=== PATIENT | male | born 1955 | race Caucasian/White ===

== ENCOUNTER → 2019-07-04 | Outpatient (CLI) | payer BC, SELFPAY ==
[2018-06-23 15:13] VITALS: BMI 28.5
[2019-07-04 14:57] LABS: AST(SGOT) 18 U/L (15-37); Alanine Aminotransfer ALT/SGPT 32 U/L (16-61); Albumin, Serum 3.8 g/dL (3.2-5.0); Alkaline Phosphatase 80 U/L (45-117); Bilirubin, Direct 0.16 mg/dL (0.00-0.30); Cholesterol 236 mg/dL (200); Globulin 3.4 g/dL (2.2-4.2); High Density Lipoprotein 38 mg/dL; Protein, Total 7.2 g/dL (6.4-8.2); Triglycerides 211 mg/dL; Very Low Density Lipoprotein 42 mg/dL (5-40)
== END | disposition home or self-care (01) ==
LOC: LAB 13:02
PROVIDERS: Referring Provider Nurse Practitioner Family; Visit Provider Nurse Practitioner Family
DX: E78.5 Hyperlipidemia, unspecified (principal)
CPT/HCPCS: 36415; 80061; 80076

== ENCOUNTER → 2019-08-26 12:06 | Outpatient (CLI) | payer BC, SELFPAY ==
[2019-07-06 15:16] VITALS: BMI 28.5
[2019-08-26 13:14] LABS: AST(SGOT) 36 U/L (15-37); Alanine Aminotransfer ALT/SGPT 79 U/L (16-61); Albumin, Serum 3.7 g/dL (3.2-5.0); Alkaline Phosphatase 91 U/L (45-117); Bilirubin, Direct 0.15 mg/dL (0.00-0.30); Cholesterol 149 mg/dL (200); Globulin 3.1 g/dL (2.2-4.2); High Density Lipoprotein 34 mg/dL; Protein, Total 6.8 g/dL (6.4-8.2); Triglycerides 115 mg/dL; Very Low Density Lipoprotein 23 mg/dL (5-40)
== END ==
PROVIDERS: Referring Provider Internal Medicine Cardiovascular Disease; Visit Provider Internal Medicine Cardiovascular Disease
DX: E78.00 Pure hypercholesterolemia, unspecified (principal); I25.10 Atherosclerotic heart disease of native coronary artery without angina pectoris; E78.5 Hyperlipidemia, unspecified; Z95.5 Presence of coronary angioplasty implant and graft
CPT/HCPCS: 36415; 80061; 80076

== ENCOUNTER 2021-10-15 13:44 | Outpatient (CLI) | payer BC, SELFPAY | END 2021-10-15 23:59 | disposition short-term general hospital (02) | LOC: PAVLAB 13:46 | PROVIDERS: Referring Provider Physician Assistant Medical; Visit Provider Physician Assistant Medical | DX: R07.9 Chest pain, unspecified (principal); Z98.61 Coronary angioplasty status; E78.5 Hyperlipidemia, unspecified ==

== ENCOUNTER 2021-10-22 13:34 | Observation (INO) | payer BC, SELFPAY ==
[2021-10-15 14:00] LABS: Absolute Lymphocyte Count 2.32 X10^3/uL (0.83-4.51); Basophil# 0.04 X10^3/uL; Basophil% 0.5 % (0-1); Eosinophil# 0.28 X10^3/uL; Eosinophils% 3.3 % (0-5); Hematocrit 40.8 % (40-54); Lymphocyte # 2.32 X10^3/ul (0.83-4.51); Lymphocyte % 27.3 % (19-41); Mean Corp Hgb Conc 34.3 g/dL (32-36); Mean Corpuscular Hgb 29.9 pg (27.0-32.0); Mean Platelet Vol. 9.6 fl (6.2-12.0); Monocyte# 0.81 X10^3/uL; Monocyte% 9.5 % (0-10); NRBC Flagged by Analyzer 0 % (0-5); Neutrophil # 5.04 X10^3/uL (2.7-7.7); Neutrophil % 59.2 % (47-70); Platelet Count 203 K/mm3 (150-450); RBC Distribution Width CV 12.8 % (11.6-14.6); RBC Distribution Width SD 40.1 fl (35.1-43.9); Red Blood Count 4.69 M/mm3 (4.6-6.2); White Blood Count 8.5 K/mm3 (4.4-11.0)
[2021-10-15 14:08] LABS: Partial Thromboplast Time 30.1 Seconds (24.1-36.2); Prothrombin Time (Protime)PT. 12.6 SECONDS (11.7-14.9)
--- NOTE | 2021-10-15 14:14 | RAD_ITS ---
STUDY: X-RAY CHEST REASON FOR EXAM: Male, 65 years old. CP TECHNIQUE: PA and lateral views of the chest. COMPARISON: Comparison is made with prior study dated 07/05/2013. FINDINGS: The lungs are clear and expanded. There is no demonstrated pleural abnormality. Normal size heart. Normal mediastinum and alex. Normal visualized pulmonary arteries. Normal visualized aortic arch and descending thoracic aorta. There are diffuse degenerative changes of the visualized thoracic spine. Normal visualized ribs, clavicles, and shoulders. There is no demonstrated abnormality of the visualized soft tissue structures of the upper abdomen. RAD/Chest PA and Lateral IMPRESSION: No acute abnormality is seen. Electronically Signed: Josh Santos MD at 15:30 EST , Service support ,
[2021-10-15 14:22] LABS: Anion Gap 5 (5-15); BUN 16 mg/dL (7-18); BUN/Creat Ratio 22.8 RATIO (10-20); Calcium,Total 8.3 mg/dL (8.5-10.1); Chloride 103 mmol/L (98-107); EST Glomerular Filtration Rate 120 mL/min (>60); Est Glom Filt Rate - Afr Amer 145 mL/min (>60); Glucose 127 mg/dL (74-106); Potassium 3.8 mmol/L (3.5-5.1); Sodium Level 137 mmol/L (136-145)
[2021-10-21 08:10] VITALS: BMI 28.0
--- NOTE | 2021-10-21 18:10 | PCM.HP.BLA ---
History and Physical Date of Admission: 10/22/21 [facility] [address] [place], [place] [id number] OFFICE VISITDate of Service: 09/25/21 MR#:[id number]:[id number]: STONEY PEACOCK [facility] #:[id number]:[id number] Provider: SHANNAN Orona/Sex: 65/M [place] [place]:Signed HPI HPI History of Present Illness Surgical H&P: Yes Details: STONEY PEACOCK, is a 65 year old white male who presents to the office today for for outpatient cardiovascular follow-up of his history of underlying CAD status post LAD PCI/KRYSTAL (2012) and hyperlipidemia. Pt is able to do 10 miles on the [employer] 3-4 days a week. He typically does 7-8 METS, When he works he walks 4 miles a week. Over the summer he took a few weeks off, He did have bronchitis. He notes that when he went back to doing his routine he feels that this took him longer to recover. He feels that his exercise tolerance has worsened. He notes when he gets usp into his routine he has chest pain, it does go away a closer to the end of his routine. His breathing is okay. He does not have any palpitations. Intake Vital Signs 09/25/21 09:10 Height 6 ft 2 in Weight: 218 lb BP 146/76 H Blood Pressure Location Lt brachial Position Sitting Respiration 18 Pulse 64 Pulse Source Monitor Pulse Oximetry (%) 98 Intake Visit Reasons: 1 Y FU Services Manager Required: No Accompanied by: None Is patient in pain?: No Allergies No Known Allergies Allergy (Verified 09/25/21 11:40) Medications aspirin 81 mg tablet,delayed release 81 mg PO QDAY 09/11/17 [History Confirmed 09/25/21] atorvastatin 40 mg tablet 40 mg PO DAILY #90 tab 05/14/21 [Rx Confirmed 09/25/21] clopidogrel 75 mg tablet 75 mg PO DAILY #30 tab 09/25/21 [Rx Confirmed 09/25/21] isosorbide mononitrate 30 mg tablet,extended release 24 hr 30 mg PO DAILY #30 tab 09/25/21 [Rx Confirmed 09/25/21] nitroglycerin 0.4 mg sublingual tablet 0.4 mg SUBLINGUAL Q5-15M PRN #25 tab 09/25/21 [Rx Confirmed 09/25/21] PFSH Medical History (Updated 09/25/21 @ 11:59 by Alyssa CAMPBELL, PA) Atherosclerotic heart disease of [place] coronary artery without angina pectoris Hyperlipidemia Surgical History (Updated 09/25/21 @ 11:59 by Alyssa CAMPBELL, PA) Presence of stent in coronary artery (~06/2013) S/P PTCA (percutaneous transluminal coronary angioplasty) (~07/2013) Family History Mother CAD (coronary artery disease) CHF (congestive heart failure) Father CAD (coronary artery disease) Cancer Brother Diabetes Social History (Updated 07/12/20 @ 15:[address] Michel Ybarra MD) Smoking Status: Unknown if ever smoked how long ago did patient quit smokin alcohol intake: current alcohol intake frequency: a few times a month Alcohol type: beer substance use type: does not use caffeine: Yes Type: tea what type of physical activity do you participate in: running frequency: 3-4 times per week duration: 30-45 minutes/day seatbelt use: always do you feel safe at home: Yes ROS Const Const: Positive for fatigue; Negative for weakness, headache(s), frequent falls, excessive sweating, weight gain or weight loss Eyes Eyes: Negative for blind spots, loss of peripheral vision, transient loss of vision, blurry vision, change in vision or double vision ENT ENT: Negative for headache(s), dizziness, tinnitus, Nosebleed/epistaxis or balance problems Cardio Chest Pain: Yes (see HPI) Palpitations: No Edema: None Muscle aches with walking: None Resp Respiratory: Negative for SOB with activity, SOB at rest, SOB orthopnea\SOB lying down or Cough GI GI: Negative nausea, vomiting, heartburn, bloating, vomiting blood/hematemesis, bright, red blood in stools or black,tarry stools : Negative for hematuria Musc Musc: Negative for muscle aches/ myalgia, muscle weakness, joint pain or balance problems Skin Skin: Negative rash or wounds Neuro Neuro: Negative for dizziness, lightheadedness, near syncope, syncope, orthostatic symptoms, frequent falls, headache(s), weakness, confusion, memory loss, restless legs, blurry vision or double vision Joe Hematologic/Lymphatic: Negative for easy bleeding or easy bruising Endo Endo: Positive for fatigue; Negative for cold intolerance, heat intolerance or excessive sweating Psych Psych: Negative for anxiety or depression Allergy Allergy/Immunology: Negative for rash Cardiology Exam Const Appearance: cooperative, healthy appearing, comfortable, no acute distress and well developed Orientation: alert, awake and oriented x3 Head Head: normal to inspection Ears: hearing grossly normal bilaterally Nose: external nose normal Face and Sinus: face symmetric Mouth: oral mucosae normal, lip normal and moist mucous membranes Eyes General: appearance normal, both eyes and all related structures Eyelids: eyelids normal Conjunctivae: conjunctivae normal Pupils: PERRL EOM: EOM intact bilaterally Neck Neck: normal visual inspection and trachea midline; Negative no JVD Carotids: Negative bruit Chest Chest inspection: normal inspection of the chest Auscultation: Bilateral: Clear to Auscultation Cardio Palpation: normal PMI Rate: regular rate Rhythm: regular rhythm Heart sounds: S1 normal and S2 normal; Negative rub, gallop or murmur GI GI: soft, no hepatosplenomegaly and bowel sounds present Neuro General: patient alert, patient awake, patient oriented x3 and CN's II-XI intact bilaterally Extremities Pulses: Normal: Right Posterior Tibial Pulse, Left Posterior Tibial Pulse, Right Radial Pulse and Left Radial Pulse Lower Extremity Edema: None: Bilateral Psych Psychological: normal affect Supplemental Info Supplemental Information EXERCISE TOLERANCE TEST: 07-06-2014 The patient exercised on a Salvador protocol for 7 minutes 45 seconds completing stage 2 and 1 minute 45 seconds of stage 3 achieving a peak heart rate of 173 beats per minute (106% predicted maximum heart rate) and a peak blood pressure of 176/70 mmHg and a peak MET capacity of approximately 9 METS. The baseline ECG demonstrated sinus bradycardia. The peak exercise ECG demonstrated somatic/motion artifact with [id number] ST segment variability with approximately 1 mm of horizontal/upsloping ST-segment depression in leads II, III, aVF, and V4 through V6 with resolution towards baseline beginning less than 1 minute into recovery. There were no cardiac dysrhythmias pretest, during exercise, or recovery. The functional capacity was considered average. The patient had no complaint of chest discomfort during exercise or recovery. The examination was discontinued secondary to dyspnea. IMPRESSION: 1. Technically adequate (percent predicted maximum heart rate greater than 85%) exercise tolerance test. 2. Peak exercise ECG with somatic/motion artifact with [id number] ST-segment variability with approximately 1 mm of horizontal/upsloping ST-segment depression in leads II, III, aVF and V4 through V6 with resolution towards baseline beginning less than 1 minute into recovery. 3. Nuclear images pending. MYOCARDIAL PERFUSION IMAGING STUDY: TECHNIQUE: The patient was injected with 14.4 mCi of Tc99m Cardiolite and subsequently rest SPECT Cardiolite nuclear imaging was obtained in the horizontal long, vertical long, and short axes views. The patient exercised on a [place] protocol for 7 minutes 45 seconds achieving a peak heart rate of 173 beats per minute (106% predicted maximum heart rate) with a peak blood pressure of 176/70 mmHg and a peak MET capacity of 9 METS. The patient was injected with 44.5 mCi of Tc99m Cardiolite and subsequently stress SPECT Cardiolite nuclear imaging was obtained in the horizontal long, vertical long, and short axes views. A gated Cardiolite study at peak stress was obtained. INTERPRETATION: Rest and stress SPECT Cardiolite nuclear imaging demonstrate an area, at rest, of extracardiac/hepatic and gastrointestinal tracer uptake near the inferior segments. This is less prominent following stress. Rest and stress SPECT Cardiolite nuclear imaging both demonstrate areas of diminished tracer uptake in the basal inferoseptal and basal inferior segments without significant change. Otherwise, there appears to be relative uniform tracer uptake. There was end systolic thickening and brightening. The gated Cardiolite study demonstrates myocardial thickening and inward wall motion. The reported LVEF was 58%. The aforementioned changes appear compatible with the effects of soft tissue attenuation/artifact and gastrointestinal tracer uptake/detraction with no myocardial perfusion changes considered diagnostic for stress induced myocardial ischemia or previous myocardial injury/infarction. IMPRESSION: 1. Rest and stress SPECT Cardiolite nuclear imaging demonstrate myocardial perfusion changes appearing compatible with the effects of soft tissue attenuation/artifact and gastrointestinal tracer uptake/detraction with no myocardial perfusion changes considered diagnostic for stress induced myocardial ischemia or previous myocardial injury/infarction. 2. The gated Cardiolite study reports an LVEF of 58%. Labs: LDL Cholesterol 92 mg/dL (0-130) HDL Cholesterol 34 mg/dL (40-) L Triglycerides 115 mg/dL (-199) VLDL Cholesterol 23 mg/dL (5-40) Diagnostics: Electrocardiogram Pulmonary: No Data to Display Assessment and Plan Assessment and Plan (1) Chest pain: Status: Acute (2) S/P PTCA (percutaneous transluminal coronary angioplasty): Status: Chronic Comment: PTCA with KRYSTAL to proximal LAD (3) Hyperlipidemia: Status: Chronic Qualifiers: Hyperlipidemia type: unspecified Qualified Code(s): E78.5 - Hyperlipidemia, unspecified Orders: Orders: 12 Lead EKG performed by BMS 09/25/21 R07.9, Z98.61, E78.5 12 Lead EKG performed by BMS 09/25/21 R07.9, Z98.61, E78.5 Left Heart Cath/COR/LV Percut 09/25/21 R07.9, Z98.61, E78.5 Basic Metabolic Profile (BMP) 09/25/21 R07.9, Z98.61, E78.5 Partial Thromboplast Time 09/25/21 R07.9, Z98.61, E78.5 Prothrombin Time w/INR 09/25/21 R07.9, Z98.61, E78.5 CBC W/Diff, Automated 09/25/21 R07.9, Z98.61, E78.5 Chest PA and Lateral 09/25/21 R07.9, Z98.61, E78.5 Plan - Alyssa CAMPBELL, PA: Patient does have symptoms that are concerning for angina. Do not feel that a stress test would be beneficial at this time to pursue as he is active and does try to achieve 7-8 METS daily however he is having symptoms when he is doing this. This is newer for patient since the last time that he was in the office. Would like to pursue a diagnostic heart catheterization. Patient is agreeable with this. So Plan Details Other Medications: New: isosorbide mononitrate ER 30 mg PO DAILY 30 tabs 6RF nitroglycerin (Nitrostat) do not exceed 3 doses per episode 0.4 mg sublingual Q5-15M PRN 25 tabs 3RF chest pain clopidogrel (Plavix) 75 mg PO DAILY 30 tabs 3RF Follow Up: 2 Months (MMM) COVID (Procedure Consent) Procedure Criteria Procedure Criteria: Yes Elective The surgeon/proceduralist and patient have discussed in detail the risk of exposure to and/or potential harm posed by the COVID-19 virus with having a surgery/procedure at this time versus the risk of delaying the surgery/procedure. It is not possible to know either the risk of delaying the surgery or procedure or chance of getting an infection with perfect accuracy, but a joint decision was made between the patient and the surgeon/proceduralist to proceed at this time with the scheduled surgery/procedure as indicated on the consent form. Coding Level of Care Code Off vis,est,level 4 Diagnoses Chest pain R07.9 S/P PTCA (percutaneous transluminal coronary angioplasty) Z98.61 Hyperlipidemia E78.5 Hyperlipidemia type: unspecified Coding Level of Care Code Off vis,est,level 4 Diagnoses Chest pain R07.9 S/P PTCA (percutaneous transluminal coronary angioplasty) Z98.61 Hyperlipidemia E78.5 Hyperlipidemia type: unspecified 10/02/21 1047<Electronically signed by Alyssa CAMPBELL>Date Alyssa CAMPBELL Cosigner Signature:Date (if applicable) CC: ~ Assessment & Plan Addt'l Comments Cardiac cath: 07/05/2013 Operative Report (Blank) Date of Procedure: 07/05/13 Procedure: Left heart catheterization, left ventriculogram, coronary arteriography Indications: Chest pain/angina pectoris, abnormal transthoracic echocardiogram, abnormal stress nuclear imaging study Consent: Per patient Premedications: Versed 2 mg IV push x1 Procedure: The patient was brought to the cardiac catheterization laboratory and laid supine on the cardiac catheterization table. The right inguinal area was prepped and draped in standard sterile fashion. 2% Xylocaine was used for local anesthesia. Using the modified Seldinger technique the right femoral artery was cannulated and a #5 [place] arterial sheath was placed. A #5 [place] JL4 Liset left coronary artery catheter was advanced under fluoroscopic guidance to the level of the central aorta were central aortic pressure was noted. This catheter was then used to engage the left coronary artery were subsequent left coronary arteriography was performed in multiple views. This catheter was then exchanged over a J-tipped guidewire for a #5 [place] JR 4 Liset left coronary artery catheter. This catheter was then danced to the level of the central aorta were central aortic pressure was noted. It was then used to engage the right coronary ostium where selective right coronary arteriography was performed in multiple views. This catheter was then exchanged over a J-tipped guidewire for a #5 [place] pigtail catheter. This catheter was advanced to the level of the central aorta and with the assistance of the J-tipped guidewire prolapsed across the aortic valve into the left ventricle. Left ventricular pressures were measured and recorded. A single plane STEPHEN left ventriculogram was performed using 36 mL of Isovue at 12 mL per second. Left ventricular pressures were recorded. The left heart pullback procedure was performed. All catheters were subsequently removed. The cardiac catheterization sheath was secured in place with 3-0 silk and sterile OpSite dressing. An arterial line set up as put in place. There was no apparent bleeding, hematoma, or complication otherwise prior to leaving the cardiac catheterization laboratory. Findings: Hemodynamics: Pre-angiographic dye load: Central aortic pressure: 124/70 mmHg Mean central pressure: 92 mmHg Left ventricular pressure: 137/12 mmHg Post-angiographic dye load: Central pressure: 142/71 mmHg Mean central pressure: 104 mmHg Left ventricular pressure: 142/13 mmHg Left ventricle: Normal left ventricular size with the appearance of mild hypokinesis of the distal anterior segment with an estimated post procedure LVEF of 60%. Left Main coronary artery: This is a large vessel giving rise to the left anterior descending, left circumflex, and intermediate ramus coronary vessels. It appears to be angiographically normal. Left anterior descending coronary artery: This is a large vessel which gives rise to a small septal adult basic education teacher system and a small to moderate size diagonal branching system. The LAD demonstrates a proximal discrete 90% appearing stenosis. The LAD is also noted to receive right to left collateral flow from the RCA system. Left circumflex coronary artery: This is a large system which continues on as a small vessel in the AV groove and gives rise to a large bifurcating obtuse marginal branch. The LCx system demonstrates proximal 10-25% eccentric appearing stenosis. Intermediate ramus coronary artery: This is a large vessel coursing toward the lateral apical area. It demonstrates proximal 10-25% diffuse appearing stenosis. Right coronary: This is a large dominant vessel giving rise to a large right PDA, right AV segment, and a small right posterior lateral system. The RCA system appears to be angiographically normal. It gives rise from right to left collateral flow to the LAD system. Aortic valve anus: Normal Aortic valve: Normal Aortic root: Normal Mitral valve annulus: Normal Mitral valve: Normal Discussion: The cardiac catheterization reveals relatively normal resting left ventricular end-diastolic pressure, mild hypokinesis of the distal anterior segment, and overall preserved LVEF of 60%, and angiographically significant appearing CAD involving the proximal LAD system. The patient will need to initiate risk factor evaluation and medical therapy as deemed appropriate. He should be considered for further catheter-based revascularization of the LAD system. The patient's case was discussed and reviewed with Rudi Knight M.D. of the interventional section of the [facility]. He agreed to accept the patient in transfer at [facility] for further cardiovascular evaluation and care. Final impression: 1. Relatively normal resting left ventricular end-diastolic pressure 2. Left ventricle: A. Mild hypokinesis of the distal anterior segment B. Estimated LVEF is 60% 3. Left main coronary: A. Angiographically normal 4. Left anterior descending coronary: A. Proximal discrete 90% appearing stenosis B. LAD receiving [id number] collateral flow from the RCA system 5. Left circumflex coronary artery: A. Proximal 10-25% eccentric appearing stenosis 6. Intermediate ramus coronary artery: A. Proximal 10-25% diffuse stenosis 7. Right coronary artery: A. Large dominant vessel B. Angiographically normal C. Right to left collateral flow to the LAD system PCI: 07/06/2013: [facility] Promus Element Plus: 4.0 x 8.0 Comment: Based upon the patient reporting an altered sense of taste he underwent a COVID19 Rapid Antigen test. It was reported as negative. Thus, the patient will proceed with evaluation with cardiac catheterization. This note was generated using a voice recognition system and there may be incorrect words, spelling or punctuation that were not noted when reviewing the office note prior to saving.
--- NOTE | 2021-10-22 11:55 | CL.D_ITS ---
Patient Name: STONEY PEACOCK Study Date: 10/22/2021 Performing: Michel Ybarra MD Ht: 74.01 inches 188 cm : 1955 Wt: 218.26 lbs 99 kg Age: 65 Gender: male BSA: 2.26 PROCEDURE(S) PERFORMED DC01-([id number])LHC/COR/LV CLINICAL PROFILE AND INDICATIONS Indications: Worsening Angina, Suspected CAD Heart Failure: None Stress/Imaging Stress/Image Study Performed: No Angina Classification Anginal Classification w/in 2 Weeks: CCS II CAD Presentations: Other: worsening angina CONCLUSIONS Elevated Left Ventricular End Diastolic Pressure Normal LV size, wall motion,and systolic function LVEF: by LV gram 55 % [place] Multivessel CAD LAD: stent: patent RECOMMENDATIONS Risk factor modification Medical therapy Referred for immediate PCI DESCRIPTION OF PROCEDURE The patient arrived to the procedure lab. The risks and benefits of the procedure as well as a full d escription of our services here and current unavailability of surgical backup were fully explained to the patient and/or their significant other prior to the catheterization. The Timeout was completed, verifying the correct patient and procedure. The patient's procedural site was prepped and draped in the usual fashion. Local anesthetic was given subcutaneously to right radial region with Lidocaine 2% . Using a modified Seldinger technique, arterial access was obtained via the right radial artery, a 6 Fr sheath was inserted. Right Coronary Artery selective angiography was then performed in multiple v iews using a 5 Fr. 4.0 [place] catheter. Left Coronary Artery selective angiography was performed in mu ltiple views using a 5 Fr. JL3.5 catheter. Left Ventriculography was performed in STEPHEN projection usin g a 5 Fr. Pigtail catheter. LV to AO pullback pressures were then recorded. CORONARY ANGIOGRAPHY DOMINANCE: Right Dominant LEFT HEART ASSESSMENT Left Ventricular Ejection Fraction: by LV Gram 55 % Normal LV wall motion Elevated Left Ventricular End Diastolic Pressure LVEDP: 19 mmHg LEFT MAIN: Angiographically normal LEFT ANTERIOR DESCENDING ARTERY: PROX LAD: Previously placed stent is patent CIRCUMFLEX ARTERY: PROX CIRC: eccentric: 25 % Stenosis RAMUS: lon % Stenosis RIGHT CORONARY ARTERY: Mild luminal irregularities less than 30% MID RCA: diffuse: eccentric: 25 % Stenosis DISTAL RCA: diffuse: eccentric: 25 % Stenosis AORTIC ROOT: Angiographically normal COMPLICATIONS PROCEDURE MEDICATIONS Fentanyl 50 mcg IV Versed 1 mg IV Fentanyl 50 mcg IV Versed 1 mg IV Oxygen: 2 L/min via nasal cannula Heparin given IA 10/22/2021 11:06:33 Plavix 300 mg PO 10/22/2021 11:42:04 Verapamil 2.5mg, Ntg 100mcgs, 3000 units of Heparin given IA 10/22/2021 11:06:33 SUMMARY OF HEMODYNAMIC DATA Time AIR REST ECG 09:54:54 ECG 10:45:28 Art 188/75 (102) 10:57:37 AO 116/79 (96) SA 11:08:45 LV 139/-8, 17 11:30:16 LV 142/-9, 19 11:30:23 LV 135/-6, 19 11:31:19 LV 140/-3, 18 11:31:25 LVp 135/-5, 19 11:31:30 AOp 122/63 (87) 11:31:35 AO 125/72 (94) 11:51:44 Signed By Michel Ybarra MD On 10/22/2021 11:54:09 Michel Ybarra MD
--- NOTE | 2021-10-22 13:03 | PCI.CARDCATH ---
PCI Cardiac Cath Report PCI Report: PCI cardiac cath report; 1. Successful PCI of subtotal high OM1 with predilatation followed by placement of drug-eluting stent 2.5 x 30 mm DSE/Orsiro Postdilated with 3 x 20 mm NC balloon. With reduction of stenosis from 99% to 0% And achievement of LANDY-3 flow from prior LANDY I flow. 2. Access from the right common femoral artery under fluoroscopic guidance With right common femoral artery angiography and placement of Perclose to close the right common femoral artery arteriotomy site. Preprocedure diagnosis; 65-year-old patient with history of CAD Has a prior PCI and stent of the LAD in 2016. Followed regularly by his primary power transformer assembler Dr. Ybarra Evidently he has worsened exercise tolerance he was very active and he used to exercise regularly walking for 4 miles per week. Cardiac catheterization performed today by his primary power transformer assembler which showed patency of the LAD stent with subtotal high OM1 branch, 99%, nonobstructive atherosclerosis of the RCA, LV function preserved with nuclear study recently showing ejection fraction of 58%. Consent; Risk and benefit of the procedure explained in detail to the patient, elected to proceed and informed consent obtained. Medication in the Diesel Dinkey Engineer; 1. Patient was already on clopidogrel and he was given additional 300 mg of clopidogrel in addition to the aspirin in the Diesel Dinkey Engineer 2. 8000 units of heparin Patient has severe spasm at the right radial artery approach requiring multiple medication with nitro glycerin and we elected to proceed from the right common femoral artery Interventional equipment; 1. 6 [place] JL 4 guide 2. 2 x 15 mm balloon 3. 0.014 run-through extra floppy 180 cm straight wire 4. 2.5 x 30 mm drug-eluting stent/KRYSTAL-Orsiro patient 5. 3 x 20 mm NC Emerge balloon 6. Selective right common femoral artery angiography and placement of Perclose to close the right common femoral artery arteriotomy site. Procedure in detail; Under fluoroscopic guidance was received with 6 [place] JL 4 guide, cannulate the left main without difficulty, then we will proceed with 0.014 run-through extra floppy guidewire across the lesion in the high OM1 Noted some difficulty passing the balloon as it is a subtotal lesion, proceed with the predilatation using 2 x 15 mm balloon up to 12 MARTITA Followed by placement of a drug-eluting stent 2.5 x 30 mm drug-eluting stent followed by postdilatation using 3 x 20 mm NC balloon and achievement of excellent result with reduction of stenosis from 99% to 0% and achievement of a LANDY-3 flow with no complication in the Diesel Dinkey Engineer Following this all catheters removed hemostasis maintained with Perclose and manual pressure. Conclusion and recommendations; Successful PCI of subtotal high OM1 as described 1. Patient to continue on DAPT clopidogrel 75 mg in addition to aspirin 81 mg for 1 year 2. Patient to continue follow-up with her primary power transformer assembler Dr. Ybarra for continuation of cardiac care/medical treatment 3. Patient is scheduled for cardiac rehab program. Randi Wolff MD,FACC,[facility]
--- NOTE | 2021-10-22 15:31 | CRPHASE1_ITS ---
Patient Communication Former Patient:: Phase I PHII Cardiac Rehab Discussed with Patient:: Yes Guide to Cardiac Rehab Given to Patient:: Yes Cardiac Rehab Facility Choice List Given to Patient:: Yes Choice Program [facility] PHII:: Communication Given to CR Ndt Inspector:: Michel Ybarra Refer Phase II Cardiac Rehab:: Yes Cardiac Rehabilitation Info Cardiac Rehabilitation Program Information: Cardiac Rehabilitation is important for patients like you who are recovering from a heart problem. Cardiac rehabilitation programs are recognized as integral to the continued care of the patient with coronary heart disease. The cardiac rehabilitation program is designed to optimize a patient's physical, psychological, and social functioning. Health wound care physician work in cardiac rehabilitation programs and assist you with getting the treatments you need to get stronger and healthier - like exercise, healthy eating habits, and medications. Cardiac rehabilitation has been show to help people with heart problems live longer and have better life enjoyment than people who do not go to cardiac rehabilitation. Please contact the Cardiac Rehabilitation Program at [facility] at in two weeks if you have not heard from them.
--- NOTE | 2021-10-22 15:32 | CRPH1.INST_ITS ---
General Education CAD and cardiac anatomy and function:: Patient communicates acknowledgment, Family communicates acknowledgment Explanation of diagnoses and procedures:: Patient communicates acknowledgment, Family communicates acknowledgment Sign/Symptoms of GA:: Patient communicates acknowledgment, Family communicates acknowledgment Antiplatelet therapy: Patient communicates acknowledgment, Family communicates acknowledgment Proper use of NTG-SL: Patient communicates acknowledgment, Family communicates acknowledgment Emergency procedures and activation of EMS: Patient communicates acknowledgment, Family communicates acknowledgment Compliance of all prescribed medications: Patient communicates acknowledgment, Family communicates acknowledgment Smoking Patient Nicotine/Smoking Risk Factors Are:: Cigarettes Recommendations Include:: Previous smoker; encourage continued cessation Nicotine/Smoking Response Code:: Patient communicates acknowledgment, Family communicates acknowledgment Dyslipidemia Patient Dyslipidemia Risk Factors Are:: Total Cholesterol, Triglycerides, HDL, LDL Recommendations Include:: Lipid profile not available, Reviewed NCEP/ATP guidelines, Therapeutic Lifestyle Change dietary guidelines Dyslipidemia Response Code:: Patient communicates acknowledgment, Family communicates acknowledgment Overweight/Obesity Patient Overweight/Obesity Risk Factors Are:: Overweight = 26-29 Recommendations Include:: Weight loss of 5-10%, Reduced calorie diet, Exercise 5-7 times/week Overweight/Obesity:: Patient communicates acknowledgment, Family communicates acknowledgment Hypertension Recommendations Include:: Maintain BP <130/85, DASH dietary guidelines, Decre ase/maintain normal body weight, Moderation of ETOH Hypertension:: Patient communicates acknowledgment, Family communicates acknowledgment Heart Disease Patient Heart Disease Risk Factors Are:: Previous cardiac event Recommendations Include:: Educated family members of their risk Heart Disease Response Code:: Patient communicates acknowledgment, Family communicates acknowledgment Stress Patient Stress Risk Factors Are:: Patient denies stress as a risk factor
[2021-10-22 15:47] VITALS: PULSE 74
--- NOTE | 2021-10-22 15:52 | PCS.PANDOC ---
PANDEMIC DOCUMENTATION INITIATED: Date: 05/20/2021 Time: 190
[2021-10-22 16:15] VITALS: PULSE 55
[2021-10-22 16:29] VITALS: PULSE 64
[2021-10-22] MEDS: 0.9% Normal Saline 1,000 ML 75 ML IV (17:06)
[2021-10-22 18:34] VITALS: BP 138/78; PULSE 53; RESP 16; TEMP 36.3; O2SAT 98
[2021-10-22 19:02] VITALS: PULSE 59
[2021-10-22 20:38] VITALS: BP 134/82; PULSE 57; RESP 18; TEMP 37.2; O2SAT 98
[2021-10-22] MEDS: Atorvastatin Calcium 40 MG Tablet PO (20:38)
[2021-10-23] MEDS: Acetaminophen 325 MG Tablet 650 MG PO (02:29)
[2021-10-23 02:57] VITALS: BP 129/75; PULSE 55; PULSE 56; RESP 16; TEMP 36.5; O2SAT 96
[2021-10-23 06:29] LABS: Absolute Lymphocyte Count 1.98 X10^3/uL (0.83-4.51); Absolute Neutrophil Count 6.2 X10^3/uL (2.0-7.7); Basophil# 0.03 X10^3/uL; Basophil% 0.3 % (0-1); Eosinophil# 0.27 X10^3/uL; Eosinophils% 2.9 % (0-5); Hematocrit 37.6 % (40-54); Hemoglobin 13.2 g/dL (13.0-16.5); Lymphocyte # 1.98 X10^3/ul (0.83-4.51); Lymphocyte % 21.3 % (19-41); Mean Corp Hgb Conc 35.1 g/dL (32-36); Mean Corpuscular Hgb 30.3 pg (27.0-32.0); Mean Corpuscular Volume 86.4 fL (80-94); Mean Platelet Vol. 10.2 fl (6.2-12.0); Monocyte% 8.6 % (0-10); NRBC Flagged by Analyzer 0 % (0-5); Neutrophil % 66.6 % (47-70); Platelet Count 166 K/mm3 (150-450); RBC Distribution Width CV 12.9 % (11.6-14.6); RBC Distribution Width SD 40.7 fl (35.1-43.9); Red Blood Count 4.35 M/mm3 (4.6-6.2); White Blood Count 9.3 K/mm3 (4.4-11.0)
[2021-10-23 06:53] LABS: ALB/GLOB Ratio 1.2 RATIO (0.9-2.4); AST(SGOT) 22 U/L (15-37); Alanine Aminotransfer ALT/SGPT 43 U/L (16-61); Albumin, Serum 3.3 g/dL (3.2-5.0); Alkaline Phosphatase 80 U/L (45-117); Anion Gap 6 (5-15); BUN 9 mg/dL (7-18); BUN/Creat Ratio 14.5 RATIO (10-20); Calcium,Total 8.3 mg/dL (8.5-10.1); Chloride 107 mmol/L (98-107); Creatinine, Serum 0.62 mg/dL (0.70-1.30); EST Glomerular Filtration Rate 138 mL/min (>60); Est Glom Filt Rate - Afr Amer 167 mL/min (>60); Estimated Creatinine Clearance 139.95 ml/min; Globulin 2.8 g/dL (2.2-4.2); Glucose 142 mg/dL (74-106); Protein, Total 6.1 g/dL (6.4-8.2); Sodium Level 138 mmol/L (136-145)
[2021-10-23 07:45] VITALS: O2SAT 95
[2021-10-23 08:04] VITALS: PULSE 68
[2021-10-23 08:23] VITALS: BP 129/74; PULSE 56; RESP 18; TEMP 36.6; O2SAT 95
[2021-10-23 08:28] VITALS: PULSE 56; RESP 18; O2SAT 95
[2021-10-23] MEDS: Clopidogrel Bisulfate 75 MG Tablet PO (09:12)
[2021-10-23] MEDS: Isosorbide Mononitrate 30 MG Tablet PO (09:12)
[2021-10-23] MEDS: Aspirin E.C. 81 MG Tablet PO (09:13)
--- NOTE | 2021-10-23 10:00 | EKG12_ITS ---
Test Reason : Blood Pressure : / mmHG Vent. Rate : 054 BPM Atrial Rate : 054 BPM P-R Int : 158 ms QRS Dur : 074 ms QT Int : 432 ms P-R-T Axes : 056 040 025 degrees QTc Int : 409 ms Sinus bradycardia Nonspecific T wave abnormality Abnormal ECG Confirmed by OTIS HEAD, ANDREW ([id number]), proposal editor NED ESCALONA ([id number]) on 10/24/2021 9:35:59 AM Referred By: Jcarlos Main Confirmed By:ANDREW BERG MD
--- NOTE | 2021-10-23 10:02 | DCINST_ITS ---
Discharge Instructions Diet Discharge Diet: Low fat / Low cholesterol Activity Discharge Activity: May Not Drive (x 48 hours ), May Shower (Today) and May Take a Tub Bath (in 7 days) Return to work on:: 10/28/21 May resume sexual activity in: 1-2 weeks Weight Bearing Status: - (avoid heavy exertional activity until 10/28/2021 then resume activity as tolerated) Dressing / Incision Call your doctor if your incision/area has: Continuous Slow Oozing, Sudden Increased Bleeding, Increased Pain/ Swelling, Increased Redness, Foul Smelling Discharge and Swelling at the incision site Call your doctor if you observe: Fever of 101 or Higher, Shortness of breath, Fainting spells, Swelling in the ankles, Chest pain, Increased palpitations (irregular heartbeat), Calf discomfort and Uncontrolled pain Remove Dressing in: 1 day Cleanse incision/area with: Soap & Water Follow Up Care Please Follow Up With: Michel Ybarra MD When: [facility] office to arrange post hospital follow up appointment Test Results: Test results from this visit will be discussed in further detail at your follow-up appointment, if applicable. Discharge Plan Admission Admit Date/Time: 10/22/21 13:34 Attending Provider: Michel Ybarra Primary Care Provider: Care PhysicianRita Primary Discharge Orders/Prescriptions Prescriptions: Continued isosorbide mononitrate 30 mg tablet extended release 24 hr 30 mg PO DAILY Qty: 30 RF: 6 nitroglycerin [Nitrostat] 0.4 mg tablet, sublingual 0.4 mg sublingual Q5-15M PRN (Reason: chest pain) Qty: 25 RF: 3 aspirin [Adult Low Dose Aspirin] 81 mg tablet,delayed release (DR/EC) 81 mg PO QDAY RF: 0 atorvastatin 40 mg tablet 40 mg PO DAILY Qty: 90 RF: 3 clopidogrel [Plavix] 75 mg tablet 75 mg PO DAILY Qty: 30 RF: 3 Referrals / Follow Up: Care Physician,Rita Primary [Primary Care Provider] - Michel Ybarra MD [STAFF PHYSICIAN] -
--- NOTE | 2021-10-23 10:05 | DS.PCM_ITS ---
Providers Date of Admission: 10/22/21 Date of Discharge: 10/23/21 Primary Care Physician: Rita Primary Care Phys Reason For Visit: CHEST PAIN, CORONARY ARTERY DIESEASE Diagnosis Discharge Diagnosis (1) Atherosclerotic heart disease of [place] coronary artery without angina pectoris: Status: Chronic Code(s): I25.10 - Atherosclerotic heart disease of [place] coronary artery without angina pectoris Qualifiers: [place] vs. transplanted heart: [place] heart Qualified Code(s): I25.10 - Atherosclerotic heart disease of [place] coronary artery without angina pectoris (2) Presence of stent in coronary artery: Status: Chronic Code(s): Z95.5 - Presence of coronary angioplasty implant and graft Medications at Discharge Home Medications aspirin 81 mg tablet,delayed release 81 mg PO QDAY 09/11/17 isosorbide mononitrate 30 mg tablet,extended release 24 hr 30 mg PO DAILY #30 tab 09/25/21 nitroglycerin 0.4 mg sublingual tablet 0.4 mg SUBLINGUAL Q5-15M PRN #25 tab 09/25/21 atorvastatin 40 mg tablet 40 mg PO DAILY #90 tab 10/09/21 clopidogrel 75 mg tablet 75 mg PO DAILY #30 tab 10/21/21 Hospital Course Procedures Cardiac catheterization and - (Cardiac Intervention: PCI/KRYSTAL) Summary of Care Provided Minutes Spent on Discharge: 45 Hospital Course: The patient is at [facility] for evaluation with diagnostic cardiac catheterization. The cardiac catheterization procedure revealed angiographically significant appearing disease in the LCx/OM1 distribution. The patient underwent subsequent LCx/OM1 PTCA/KRYSTAL. The patient was monitored overnight. He appeared to be symptomatically and hemodynamically stable. He was felt stable for release home today for continued outpatient cardiovascular follow-up and outpatient cardiac rehabilitation therapy. Physical Exam Const alert, oriented x3 and no apparent distress General Appearance: cooperative, comfortable, well kempt and well developed HEENT normocephalic, head/scalp atraumatic and hearing grossly normal bilaterally Eyes PERRL, EOMs intact bilaterally and conjunctivae normal Neck full ROM and no JVD Chest Chest: symmetrical chest wall rise Resp normal air movement Cardio regular rate, regular rhythm, S1 normal heart sound and S2 normal heart sound GI normal to inspection, nondistended, normoactive bowel sounds Extremity no pedal edema Peripheral Pulses: Yes radial pulses present right (No bruits: No hematoma) 2+ and femoral pulses present right (No bruits: No hematoma) 2+ Neuro oriented x3, moves all extremities, no focal motor deficits and no sensory deficits noted Psych mental status grossly normal Weight / BMI Weight Weight: 218 lb Body Mass Index (BMI) 28.0 ABG / Lab / Microbiology Data Result Diagrams: 10/23/21 05:37 10/23/21 05:37 Laboratory: Laboratory Results - last 24 hr 10/23/21 05:37: WBC 9.3, RBC 4.35 L, Hgb 13.2, Hct 37.6 L, MCV 86.4, MCH 30.3, MCHC 35.1, RDW Std Deviation 40.7, RDW Coeff of Riana 12.9, Plt Count 166, MPV 10.2, Immature Gran % (Auto) 0.300, Neut % (Auto) 66.6, Lymph % (Auto) 21.3, [place] % (Auto) 8.6, Eos % (Auto) 2.9, Baso % (Auto) 0.3, Absolute Neuts (auto) 6.2, Absolute Lymphs (auto) 1.98, Nucleated RBC % 0 10/23/21 05:37: Sodium 138, Potassium 4.0, Chloride 107, Carbon Dioxide 25.0, Anion Gap 6, BUN 9, Creatinine 0.62 L, Estim Creat Clear Calc 139.95, Est GFR (MDRD) Af Amer 167, Est GFR (MDRD) Non-Af 138, BUN/Creatinine Ratio 14.5, Glucose 142 H, Calcium 8.3 L, Total Bilirubin 0.80, AST 22, ALT 43, Alkaline Phosphatase 80, Total Protein 6.1 L, Albumin 3.3, Globulin 2.8, Albumin/Globulin Ratio 1.2 Rhythm: Sinus rhythm ECG: Sinus rhythm Microbiology: Microbiology 10/22/21 10:00 Nasal Secretion SARS-CoV-2 Antigen (Rapid) - Final D/C Instructions Discharge Diet: Low fat / Low cholesterol Return to work on: 10/28/21 May resume sexual activity in: 1-2 weeks Weight Bearing Status: - (avoid heavy exertional activity until 10/28/2021 then resume activity as tolerated) Call your doctor if your incision/area has: Continuous Slow Oozing, Sudden Increased Bleeding, Increased Pain/ Swelling, Increased Redness, Foul Smelling Discharge and Swelling at the incision site Call your doctor if you observe: Fever of 101 or Higher, Shortness of breath, Fainting spells, Swelling in the ankles, Chest pain, Increased palpitations (irregular heartbeat), Calf discomfort and Uncontrolled pain Cleanse incision/area with: Soap & Water Please Follow Up With: Michel Ybarra MD When: [facility] office to arrange post hospital follow up appointment Meaningful Use Info Meaningful Use Diagnoses (Choose all that apply): None applicable Discharge Plan Admission Admit Date/Time: 10/22/21 13:34 Attending Provider: Michel Ybarra Primary Care Provider: Care Physician,No Primary Discharge Orders/Prescriptions Prescriptions: Continued isosorbide mononitrate 30 mg tablet extended release 24 hr 30 mg PO DAILY Qty: 30 RF: 6 nitroglycerin [Nitrostat] 0.4 mg tablet, sublingual 0.4 mg sublingual Q5-15M PRN (Reason: chest pain) Qty: 25 RF: 3 aspirin [Adult Low Dose Aspirin] 81 mg tablet,delayed release (DR/EC) 81 mg PO QDAY RF: 0 atorvastatin 40 mg tablet 40 mg PO DAILY Qty: 90 RF: 3 clopidogrel [Plavix] 75 mg tablet 75 mg PO DAILY Qty: 30 RF: 3 Referrals / Follow Up: Micehl Ybarra MD [STAFF PHYSICIAN] - Care Physician,No Primary [Primary Care Provider] -
== END 2021-10-23 10:10 | disposition home or self-care (01) ==
LOC: CLSP 14:50 → PCU 14:51
PROVIDERS: Internal Medicine Interventional Cardiology; Physician Assistant Medical; Admitting Provider Internal Medicine Cardiovascular Disease; Referring Provider Internal Medicine Cardiovascular Disease; Visit Provider Internal Medicine Cardiovascular Disease
DX: I25.119 Atherosclerotic heart disease of native coronary artery with unspecified angina pectoris (principal); E78.5 Hyperlipidemia, unspecified; Z87.891 Personal history of nicotine dependence; Z79.82 Long term (current) use of aspirin; Z79.02 Long term (current) use of antithrombotics/antiplatelets; Z79.899 Other long term (current) drug therapy; Z95.5 Presence of coronary angioplasty implant and graft
CPT/HCPCS: 36415; 71046; 80048; 80053; 85025; 85610; 85730; 87426; 92928; 93005; 93458; 96360; 96361; 99152; 99153; 99218; C1874; J7030; J7040; Q9967; C1725; C1760; C1769; C1887; C1894; C9600; G0378

== ENCOUNTER 2021-11-20 12:22 | Outpatient (CLI) | payer BC, SELFPAY ==
[2021-11-20 14:43] LABS: AST(SGOT) 20 U/L (15-37); Alanine Aminotransfer ALT/SGPT 36 U/L (16-61); Albumin, Serum 3.6 g/dL (3.2-5.0); Alkaline Phosphatase 88 U/L (45-117); Bilirubin, Direct 0.14 mg/dL (0.00-0.30); Cholesterol 147 mg/dL (200); Globulin 3.1 g/dL (2.2-4.2); High Density Lipoprotein 36 mg/dL; Protein, Total 6.7 g/dL (6.4-8.2); Triglycerides 177 mg/dL; Very Low Density Lipoprotein 35 mg/dL (5-40)
== END 2021-11-20 23:59 | disposition home or self-care (01) ==
LOC: LAB 12:24
PROVIDERS: Visit Provider Physician Assistant Medical
DX: I25.10 Atherosclerotic heart disease of native coronary artery without angina pectoris (principal); E78.5 Hyperlipidemia, unspecified
CPT/HCPCS: 36415; 80061; 80076

== ENCOUNTER → 2023-06-29 | Outpatient (CLI) | payer BC, SELFPAY ==
[2023-06-29 17:03] LABS: AST(SGOT) 18 U/L (15-37); Alanine Aminotransfer ALT/SGPT 45 U/L (16-61); Albumin, Serum 3.6 g/dL (3.2-5.0); Alkaline Phosphatase 100 U/L (45-117); Bilirubin, Direct 0.13 mg/dL (0.00-0.30); Cholesterol 159 mg/dL (200); High Density Lipoprotein 38 mg/dL; Protein, Total 6.6 g/dL (6.4-8.2); Triglycerides 279 mg/dL; Very Low Density Lipoprotein 56 mg/dL (5-40)
== END | disposition home or self-care (01) ==
LOC: LAB 16:30
PROVIDERS: Referring Provider Physician Assistant Medical; Visit Provider Physician Assistant Medical
DX: E78.5 Hyperlipidemia, unspecified (principal); Z95.5 Presence of coronary angioplasty implant and graft
CPT/HCPCS: 36415; 80061; 80076

== ENCOUNTER → 2023-08-12 | Outpatient (CLI) | payer BC, SELFPAY ==
[2023-08-12 14:13] LABS: AST(SGOT) 18 U/L (15-37); Alanine Aminotransfer ALT/SGPT 31 U/L (16-61); Albumin, Serum 3.6 g/dL (3.2-5.0); Alkaline Phosphatase 85 U/L (45-117); Cholesterol 256 mg/dL (200); Globulin 3.2 g/dL (2.2-4.2); High Density Lipoprotein 40 mg/dL; Protein, Total 6.8 g/dL (6.4-8.2); Triglycerides 177 mg/dL; Very Low Density Lipoprotein 35 mg/dL (5-40)
== END | disposition home or self-care (01) ==
LOC: LAB 13:11
PROVIDERS: Referring Provider Physician Assistant Medical; Visit Provider Physician Assistant Medical
DX: E78.5 Hyperlipidemia, unspecified (principal)
CPT/HCPCS: 36415; 80061; 80076

== ENCOUNTER 2023-10-16 19:58 | Emergency (ER) | payer BC, SELFPAY ==
[2023-10-16 20:00] VITALS: BP 172/102; PULSE 110; RESP 18; TEMP 35.7; O2SAT 94
--- OUTSIDE RECORDS SUMMARY | 2023-10-16 20:22 | XMS RPT_ITS | CCD ---
Author Name Unknown Address [address] [place] [address] Organization [facility] Care Team Providers Care Home Energy Auditor Name Role Phone Amada HEAD, Michel Cooper Unavailable [phone] Beena BOYCE, Alyssa Torres Unavailable [phone] Laura Vaca Unavailable Unavailable Allergies Allergy Classification Reported Allergen(s) Allergy Type Date of Onset Reaction(s) Facility (9 sources) NKA drug allergy 07-05-2013 [facility] Work Phone: Medications Completed/Discontinued Medications Medication Drug Class(es) Dates Sig (Normalized) Sig (Original) ascorbic acid 500 mg oral tablet (4 sources) Start: 07-05-2013 take 1 tablet by mouth once daily VITAMIN C 500 MG TABS One tablet by mouth daily ASCORBIC ACID [id number] Michel Ybarra MD aspirin 81 mg oral tablet (8 sources) Nonsteroidal Anti-inflammatory Drug Start: 07-11-2013 take 1 tablet by mouth once daily ASPIRIN 81 MG TABS One tablet by mouth daily ASPIRIN [id number] Luz Gray RN Problems Active Problems Problem Classification Problem Date Documented Da te Episodic/Chronic Coronary atherosclerosis and other heart disease (4 sources) Coronary arteriosclerosis; Translations: [Atherosclerotic heart disease of [place] coronary artery without angina pectoris] Onset: 08-26-2016 08-26-2016 Chronic Disorders of lipid metabolism (4 sources) Hyperlipidemia; Translations: [Hyperlipidemia, unspecified] Onset: 07-05-2013 07-05-2013 Chronic Other nutritional; endocrine; and metabolic disorders (4 sources) High density lipoprotein deficiency ; Translations: [Lipoprotein deficiency] Onset: 07-20-2013 07-20-2013 Chronic Unclassified (3 sources) Percutaneous transluminal coronary angioplasty ; Translations: [Coronary angioplasty status] Onset: 07-20-2013 07-20-2013 Unclassified (1 source) Long-term drug therapy; Translations: [Long-term (current) use of other medications] Onset: 07-13-2014 07-13-2014 Past or Other Problems Problem Classification Problem Date Documented Date Episodic/Chronic Malaise and fatigue (4 sources) Fatigue; Translations: [Other fatigue] Onset: 07-05-2013 07-05-2013 Episodic Nonspecific chest pain (4 sources) Chest pain, unspecified; Translations: [Chest pain, unspecified] Onset: 07-05-2013 07-05-2013 Episodic Other aftercare (7 sources) 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; Translations: [Long-term (current) use of other medications] Onset: 07-13-2014 08-26-2016 Episodic Other circulatory disease (4 sources) Cardiovascular stress test abnormal; Translations: [Abnormal result of other cardiovascular function study] Onset: 07-05-2013 07-05-2013 Episodic Other nutritional; endocrine; and metabolic disorders (12 sources) Body mass index (BMI) 28.0-28.9, adult; Translations: [Body mass index (BMI) 27.0-27.9, adult] Onset: 07-05-2013 08-21-2015 Episodic Results Test Name Value Interpretation Reference Range Facil ity Vital Signs Date Time Vital Sign Value Performing Clinician Barron valles 03-09-2017 10:21-0400 BMI (Body Mass Index) 28.37 kg/m2 [facility] Work Phone: 03-09-2017 10:21-0400 BP Diastolic 76 mm[Hg] [facility] Work Phone: 03-09-2017 10:21-0400 BP Systolic 130 mm[Hg] [facility] Work Phone: 03-09-2017 10:21-0400 Pulse (Heart Rate) 60 /min [facility] Work Phone: 03-09-2017 10:21-0400 Respiratory Rate 16 /min [facility] Work Phone: 03-09-2017 10:21-0400 Weight 100.25 kg Michel Ybarra MD [facility] Work Phone: 08-26-2016 10:48-0500 BMI (Body Mass Index) 28.76 kg/m2 Alyssa Hargrove RN [facility] Work Phone: 08-26-2016 10:48-0500 BP Diastolic 62 mm[Hg] Alyssa Hargrove RN [facility] Work Phone: 08-26-2016 10:48-0500 BP Systolic 118 mm[Hg] Alyssa Hargrove RN [facility] Work Phone: 08-26-2016 10:48-0500 BSA (Body Surface Area) 2.28 m2 Alyssa Hargrove RN [facility] Work Phone: 08-26-2016 10:48-0500 Pulse (Heart Rate) 72 /min [facility] Work Phone: 08-26-2016 10:48-0500 Respiratory Rate 16 /min [facility] Work Phone: 08-26-2016 10:48-0500 Weight 101.61 kg Alyssa Hargrove RN [facility] Work Phone: 07-03-2014 09:13-0400 Heart rate 58 /min Laura Vaca [facility] Work Phone: 07-05-2013 11:47-0400 Height 187.96 cm [facility] Work Phone: Encounters Encounter Date Encounter Type Care Provider Facility Start: 07-01-2023 End: 07-01-2023 ambulatory Facility:[facility] Procedures Date Procedure Procedure Detail Performing Clinician Start: 03-09-2017 End: 03-09-2017 Dietary management education, guidance, and counseling Laura Vaca Start: 03-09-2017 End: 03-09-2017 Follow Up Appt 6 months Michel Ybarra MD Start: 03-09-2017 End: 03-09-2017 MMM Michel Ybarra MD Start: 08-26-2016 End: 03-09-2017 *Hepatic Function Panel Alyssa galindo PA-C Work Phone: Start: 08-26-2016 End: 08-26-2016 Follow Up Appt 6 months Alyssa galindo PA-C Work Phone: Start: 08-26-2016 End: 03-09-2017 Lipid panel [AGGREGATE] Alyssa galindo PA-C Work Phone: Start: 08-26-2016 End: 08-26-2016 PFM Alyssa Ybarra PA-C Work Phone: Start: 02-25-2016 End: 08-26-2016 *Hepatic Function Panel Michel Ybarra MD Start: 02-25-2016 End: 02-25-2016 Follow Up Appt 6 months Michel Ybarra MD Start: 02-25-2016 End: 08-26-2016 Lipid panel [AGGREGATE] Michel Ybarra MD Start: 02-25-2016 End: 02-25-2016 MMM Michel Ybarra MD Start: 08-21-2015 End: 08-21-2015 Follow Up Appt 6 months Alyssa galindo PA-C Work Phone: Start: 08-21-2015 End: 08-21-2015 Follow Up Appt Other Alyssa torres PA-C Work Phone: Start: 08-21-2015 End: 08-21-2015 PFM Alyssa Ybarra PA-C Work Phone: Start: 02-19-2015 End: 02-19-2015 Follow Up Appt 6 months Michel Ybarra MD Start: 02-19-2015 End: 02-19-2015 MMM Michel Ybarra MD Start: 10-16-2014 End: 08-20-2016 *Hepatic Function Panel Alyssa galindo PA-C Work Phone: Start: 10-16-2014 End: 08-20-2016 Lipid panel [AGGREGATE] Alyssa galindo PA-C Work Phone: Start: 07-03-2014 End: 07-03-2014 Electrocardiogram, complete Alyssa Ybarra PA-C Work Phone: Start: 07-03-2014 End: 07-03-2014 Follow Up Appt 6 months Alyssa galindo PA-C Work Phone: Start: 07-03-2014 End: 08-16-2015 Nuclear stress test -exercise Alyssa Ybarra PA-C Work Phone: Start: 07-03-2014 End: 07-03-2014 PFM Alyssa Ybarra PA-C Work Phone: Start: 12-09-2013 End: 12-09-2013 Follow Up Appt 6 months Michel Ybarra MD Start: 12-09-2013 End: 12-09-2013 MMM Michel Ybarra MD Start: 09-12-2013 End: 07-13-2014 *Hepatic Function Panel Michel Ybarra MD Start: 09-12-2013 End: 09-12-2013 Follow Up Appt 3 months Michel Ybarra MD Start: 09-12-2013 End: 07-13-2014 Lipid panel [AGGREGATE] Michel Ybarra MD Start: 09-12-2013 End: 09-12-2013 PFM Michel Ybarra MD Start: 07-20-2013 Percutaneous translu jessie coronary angioplasty CORONARY ARTERY DISEASE, S/P PTCA Harumi DeFinis Plan of Treatment Date Care Activity Detail Author Start: 09-16-2017 End: 09-16-2017 Appointment Appointment [facility] Work Phone: Start: 06-09-2017 End: 03-17-2017 *Hepatic Function Panel *Hepatic Function Panel [facility] Work Phone: Start: 06-09-2017 End: 03-17-2017 Lipid 1996 panel *Lipid Profile CC PCP [facility] Work Phone: Start: 03-09-2017 End: 03-09-2017 Appointment Appointment [facility] Work Phone: Start: 03-09-2017 End: 03-09-2017 Follow Up Appt 6 months Follow Up Appt 6 months [facility] Work Phone: Start: 03-09-2017 End: 03-09-2017 MMM MMM [facility] Work Phone: Start: 08-26-2016 End: 03-09-2017 *Hepatic Function Panel *Hepatic Function Panel [facility] Work Phone: Start: 08-26-2016 End: 08-26-2016 Follow Up Appt 6 months Follow Up Appt 6 months [facility] Work Phone: Start: 08-26-2016 End: 03-09-2017 Lipid panel [AGGREGATE] *Lipid Profile CC PCP [facility] Work Phone: Start: 08-26-2016 End: 08-26-2016 PFM PFM [facility] Work Phone: Start: 02-25-2016 End: 08-26-2016 *Hepatic Function Panel *Hepatic Function Panel [facility] Work Phone: Start: 02-25-2016 End: 02-25-2016 Follow Up Appt 6 months Follow Up Appt 6 months [facility] Work Phone: Start: 02-25-2016 End: 08-26-2016 Lipid panel [AGGREGATE] *Lipid Profile CC PCP [facility] Work Phone: Start: 02-25-2016 End: 02-25-2016 MM MM [facility] Work Phone: Start: 08-21-2015 End: 08-21-2015 Follow Up Appt 6 months Follow Up Appt 6 months [facility] Work Phone: Start: 08-21-2015 End: 08-21-2015 Follow Up Appt Other Follow Up Appt Other [facility] Work Phone: Start: 08-21-2015 End: 08-21-2015 PFM PFM [facility] Work Phone: Start: 02-19-2015 End: 02-19-2015 Follow Up Appt 6 months Follow Up Appt 6 months [facility] Work Phone: Start: 02-19-2015 End: 02-19-2015 MM MM [facility] Work Phone: Start: 10-16-2014 End: 08-20-2016 *Hepatic Function Panel *Hepatic Function Panel [facility] Work Phone: Start: 10-16-2014 End: 08-20-2016 Lipid panel [AGGREGATE] *Lipid Profile CC PCP [facility] Work Phone: Start: 07-03-2014 End: 07-03-2014 Electrocardiogram, complete EKG (In office) [facility] Work Phone: Start: 07-03-2014 End: 07-03-2014 Follow Up Appt 6 months Follow Up Appt 6 months [facility] Work Phone: Start: 07-03-2014 End: 07-03-2014 Nuclear stress test -exercise Nuclear stress test -exercise [facility] Work Phone: Start: 07-03-2014 End: 07-03-2014 PF PF [facility] Work Phone: Start: 12-09-2013 End: 12-09-2013 Follow Up Appt 6 months Follow Up Appt 6 months [facility] Work Phone: Start: 12-09-2013 End: 12-09-2013 MMM MMM [facility] Work Phone: Start: 09-12-2013 End: 07-13-2014 *Hepatic Function Panel *Hepatic Function Panel [facility] Work Phone: Start: 09-12-2013 End: 09-12-2013 Follow Up Appt 3 months Follow Up Appt 3 months [facility] Work Phone: Start: 09-12-2013 End: 07-13-2014 Lipid panel [AGGREGATE] *Lipid Profile CC PCP [facility] Work Phone: Start: 09-12-2013 End: 09-12-2013 PFM PFM [facility] Work Phone: Patient Education HE[facility]%20[facility]ALTH[facility]%20[facility] Work Phone: Payers Date Payer Category Payer Unknown [id number] Progress note 07-01-2023 Note Date & Type Note Facility 07-01-2023 Note HNO ID: [id number] Author: Ursula Pacheco PA-C Service: ? Author Type: Physician Emergency Vehicle Operator Type: Progress Notes Filed: 07/01/2023 3:57 PM Note Text: This note was created using [employer]. Subjective Demar Peacock is a 67 year old male. HPI Patient presents with a right hand lesion over the past year. Denies any itch or pain. States sometimes it falls off and then grows back. He was not sure of a residential appliance repair technician in the area that he could see so came in here for referral. Review of Systems Constitutional: Negative. HENT: Negative. Skin: Lesion on right hand All other systems reviewed and are negative. PAST MEDICAL HISTORY Diagnosis Date negative medical history Current Outpatient Medications Medication Sig Dispense Refill ADULT LOW DOSE ASPIRIN ORAL Adult Low Dose Aspirin Oral atorvastatin calcium (LIPITOR ORAL) Lipitor Oral POTASSIUM ORAL potassium,chelated POTASSIUM 99 MG TABS One tablet by mouth daily as needed POTASSIUM [id number] Alyssa Ybarra PA-C 07-03-2014 [facility] ([id number]) metoprolol succinate ER (TOPROL XL) 25 mg 24 hr tablet TAKE 1/2 TABLET BY MOUTH EVERY DAY (Patient not taking: Reported on 07/01/2023) 11 triamcinolone (KENALOG) 0.025 % cream Apply 1 application to affected area twice daily. (Patient not taking: Reported on 10/19/2019 ) 30 g 0 No current facility-administered medications for this visit. PAST SURGICAL HISTORY Procedure Laterality Date PAST SURGICAL HISTORY OF 1999 umbilical hernia repair-[facility]. TONSILLECTOMY PRIMARY/SECONDARY Tonsillectomy No family history on file. Social History Tobacco Use Smoking status: Former Years: 7 Types: Cigarettes Quit date: 10/05/1981 Years since quittin.7 Smokeless tobacco: Never Substance Use Topics Alcohol use: Yes Comment: occasional Drug use: No Objective BP 106/68 Pulse 66 Temp 36.1 ?C (96.9 ?F) Resp 16 Wt 97.1 kg (214 lb) SpO2 97% Physical Exam Vitals reviewed. Constitutional: Appearance: Normal appearance. HENT: Head: Normocephalic and atraumatic. Skin: General: Skin is warm and dry. Comments: Patient has a brown lesion with some dry skin surrounding on the dorsal aspect of the right hand. About 1 cm. No erythema. No bleeding. No sign of infection. Neurological: Mental Status: He is alert. Assessment and Plan ASSESSMENT/PLAN: 1. Skin lesion - ICD9: 709.9, ICD10: L98.9 Recommended he see dermatology. Given referral to [facility] as well as [facility]. Discussed that [facility] does not have dermatology in [place], patient will decide who to schedule with. - CONSULT TO DERMATOLOGY Ursula Pacheco PA-C [facility] Summary Purpose Family History No Family History Records Found Advance Directives No Advanced Directives Records Found Additional Source Comments (unrecognized sect ion and content) No Status Records Found INFORMATION SOURCE (unrecogn ized section and content) FOR RECORDS PERTAINING TO PATIENTS WHO ARE OR HAVE BEEN ENROLLED IN A CHEMICAL DEPENDENCY/SUBSTANCEABUSE PROGRAM, SOME INFORMATION MAY BE OMITTED. This clinical summary was aggregated from multiple sources. Caution should be exercised in using it in the provision of clinical care. This summary normalizes information from multiple sources, and as a consequence, information in this document may materially change the coding, format and clinical context of patient data. In addition, data may be omitted in some cases. CLINICAL DECISIONS SHOULD BE BASED ON THE PRIMARY CLINICAL RECORDS. [facility]. provides no warranty or guarantee of the accuracy or completeness of information in this document.
--- NOTE | 2023-10-16 20:27 | EX.ED.UPPERE ---
HPI History of Present Illness HPI Narrative: Patient presents with laceration to his right middle finger that occurred today while he was at work. Patient states that his finger got caught in a machine and it cut the palmar aspect of the distal and middle phalanges of his right middle finger. Patient describes the pain as aching. Patient states it is worse with palpation and movement. Patient denies any paresthesias or weakness. Patient denies any other injuries. Patient is unsure of his last tetanus. Chief Complaint: Laceration Informant: patient Occured/Mechanism Comment: Caught on a machine at work Onset/Context/Timing Onset: Today Context: Sudden Onset Timing: Continuous Quality of Pain: Aching Location: Right middle finger Worsened by: Palpation, movement Relieved by: Nothing Associated Symptoms Associated Symptoms: Negative for Parasthesia, Weakness or Loss of Funtion Narrative Tetanus Immunization: Unknown [facility] Medical History Atherosclerotic heart disease of [place] coronary artery without angina pectoris Hyperlipidemia Home Medications aspirin 81 mg tablet,delayed release (Adult Low Dose Aspirin) 81 mg PO QDAY 09/11/17 [History Last Taken 10/22/21] nitroglycerin 0.4 mg sublingual tablet (Nitrostat) 0.4 mg sublingual Q5-15M PRN chest pain #25 tabs 09/25/21 [Rx Last Taken Unknown] atorvastatin 40 mg tablet 40 mg PO DAILY #90 tabs 12/22/22 [Rx Last Taken Unknown] rosuvastatin 10 mg tablet (Crestor) 10 mg PO .every other day #15 tabs 08/12/23 [Rx Last Taken Unknown] cephalexin 500 mg capsule 500 mg PO Q6 #40 CAPSULES 10/16/23 [Rx Last Taken Unknown] Allergy/AdvReac Type Severity Reaction Status Date / Time No Known Allergies Allergy Verified 06/29/23 15:42 Family History Mother CAD (coronary artery disease) CHF (congestive heart failure) Father CAD (coronary artery disease) Cancer Brother Diabetes Surgical History Presence of stent in coronary artery (~10/22/21) Social History Smoking Status: Former smoker how long ago did patient quit smokin alcohol intake: current alcohol intake frequency: a few times a month Alcohol type: beer substance use type: does not use caffeine: Yes Type: tea what type of physical activity do you participate in: running frequency: 3-4 times per week duration: 30-45 minutes/day seatbelt use: always do you feel safe at home: Yes ROS ROS ED Constitutional Constitutional ED: Denies chills or fever(s) Eyes Eyes: Denies blurry vision or change in vision ENT ENT ED: Reports sore throat; Denies rhinorrhea Cardiovascular Cardiovascular: Denies chest pain or palpitations Respiratory/Chest Respiratory/Chest: Denies cough or dyspnea Gastrointestinal Gastrointestinal: Denies nausea or vomiting Genitourinary Genitourinary ED: Denies dysuria or hematuria Musculoskeletal Musculoskeletal: Denies back pain or neck pain Integumentary Denies abscess or rash Neurologic Neurologic: Denies headache(s) or weakness Allergic/Immunologic Allergic/Immunologic ED: Denies mouth swelling or urticaria EXAM Physical Exam Const Vital Signs: 10/16/23 20:00 Temperature 96.3 F L Temperature Source Temporal Pulse Rate 110 H Respiratory Rate 18 Blood Pressure 172/102 H Blood Pressure Mean 125 Pulse Ox 94 Oxygen Delivery Method Room Air Positive well nourished and well developed General Appearance ED: well developed and NAD HEENT Reports moist mucous membranes Neck full ROM and supple Extremity Extremity Narrative: There is a 4 cm full-thickness linear laceration on the palmar aspect of the middle and distal phalanges of the right middle finger. There is minimal gapping of the wound margins. There is no active bleeding noted. Sensation was intact to light touch in all digits. Strength is 5/5 in flexion and extension of the MP, PIP, and DIP joints. Radial pulses are equal bilaterally. Neuro oriented x3, CN's II-XII intact bilaterally, moves all extremities, no focal motor deficits and no sensory deficits noted Sensorium / Orientation: alert Motor Exam: strength 5/5 throughout Psych mental status grossly normal MDM MDM MDM Narrative Medical decision making narrative: Differential diagnosis includes open fracture and laceration. X-rays of the right middle finger will be obtained to assess for fracture. Radiography Diagnostic Testing: X-rays of the right middle finger were obtained. There are 3 views. On my independent interpretation, there is no acute fracture. There is no foreign body noted. Radiologist also interpreted the x-rays. Radiologist noted a 3 mm rounded disklike foreign body in the volar aspect of the base of the ring finger. Patient had no tenderness over this area and no laceration over this area. Treatment and Re-Evaluation Narrative: Patient was given a tetanus booster. The wound was cleaned and irrigated with copious amounts of normal saline. The wound was anesthetized with 1% plain lidocaine via digital block. The wound was closed with 8 simple interrupted # 4-0 nylon sutures under sterile technique. Patient tolerated the procedure well. Bacitracin dressing was applied. Patient was instructed to keep the wound clean and dry. Patient was given a dose of Keflex here. Patient was given a prescription for Keflex. Patient was given a note for work. Patient was instructed to follow-up with his primary care physician, or the [facility] in 7 days for wound recheck and suture removal. Patient understood and was agreeable with the plan. All questions were answered. Procedures Lacerations Right middle finger: Length: 4 cm Depth: Sub Q Shape: Linear Prep: Sterile Conditions and Chlorhexadine Laceration repair: Digital block, Irrigated, Lidocaine and Skin sutures Irrigated (ml): 100 Number of Sutures/Soila: 8 Suture Information: Ethilon, Simple and 4-0 Discharge Plan Triage Chief Complaint: Laceration ED Provider: Amol Jones Dx/Rx/DC Orders Clinical Impression: Laceration of right middle finger Instructions: ED Laceration, Hand: All Closures Prescriptions: New cephalexin [cephalexin] 500 mg capsule 500 mg PO Q6 Qty: 40 0RF No Action nitroglycerin [Nitrostat] 0.4 mg tablet, sublingual 0.4 mg sublingual Q5-15M PRN (Reason: chest pain) Qty: 25 3RF Rx Instructions: do not exceed 3 doses per episode aspirin [Adult Low Dose Aspirin] 81 mg tablet,delayed release (DR/EC) 81 mg PO QDAY atorvastatin 40 mg tablet 40 mg PO DAILY Qty: 90 3RF rosuvastatin [Crestor] 10 mg tablet 10 mg PO .every other day Qty: 15 6RF Primary Care Provider: Care Physician,No Primary Referrals: Care Physician,No Primary [Primary Care Provider] - [facility] [Non-Staff] - 7 Days for suture removal Disposition Disposition: Home, Self Care
--- NOTE | 2023-10-16 20:50 | RAD_ITS ---
INDICATION: Injury/Pain EXAMINATION/TECHNIQUE: X-RAY - RIGHT HAND XR Fingers Min 2 Views COMPARISON: None. FINDINGS: 3 views of the right middle finger. BONES: Normal anatomic alignment without evidence of fracture or subluxation. No concerning bony lesion or abnormal sclerosis to suggest lesion. JOINTS: No significant degenerative change. SOFT TISSUES: Multiple punctate opacities overlying volar aspect of the distal middle finger. Additional 3 mm rounded disc-like foreign body of the volar aspect of the base of the ring finger. RAD/Finger(s) Min 2 Views IMPRESSION: No acute osseous abnormality of the right middle finger. Multiple punctate opacities overlying volar aspect of the distal middle finger, which may represent artifacts on the skin versus foreign bodies within laceration. Additional 3 mm rounded disc-like foreign body of the volar aspect of the base of the ring finger. Electronically Signed: Garth Weinstein MD at 21:38 EST ,
[2023-10-16 22:23] VITALS: BMI 27.8
[2023-10-16] MEDS: Lidocaine 1% (20 ml mdv) 20 ML Vial INFILT (22:23)
[2023-10-16] MEDS: Cephalexin 500 MG Capsule PO (22:24)
[2023-10-16] MEDS: Diphth,Pertuss(Acell),Tet Vac 0.5 ML Vial IM (22:24)
== END 2023-10-16 22:39 | disposition home or self-care (01) ==
PROVIDERS: Emergency Provider Emergency Medicine; Visit Provider Emergency Medicine
DX: S61.212A Laceration without foreign body of right middle finger without damage to nail, initial encounter (principal); Z87.891 Personal history of nicotine dependence; I25.10 Atherosclerotic heart disease of native coronary artery without angina pectoris; E78.5 Hyperlipidemia, unspecified; W31.89XA Contact with other specified machinery, initial encounter; Z23 Encounter for immunization
CPT/HCPCS: 12002; 73140; 90471; 90715; 99283

== ENCOUNTER → 2024-06-28 | Outpatient (CLI) | payer BC, SELFPAY ==
[2024-06-28 16:13] LABS: AST(SGOT) 19 U/L (15-37); Alanine Aminotransfer ALT/SGPT 29 U/L (16-61); Albumin, Serum 3.7 g/dL (3.2-5.0); Alkaline Phosphatase 91 U/L (45-117); Bilirubin, Direct 0.12 mg/dL (0.00-0.30); Cholesterol 199 mg/dL (200); Globulin 3.1 g/dL (2.2-4.2); High Density Lipoprotein 36 mg/dL; Protein, Total 6.8 g/dL (6.4-8.2); Triglycerides 253 mg/dL; Very Low Density Lipoprotein 51 mg/dL (5-40)
== END | disposition home or self-care (01) ==
LOC: LAB 14:45
PROVIDERS: Referring Provider Physician Assistant Medical; Visit Provider Physician Assistant Medical
DX: E78.5 Hyperlipidemia, unspecified (principal); Z95.5 Presence of coronary angioplasty implant and graft
CPT/HCPCS: 36415; 80061; 80076

== ENCOUNTER → 2025-03-14 | Outpatient (CLI) | payer BC, SELFPAY | END | disposition home or self-care (01) | PROVIDERS: PCP Family Medicine; Referring Provider Physician Assistant Medical; Visit Provider Physician Assistant Medical | DX: I49.1 Atrial premature depolarization (principal); Z95.5 Presence of coronary angioplasty implant and graft | CPT/HCPCS: 93225; 93226 ==

== ENCOUNTER 2025-05-01 06:52 | Outpatient (CLI) | payer BC, SELFPAY ==
--- OUTSIDE RECORDS SUMMARY | 2025-05-01 06:56 | XMS RPT_ITS | CCD ---
Author Organization [facility] Care Team Providers Care Head Of Conservation Name Role Phone Amada HEAD, Michel Cooper Unavailable Beena BOYCE, Alyssa Torres Unavailable Laura Vaca Unavailable Unavailable Care Physician, No Primary Primary Care Provider Unavailable Care Physician, No Primary Referring Provider Un available SHANNAN Diaz Attending Provider Care Physician, No Primary Primary Care Provider Unavailable Care Physician, No Primary Referring Provider Un available SHANNAN Diaz Attending Provider Unavailable Primary Care Provider UnavailIrma Burris MD Primary Care Provider Pane[place] formerly [facility], Nava Unavailable Care Physician, No Primary Primary Care Provider Unavailable Care Physician, No Primary Referring Provider Un available Alyssa Diaz Attending Provider Salma GLOVER.Emigdio ELDER Unavailable Dr. Brown Dawn MD Primary Care Provider Alyssa Diaz Referring Provider [phone] TERE RODRIGUEZ Referring Unavailable BROWN BOLTON Attending Unavailable BROWN BOLTON Referring Unavailable IRMA DAWN Attending Unavailable IRMA DAWN Primary Care Unavailable EMIGDIO MARSH Attending Unavailable IRMA DAWN Primary Care Unavailable EMIGDIO MARSH Referring Unavailable IRMA DAWN Primary Care Unavailable IRMA DAWN Referring Unavailable IRMA DAWN Primary Care Unavailable IRMA DAWN Primary Care Unavailable IRMA DAWN Referring Unavailable IRMA DAWN Primary Care Unavailable IRMA DAWN Primary Care Unavailable RUDI BARBOSA Attending Unavailable BROWN BOLTON Referring Unavailable Irma Dawn Primary Care Provider Alyssa Ybarra Referring Brown Cardoso Primary Care Unavailable Jcarlos Main Attending Unavailable Alyssa Ybarra Referring UnavailAlyssa Chavez Attending Unavailabl e Brown Dawn Primary Care Unavailable Alyssa Ybarra Attending Unavailabl e Care Physician, No Primary Primary Care Unava ilable Care Physician, No Primary Referring Unava ilable Care Physician, No Primary Primary Care Unava ilable Care Physician, No Primary Referring Unava ilable Alyssa Ybarra Attending UnavailAlyssa Chavez Attending UnavailAlyssa Chavez Referring Unavailabl e Care Physician, No Primary Primary Care Unava ilable Alyssa Ybarra Referring UnavailAlyssa Chavez Attending Unavailabl e Filipe Brown Primary Care Unavailable Allergies Allergy Classification Reported Allergen(s) Allergy Type Date of Onset Reaction(s) Facility (9 sources) NKA drug allergy 07-05-2013 [employer] Work Phone: Medications Current Medications Medication Drug Class(es) Dates Sig (Normalized) Sig (Original) aspirin 81 mg delayed release oral tablet (20 sources) Nonsteroidal Anti-inflammatory Drug Start: 09-11-2017 Aspirin (Adult Low Dose Aspirin) 81 mg tablet,delayed release (DR/EC) Active 81 mg PO daily September 11, 2017 1:00am Start: 07-11-2013 take 1 tablet by dawson th once daily ASPIRIN 81 MG TABS One tablet by mouth daily ASPIRIN [id number] Luz Gray RN Start: 07-11-2013 take 1 tablet by dawson th once daily ASPIRIN 81 MG TABS One tablet by mouth daily ASPIRIN [id number] Luz Gray RN Start: 07-11-2013 take 1 tablet by dawson th once daily ASPIRIN EC 81 MG TBEC One tablet by mouth daily ASPIRIN [id number] Harumi Y DeFinis ADULT LOW DOSE A SPIRIN ORAL Adult Low Dose Aspirin Oral Active Blood Glucose Control, Normal soln (1 source) Start: 12-22-2024 End: 12-23-2024 Blood Glucose Control, Normal soln Use to calibrate glucometer. 1 Each 12/22/2024 12/23/2024 Active Blood-Glucose Meter (1 source) Start: 12-22-2024 End: 12-23-2024 Blood-Glucose Meter Test Two times a day. Insulin Dep? No E11.9 DM 2 1 Each 12/22/2024 12/23/2024 Active doxycycline hyclate 100 mg oral tablet (4 sources) Tetracycline-cla ss Drug Start: 12-21-2024 End: 12-28-2024 take 1 tablet by mouth twice daily doxycycline (VIBRA-TABS) 100 mg tablet Take 1 tablet by mouth two times a day for 7 days. 14 tablet 12/21/2024 12/28/2024 Active isopropyl alcohol 0.7 ml/ml medicated pad (18 sources) Start: 12-22-2024 alcohol swabs Use with blood glucose test once daily 100 Each 5 12/22/2024 Active 24 hr metFORMIN hydrochloride 500 mg extended release oral tablet (20 sources) Biguanide Start: 04-06-2025 take 1 tablet by mouth once daily at breakfast metFORMIN ER (GLUCOPHAGE XR) 500 mg 24 hr tablet Take 1 tablet by mouth daily with breakfast. 04/06/2025 Active Start: 02-14-2025 End: 03-02-2025 metFORMIN ER (GLUCOPHAGE XR) 500 mg 24 hr tablet 1000 mg with breakfast, 500 mg with dinner (unable to tolerate 1000 mg BID) 02/14/2025 03/02/2025 Discontinued Start: 02-09-2025 End: 05-10-2025 take 2 tablets by mouth twice daily metFORMIN ER (GLUCOPHAGE XR) 500 mg 24 hr tablet Take 2 tablets by mouth two times a day. 360 tablet 2 03/02/2025 04/06/2025 Discontinued (Adjust Sig - Block E-Cancel) Start: 12-22-2024 End: 02-09-2025 take 2 tablets by mouth once daily metFORMIN ER (GLUCOPHAGE XR) 500 mg 24 hr tablet Take 2 tablets by mouth once daily. 60 tablet 2 01/06/2025 02/09/2025 Discontinued (Changing Therapy/Dosage Form) nitroglycerin 0.4 mg sublingual tablet (5 sources) Nitrate Vasodilator Start: 09-25-2021 Nitroglyce rin (Nitrostat) 0.4 mg tablet, sublingual Active 0.4 mg SL every 5 to 15 minutes as needed for chest pain September 25, 2021 1:00am do not exceed 3 doses per episode Start: 09-25-2021 Nitroglycerin (Nitrostat) 0.4 mg tablet, sublingual Active 0.4 MG SL every 5 to 15 minutes September 25, 2021 12:00am do not exceed 3 doses per episode potassium 99 mg extended rel ease oral tablet (20 sources) Start: 06-28-2024 Potassium 99 m g tablet Active 99 mg PO as needed June 28, 2024 12:00am Start: 07-03-2014 POTASSIUM ORAL potassium,chelated POTASSIUM 99 MG TABS One tablet by mouth daily as needed POTASSIUM [id number] Alyssa Ybarra PA-C 07-03-2014 [facility] ([id number]) 07/03/2014 Active rosuvastatin calcium 20 mg oral tablet (20 sources) HMG-CoA Reductase Inhibitor Start: 01-09-2025 End: 01-09-2026 take 1 tablet by mouth once daily at bedtime rosuvastatin (CRESTOR) 20 mg tablet Take 1 tablet by mouth daily at bedtime. 90 tablet 3 01/09/2025 01/09/2026 Active Start: 08-12-2023 End: 01-19-2025 take 1 tablet by mouth every other day Rosuvastatin 10 mg tablet Discontinued 10 mg PO every other day March 21, 2024 8:09am January 19, 2025 8:01am Completed/Discontinued Medications Medication Drug Class(es) Dates Sig (Normalized) Sig (Original) acetaminophen 325 mg / oxyCODONE hydrochloride 5 mg oral tablet (5 sources) Opioid Agonist Start: 02-25-2015 End: 06-23-2018 Oxycodone-Acetamino phen 1 TABLET tablet Discontinued 1 - 2 {tbl} PO EVERY 4 HOURS NEEDED as needed for Pain February 25, 2015 12:00am June 23, 2018 3:14pm Start: 02-25-2015 End: 06-23-2018 take 1 tablet by mouth every four hours as needed Oxycodone-Acetaminophen Discontinued 1 - 2 TABLET PO EVERY 4 HOURS NEEDED February 24, 2015 11:00pm June 23, 2018 2:14pm ascorbic acid 500 mg oral tablet (4 sources) Start: 07-05-2013 take 1 tablet by mouth once daily VITAMIN C 500 MG TABS One tablet by mouth daily ASCORBIC ACID [id number] Michel Ybarra MD atorvastatin 40 mg oral tablet (20 sources) HMG-CoA Reductase Inhibitor Start: 09-11-2017 End: 06-28-2024 take 1 tablet by mouth once daily Atorvastatin 40 mg tablet Discontinued 40 mg PO DAILY December 22, 2022 10:51am June 28, 2024 2:08pm Start: 12-09-2013 take 1 tablet by dawson th once daily ATORVASTATIN CALCIUM 80 MG TABS One tablet by mouth daily ATORVASTATIN CALCIUM [id number] Michel Ybarra MD Start: 07-11-2013 take 1 tablet by dawson th once daily ATORVASTATIN CALCIUM 40 MG TABS One tablet by mouth daily ATORVASTATIN CALCIUM [id number] Michel Ybarra MD End: 11-23-2024 atorvastatin calcium (LIPITO R ORAL) Lipitor Oral 11/23/2024 Discontinued [id number] TABS (4 sources) Start: 07-05-2013 take 1 tablet by mouth once daily [id number] TABS One tablet by mouth daily [id number] TABS Michel Ybarra MD cephalexin 500 mg oral capsule (8 sources) Cephalosporin Antibacterial Start: 10-16-2023 End: 06-28-2024 take 1 capsule by mouth every six hours Cephalexin 500 mg capsule Discontinued 500 mg PO EVERY 6 HOURS October 16, 2023 1:00am June 28, 2024 2:08pm Start: 02-25-2015 End: 06-23-2018 take 1 capsule by mouth every six hours Cephalexin 500 MG capsule Discontinued 500 mg PO EVERY 6 HOURS February 25, 2015 12:00am June 23, 2018 3:14pm clopidogrel 75 mg oral tablet (20 sources) [id number] Platelet Inhibitor Start: 06-29-2023 End: 06-29-2023 take 1 tablet by mouth once daily Clopidogrel (Plavix) 75 mg tablet Discontinued 75 mg PO DAILY June 29, 2023 12:00am June 29, 2023 4:05pm Start: 09-25-2021 End: 02-17-2022 take 1 tablet by mouth once daily Clopidogrel (Plavix) 75 mg tablet Discontinued 75 mg PO DAILY October 21, 2021 11:34am November 20, 2021 1:00pm Start: 07-11-2013 End: 08-21-2015 take 1 tablet by mouth once daily PLAVIX 75 MG TABS One tablet by mouth daily (STOP) CLOPIDOGREL BISULFATE [id number] Alyssa Ybarra PA-C 24 hr isosorbide mononitrate 30 mg extended release oral tablet (5 sources) Nitrate Vasodilator Start: 09-25-2021 End: 11-20-2021 take 1 tablet by mouth once daily, then take 1 tablet by mouth every twenty-four hours Isosorbide Mononitrate 30 mg tablet extended release 24 hr Discontinued 30 mg PO DAILY September 25, 2021 1:00am November 20, 2021 12:58pm lisinopril 5 mg oral tablet (16 sources) Angiotensin Converting Enzyme Inhibitor Start: 09-16-2017 End: 09-16-2017 Lisinopril 5 mg tablet Discontinued PO 30 September 16, 2017 1:00am September 16, 2017 3:41pm Start: 09-16-2017 End: 09-16-2017 Lisinopril Discontinued PO 3 0 September 16, 2017 12:00am September 16, 2017 2:41pm Start: 07-11-2013 End: 03-09-2017 take 1 tablet by mouth once daily LISINOPRIL 5 MG TABS One tablet by mouth daily ( STOP) LISINOPRIL [id number] Alyssa Ybarra PA-C 24 hr metoprolol succinate 25 mg extended release oral tablet (20 sources) beta-Adrenergic Shakira Start: 11-20-2021 End: 11-20-2021 take 2 tablets by mouth once daily Metoprolol Succinate 25 mg tablet extended release 24 hr Discontinued 12.5 mg PO DAILY November 20, 2021 1:00am November 20, 2021 12:59pm Start: 09-16-2017 End: 09-25-2021 take 2 tablets by mouth once daily Metoprolol Succinate 25 mg tablet extended release 24 hr Discontinued 12.5 mg PO daily April 19, 2020 11:23am September 25, 2021 12:42pm Start: 09-16-2017 End: 11-23-2024 take 12.5 mg by mouth once daily Metoprolol Succinate Discontinued 12.5 MG PO DAILY November 20, 2021 12:00am November 20, 2021 11:59am Start: 09-11-2017 End: 09-16-2017 take 1 tablet by mouth once daily Metoprolol Succinate 25 mg tablet extended release 24 hr Discontinued 25 mg PO daily September 11, 2017 1:00am September 16, 2017 3:43pm Start: 07-11-2013 take 1 tablet by dawson th once daily METOPROLOL SUCCINATE ER 25 MG [id number] One tablet by mouth daily METOPROLOL SUCCINATE [id number] Michel Ybarra MD MULTIPLE VITAMIN (8 sources) Start: 07-05-2013 take 1 tablet by mouth once daily MULTIVITAMINS TABS One tablet by mouth daily MULTIPLE VITAMIN Michel Ybarra MD Start: 07-05-2013 End: 02-19-2015 take 1 tablet by mouth once daily MULTIVITAMINS TABS One tablet by mouth daily MULTIPLE VITAMIN Michel Ybarra MD niacin 500 mg oral tablet (8 sources) Nicotinic Acid Start: 09-12-2013 NIACIN TABS 4- 5 times weekly 100mg NIACIN TABS [id number] Michel Ybarra MD Start: 09-12-2013 NIACIN TABS 4- 5 times weekly 100mg NIACIN TABS [id number] Michel Ybarra MD Start: 07-05-2013 NIACIN 500 MG TABS One tablet by mouth 4-5 times a week NIACIN [id number] Michel Ybarra MD potassium,chelated 99 mg oral tablet (4 sources) Start: 07-03-2014 take 1 tablet by mouth once daily as needed POTASSIUM 99 MG TABS One tablet by mouth daily as needed POTASSIUM [id number] Alyssa Ybarra PA-C Start: 07-03-2014 take 1 tablet by dawson th once daily as needed POTASSIUM 99 MG TABS One tablet by mouth daily as needed POTASSIUM [id number] Alyssa Ybarra PA-C ticagrelor 90 mg oral tablet (10 sources) Start: 02-17-2022 End: 06-29-2023 take 1 tablet by mouth twice daily Ticagrelor (Brilinta) 90 mg tablet Discontinued 90 mg PO TWICE A DAY 60 February 24, 2023 2:32pm June 29, 2023 3:44pm triamcinolone acetonide 0.25 mg/ml topical cream (1 source) Corticosteroid Start: 08-31-2019 End: 11-23-2024 triamcinolone (KENALOG) 0.025 % cream Indications: Herpes zoster without complication Apply 1 application to affected area twice daily. 30 g 08/31/2019 11/23/2024 Discontinued B COMPLEX VITAMINS (8 sources) Start: 07-05-2013 End: 08-26-2016 take 1 tablet by mouth once daily VITAMIN B COMPLEX TABS One tablet by mouth daily B COMPLEX VITAMINS [id number] Alyssa Ybarra PA-C Start: 07-05-2013 take 1 tablet by dawson once daily VITAMIN B COMPLEX TABS One tablet by mouth daily B COMPLEX VITAMINS [id number] Michel Ybarra MD Problems Active Problems Problem Classification Problem Date Documented Da te Episodic/Chronic Abdominal hernia (3 sources) Bilateral inguinal hernia; Translations: [Bilateral inguinal hernia, without obstruction or gangrene, not specified as recurrent] Onset: 01-26-2025 12-13-2024 Episodic Cardiac dysrhythmias (6 sources) Premature atrial contraction; Translations: [Atrial premature depolarization] Onset: 03-29-2025 03-01-2025 Chronic Chronic obstructive pulmonary disease and bronchiectasis (1 source) Bronchitis; Translations: [Bronchitis, not specified as acute or chronic] 11-23-2024 Episodic Coronary atherosclerosis and other heart disease (20 sources) Coronary arteriosclerosis; Translations: [Coronary atherosclerosis] Onset: 08-26-2016 08-26-2016 Chronic Coronary atherosclerosis and other heart disease (11 sources) Stented coronary artery; Translations: [Presence of coronary angioplasty implant and graft] Onset: 10-05-2021 10-23-2021 Episodic Comment on above: Successful PCI of mooney btotal high OM1 with predilatation followed by placement of drug-eluting stent 2.5 x 30 mm DSE/OrsiroPostdilated with 3 x 20 mm NC balloon.With reduction of stenosis from 99% to 0% per cardiac cath 10/22/21; PTCA/KRYSTAL to the prox LAD 06/17 Diabetes mellitus with complications (20 sources) Hyperglycemia due to type 2 diabetes mellitus; Translations: [Type 2 diabetes mellitus with hyperglycemia] Onset: 12-19-2024 12-19-2024 Chronic Diabetes mellitus without complication (1 source) Type 2 diabetes mellitus; Translations: [Type 2 diabetes mellitus without complications] 12-22-2024 Chronic Disorders of lipid metabolism (15 sources) Hyperlipidemia; Translations: [Hyperlipidemia, unspecified] Onset: 07-05-2013 07-05-2013 Chronic Influenza (1 source) Influenza-like illness; Translations: [Influenza due to unidentified influenza virus with other respiratory manifestations] 11-23-2024 Episodic Nonspecific chest pain (9 sources) Chest pain, unspecified; Translations: [Chest pain] Onset: 07-05-2013 07-05-2013 Episodic Open wounds of extremities (3 sources) Laceration of right middle finger; Translations: [Laceration without foreign body of right middle finger without damage to nail, initial encounter] 10-16-2023 Episodic Other acquired deformities (1 source) Scoliosis, unspecified; Translations: [Scoliosis of thoracolumbar spine, unspecified scoliosis type] Onset: 01-26-2025 Chronic Other circulatory disease (5 sources) Elevated blood-pressure reading without diagnosis of hypertension; Translations: [Elevated blood-pressure reading, without diagnosis of hypertension] 07-31-2022 Episodic Other lower respiratory disease (2 sources) Cough; Translations: [Subacute cough] 12-21-2024 Episodic Other nutritional; endocrine; and metabolic disorders (4 sources) High density lipoprotein deficiency ; Translations: [Lipoprotein deficiency] Onset: 07-20-2013 07-20-2013 Chronic Unclassified (3 sources) Percutaneous transluminal coronary angioplasty ; Translations: [Coronary angioplasty status] Onset: 07-20-2013 07-20-2013 Unclassified (1 source) Long-term drug therapy; Translations: [Long-term (current) use of other medications] Onset: 07-13-2014 07-13-2014 Unclassified (1 source) Subacute cough; Translations: [Subacute cough] Onset: 12-21-2024 Past or Other Problems Problem Classification Problem Date Documented Date Episodic/Chronic Abdominal pain (3 sources) Right inguinal pain; Translations: [Right lower quadrant pain] Onset: 12-13-2024 12-12-2024 Episodic Malaise and fatigue (4 sources) Fatigue; Translations: [Other fatigue] Onset: 07-05-2013 07-05-2013 Episodic Other aftercare (7 sources) Other snf (current) drug therapy; Translations: [Long-term (current) use of other medications] Onset: 07-13-2014 08-26-2016 Episodic Other circulatory disease (4 sources) Cardiovascular stress test abnormal; Translations: [Abnormal result of other cardiovascular function study] Onset: 07-05-2013 07-05-2013 Episodic Other nutritional; endocrine; and metabolic disorders (12 sources) Body mass index (BMI) 28.0-28.9, adult; Translations: [Body mass index (BMI) 27.0-27.9, adult] Onset: 07-05-2013 08-21-2015 Episodic Other upper respiratory infections (20 sources) H/O: infectious disease; Translations: [Acute upper respiratory infection, unspecified] Onset: 12-15-2024 12-15-2024 Episodic Results Test Name Value Interpretation Reference Range Facility 36on 04-27-2025 36 Called daughter back / Updated patients chart as much as possible with daughter/ Insurance was E verified/ still needs medications and allergies updated daughter said she can call back with those. Scheduled first available with Dr Benavidez in [place]. 06/02 @ 10:15. Patients daughter chose the [place] location. I also sent a fax request to Dr Rudi Barbosa for any images or test ./ in Media Advised she can call Rahel back next week with the rest of the information and any scheduling questions. She voiced understanding and verified ok to send a link to [facility] phone to sign up for [employer] as well [facility] 36 Daughter called back with Insurance information. Our clinic receptionist Audra verified the insurance. I told patients Daughter we would call her back and complete chart and schedule office visit with Dr Benavidez for Hernia eval. Phone number [phone]/ Jessica [facility] 36on 04-25-2025 36 Pt's daughter called in and wanted a 2nd opinion for her father. She was unhappy when the patient's doctor would not do surgery because of his A1c. I explained Dr Benavidez does have restrictions on A1C. I was unsure of exact #'s. She said she seen Dr Benavidez's photo and really liked him and she wanted his opinion. I started to look for her father on here. He was not a patient already in the [facility] system. She was unable to give me her father's SS# or his insurance #. She did not know his med list, surgery list, surgeon, etc. I explained that this stuff would be needed to get him in the system and added appropriately. Pt expressed understanding and would call back with the information Normal [facility] DEMAR KEARNS ([id number]) 1955 M Date Time Provider Department 04/21/25 IRMA DAWN During your visit today, we recorded the following information about you: Brooklynn Caicedo LPN 04/21/2025 10:38 AM Signed Received 04/21/2025 from Lavell Lopez . Placed in provider's inbox for review. Route to ANGIE tanner Records faxed to Lavell Lopez Allergies As of Date: 04/21/2025 (No Known Allergies) Date Reviewed: 04/06/2025 Reviewed by: Nava Ram RP - Fully Assessed Reason for Visit: Received Outside Medical Records [[id number]] Cmt: Lavell Lopez Request for office notes, treatment plans from 02/16/2025 - present. 04/20/2025 Prescriptions as of 04/21/2025 - metFORMIN ER (GLUCOPHAGE XR) 500 mg 24 hr tablet Take 1 tablet by mouth daily with breakfast. - rosuvastatin (CRESTOR) 20 mg tablet Take 1 tablet by mouth daily at bedtime. - blood sugar diagnostic (BLOOD GLUCOSE TEST) test strip Test blood sugar(s) 2 times daily. Dx: Type 2 DM - Uncontrolled E11.65 Insulin: No - alcohol swabs Use with blood glucose test once daily - ADULT LOW DOSE ASPIRIN ORAL Adult Low Dose Aspirin Oral - POTASSIUM ORAL potassium,chelated POTASSIUM 99 MG TABS One tablet by mouth daily as needed POTASSIUM [id number] Alyssa Ybarra PA-C 07-03-2014 [facility] ([id number]) Problem List As Of Date 04/21/2025 Noted Resolved CAD (coronary artery disease) [I25.10] 12/15/2024 Recent URI [J06.9] 12/15/2024 Type 2 diabetes mellitus with hyperglycemia, wi*12/19/2024 Encounter Status:Closed by BROOKLYNN CAICEDO on 04/21/25 [facility] CNOVon 04-06-2025 CNOV Office Visit (PHMEWO ) DEMAR KEARNS ([id number]) 1955 M Date Time Provider Department 04/06/25 1:00 PM NAVA RAM [facility] During your visit today, we recorded the following information about you: Nava Ram formerly [facility] 04/06/2025 2:26 PM Signed Primary Care Pharmacy Visit CC (Reason for Consult): (E11.65) Type 2 diabetes mellitus with hyperglycemia, without long-term current use of insulin (HCC) (primary encounter diagnosis) Goal(s): A1c <7% Last Collaborating Provider Visit: 01/26/[address] Filipe Lenz Som is a 69 year old male presenting for follow up visit in person. Patient consents to pharmacy collaborative practice agreement. Last Pharmacy Visit: 03/02/25 - A1c ordered Interim Events: - 03/20/25 A1c results - improvement to 6.9% HPI: Reports doing well Self-decreased metformin 1000 mg/day most recently due to tolerability concerns Experienced side effects with higher metformin, GI pain, fatigue, feels miserable, brain fog. GI side effects has improved but stomach pains and brain fog has continued but is somewhat tolerable Is potentially interested in switching to an alternative medication vs metformin; however, is hesitant until surgery is scheduled due to positive effect on blood sugar averages lately. 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 ALLERGIES No Known Allergies Current Outpatient Medications Medication Sig Dispense Refill metFORMIN ER (GLUCOPHAGE XR) 500 mg 24 hr tablet Take 2 tablets by mouth two times a day. 360 tablet 2 rosuvastatin (CRESTOR) 20 mg tablet Take 1 tablet by mouth daily at bedtime. 90 tablet 3 blood sugar diagnostic (BLOOD GLUCOSE TEST) test strip Test blood sugar(s) 2 times daily. Dx: Type 2 DM - Uncontrolled E11.65 Insulin: No 50 Strip 11 alcohol swabs Use with blood glucose test once daily 100 Each 5 ADULT LOW DOSE ASPIRIN ORAL Adult Low Dose Aspirin Oral POTASSIUM ORAL potassium,chelated POTASSIUM 99 MG TABS One tablet by mouth daily as needed POTASSIUM [id number] Alyssa Ybarra PA-C 07-03-2014 [facility] ([id number]) No current facility-administered medications for this visit. Pill bottles are not present. Adherence: denies missed doses. Rx coverage: Payor: ANTHEM / Plan: BLUE CARD PPO OOS / Product Type: PPO / Medications affordable? Yes PHARMACOTHERAPY PREVENTATIVE MEDS: On JUDY/ARB: No On Statin: Yes On ASA: No EXAM: There were no vitals taken for this visit. Last 3 Encounter BP Readings: Date: BP: 01/26/2025 126/81 12/22/2024 135/64 12/21/2024 132/84 Wt: 88 kg (194 lb 0.1 oz) BMI: 24.91 kg/(m2) LABS: Lab Results Component Value Date HBA1C 6.9 03/20/2025 HBA1C 8.0 02/02/2025 HBA1C 10.9 12/15/2024 Glucose 305 12/15/2024 BUN 11 12/15/2024 Creatinine 0.65 12/15/2024 Sodium 134 12/15/2024 Potassium 4.6 12/15/2024 Chloride 99 12/15/2024 CO2 25 12/15/2024 Calcium 9.2 12/15/2024 Lab Results Component Value Date CHOL 164 01/06/2025 LDL 94 01/06/2025 LDL 159 07/06/2013 HDL 37 01/06/2025 HDL 34 07/06/2013 TG 167 01/06/2025 TG 63 07/06/2013 Albumin/Creat Ratio (mg/g) Date Value 12/22/2024 <9 Estimated Glomerular Filtration Rate (mL/min/1.73m?) Date Value 12/15/2024 103 ASSESSMENT/PLAN: 1. Type 2 diabetes mellitus with hyperglycemia, without long-term current use of insulin ([facility]) - ICD9: 250.00, 790.29, ICD10: E11.65 - Controlled per A1c <7% (6.9% on 03/20/25). Reported SMBGs show FBG and 2hr PP averages have continued to improve (total average BG ~124 = estimated A1c ~6%). May consider switch from metformin to alternative medication in the future if lower dose of metformin is not tolerable. - Decrease metformin ER 500 mg to once daily - Statin prescribed - rosuvastatin - Blood glucose monitoring on a twice daily schedule - Counseled on healthy diet and regular exercise - Recommended continued positive lifestyle modifications including portion control, low-carb diet, and as much physical activity as able. - Discussed (more content not included)... Normal [facility] HbA1c (Bld)on 03-20-2025 Average glucose Estimated from glycated hemoglobin (Bld) [Mass/Vol] 151 mg/dL Normal [facility] Comment on above: Order Comment: Marcelino ivory Type: BLOOD SPECIMENOrdering Facility: [facility] Address: [address] [place] [address] Result Comment: eAG: (Estimated average glucose) is a calculated value from HgbA1c and is credit representative of the average blood glucose level in the last 2-3 month period. Performed By: #### 5 5454-3 ####[facility] [id number] [place] [address] [place] HbA1c (Bld) [Mass fraction] 6.9 % High 4.3-5.[address] [facility] Comment on above: Order Comment: Marcelino ivory Type: BLOOD SPECIMENOrdering Facility: [facility] Address: [address] [place] [address] Result Comment: Amer ican Diabetes Association guidelines indicate that patients with HgbA1c in the range 5.7-6.4% are at increased risk for development of diabetes, and intervention by lifestyle modification may be beneficial. HgbA1c greater or equal to 6.5% is considered diagnostic of diabetes. Performed By: #### 5 5454-3 ####[facility] [id number] [address] STATES OF [facility] CNOVon 03-02-2025 CNOV Office Visit (PHMEWO ) DEMAR KEARNS ([id number]) 1955 M Date Time Provider Department 03/02/25 2:00 PM [facility] During your visit today, we recorded the following information about you: Nava Ram RPh 03/02/2025 3:35 PM Signed Primary Care Pharmacy Visit CC (Reason for Consult): (E11.65) Type 2 diabetes mellitus with hyperglycemia, without long-term current use of insulin (HCC) (primary encounter diagnosis) Goal(s): A1c <7% Last Collaborating Provider Visit: 01/26/[address] Dawn Demar Kearns is a 69 year old male presenting for follow up visit in person. Patient consents to pharmacy collaborative practice agreement. . Last Pharmacy Visit: 01/05/25 -Increased metformin ER 500mg to 2 tablets once daily HPI: -Patient reports that things have been going good -Patient reports that he is tolerating the metformin well now -Patient states he really wants his A1c to improve because he wants hernia surgery Current DM Medications: -Metformin ER 500mg 2 tablets in the morning and 1 tablet in the evening-->Reports taking 2 tablets twice daily for about 2 weeks Previously Trialed DM Meds: -None Diet -Has been working on diet and has been consistent -Has made a lot of changes to diet for the better -States he will be following with salesperson driver soon GLYCEMIC CONTROL: Glucometer present at visit: No Hypoglycemia: No -Patient has complete BG log SMBGS (Fingersticks) Date Fasting AM 2 hr PP 03/02 128 03/01 116 136 02/28 114 157 02/27 130 147 02/26 125 105 02/25 126 158 02/24 130 156 02/23 105 192 02/22 122 113 02/21 106 155 AVG 120 146 Past medical history reviewed. ALLERGIES No Known Allergies Current Outpatient Medications Medication Sig Dispense Refill metFORMIN ER (GLUCOPHAGE XR) 500 mg 24 hr tablet 1000 mg with breakfast, 500 mg with dinner (unable to tolerate 1000 mg BID) rosuvastatin (CRESTOR) 20 mg tablet Take 1 tablet by mouth daily at bedtime. 90 tablet 3 blood sugar diagnostic (BLOOD GLUCOSE TEST) test strip Test blood sugar(s) 2 times daily. Dx: Type 2 DM - Uncontrolled E11.65 Insulin: No 50 Strip 11 alcohol swabs Use with blood glucose test once daily 100 Each 5 ADULT LOW DOSE ASPIRIN ORAL Adult Low Dose Aspirin Oral POTASSIUM ORAL potassium,chelated POTASSIUM 99 MG TABS One tablet by mouth daily as needed POTASSIUM [id number] Alyssa Ybarra PA-C 07-03-2014 [facility] ([id number]) No current facility-administered medications for this visit. Pill bottles are not present. Adherence: denies missed doses. Rx coverage: Payor: ANTHEM / Plan: BLUE CARD PPO OOS / Product Type: PPO / Medications affordable? Yes PHARMACOTHERAPY PREVENTATIVE MEDS: On JUDY/ARB: No On Statin: Yes On ASA: Yes EXAM: There were no vitals taken for this visit. Last 3 Encounter BP Readings: Date: BP: 01/26/2025 126/81 12/22/2024 135/64 12/21/2024 132/84 Wt: 88 kg (194 lb 0.1 oz) BMI: 24.91 kg/(m2) LABS: Lab Results Component Value Date HBA1C 8.0 02/02/2025 HBA1C 10.9 12/15/2024 Glucose 305 12/15/2024 BUN 11 12/15/2024 Creatinine 0.65 12/15/2024 Sodium 134 12/15/2024 Potassium 4.6 12/15/2024 Chloride 99 12/15/2024 CO2 25 12/15/2024 Calcium 9.2 12/15/2024 Lab Results Component Value Date CHOL 164 01/06/2025 LDL 94 01/06/2025 LDL 159 07/06/2013 HDL 37 01/06/2025 HDL 34 07/06/2013 TG 167 01/06/2025 TG 63 07/06/2013 Albumin/Creat Ratio (mg/g) Date Value 12/22/2024 <9 Estimated Glomerular Filtration Rate (mL/min/1.73m?) Date Value 12/15/2024 103 ASSESSMENT/PLAN: 1. Type 2 diabetes mellitus with hyperglycemia, without long-term current use of insulin (HCC) - ICD9: 250.00, 790.29, ICD10: E11.65 - Improving control - Increase metformin ER 500mg to 2 tablets twice daily as patient reported taking - Statin prescribed - rosuvastatin - Counseled on healthy diet and regular exercise - Discussed diabetic education issues of diabetes complications and monitoring required, hypoglycemic/hyperglyc emic symptoms, and medication-specific side effects and monitoring - Follow up in 1 month, sooner should any other issues arise. - A1c ordered for 3 months post initial A1c, patient requested due to potential hernia procedure Bal Doherty RPh Overdue Diabetes Health Maintenance: Health Maintenance - Diabetes Topic Date Due Dilated Retinal Exam Never done Diabetic Foot Exam Never done Pneumococcal Vaccine: 50+ (1 of 2 - PCV) Never done Follow Up: Next PCP visit: 05/02/25 Next PharmD visit: 04/06/25 @ 1:00PM Bal Doherty RPh I spent a total of 35 minutes on the date of the service which included preparing to see the patient, [id number] patient care, completing clinical documentation, counseling and educating the patient/family/caregiv er, and ordering medications, tests, or (more content not included)... [facility] C[facility]N Tele[facility] (FPWADS) DEMAR KEARNS ([id number]) 1955 M Date Time Provider Department 03/01/25 IRMA DAWN FPWADS During your visit today, we recorded the following information about you: Selwyn Fraser LPN 03/01/2025 11:30 AM Signed Received visit summary from [employer]. Placed in provider's inbox for review. Route to MA scanning Allergies As of Date: 03/01/2025 (No Known Allergies) Date Reviewed: 01/26/2025 Reviewed by: Brooklynn Caicedo LPN - Fully Assessed Reason for Visit: Received Outside Medical Records [[id number]] Cmt: [facility] Prescriptions as of 03/01/2025 - metFORMIN ER (GLUCOPHAGE XR) 500 mg 24 hr tablet 1000 mg with breakfast, 500 mg with dinner (unable to tolerate 1000 mg BID) - rosuvastatin (CRESTOR) 20 mg tablet Take 1 tablet by mouth daily at bedtime. - blood sugar diagnostic (BLOOD GLUCOSE TEST) test strip Test blood sugar(s) 2 times daily. Dx: Type 2 DM - Uncontrolled E11.65 Insulin: No - alcohol swabs Use with blood glucose test once daily - ADULT LOW DOSE ASPIRIN ORAL Adult Low Dose Aspirin Oral - POTASSIUM ORAL potassium,chelated POTASSIUM 99 MG TABS One tablet by mouth daily as needed POTASSIUM [id number] SHANNAN Berry-Sundeep 07-03-2014 [facility] ([id number]) Problem List As Of Date 03/01/2025 Noted Resolved CAD (coronary artery disease) [I25.10] 12/15/2024 Recent URI [J06.9] 12/15/2024 Type 2 diabetes mellitus with hyperglycemia, wi*12/19/2024 Encounter Status:Closed by SELWYN FRASER on 03/01/[address] [facility] Cardiology Visit Reporton Cardiology Visit Report [facility] [address] [place] [address] OFFICE VISIT Date of Service: 03/01/25 MR#: [id number] Acct: [id number] Name: DEMAR KEARNS Rep #: [id number] : 1955 Provider: SHANNAN Mota Age/Sex: 69/M Location: [facility] Status: Signed HPI HPI History of Present Illness Details: Demar Kearns, is a 69 year-old gentleman that presents here today for a cardiovascular follow-up. He has a history of coronary artery disease with stenting to his LAD in 2012 and hyperlipidemia. He presented to our office at the end of 2020 with decreased exercise tolerance and chest discomfort. He did undergo a heart catheterization and did require stenting of his high OM 1 which was subtotally occluded. Pt was recently diagnosed with Diabetes and a hernia. He can not have his surgery d/t elevated A1C. His A1c is now 8, it was 11. He is trying to stay as active as he can with his hernia. He did have a lipid panel done. Intake Vital Signs 06/28/24 14:06 03/01/25 08:05 Height 6 ft 2 in 6 ft 2 in Weight: 210 lb 193 lb BMI 26.9 24.7 BP 130/72 H 127/72 H Blood Pressure Location Lt brachial Lt brachial Position Sitting Sitting Respiration 18 16 Pulse 61 62 Pulse Source Monitor NIBP Pulse Oximetry (%) 92 Intake Visit Reasons: 6 M FU Product Management Specialist Required: No Is patient in pain?: No Allergies No Known Allergies Allergy (Verified 03/01/25 08:09) Medications ???Medication ???Instructions ???Recorded ???Confirmed ???Type aspirin 81 mg tablet,delayed 81 mg PO QDAY 09/11/17 03/01/25 Hi story release (Adult Low Dose Aspirin) nitroglycerin 0.4 mg sublingual 0.4 mg sublingual Q5-15M PRN chest 09/25/21 03/01/25 Rx tablet (Nitrostat) pain #25 tabs potassium 99 mg tablet 99 mg PO PRN 06/28/24 03/01/25 His tory rosuvastatin 10 mg tablet 10 mg PO Q OTHER DAY #45 TABLETS 0 01/19/25 03/01/25 Rx metformin 500 mg tablet,extended 1,000 mg PO BID 03/01/25 03/01/25 History release 24 hr Ejection fraction %: 55 Have you fallen in the past year?: No PFSH Medical History (Updated 03/01/25 @ 08:54 by Alyssa CAMPBELL, PA) PAC (premature atrial contraction) Atherosclerotic heart disease of [place] coronary artery without angina pectoris Hyperlipidemia Surgical History Presence of stent in coronary artery ( 10/22/21) Family History Mother CAD (coronary artery disease) CHF (congestive heart failure) Father CAD (coronary artery disease) Cancer Brother Diabetes Social History Smoking Status: Former smoker how long ago did patient quit smokin alcohol intake: current alcohol intake frequency: a few times a month Alcohol type: beer substance use type: does not use caffeine: Yes Type: tea what type of physical activity do you participate in: running frequency: 3-4 times per week duration: 30-45 minutes/day seatbelt use: always do you feel safe at home: Yes ROS Const Const: Negative for fatigue or weakness Eyes Eyes: Negative for change in vision ENT ENT: Negative for dizziness or balance problems Cardio Chest Pain: No Palpitations: No Edema: None Resp Respiratory: Negative for SOB with activity, SOB at rest or SOB orthopnea SOB lying down GI GI: Negative nausea or heartburn Musc Musc: Negative for balance problems Neuro Neuro: Negative for dizziness, lightheadedness, near syncope, syncope or weakness Endo Endo: Negative for fatigue Cardiology Exam Const Appearance: cooperative, healthy appearing, comfortable, no acute distress and well developed Orientation: alert, awake and oriented x3 Head Head: normal to inspection Ears: hearing grossly normal bilaterally Nose: external nose normal Face and Sinus: face symmetric Mouth: oral mucosae normal, lip normal and moist mucous membranes Eyes General: appearance normal, both eyes and all related structures Eyelids: eyelids normal Conjunctivae: conjunctivae normal Pupils: PERRL EOM: EOM intact bilaterally Neck Neck: normal visual inspection and trachea midline; Negative no JVD Carotids: Negative bruit Chest Chest inspection: normal inspection of the chest Auscultation: Bilateral: Clear to Auscultation Cardio Palpation: normal PMI Rate: regular rate Rhythm: regular rhythm Heart sounds: S1 normal and S2 normal; Negative rub, gallop or murmur GI GI: soft, no hepatosplenomegaly and bowel sounds present Neuro General: patient alert, patient awake, patient oriented x3 and CN's II-XI intact bilaterally Extremities Pulses: Normal: Right Posterior Tibial Pulse, Left Posterior (more content not included)... Normal [facility] DEM[facility] KEAR[facility] ([id number]) 1955 M Date Time Provider Department 02/09/25 IRMA DAWN During your visit today, we recorded the following information about you: [place] Alma Faith 02/09/2025 2:01 PM Signed Will is a patient of Irma Dawn MD today to speak with Emigdio or PCP regarding his A1C test results. Please call today. Patient has been identified by name and birthdate. Duration of symptoms: N/A Person calling: self Call patient at: at home Was an appointment scheduled: No Closing statement: Results or non-symptom based questions: Thank you for calling [facility], your call will be returned within the next business day. Claire Miller, CARLI 02/10/2025 11:38 AM Signed Spoke with patient, he appreciates everything done for him The patient states the problem is he needs to problem is he needs to work He was hoping to get the AIc down He is going to send you a message in a few weeks And see if maybe getting the A1c repeated in March. Emigdio Marsh APRN.JAEL 02/14/2025 10:42 AM Signed March will likely be too soon to repeat the A1C, typically done every 3 months but can discuss with the clinical pharmacist at the upcoming appointment later this month. Please fax newSTD disability paperwork, placed in outbox Emigdio Marsh APRN.Selwyn Zheng LPN 02/14/2025 4:02 PM Signed Fax sent. Called and notified pt. Pt indicated understanding. Allergies As of Date: 02/09/2025 (No Known Allergies) Date Reviewed: 01/26/2025 Reviewed by: Brooklynn Caicedo LPN - Fully Assessed Reason for Visit: Results [95] Cmt: A1C Prescriptions as of 02/14/2025 - metFORMIN ER (GLUCOPHAGE XR) 500 mg 24 hr tablet 1000 mg with breakfast, 500 mg with dinner (unable to tolerate 1000 mg BID) - rosuvastatin (CRESTOR) 20 mg tablet Take 1 tablet by mouth daily at bedtime. - blood sugar diagnostic (BLOOD GLUCOSE TEST) test strip Test blood sugar(s) 2 times daily. Dx: Type 2 DM - Uncontrolled E11.65 Insulin: No - alcohol swabs Use with blood glucose test once daily - ADULT LOW DOSE ASPIRIN ORAL Adult Low Dose Aspirin Oral - POTASSIUM ORAL potassium,chelated POTASSIUM 99 MG TABS One tablet by mouth daily as needed POTASSIUM [id number] Alyssa Ybarra PA-C 07-03-2014 [facility] ([id number]) Problem List As Of Date 02/09/2025 Noted Resolved CAD (coronary artery disease) [I25.10] 12/15/2024 Recent URI [J06.9] 12/15/2024 Type 2 diabetes mellitus with hyperglycemia, wi*12/19/2024 Encounter Status:Closed by SELWYN FRASER on 02/14/25 [facility] Sean 02-03-2025 DHAVAL Telephone (FPWAJOHNNY) SOMDEMAR Arroyo ([id number]) 1955 M Date Time Provider Department 02/03/25 IRMA DAWN During your visit today, we recorded the following information about you: Brooklynn Caicedo LPN 02/03/2025 3:34 PM Signed Received 02/03/2025 from Lavell Colin. Placed in provider's inbox for review. Route to ME for faxing. Allergies As of Date: 02/03/2025 (No Known Allergies) Date Reviewed: 01/26/2025 Reviewed by: Brooklynn Caicedo LPN - Fully Assessed Reason for Visit: Received Outside Medical Records [[id number]] Cmt: [employer] Short Term disability 01/31/2025 Prescriptions as of 02/03/2025 - rosuvastatin (CRESTOR) 20 mg tablet Take 1 tablet by mouth daily at bedtime. - metFORMIN ER (GLUCOPHAGE XR) 500 mg 24 hr tablet Take 2 tablets by mouth once daily. - blood sugar diagnostic (BLOOD GLUCOSE TEST) test strip Test blood sugar(s) 2 times daily. Dx: Type 2 DM - Uncontrolled E11.65 Insulin: No - alcohol swabs Use with blood glucose test once daily - ADULT LOW DOSE ASPIRIN ORAL Adult Low Dose Aspirin Oral - POTASSIUM ORAL potassium,chelated POTASSIUM 99 MG TABS One tablet by mouth daily as needed POTASSIUM [id number] Alyssa Ybarra PA-C 07-03-2014 [facility] ([id number]) Problem List As Of Date 02/03/2025 Noted Resolved CAD (coronary artery disease) [I25.10] 12/15/2024 Recent URI [J06.9] 12/15/2024 Type 2 diabetes mellitus with hyperglycemia, wi*12/19/2024 Encounter Status:Closed by BROOKLYNN CAICEDO on 02/03/[address] [facility] HbA1c (Bld)on 02-02-2025 Average glucose Estimated from glycated hemoglobin (Bld) [Mass/Vol] 183 mg/dL Normal [facility] Comment on above: Order Comment: Marcelino ivory Type: BLOOD SPECIMEN [facility] Address: [address] [place] [address] Result Comment: eAG: (Estimated average glucose) is a calculated value from HgbA1c and is credit representative of the average blood glucose level in the last 2-3 month period. Performed By: #### 5 5454-3 #### [facility] CLIA [id number] [address] [place] [address] [place] [facility] HbA1c (Bld) [Mass fraction] 8.0 % High 4.3-5.[address] [facility] Comment on above: Order Comment: Marcelino ivory Type: BLOOD SPECIMEN [facility] Address: [address] [place] [address] Result Comment: Amer ican Diabetes Association guidelines indicate that patients with HgbA1c in the range 5.7-6.4% are at increased risk for development of diabetes, and intervention by lifestyle modification may be beneficial. HgbA1c greater or equal to 6.5% is considered diagnostic of diabetes. Performed By: #### 5 5454-3 #### [facility] CLIA [id number] [address] [place] [address] OF [facility] CNOVon 01-26-2025 CNOV Office Visit (FPWADS ) DEMAR KEARNS ([id number]) 1955 M Date Time Provider Department 01/26/25 3:00 PM IRMA DWAN FPWADS During your visit today, we recorded the following information about you: Pulse Blood pressure Weight 65/minute 126/81 88 kg Irma Dawn MD 01/26/2025 5:45 PM Addendum Recording using ENEFpro software for draft documentation of the visit was discussed with the patient/authorized credit representative; all questions welcomed and answered. Patient/authorized credit representative agreed to proceed Subjective Will is a 69-year-old male with a history of CAD, presenting for diabetes management and hernia repair clearance. Diabetes Mellitus: - Diagnosed recently; A1c was 11% at diagnosis. - Currently taking two oral hypoglycemic agents. - Monitoring blood glucose levels daily; fasting levels average around 140 mg/dL, postprandial levels around 170 mg/dL. - Reports one instance of consuming three pieces of pizza and soda, resulting in elevated glucose levels. - Has not yet seen a middle school special education teacher but plans to schedule an appointment. Hernia: - Hernia has worsened since initial evaluation by Dr. Barbosa. - Currently wearing a truss daily for support. - Hernia repair surgery was postponed due to elevated A1c levels. - Engages in gardening and beekeeping, which involves lifting heavy objects; uses a truss during these activities. Coronary Artery Disease: - Diagnosed in 2012; first stent placed in July 2013. - Most recent stent placement was 3 years ago. - No recent EKGs performed. - Scheduled to see a distillery miller in March. Lifestyle: - Engages in daily cardiovascular exercise, including a 2-mile walk with a 250-foot vertical climb. - Previously participated in a structured exercise program but discontinued about 1.5-2 years ago. - Does not smoke or consume alcohol. 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 Constitutional: (+) generalized discomfort Cardiovascular: (-) chest pain PHYSICAL EXAMINATION BP 126/81 Pulse 65 Wt 88 kg (194 lb 0.1 oz) BMI 24.91 kg/m? General: Alert and oriented, no distress, pleasant and cooperative. Shoulder carriage L>R. Mild thoracolumbar scoliosis noted. (Pt ws not aware) Heart: Regular, normal S1 and S2, no murmurs, rubs, or gallops Lungs: Clear to auscultation bilaterally Abdomen: Benign Hernia exam not repeated. Extremities: Feet/ankles without edema, posterior tibial pulses full and symmetrical Labs: (December) Self-monitored blood glucose: - Fasting readings: 124-140 mg/dL - Postprandial readings: up to 180 mg/dL Hemoglobin A1c: 11 1. Type 2 diabetes mellitus with hyperglycemia, without long-term current use of insulin (HCC) (E11.65) - Blood glucose levels showing improvement with fasting levels averaging around 140 mg/dL. - Currently taking two tablets of metformin daily as per retail pharmacy manager Blanca Clayton's adjustment. - Ordered Hemoglobin A1c test to be performed on February 02 to assess long-term glycemic control. - Airfield Operations Specialist consultation scheduled to further optimize dietary management. 2. Coronary artery disease involving [place] coronary artery of [place] heart without angina pectoris (I25.10) - History of two stent placements, first in July 2013 and most recent approximately three years ago. - No current symptoms of angina; patient remains physically active with daily cardiovascular exercise. - Next cardiology appointment scheduled for March with SHANNAN Brooks. - No recent EKGs performed; functional status remains stable. 3. Non-recurrent bilateral inguinal hernia without obstruction or gangrene (K40.20) - Hernia has worsened; currently managed with a truss. - Surgery previously postponed due to uncontrolled diabetes. - Will contact Dr. Barbosa to discuss proceeding with hernia repair once A1c results are available. - Patient advised on expected recovery period of 6-8 weeks post-surgery. 4. Scoliosis of thoracolumbar spine, unspecified scoliosis type (M41.9) - Mild scoliosis observed on physical examination with slight curvature noted. - No current symptoms or functional limitations reported. Requested Prescriptions No prescriptions requested or ordered in this encounter RTO: discuss after A1c Irma Dawn MD Allergies As of Date: 01/26/2025 (No Known Allergies) Date Reviewed: 01/26/2025 Reviewed by: Brooklynn Caicedo LPN - Fully Assessed Reason for Visit: Follow Up [171] Primary Visit Diagnosis:Type 2 diabetes mellitus with hyperglycemia, without long-term current use of insulin (HCC) [E11.65] Other Visit Diagnoses:Coronary artery disease involving [place] coronary artery of [place] heart without angina pectoris [I25.10] Non-recurrent bilateral inguinal hernia without obs (more content not included)... Normal [facility] panelon 04-04-202 5 Cholesterol [Mass/Vol] 164 mg/dL Normal <[address] [facility] Comment on above: Order Comment: Kamari men Type: BLOOD SPECIMEN Ordering Facility: [facility] Address: [address] [place] [address] Result Comment: <200 mg/dL, Desirable 200-239 mg/dL, Borderline high >239 mg/dL, High Performed By: #### 2 4321-2 #### [facility] CLIA [id number] [address] [place] [address] [place] Cholesterol in HDL [Mass/Vol] 37 mg/dL Low >[address] [facility] Comment on above: Order Comment: Marcelino men Type: BLOOD SPECIMEN Ordering Facility: [facility] Address: [address] [place] [address] Result Comment: 40-5 9 mg/dL, Acceptable >59 mg/dL, High: Negative risk factor for coronary heart disease <40 mg/dL, Low: Positive risk factor for coronary heart disease Performed By: #### 2 4321-2 #### [facility] CLIA [id number] [address] [place] [address] [place] Cholesterol in LDL [Mass/Vol] 94 mg/dL Normal <[address] [facility] Comment on above: Order Comment: Marcelino men Type: BLOOD SPECIMEN Ordering Facility: [facility] Address: [address] [place] [address] Result Comment: <100 mg/dL, Optimal 100-129 mg/dL, Near optimal/above optimal 130-159 mg/dL, Borderline high 160-189 mg/dL, High >189 mg/dL, Very high Secondary prevention optimal LDL Cholesterol levels are recommended to be < 70 mg/dL Performed By: #### 2 4321-2 #### [facility] CLIA [id number] [address] [place] [address] [place] Cholesterol in LDL/Cholesterol in HDL [Mass ratio] 2.54 {ratio} High <2.[address] [facility] Comment on above: Order Comment: Speci men Type: BLOOD SPECIMEN Ordering Facility: [facility] Address: [address] [place] [address] Result Comment: [place]: 1. National Cholesterol Education Program ATP III Guideline At-A-Glance Quick Desk Reference: National Heart, Lung, and Blood [place]. National Institutes of Health. 2001: NIH Publication No. 01-3305. 2. An International Atherosclerosis Society position paper: global recommendations for the management of dyslipidemia: executive summary, Atherosclerosis. 2014: 232(2):410-413. Performed By: #### 2 4321-2 #### [facility] CLIA [id number] [address] [place] [address] [place] Cholesterol in VLDL [Mass/Vol] 33 mg/dL High <[address] [facility] Comment on above: Order Comment: Speci men Type: BLOOD SPECIMEN Ordering Facility: [facility] Address: [address] [place] [address] Performed By: #### 2 4321-2 #### [facility] CLIA [id number] [address] [place] [address] [place] Cholesterol non HDL [Mass/Vol] 127 mg/dL Normal <[address] [facility] Comment on above: Order Comment: Speci men Type: BLOOD SPECIMEN Ordering Facility: [facility] Address: [address] [place] [address] Result Comment: <130 mg/dL, Optimal 130-159 mg/dL, Near optimal/above optimal 160-189 mg/dL, Borderline high 190-219 mg/dL, High >219 mg/dL, Very high Secondary prevention optimal non HDL Cholesterol levels are recommended to be <100 mg/dL Performed By: #### 2 4321-2 #### [facility] CLIA [id number] [address] [place] [address] [place] Cholesterol.total/Cho lesterol in HDL [Mass ratio] 4.43 {ratio} Normal <5.[address] [facility] Comment on above: Order Comment: Speci men Type: BLOOD SPECIMEN Ordering Facility: [facility] Address: [address] [place] [address] Performed By: #### 2 4321-2 #### [facility] CLIA [id number] [address] [place] [address] [place] FASTING TIME 3 hrs Normal [facility] Comment on above: Order Comment: Marcelino ivory Type: BLOOD SPECIMEN Ordering Facility: [facility] Address: [address] [place] [address] Performed By: #### 2 4321-2 #### [facility] CLIA [id number] [address] [place] [address] [place] Triglyceride [Mass/Vol] 167 mg/dL High <[address] [facility] Comment on above: Order Comment: Marcelino ivory Type: BLOOD SPECIMEN Ordering Facility: [facility] Address: [address] [place] [address] Result Comment: <150 mg/dL, Normal 150-199 mg/dL, Borderline high 200-499 mg/dL, High >499 mg/dL, Very high Performed By: #### 2 4321-2 #### [facility] CLIA [id number] [address] [place] [address] [place] CNOVon 01-05-2025 CNOV Office Visit (PHMEWO ) DEMAR KEARNS ([id number]) 1955 M Date Time Provider Department 01/05/25 2:00 PM NAVA RAM JOSEFINA During your visit today, we recorded the following information about you: Nava Ram formerly [facility] 01/05/2025 4:34 PM Signed Primary Care Pharmacy Visit CC (Reason for Consult): (E11.65) Type 2 diabetes mellitus with hyperglycemia, without long-term current use of insulin (HCC) (primary encounter diagnosis) Goal(s): A1c <7% Last Collaborating Provider Visit: 12/22/24 with Emigdio Marsh CNP - metformin initiated Demar Kearns is a 69 year old male presenting for initial visit: This initial consult was conducted in person with the patient where the consult agreement was explained. The patient may decline or cancel the agreement at any time. After consideration, the patient consented to the pharmacy consult agreement and agreed to allow medications be collaboratively managed by a pharmacist. HPI: Has been tolerating metformin been taking ~2 weeks, no GI upset Main goal at this time is to get hernia surgery done ~25 lbs lost since last fall - usually sits around 225 lbs, currently 195 lbs Very active, stressful job ~ 3 weeks off work due to hernia, has been very stressed from work this past year Not interested in adding new medications at this time mainly due to plan to switch to Medicare and might have insurance gaps upcoming Was on atorvastatin 40 mg for about 8 years - changed to rosuvastatin due to myalgias with atorvastatin Hx of CAD, multiple stents Current DM Medications: Metformin ER 500 mg once daily Previously Trialed DM Meds: None Diet Meal Breakfast: cups of tea, 2 pieces of whole wheat toast, little bit of peanut butter, little bit of honey (1/2 tsp), sometimes oatmeal Lunch: 1-2 eggs, little bit of cheese, salad, oil dressing Dinner: Protein source, salad material/vegetable Snacks: handful of nuts, oranges, other fruits Water, tea, 1 coffee, goat milk Exercise: Yes - limitation due to hernia, not where he used to be in terms of exercise (used to run long distance/was very active), but still walks his dogs up and down a hill in his neighborhood. Plan to become very active again once hernia fixed. Tobacco: No - former smoker, quit ~41 years old Alcohol: Social drinker, every once in awhile drinks beers, not often Caffeine: Yes GLYCEMIC CONTROL: Glucometer present at visit: No - brought in written log Hypoglycemia: No - no values <70 or reported hypoglycemia symptoms SMBGS (Fingersticks) Date Fasting AM 2 hr PP 12/24 164 12/25 164 12/26 138 12/27 150 12/28 140 12/28 233 12/29 136 12/30 130 12/31 142 01/01 124 01/02 178 4/1 141 4/2 180 / 141 AVG 142 170 Past medical history reviewed. ALLERGIES No Known Allergies Current Outpatient Medications Medication Sig Dispense Refill metFORMIN ER (GLUCOPHAGE XR) 500 mg 24 hr tablet Take 1 tablet by mouth once daily. 30 tablet 0 blood sugar diagnostic (BLOOD GLUCOSE TEST) test strip Test blood sugar(s) 2 times daily. Dx: Type 2 DM - Uncontrolled E11.65 Insulin: No 50 Strip 11 alcohol swabs Use with blood glucose test once daily 100 Each 5 rosuvastatin (CRESTOR) 10 mg tablet Take 1 tablet by mouth every other day. ADULT LOW DOSE ASPIRIN ORAL Adult Low Dose Aspirin Oral POTASSIUM ORAL potassium,chelated POTASSIUM 99 MG TABS One tablet by mouth daily as needed POTASSIUM [id number] Alyssa Ybarra PA-C 07-03-2014 [facility] ([id number]) No current facility-administered medications for this visit. Pill bottles are present. Adherence: 1 missed dose in past week. Rx coverage: Payor: ANTHEM / Plan: BLUE CARD PPO OOS / Product Type: PPO / Medications affordable? Yes PHARMACOTHERAPY PREVENTATIVE MEDS: On JUDY/ARB: No On Statin: Yes On ASA: Yes EXAM: There were no vitals taken for this visit. Last 3 Encounter BP Readings: Date: BP: 12/22/2024 135/64 12/21/2024 132/84 12/13/2024 145/74 Wt: 92.6 kg (204 lb 2.3 oz) BMI: 26.21 kg/(m2) LABS: Lab Results Component Value Date HBA1C 10.9 12/15/2024 Glucose 305 12/15/2024 BUN 11 12/15/2024 Creatinine 0.65 12/15/2024 Sodium 134 12/15/2024 Potassium 4.6 12/15/2024 Chloride 99 12/15/2024 CO2 25 12/15/2024 Calcium 9.2 12/15/2024 Lab Results Component Value Date LDL 159 07/06/2013 HDL 34 07/06/2013 TG 63 07/06/2013 Albumin/Creat Ratio (mg/g) Date Value 12/22/2024 <9 Estimated Glomerular Filtration Rate (mL/min/1.73m?) Date Value 12/15/2024 103 ASSESSMENT/PLAN: 1. Type 2 diabetes mellitus with hyperglycemia, without long-term current use of insulin (HCC) - ICD9: 250.00, 790.29, ICD10: E11.65 - Improving control - Patient wanting to keep medications the same at this time - continue metformin ER 500 mg daily - Statin prescribed - rosuvastatin - Placed consult to (more content not included)... Normal [facility] ALBUMIN/CREATININE RATIO, UR INEon 12-22-2024 Albumin DL <= 20 mg/L (U) [Mass/Vol] mg/dL Normal [facility] Comment on above: Order Comment: Speci men Type: URINE SPECIMENOrdering Facility: [facility] Address: [address] [place] [address] Performed By: #### U ACR ####[facility] [id number] [place] [address] [place] Albumin/Creatinine (U) [Mass ratio] <9 Normal <[address] [facility] Comment on above: Order Comment: Speci men Type: URINE SPECIMENOrdering Facility: [facility] Address: [address] [place] [address] Result Comment: Adul t Male and Female Nephrotic Criteria: <30 mg/g is considered normal to mildly increased 30-300 mg/g is considered moderately increased >300 mg/g is considered severely increased KDIGO. (2013). KDIGO 2012 Clinical Practice Guideline for the Evaluation and Management of Chronic Kidney Disease. Official Journal of the International Society of Nephrology, 3(1), 1-150. Performed By: #### U ACR ####[facility] [id number] [place] [address] [place] Creatinine (U) [Mass/Vol] 139.7 mg/dL Normal 20.0-300.[address] [facility] Comment on above: Order Comment: Speci men Type: URINE SPECIMENOrdering Facility: [facility] Address: [address] [place] [address] Performed By: #### U ACR ####[facility] [id number] [address] [place] [address] [place] [facility] CNOVon 12-22-2024 CNOV Office Visit (FPWADS ) DEMAR KEARNS ([id number]) 1955 M Date Time Provider Department 12/22/24 9:40 AM EMIGDIO MARSH During your visit today, we recorded the following information about you: Pulse Blood pressure Weight 64/minute 135/64 92.6 kg Emigdio Marsh APRN.GUM DIPPER 12/22/2024 12:03 PM Signed This note was created using [employer]. Subjective Demar Kearns is a 69 year old male. ZOEY Ramirez is a 69-year-old male with a history of CAD, presenting for an initial visit to establish care and address newly diagnosed diabetes. Diabetes: - Recently diagnosed with diabetes during preoperative evaluation for hernia repair. - Denies polydipsia and polyuria. - Reports intermittent paresthesia in feet for approximately 10 years. - A1c measured at 10.9. - No previous primary care provider since 2012. - Expresses desire to manage blood glucose levels to proceed with hernia surgery. - Open to dietary consultation with a salesperson driver. CAD: - History of coronary artery blockage treated with stent placement in 2012. 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 - Last lipid panel conducted a year ago; next appointment scheduled for January. - Previously engaged in a cardiovascular exercise program, including stationary biking, but discontinued two years ago. - Reports high-stress levels at work, leading to poor dietary habits over the past six months. - Consumes large amounts of caffeine; denies alcohol, tobacco, and recreational drug use. - Desires to retire and manage health conditions effectively. Recently evaluated for bilateral inguinal surgery repair, but cannot have surgery until diabetes is controlled. The hernias are uncomfortable and affect his ability to do his job, concerned for having to be out of work even longer now to get blood sugar under control before surgery, has looked into FMLA, paperwork with surgeon. Review of Systems Constitutional: Negative for unexpected weight change. Respiratory: Negative for shortness of breath. Cardiovascular: Negative for chest pain. Gastrointestinal: Negative for constipation and diarrhea. Inguinal hernia Allergic/Immunologic: Positive for immunocompromised state. Neurological: Positive for numbness. Negative for weakness. PAST MEDICAL HISTORY Diagnosis Date CAD (coronary artery disease) 12/15/2024 Coronary artery disease Mixed hyperlipidemia Recent URI 12/15/2024 PAST SURGICAL HISTORY Procedure Laterality Date PAST SURGICAL HISTORY OF 10/05/1999 umbilical hernia repair-[facility]. PAST SURGICAL HISTORY OF umbilical hernia repair STENT - CORONARY x2 TONSILLECTOMY PRIMARY/SECONDARY Tonsillectomy ALLERGIES Patient has no known allergies. MEDICATIONS doxycycline (VIBRA-TABS) 100 mg tablet Take 1 tablet by mouth two times a day for 7 days. rosuvastatin (CRESTOR) 10 mg tablet Take 1 tablet by mouth every other day. ADULT LOW DOSE ASPIRIN ORAL Adult Low Dose Aspirin Oral POTASSIUM ORAL potassium,chelated POTASSIUM 99 MG TABS One tablet by mouth daily as needed POTASSIUM [id number] Alyssa Ybarra PA-C 07-03-2014 [facility] ([id number]) metFORMIN ER (GLUCOPHAGE XR) 500 mg 24 hr tablet Take 1 tablet by mouth once daily. Blood-Glucose Meter Test Two times a day. Insulin Dep? No E11.9 DM 2 Blood Glucose Control, Normal soln Use to calibrate glucometer. blood sugar diagnostic (BLOOD GLUCOSE TEST) test strip Test blood sugar(s) 2 times daily. Dx: Type 2 DM - Uncontrolled E11.65 Insulin: No alcohol swabs Use with blood glucose test once daily FAMILY HISTORY Problem Relation Age of Onset Anesthesia No Family History Social History Tobacco Use Smoking status: Former Current packs/day: 0.00 Types: Cigarettes Start date: 10/05/1974 Quit date: 10/05/1981 Years since quittin.2 Smokeless tobacco: Never Substance Use Topics Alcohol use: Yes Comment: occasional- 1-2 drinks per month Drug use: No Objective BP 135/64 Pulse 64 Wt 92.6 kg (204 lb 2.3 oz) BMI 26.21 kg/m? Labs: -POC glucose (fasting) - 184 - Hemoglobin A1c: 10.9 Physical Exam GENERAL: NAD, alert and oriented. SKIN: Unremarkable, no rash or skin lesions. HEAD: Normocephalic. EYES: PERRLA, EOMI, conjunctiva clear. EARS: External ears normal, canals clear, TM's normal. NOSE/SINUSES: Nares normal. Septum midline. OROPHARYNX: Lips, mucosa, and tongue normal, good dentition. No oral lesions noted. NECK: Supple, no lymphadenopathy, normal thyroid, no carotid bruits. LUNGS: Clear to auscultation bilaterally, no wheezes/rhonchi/rales. HEART: Regular rate and rhythm, no murmurs. No ectopy. EXTREMITIES: Normal, no deformities, no skin discoloration, no edema. NEURO: Awake, alert and oriented x3, cranial nerves II-XII grossly intact, normal gait, no involuntary motions. Assessment an (more content not included)... Normal [facility] GLUCOSE, BLOOD (POC)on 12-22 Glucose [Mass/Vol] 184 mg/dL Abnormal 74 - 99 mg/dL [facility] Comment on above: Location:[facility] Office, [address] [place] [address], [facility] The Accu-Chek Inform II glucose meter has not been approved for testing on patients receiving intensive medical intervention or therapy and results from this point of care glucose test should not be used for patient management decisions in these cases. Inaccurate results may also occur from other interfering factors, such as N-acetylcysteine (blood concentrations of greater than 5mg/dL), galactose, extremes of hematocrit (<10 or >65), or high doses of ascorbic acid (vitamin C) greater than 3mg/dL. Consider alternate testing mechanisms (e.g. core lab, blood gas instrument) in the above situations. Interpretation and review of laboratory results Abnormal [facility] CNOVon 12-21-2024 CNOV Office Visit (WSTR ) DEMAR KEARNS ([id number]) 1955 Date Time Provider Department 12/21/24 10:15 AM [facility] During your visit today, we recorded the following information about you: Temperature Pulse Respiration Blood pressure 96.9 degrees 66/minute 16/minute 132/84 Weight 92.5 kg Brown Bolton APRN.GUM DIPPER 12/21/2024 10:44 AM Signed Subjective HPI Nontoxic-appearing 69-year-old male presents urgent care chief complaint cough. Duration of symptoms 1 month. Associated symptoms cough. States is productive sometimes. Had influenza around a month ago. Recently diagnosed with inguinal hernia. Is on established with PCP. labs were obtained. Glucose of 305 was noted. Has not taken any OTC medications. Denies any chest pain hemoptysis or pleuritic pain. No fever. Past medical history prescription medications allergies reviewed .Patient presents with: Chest Congestion: cough x 1 month after flu dx PAST MEDICAL HISTORY Diagnosis Date CAD (coronary artery disease) 12/15/2024 Coronary artery disease Mixed hyperlipidemia Recent URI 12/15/2024 PAST SURGICAL HISTORY Procedure Laterality Date PAST SURGICAL HISTORY OF 10/05/1999 umbilical hernia repair-[facility]. PAST SURGICAL HISTORY OF umbilical hernia repair STENT - CORONARY x2 TONSILLECTOMY PRIMARY/SECONDARY Tonsillectomy ALLERGIES Patient has no known allergies. MEDICATIONS rosuvastatin (CRESTOR) 10 mg tablet Take 1 tablet by mouth every other day. ADULT LOW DOSE ASPIRIN ORAL Adult Low Dose Aspirin Oral POTASSIUM ORAL potassium,chelated POTASSIUM 99 MG TABS One tablet by mouth daily as needed POTASSIUM [id number] Alyssa Ybarra PA-C 07-03-2014 [facility] ([id number]) FAMILY HISTORY Problem Relation Age of Onset Anesthesia No Family History Social History Tobacco Use Smoking status: Former Current packs/day: 0.00 Types: Cigarettes Start date: 10/05/1974 Quit date: 10/05/1981 Years since quittin.2 Smokeless tobacco: Never Substance Use Topics Alcohol use: Yes Comment: occasional- 1-2 drinks per month Drug use: No BP 132/84 Pulse 66 Temp 36.1 ?C (96.9 ?F) Resp 16 Wt 92.5 kg (203 lb 14.8 oz) SpO2 95% BMI 26.18 kg/m? Review of Systems Constitutional: Negative for chills, fever and malaise/fatigue. HENT: Negative for congestion, ear discharge, ear pain, sinus pain and sore throat. Eyes: Negative for blurred vision, pain, discharge and redness. Respiratory: Positive for cough. Negative for hemoptysis, sputum production, shortness of breath, wheezing and stridor. Cardiovascular: Negative for chest pain. Gastrointestinal: Positive for abdominal pain. Negative for diarrhea, nausea and vomiting. Musculoskeletal: Negative for myalgias. Skin: Negative for itching and rash. Neurological: Negative for dizziness and headaches. Objective Physical Exam Constitutional: General: He is not in acute distress. Appearance: He is not diaphoretic. HENT: Head: Normocephalic. Jaw: No trismus, tenderness, swelling or pain on movement. Mouth/Throat: Mouth: Mucous membranes are moist. Pharynx: Oropharynx is clear. Uvula midline. No pharyngeal swelling, oropharyngeal exudate, posterior oropharyngeal erythema or uvula swelling. Eyes: Conjunctiva/sclera: Conjunctivae normal. Pupils: Pupils are equal, round, and reactive to light. Cardiovascular: Rate and Rhythm: Normal rate and regular rhythm. Heart sounds: Normal heart sounds. Pulmonary: Effort: Pulmonary effort is normal. No tachypnea, accessory muscle usage or respiratory distress. Breath sounds: No stridor. Wheezing present. No rhonchi or rales. Abdominal: General: There is no distension. Palpations: Abdomen is soft. Tenderness: There is no abdominal tenderness. There is no guarding or rebound. Musculoskeletal: Cervical back: Normal range of motion and neck supple. No edema, erythema, rigidity or tenderness. No pain with movement. Normal range of motion. Lymphadenopathy: Cervical: No cervical adenopathy. Skin: General: Skin is warm and dry. Neurological: Mental Status: He is alert and oriented to person, place, and time. ASSESSMENT/PLAN: 1. Subacute cough - ICD9: 786.2, ICD10: R05.2 - XR CHEST 2V FRONTAL/LAT IMPRESSION: Possible trace left pleural effusion Treat as bronchitis. Placed on doxycycline. Patient was educated on supportive therapies. Patient will follow up with primary care provider as needed. Patient was instructed to immediately proceed to emergency room for any new, worsening, or symptoms lasting longer than anticipated. The patient's clinical presentation is otherwise unremarkable at this time. Based on exam and clinical finding, the patient is stable for discharge. Plan of care was discussed with patient. Patient verbalizes understanding and (more content not included)... Normal [facility] CNPNon 12-21-2024 CNPN Telephone (GENSWS) DEMAR KEARNS ([id number]) 1955 M Date Time Provider Department 12/21/24 RUDI BARBOSA GENSWS During your visit today, we recorded the following information about you: Bria Galo, RN 12/21/2024 12:54 PM Signed Pt came into office to discuss being wrote off work until after surgery due to pain. This Nurse spoke with provider who agreed. FMLA paperwork given to me from patient. On desk to be completed. Patient is to call with updated about A1C after appointment 12/21. Allergies As of Date: 12/21/2024 (No Known Allergies) Date Reviewed: 12/21/2024 Reviewed by: Shannon Acharya MA - Fully Assessed Prescriptions as of 12/21/2024 - doxycycline (VIBRA-TABS) 100 mg tablet Take 1 tablet by mouth two times a day for 7 days. - rosuvastatin (CRESTOR) 10 mg tablet Take 1 tablet by mouth every other day. - ADULT LOW DOSE ASPIRIN ORAL Adult Low Dose Aspirin Oral - POTASSIUM ORAL potassium,chelated POTASSIUM 99 MG TABS One tablet by mouth daily as needed POTASSIUM [id number] Alyssa Ybarra PA-C 07-03-2014 [facility] ([id number]) Problem List As Of Date 12/21/2024 Noted Resolved CAD (coronary artery disease) [I25.10] 12/15/2024 Recent URI [J06.9] 12/15/2024 Type 2 diabetes mellitus with hyperglycemia, wi*12/19/2024 Encounter Status:Closed by BRIA GALO on 12/21/[address] [facility] XR CHEST 2V FRONTAL/LATon 03 -19-2025 XR CHEST 2V FRONTAL/LAT * * *Final Report* * * DATE OF EXAM: Dec 21 2024 10:37AM WOX [id number] - XR CHEST 2V FRONTAL/LAT / PROCEDURE REASON: Subacute cough * * * * Physician Interpretation * * * * EXAMINATION: CHEST RADIOGRAPH (2 VIEW FRONTAL and LATERAL) CLINICAL HISTORY: Subacute cough MQ: [id number] EXAM DATE/TIME: 12/21/2024 10:37 AM COMPARISON: No relevant prior studies available. RESULT: Lines, tubes, and devices: None. Lungs and pleura: Possible trace left pleural effusion. No consolidation, mass or pneumothorax. Cardiomediastinal silhouette: Normal cardiomediastinal silhouette. Bones and soft tissues: Unremarkable. IMPRESSION: Possible trace left pleural effusion Rewrite Editor: [facility] Transcribe Date/Time: Dec 21 2024 10:38A Dictated by : INÉS ESCOBAR MD This examination was interpreted and the report reviewed and electronically signed by: INÉS ESCOBAR MD on Dec 21 2024 10:39AM EST [id number] Normal [facility] XR Chest PA and Lateralon IMPRESSION: Possible trace left pleural effusion Rewrite Editor: [facility] Transcribe Date/Time: Dec 21 2024 10:38A Dictated by : INÉS ESCOBAR MD This examination was interpreted and the report reviewed and electronically signed by: INÉS ESCOBAR MD on Dec 21 2024 10:39AM EST DIVISION OF RADIOLOGY * * *Final Report* * * DATE OF EXAM: Dec 21 2024 10:37AM WOX 5291 - XR CHEST 2V FRONTAL/LAT / PROCEDURE REASON: Subacute cough * * * * Physician Interpretation * * * * EXAMINATION: CHEST RADIOGRAPH (2 VIEW FRONTAL & LATERAL) CLINICAL HISTORY: Subacute cough MQ: XC2_6 EXAM DATE/TIME: 12/21/2024 10:37 AM COMPARISON: No relevant prior studies available. RESULT: Lines, tubes, and devices: None. Lungs and pleura: Possible trace left pleural effusion. No consolidation, mass or pneumothorax. Cardiomediastinal silhouette: Normal cardiomediastinal silhouette. Bones and soft tissues: Unremarkable. DIVISION OF RADIOLOGY Provider, [facility] - 12/21/2024 * * *Final Report* * * DATE OF EXAM: Dec 21 2024 10:37AM WOX 5291 - XR CHEST 2V FRONTAL/LAT / PROCEDURE REASON: Subacute cough * * * * Physician Interpretation * * * * EXAMINATION: CHEST RADIOGRAPH (2 VIEW FRONTAL & LATERAL) CLINICAL HISTORY: Subacute cough MQ: XC2_6 EXAM DATE/TIME: 12/21/2024 10:37 AM COMPARISON: No relevant prior studies available. RESULT: Lines, tubes, and devices: None. Lungs and pleura: Possible trace left pleural effusion. No consolidation, mass or pneumothorax. Cardiomediastinal silhouette: Normal cardiomediastinal silhouette. Bones and soft tissues: Unremarkable. IMPRESSION IMPRESSION: Possible trace left pleural effusion Rewrite Editor: JULIANA Transcribe Date/Time: Dec 21 2024 10:38A Dictated by : INÉS ESCOBAR MD This examination was interpreted and the report reviewed and electronically signed by: INÉS ESCOBAR MD on Dec 21 2024 10:39AM EST [facility] Radiology Study observation (narrative) [facility] XR Chest PA and LateralOrder ed By: Ccf Provider on 12-21-2024 [facility] CNPNon 12-19-2024 CNPN Telephone ([facility]) DEMAR KEARNS ([id number]) 1955 M Date Time Provider Department 12/19/[address] [facility] During your visit today, we recorded the following information about you: Tere Rodriguez PA-C 12/19/2024 2:24 PM Signed Enrique Grullon, Can you schedule this patient with an internal medicine provider [facility]? Preferably in [place]. Tere Kinsey Allergies As of Date: 12/19/2024 (No Known Allergies) Date Reviewed: 12/15/2024 Reviewed by: Tere Rodriguez PA-C - Fully Assessed Reason for Visit: Pre-Op Update [997] Prescriptions as of 12/21/2024 - rosuvastatin (CRESTOR) 10 mg tablet Take 1 tablet by mouth every other day. - ADULT LOW DOSE ASPIRIN ORAL Adult Low Dose Aspirin Oral - POTASSIUM ORAL potassium,chelated POTASSIUM 99 MG TABS One tablet by mouth daily as needed POTASSIUM [phone] Alyssa Ybarra PA-C 07-03-2014 [facility] ([id number]) Problem List As Of Date 12/19/2024 Noted Resolved CAD (coronary artery disease) [I25.10] 12/15/2024 Recent URI [J06.9] 12/15/2024 Type 2 diabetes mellitus with hyperglycemia, wi*12/19/2024 Encounter Status:Closed by TERE RODRIGUEZ on 12/21/24 [facility] 12-16-2024 CNPN Telephone ([facility]) DEMAR KEARNS ([id number]) 1955 M Date Time Provider Department 12/16/24 TERE RODRIGUEZ [facility] During your visit today, we recorded the following information about you: Emigdio Holcomb RN 12/16/2024 8:23 AM Signed ----- Message from Tere Rodriguez PA-C sent at 12/16/2024 8:04 AM EDT ----- Regarding: Surgery 12/21 Good morning, Can you call lab and add on A1C for this patient? Thanks, VALENTE Burton Megan, RN 12/16/2024 8:27 AM Signed Called Lab client services, spoke with Roxy , they will add that on now Emigdio Holcomb RN December 16, 2024 8:27 AM Emigdio Holcomb RN 12/16/2024 4:06 PM Signed A1c 10.9% Please advise, surgery 12/21 Emigdio Holcomb RN December 16, 2024 4:05 PM Emigdio Holcomb RN 12/19/2024 2:[address] Barbosa- with hemoglobin A C1 that hide he is can have to have that fixed before we can even entertain the thought of doing surgery on the you can reach out to him and let him know that I will see him back once he has seen his primary care doctor and had a repeat hemoglobin A C1 that is normalized Emigdio Holcomb RN December 19, 2024 2:06 PM Emigdio Holcomb RN 12/19/2024 2:25 PM Signed Left pt detailed vm he needs to be seen by pcp and get glucose under control before he can go forward w procedure Called dr barbosa office, was on hold and no answer. So, I will frward so rivet driver's can remove case Emigdio Holcomb RN December 19, 2024 2:23 PM Emigdio Holcomb RN 12/19/2024 2:27 PM Signed Per Francisco Javier Rodriguez PA-C, she notified pt, and is helping him get set up with pcp Emigdio Holcomb RN December 19, 2024 2:27 PM Cherie Cook RN 12/19/2024 3:10 PM Signed Message routed to surgery schedulers to reschedule. Cherie Cook RN 12/19/2024 3:45 PM Signed Alyssa Vergara; [facility] Surg Schedule Pool; Emigdio Holcomb RN12 minutes ago (3:31 PM) MS I will send message to Surgical schedulers at [facility]. Alyssa Allergies As of Date: 12/16/2024 (No Known Allergies) Date Reviewed: 12/15/2024 Reviewed by: Tere Rodriguez PA-C - Fully Assessed Reason for Visit: PreOp Call [[id number]] Cmt: Add on A1C Prescriptions as of 12/19/2024 - rosuvastatin (CRESTOR) 10 mg tablet Take 1 tablet by mouth every other day. - ADULT LOW DOSE ASPIRIN ORAL Adult Low Dose Aspirin Oral - POTASSIUM ORAL potassium,chelated POTASSIUM 99 MG TABS One tablet by mouth daily as needed POTASSIUM [id number] Alyssa Ybarra PA-C 07-03-2014 [place] [facility] ([id number]) Problem List As Of Date 12/16/2024 Noted Resolved CAD (coronary artery disease) [I25.10] 12/15/2024 Recent URI [J06.9] 12/15/2024 Encounter Status:Closed by EMIGDIO HOLCOMB on 12/16/[address] [facility] Basic metabolic 2000 panelon 12-15-2024 Anion gap [Moles/Vol] 10 mmol/L Normal 8-15 [facility] Comment on above: Order Comment: Speci men Type: BLOOD SPECIMEN Ordering Facility: [facility] Address: [address] [place] [address] Performed By: #### 2 4321-2 #### [facility] CLIA [id number] [address] [place] [address] [place] Calcium [Mass/Vol] 9.2 mg/dL Normal 8.5-10.2 [facility] Comment on above: Order Comment: Speci men Type: BLOOD SPECIMEN Ordering Facility: [facility] Address: [address] [place] [address] Performed By: #### 2 4321-2 #### [facility] CLIA [id number] [address] [place] [address] [place] Chloride [Moles/Vol] 99 mmol/L Normal 98-107 [facility] Comment on above: Order Comment: Speci men Type: BLOOD SPECIMEN Ordering Facility: [facility] Address: [address] [place] [address] Performed By: #### 2 4321-2 #### [facility] CLIA [id number] [address] [place], [place] [address] [place] CO2 [Moles/Vol] 25 mmol/L Normal 22-[address] [facility] Comment on above: Order Comment: Speci men Type: BLOOD SPECIMEN Ordering Facility: [facility] Address: [address] [place], [place] [address] Performed By: #### 2 4321-2 #### [facility] CLIA [id number] [address] [place] [address] [place] Creatinine [Mass/Vol] 0.65 mg/dL Low 0.73-1.22 [facility] Comment on above: Order Comment: Marcelino ivory Type: BLOOD SPECIMEN Ordering Facility: [facility] Address: [address] [place] [address] Performed By: #### 2 4321-2 #### [facility] CLIA [id number] [address] [place] [address] [place] Creatinine and Glomerular filtration rate.predicted panel (S/P/Bld) 103 mL/min/1.73m??? Normal >=[address] [facility] Comment on above: Order Comment: Marcelino ivory Type: BLOOD SPECIMEN Ordering Facility: [facility] Address: [address] [place] [address] Result Comment: Priscila mated Glomerular Filtration Rate (eGFR) is calculated using the 2020 CKD-EPI creatinine equation. This equation utilizes serum creatinine, sex, and age as parameters. The creatinine assay has traceable calibration to isotope dilution-mass spectrometry. Refer to KDIGO guidelines for clinical interpretation. In patients with unstable renal function, e.g. those with acute kidney injury, the eGFR may not accurately reflect actual GFR. Performed By: #### 2 4321-2 #### [facility] CLIA [id number] [address] [place] [address] [place] Glucose [Mass/Vol] 305 mg/dL High 74-99 [facility] Comment on above: Order Comment: Marcelino ivory Type: BLOOD SPECIMEN Ordering Facility: [facility] Address: [address] [place] [address] Result Comment: The [place] [employer] (ADA) provides guidance for cutoff values for fasting glucose and random glucose. The ADA defines fasting as no caloric intake for at least 8 hours. Fasting plasma glucose results between 100 to 125 mg/dL indicate increased risk for diabetes (prediabetes). Fasting plasma glucose results greater than or equal to 126 mg/dL meet the criteria for diagnosis of diabetes. In the absence of unequivocal hyperglycemia, results should be confirmed by repeat testing. In a patient with classic symptoms of hyperglycemia or hyperglycemic crisis, random plasma glucose results greater than or equal to 200 mg/dL meet the criteria for diagnosis of diabetes. Reference: Standards of Medical Care in Diabetes 2016, [place] [employer]. Diabetes Care. 2016.39(Suppl 1). Performed By: #### 2 4321-2 #### [facility] CLIA [id number] [address] [place] [address] [place] Potassium [Moles/Vol] 4.6 mmol/L Normal 3.7-5.1 [facility] Comment on above: Order Comment: Speci men Type: BLOOD SPECIMEN Ordering Facility: [facility] Address: [address] [place] [address] Performed By: #### 2 4321-2 #### [facility] CLIA [id number] [address] [place] [address] [place] Sodium [Moles/Vol] 134 mmol/L Low 136-144 [facility] Comment on above: Order Comment: Speci men Type: BLOOD SPECIMEN Ordering Facility: [facility] Address: [address] [place] [address] Performed By: #### 2 4321-2 #### [facility] CLIA [id number] [address] [place] [address] [place] Urea nitrogen [Mass/Vol] 11 mg/dL Normal 9-[address] [facility] Comment on above: Order Comment: Speci men Type: BLOOD SPECIMEN Ordering Facility: [facility] Address: [address] [place] [address] Performed By: #### 2 4321-2 #### [facility] CLIA [id number] [address] [place] [address] [place] CBC W Auto Differential pane l (Bld)on 12-15-2024 Basophils (Bld) [#/Vol] 0.03 10*3/uL Normal <0.[address] [facility] Comment on above: Order Comment: Speci men Type: BLOOD SPECIMENOrdering Facility: [facility] Address: [address] [place] [address] Performed By: #### 5 5454-3, 65534-8 ####[facility] [id number] [place] [address] [place] Basophils/100 WBC (Bld) 0.4 % Normal [facility] Comment on above: Order Comment: Speci men Type: BLOOD SPECIMENOrdering Facility: [facility] Address: [address] [place] [address] Performed By: #### 5 5454-3, 54764-7 ####[facility] [id number] [place] [address] [place] Differential cell count method Nom (Bld) Auto Normal [facility] Comment on above: Order Comment: Speci men Type: BLOOD SPECIMENOrdering Facility: [facility] Address: [address] [place] [address] Performed By: #### 5 5454-3, 41038-5 ####[facility] [id number] [place] [address] [place] Eosinophils (Bld) [#/Vol] 0.22 10*3/uL Normal <0.[address] [facility] Comment on above: Order Comment: Speci men Type: BLOOD SPECIMENOrdering Facility: [facility] Address: [address] [place] [address] Performed By: #### 5 5454-3, 85183-1 ####[facility] [id number] [place] [address] [place] Eosinophils/100 WBC (Bld) 2.8 % Normal [facility] Comment on above: Order Comment: Speci men Type: BLOOD SPECIMENOrdering Facility: [facility] Address: [address] [place] [address] Performed By: #### 5 5454-3, 53377-4 ####[facility] [id number] [place] [address] [place] Erythrocyte distribution width (RBC) [Ratio] 12.2 % Normal 11.5-15.[address] [facility] Comment on above: Order Comment: Speci men Type: BLOOD SPECIMENOrdering Facility: [facility] Address: [address] [place] [address] Performed By: #### 5 5454-3, 97581-0 ####[facility] [id number] [place] [address] [place] Hematocrit (Bld) [Volume fraction] 40.8 % Normal 39.0-51.[address] [facility] Comment on above: Order Comment: Speci men Type: BLOOD SPECIMENOrdering Facility: [facility] Address: [address] [place] [address] Performed By: #### 5 5454-3, 07671-9 ####[facility] [id number] [place] [address] [place] Hemoglobin (Bld) [Mass/Vol] 14.1 g/dL Normal 13.0-17.[address] [facility] Comment on above: Order Comment: Speci men Type: BLOOD SPECIMENOrdering Facility: [facility] Address: [address] [place] [address] Performed By: #### 5 5454-3, 36984-4 ####[facility] [id number] [place] [address] [place] Immature granulocytes (Bld) [#/Vol] 10*3/uL Normal <0.[address] [facility] Comment on above: Order Comment: Speci men Type: BLOOD SPECIMENOrdering Facility: [facility] Address: [address] [place] [address] Performed By: #### 5 5454-3, 84724-5 ####[facility] [id number] [place] [address] [place] Immature granulocytes/100 WBC (Bld) 0.3 % Normal [facility] Comment on above: Order Comment: Speci men Type: BLOOD SPECIMENOrdering Facility: [facility] Address: [address] [place] [address] Performed By: #### 5 5454-3, 33535-9 ####[facility] [id number] [place] [address] [place] Lymphocytes (Bld) [#/Vol] 2.43 10*3/uL Normal 1.00-4.[address] [facility] Comment on above: Order Comment: Speci men Type: BLOOD SPECIMENOrdering Facility: [facility] Address: [address] [place] [address] Performed By: #### 5 5454-3, 98655-0 ####[facility] [id number] [place] [address] [place] Lymphocytes/100 WBC (Bld) 31.2 % Normal [facility] Comment on above: Order Comment: Speci men Type: BLOOD SPECIMENOrdering Facility: [facility] Address: [address] [place] [address] Performed By: #### 5 5454-3, 34064-4 ####[facility] [id number] [place] [address] [place] MCH (RBC) [Entitic mass] 29.3 pg Normal 26.0-34.[address] [facility] Comment on above: Order Comment: Speci men Type: BLOOD SPECIMENOrdering Facility: [facility] Address: [address] [place] [address] Performed By: #### 5 5454-3, 63490-8 ####[facility] [id number] [place] [address] [place] MCHC (RBC) [Mass/Vol] 34.6 g/dL Normal 30.5-36.0 [facility] Comment on above: Order Comment: Speci men Type: BLOOD SPECIMENOrdering Facility: [facility] Address: [address] [place] [address] Performed By: #### 5 5454-3, 71320-6 ####[facility] [id number] [place] [address] [place] MCV (RBC) [Entitic vol] 84.6 fL Normal 80.0-100.[address] [facility] Comment on above: Order Comment: Speci men Type: BLOOD SPECIMENOrdering Facility: [facility] Address: [address] [place] [address] Performed By: #### 5 5454-3, 18794-7 ####[facility] [id number] [place] [address] [place] Monocytes (Bld) [#/Vol] 0.79 10*3/uL Normal <0.[address] [facility] Comment on above: Order Comment: Speci men Type: BLOOD SPECIMENOrdering Facility: [facility] Address: [address] [place] [address] Performed By: #### 5 5454-3, 71143-6 ####[facility] [id number] [place] [address] [place] Monocytes/100 WBC (Bld) 10.1 % Normal [facility] Comment on above: Order Comment: Speci men Type: BLOOD SPECIMENOrdering Facility: [facility] Address: [address] [place] [address] Performed By: #### 5 5454-3, 96444-6 ####[facility] [id number] [place] [address] [place] Neutrophils (Bld) [#/Vol] 4.30 10*3/uL Normal 1.45-7.[address] [facility] Comment on above: Order Comment: Speci men Type: BLOOD SPECIMENOrdering Facility: [facility] Address: [address] [place] [address] Performed By: #### 5 5454-3, 65047-5 ####[facility] [id number] [place] [id number] [place] Neutrophils/100 WBC (Bld) 55.2 % Normal [facility] Comment on above: Order Comment: Speci men Type: BLOOD SPECIMENOrdering Facility: [facility] Address: [address] [place] [address] Performed By: #### 5 5454-3, 23648-0 ####[facility] [id number] [place] [address] [place] Nucleated RBC (Bld) [#/Vol] 10*3/uL Normal <0.[address] [facility] Comment on above: Order Comment: Speci men Type: BLOOD SPECIMENOrdering Facility: [facility] Address: [address] [place] [address] Performed By: #### 5 5454-3, 93699-6 ####[facility] [id number] [place] [address] [place] Nucleated RBC/100 WBC (Bld) [Ratio] 0.0 /100 WBC Normal [facility] Comment on above: Order Comment: Speci men Type: BLOOD SPECIMENOrdering Facility: [facility] Address: [address] [place] [address] Performed By: #### 5 5454-3, 56547-6 ####[facility] [id number] [address] [address] [place] Platelet mean volume (Bld) [Entitic vol] 10.9 fL Normal 9.0-12.[address] [facility] Comment on above: Order Comment: Speci men Type: BLOOD SPECIMENOrdering Facility: [facility] Address: [address] [place] [address] Performed By: #### 5 5454-3, 07218-5 ####[facility] [id number] [place] [address] [place] Platelets (Bld) [#/Vol] 238 10*3/uL Normal 150-[address] [facility] Comment on above: Order Comment: Speci men Type: BLOOD SPECIMENOrdering Facility: [facility] Address: [address] [place] [address] Performed By: #### 5 5454-3, 22420-1 ####[facility] [id number] [place] [address] [place] RBC (Bld) [#/Vol] 4.82 10*6/uL Normal 4.20-6.00 [facility] Comment on above: Order Comment: Speci men Type: BLOOD SPECIMENOrdering Facility: [facility] Address: [address] [place] [address] Performed By: #### 5 5454-3, 77811-2 ####[facility] [id number] [place] [address] [place] WBC (Bld) [#/Vol] 7.79 10*3/uL Normal 3.70-11.00 [facility] Comment on above: Order Comment: Speci men Type: BLOOD SPECIMENOrdering Facility: [facility] Address: [address] [place] [address] Performed By: #### 5 5454-3, 72477-2 ####[facility] [id number] [place] [address] [place] CNPNon 12-15-2024 CNPN Telephone (MNPACC) DEMAR KEARNS ([id number]) 1955 Date Time Provider Department 12/15/[address] [facility] During your visit today, we recorded the following information about you: Danie Mosqueda 12/15/2024 2:02 PM Signed Outside Cardiology office note, HANDP, Discharge summary, Cardiac cath, lab report, EKG, and xray report have been scanned in. Allergies As of Date: 12/15/2024 (No Known Allergies) Date Reviewed: 12/15/2024 Reviewed by: Tere Rodriguez PA-C - Fully Assessed Reason for Visit: PACC [Other] Cmt: Received outside medical records Prescriptions as of 12/15/2024 - rosuvastatin (CRESTOR) 10 mg tablet Take 1 tablet by mouth every other day. - ADULT LOW DOSE ASPIRIN ORAL Adult Low Dose Aspirin Oral - POTASSIUM ORAL potassium,chelated POTASSIUM 99 MG TABS One tablet by mouth daily as needed POTASSIUM [id number] Alyssa Ybarra PA-C 07-03-2014 [facility] ([id number]) Problem List As Of Date 12/15/2024 Noted Resolved CAD (coronary artery disease) [I25.10] 12/15/2024 Recent URI [J06.9] 12/15/2024 Encounter Status:Closed by DANIE MOSQUEDA on 12/15/[address] [facility] HISTORY PHYSICALon HISTORY PHYSICAL HNO ID: [id number] Author: TERE RODRIGUEZ PA-C Service: ? Author Type: Physician Director Of Consumer Affairs Type: H&P Filed: 12/19/2024 14:24 Note Text: [facility] HISTORY AND PHYSICAL EXAMINATION SERVICE DATE: 12/15/2024 SERVICE TIME: 4:40 PM PRIMARY CARE PHYSICIAN: No primary care provider on file. Assessment Patient has the following medical conditions which may affect debbie-operative course: CAD (coronary artery disease) History of heart stent x2- first in 2012, second was about 2 years ago. On ASA, statin. METS >5 without chest pain or SOB. Follows with cardiology at [facility]- last visit about 6 months ago. Denies new or worsening symptoms. Recent URI Had influenza-like illness, saw PCP 11/23/24. Had symptoms of fever, productive cough, nasal congestion, body aches, fatigue. Was not prescribed any antibiotics or antivirals. States symptoms have improved, has residual occasional productive cough. No acute respiratory distress noted on VV, surgeon noted lungs CTA on exam on 12/13. ANESTHESIA FINDINGS: Intubation History: No history of difficult intubation Significant Anesthesia Considerations: history of intraoperative awareness during tonsillectomy. Airway History: No history of difficult airway Hyatt Activity Status Index: METS: Walk indoors, such as around the house (1.75 METs) Do light work around the house, such as dusting or washing dishes (2.70 METs) Take care of self; that is eating, dressing, bathing, using the toilet (2.75 METs) Walk a block or two on level ground (2.75 METs) Do moderate work around the house, such as vacuuming, sweeping floors, or carrying in groceries (3.50 METs) Do yardwork, such as raking leaves, weeding, or pushing a power mower (4.50 METs) Climb a flight of stairs or walk up a hill (5.50 METs) Do heavy work around the house, such as scrubbing floors, lifting or moving heavy furniture (8.00 METs) DASI Score: 31.45 (Walks 5 miles per day. Lifting at work) Patient denies any chest pain or undue shortness of breath with the above physical activity. Clinical Frailty Scale: 2. Well STOP-Bang Score: Patient over 50 years old Male patient Denies snoring loudly Has not been observed to stop breathing or choking/gasping during sleep Denies having high blood pressure BMI less than or equal to 35 kg/m2 Does not have a large neck STOP-Bang Score: 2 I - PHYSICAL EVALUATION AIRWAY Patient intubated: No. Tracheostomy tube not present Mallampati: II. Neck ROM: full ROM without neurological symptoms. Mouth opening: adequate. Short neck: no. Thick neck: no Lip Bite Test: I DENTAL Dental findings: teeth intact. II - ANESTHESIA PLAN Anesthetic plan additional comments: *PACC/TCI - anesthesia choice. Beta Shakira Monitoring Plan Post Procedure Analgesic Plan Prepared for Surgery: optimally prepared for surgery, pending [see comment]. Labs Addendum: Labs reviewed- noted elevated glucose. HgA1C added on, elevated at 10.9. Sent FYI TE to surgical team, attempting to reach patient. Addendum: Patient states he does not have a PCP, will schedule an appointment ANSELMO. PACC RN talked to surgeon, surgery will be cancelled. Patient is aware. CONSULTS: The following consults have been initiated at this time: cardiology (Cardiac records requested.). Planned Anesthetic: anesthesia choice The Following Tests/Procedures Have Been Initiated: Orders Placed This Encounter BMP Standing Status: Future Number of Occurrences: 1 Expected Date: 12/15/2024 Expiration Date: 03/16/2025 Complete Blood Count and Differential Standing Status: Future Number of Occurrences: 1 Expected Date: 12/15/2024 Expiration Date: 03/16/2025 Hemoglobin A1C Standing Status: Future Number of Occurrences: 1 Expected Date: 12/16/2024 Expiration Date: 03/17/2025 This is a virtual visit using [employer] video visit. It required patient-provider interaction for the medical decision making as documented below. REASON FOR VISIT: Demar Kearns is a 69 year old male who is scheduled for Procedure(s): LAPAROSCOPIC HERNIORRHAPHY, INGUINAL INITIAL (Bilateral) at the request of Dr. Barbosa, Rudi Mena MD for consultation. My final recommendation will be communicated back to the requesting physician by way of shared medical record or letter. Subjective The patient has the following: COVID-19 Immunization Status Current Care Gaps Covid-19 Vaccine ( season) Due soon on 12/18/2024 06/20/2024 Imm Admin: COVID-19 vaccine, age 12+ yr ([employer] COMIRNATY) 09/09/2021 Imm Admin: COVID-19 original vaccine, age 12+ yr, monovalent ([employer] - PURPLE TOP) 12/12/2020 Imm Admin: COVID-19 vaccine (RAO) Only the first 3 history entries have been loaded, but more history exists. CHIEF COMPLAINT: Pre-op evalution HPI: Patient is a 69 year old year old male who (more content not included)... Normal [facility] HbA1c (Bld)on 12-15-2024 Average glucose Estimated from glycated hemoglobin (Bld) [Mass/Vol] 266 mg/dL Normal [facility] Comment on above: Order Comment: Speci men Type: BLOOD SPECIMENOrdering Facility: [facility] [address] [place] [id number] Result Comment: eAG: (Estimated average glucose) is a calculated value from HgbA1c and is credit representative of the average blood glucose level in the last 2-3 month period. Performed By: #### 5 5454-3, 40990-4 ####[facility] [id number] [place] [address] [place] HbA1c (Bld) [Mass fraction] 10.9 % High 4.3-5.[address] [facility] Comment on above: Order Comment: Speci men Type: BLOOD SPECIMENOrdering Facility: [facility] Address: [address] [place] [address] Result Comment: Gadiel ican Diabetes Association guidelines indicate that patients with HgbA1c in the range 5.7-6.4% are at increased risk for development of diabetes, and intervention by lifestyle modification may be beneficial. HgbA1c greater or equal to 6.5% is considered diagnostic of diabetes. Performed By: #### 5 5454-3, 02916-1 ####[facility] [id number] [place] [id number] [place] AVOVloreta 12-13-2024 CNOV Office Visit (JEFFS ) DEMAR KEARNS ([id number]) 1955 M Date Time Provider Department 12/13/24 2:30 PM RUDI BARBOSA During your visit today, we recorded the following information about you: Pulse Blood pressure Weight 78/minute 145/74 92.1 kg Saúl Mcdaniel MA 12/13/2024 2:51 PM Signed REVIEW OF SYSTEMS: General: The patient denies fatigue, denies weight loss, denies weight gain, denies feeling hot, and denies feelings of cold. Eyes: The patient denies glaucoma, denies eye injury/surgery, wears glasses or contacts. Ear/Nose/Throat: The patient denies allergies, denies hayfever, denies ear infections, and denies bloody noses. Cardiovascular: The patient denies chest pain, denies heart disease, denies high blood pressure,NOTES cardiac stent, denies prior heart attack, denies irregular heart beat, NOTES high cholesterol, denies poor circulation, denies heart failure, NOTES cardiac issues, denies claudication, denies cold feet, denies peripheral arterial stent. Respiratory: The patient denies tuberculosis, denies pneumonia, denies frequent cough, denies pulmonary embolism, denies shortness of breath, and denies coughing up blood. Gastrointestinal: The patient denies difficulty swallowing, denies acid reflux, denies ulcers, denies vomiting, denies jaundice/hepatitis, denies gallbladder problems, denies black or tarry stools, denies hemorrhoids, denies bleeding from rectum, denies diverticulitis, denies constipation, denies diarrhea, denies loss of stool control, and NOTES hernias. Kidney/Bladder: The patient denies kidney stones, denies urine infections, and denies bloody urine. Skin: The patient denies a history of skin cancer, denies bleeding/changing moles, and denies a history of skin rash. Neurologic: The patient denies a history of epilepsy/convulsions, denies headaches, denies head/spinal injuries, and denies stroke/TIA. Psychiatric: The patient denies psychiatric medications, denies depression, and denies voices, denies substance abuse. Endocrine: The patient denies thyroid disorders, denies diabetes, and denies hormonal problems. Hematologic: The patient denies a history of bruising, denies bleeding, and denies anemia, denies blood clots. Infections: The patient denies a history of measles and mumps, denies rheumatic fever, and denies sexually transmitted diseases. Musculoskeletal: The patient denies back pain/injury, denies back problems, denies sciatica, denies knee/foot trouble, denies arthritis, or denies gout. When was patient's last Mammogram screening? N/A Last Colonoscopy: none ANGIE Orellana Daniel P, MD 12/13/2024 2:51 PM Signed HISTORY AND PHYSICAL Demar Kearns 1955 REFERRING PHYSICIAN: Brown Bolton AP* CHIEF COMPLAINT: Consult and Groin Pain HPI: Demar is a 69 year old male with a complaint of a bulge and discomfort in his right inguinal region. The patient notes discomfort in this area with lifting, straining, and coughing. The symptoms have increased, over the past few weeks. The patient notes no symptoms of bowel obstruction and denies nausea or vomiting. The patient was seen by his primary care physician who felt the patient has a hernia. Demar was referred for evaluation and treatment. The patient is being seen by me today at the request of Dr. Bolton for my opinion and advice regarding Bilateral inguinal hernia without obstruction or gangrene, recurrence not specified (primary encounter diagnosis). PAST MEDICAL HISTORY Diagnosis Date Coronary artery disease Mixed hyperlipidemia PAST SURGICAL HISTORY Procedure Laterality Date PAST SURGICAL HISTORY OF 10/05/1999 umbilical hernia repair-[facility]. PAST SURGICAL HISTORY OF umbilical hernia repair STENT - CORONARY TONSILLECTOMY PRIMARY/SECONDARY Tonsillectomy Current Outpatient Medications Medication Sig rosuvastatin (CRESTOR) 10 mg tablet Take 1 tablet by mouth every other day. ADULT LOW DOSE ASPIRIN ORAL Adult Low Dose Aspirin Oral POTASSIUM ORAL potassium,chelated POTASSIUM 99 MG TABS One tablet by mouth daily as needed POTASSIUM [id number] Alyssa Ybarra PA-C 07-03-2014 [facility] ([id number]) No current facility-administered medications for this visit. ALLERGIES: Patient has no known allergies. PERSONAL HISTORY: Social History Tobacco Use Smoking status: Former Current packs/day: 0.00 Types: Cigarettes Start date: 10/05/1974 Quit date: 10/05/1981 Years since quittin.2 Smokeless tobacco: Never Substance Use Topics Alcohol use: Yes Comment: occasional Drug use: No FAMILY HISTORY: No family history on file. REVIEW OF SYMPTOMS: The review of systems data was entered by the nurse and reviewed by me There are no exam notes on file for this visit. PHYSICAL EXAMINATION: Genera (more content not included)... Normal [facility] Sean 12-13-2024 DHAVAL Telephone (GENNanomechS) DEMAR KEARNS ([id number]) 1955 M Date Time Provider Department 12/13/24 RUDI BARBOSA During your visit today, we recorded the following information about you: Allergies As of Date: 12/13/2024 (No Known Allergies) Date Reviewed: 12/12/2024 Reviewed by: Brown Bolton APRN.GUM DIPPER - Fully Assessed Prescriptions as of 12/13/2024 - rosuvastatin (CRESTOR) 10 mg tablet Take 1 tablet by mouth every other day. - ADULT LOW DOSE ASPIRIN ORAL Adult Low Dose Aspirin Oral - POTASSIUM ORAL potassium,chelated POTASSIUM 99 MG TABS One tablet by mouth daily as needed POTASSIUM [id number] Alyssa Ybarra PA-C 07-03-2014 [facility] ([id number]) Problem List As Of Date: 12/13/2024 (None) Encounter Status:Closed by BRIA GALO on 12/13/24 [facility] Akiko 12-12-2024 CNOV Office Visit (UCWSTR ) DEMAR KEARNS ([id number]) 1955 M Date Time Provider Department 12/12/24 5:30 PM BROWN BOLTON ANGIE During your visit today, we recorded the following information about you: Temperature Pulse Respiration Blood pressure 97.8 degrees 71/minute 16/minute 110/70 Weight 92.4 kg Brown Bolton APRN.CNP 12/12/2024 6:12 PM Signed Subjective HPI Nontoxic-appearing male presents urgent care chief complaint possible inguinal hernia. Duration of symptoms exacerbated over the last month. Has noticed some discomfort over the last year. He states he had a flulike illness back in November. States the coughing causes increased pain right inguinal area. OTC medications none. History of umbilical hernia repair twice. Denies any dysuria frequency testicular pain scrotal swelling. No bulges in abdominal region. States standing for an extended period of time exacerbates pain rates pain 4-5 out of 10. States sitting he can find a comfortable position. Denies any fevers nausea or vomiting. No change in bowel or bladder habits. Past medical history prescription medications allergies reviewed .Patient presents with: right groin pain: X 1 month PAST MEDICAL HISTORY Diagnosis Date Coronary artery disease PAST SURGICAL HISTORY Procedure Laterality Date PAST SURGICAL HISTORY OF 10/05/1999 umbilical hernia repair-[facility]. STENT - CORONARY TONSILLECTOMY PRIMARY/SECONDARY Tonsillectomy ALLERGIES Patient has no known allergies. MEDICATIONS rosuvastatin (CRESTOR) 10 mg tablet Take 1 tablet by mouth every other day. ADULT LOW DOSE ASPIRIN ORAL Adult Low Dose Aspirin Oral POTASSIUM ORAL potassium,chelated POTASSIUM 99 MG TABS One tablet by mouth daily as needed POTASSIUM [id number] Alyssa Ybarra PA-C 07-03-2014 [facility] ([id number]) History reviewed. No pertinent family history. Social History Tobacco Use Smoking status: Former Current packs/day: 0.00 Types: Cigarettes Start date: 10/05/1974 Quit date: 10/05/1981 Years since quittin.2 Smokeless tobacco: Never Substance Use Topics Alcohol use: Yes Comment: occasional Drug use: No BP 110/70 Pulse 71 Temp 36.6 ?C (97.8 ?F) (Tympanic) Resp 16 Wt 92.4 kg (203 lb 11.3 oz) SpO2 96% Review of Systems Constitutional: Negative for chills, fever and malaise/fatigue. HENT: Negative for congestion, ear discharge, ear pain, sinus pain and sore throat. Eyes: Negative for blurred vision, pain, discharge and redness. Respiratory: Negative for cough, hemoptysis, sputum production, shortness of breath, wheezing and stridor. Cardiovascular: Negative for chest pain. Gastrointestinal: Positive for abdominal pain. Negative for diarrhea, nausea and vomiting. Musculoskeletal: Negative for myalgias. Skin: Negative for itching and rash. Neurological: Negative for dizziness and headaches. Objective Physical Exam Constitutional: General: He is not in acute distress. Appearance: He is not toxic-appearing or diaphoretic. HENT: Head: Normocephalic. Jaw: No trismus, tenderness, swelling or pain on movement. Nose: Nose normal. Mouth/Throat: Mouth: Mucous membranes are moist. Pharynx: Oropharynx is clear. Uvula midline. No pharyngeal swelling, oropharyngeal exudate, posterior oropharyngeal erythema or uvula swelling. Eyes: Conjunctiva/sclera: Conjunctivae normal. Pupils: Pupils are equal, round, and reactive to light. Cardiovascular: Rate and Rhythm: Normal rate and regular rhythm. Heart sounds: Normal heart sounds. Pulmonary: Effort: Pulmonary effort is normal. No tachypnea, accessory muscle usage or respiratory distress. Breath sounds: Normal breath sounds. No stridor. No wheezing, rhonchi or rales. Abdominal: General: There is no distension. Palpations: Abdomen is soft. Tenderness: There is no abdominal tenderness. There is no guarding or rebound. Genitourinary: Testes: Right: Tenderness or swelling not present. Left: Tenderness or swelling not present. Epididymis: Right: Not enlarged. No tenderness. Left: Not enlarged. No tenderness. Musculoskeletal: Cervical back: Normal range of motion and neck supple. No edema, erythema, rigidity or tenderness. No pain with movement. Normal range of motion. Lymphadenopathy: Cervical: No cervical adenopathy. Skin: General: Skin is warm and dry. Neurological: General: No focal deficit present. Mental Status: He is alert and oriented to person, place, and time. ASSESSMENT/PLAN: 1. Groin pain, right - ICD9: 789.03, ICD10: R10.31 - CONSULT TO GENERAL SURGERY Diagnosed with right groin pain. Testicular exam unremarkable. No significant hernia noted on exam. Will refer to general surgery. Red flag ER evaluation discussed. Patient was educated on supportive therapies. Patient will follow up (more content not included)... Normal [facility] CNOVon 11-23-2024 CNOV Office Visit (UCWSTR ) DEMAR KEARNS ([id number]) 1955 M Date Time Provider Department 11/23/24 6:15 PM ABHISHEK FLORES [facility] [place] During your visit today, we recorded the following information about you: Temperature Pulse Respiration Blood pressure 99.4 degrees 84/minute 16/minute 110/72 Weight 97.1 kg Abhishek Flores MD 11/23/2024 6:37 PM Signed Patient presents with: Cough: Cough and chest congestion x 2 days HPI: Feeling sick since yesterday. His has been sick with an influenza-like illness and is improving. He is concerned he has bronchitis. Positive symptoms: cough (productive of green phlegm), Nasal Congestion, Rhinorrhea, Fever, Chills, Body Aches, Malaise, Fatigue, Negative symptoms: Shortness of breath, Wheezing, Chest pain, Headache, Nausea, Vomiting, Diarrhea, OTC: aspirin, benadryl Smoked for 7 years; quit 30 years ago. Denies history of COPD or asthma. He has had pneumonia in the past. PAST MEDICAL HISTORY Diagnosis Date Coronary artery disease PAST SURGICAL HISTORY Procedure Laterality Date PAST SURGICAL HISTORY OF 1999 umbilical hernia repair-[facility]. TONSILLECTOMY PRIMARY/SECONDARY Tonsillectomy MEDICATIONS: Current Outpatient Medications Medication Sig rosuvastatin (CRESTOR) 10 mg tablet Take 1 tablet by mouth every other day. ADULT LOW DOSE ASPIRIN ORAL Adult Low Dose Aspirin Oral POTASSIUM ORAL potassium,chelated POTASSIUM 99 MG TABS One tablet by mouth daily as needed POTASSIUM [id number] Alyssa Ybarra PA-C 07-03-2014 [facility] ([id number]) No current facility-administered medications for this visit. ALLERGIES: ALLERGIES No Known Allergies VITALS: BP 110/72 Pulse 84 Temp 37.4 ?C (99.4 ?F) (Tympanic) Resp 16 Wt 97.1 kg (214 lb 1.1 oz) SpO2 95% PHYSICAL EXAM: GEN: mildly ill appearing. Accompanied by his HEENT: PERRL, EOMI, conjunctiva clear Ears: canals clear. TMs without erythema, bulge, or effusion Sinuses: non-tender frontal sinus, non-tender maxillary sinuses Throat: moist mucous membranes, mild erythema, no exudate Neck: supple, no thyromegaly, no lymphadenopathy HEART: regular rate, regular rhythm, no murmurs LUNGS: clear to auscultation, no wheezes or crackles, no increased WOB ASSESSMENT/PLAN: 1. Influenza-like illness - ICD9: 487.1, ICD10: J11.1 (primary diagnosis) 2. Bronchitis - ICD9: 490, ICD10: J40 - suspect viral URI, influenza at is prevalent in the community. He is not interested in antiviral treatment and defers viral testing. - Discussed supportive care treatment which is reasonable: rest, mucinex DM, cold medicine, and analgesia. - Red flags to seek further treatment include chest pain, shortness of breath, and lethargy; in the ER if severe. Abhishek Flores MD Allergies As of Date: 11/23/2024 (No Known Allergies) Date Reviewed: 11/23/2024 Reviewed by: Vianey Watt LPN - Fully Assessed Reason for Visit: Cough [28] Cmt: Cough and chest congestion x 2 days Primary Visit Diagnosis:Influenza-li ke illness [J11.1] Other Visit Diagnosis:Bronchitis [J40] Prescriptions as of 11/23/2024 - rosuvastatin (CRESTOR) 10 mg tablet Take 1 tablet by mouth every other day. - ADULT LOW DOSE ASPIRIN ORAL Adult Low Dose Aspirin Oral - POTASSIUM ORAL potassium,chelated POTASSIUM 99 MG TABS One tablet by mouth daily as needed POTASSIUM [id number] Alyssa Ybarra PA-C 07-03-2014 [facility] ([id number]) Problem List As Of Date: 11/23/2024 (None) Medications Discontinued During This Encounter Prescriptions - atorvastatin calcium (LIPITOR ORAL) (Discontinued) Reported on 11/23/2024 - metoprolol succinate ER (TOPROL XL) 25 mg 24 hr tablet (Discontinued) Reported on 07/01/2023 - triamcinolone (KENALOG) 0.025 % cream (Discontinued) Reported on 10/19/2019 Level of Service: OFFICE/OUTPATIENT ESTABLISHED LOW MDM 20 MIN [[id number]] Encounter Status:Closed by ABHISHEK FLORES on 11/23/[address] [facility] Cardiology Visit Reporton Cardiology Visit Report [facility] [address] [place], [place] [id number] OFFICE VISIT Date of Service: 06/28/24 MR#: [id number] Acct: [id number] Name: DEMAR KEARNS Rep #: [id number] : 1955 Provider: SHANNAN Mota Age/Sex: 68/M Location: [facility] Status: Signed HPI [facility] History of Present Illness Details: Demar Kearns, is a 68 year-old gentleman that presents here today for a cardiovascular follow-up. He has a history of coronary artery disease with stenting to his LAD in 2012 and hyperlipidemia. He presented to our office at the end of 2020 with decreased exercise tolerance and chest discomfort. He did undergo a heart catheterization and did require stenting of his high OM 1 which was subtotally occluded. Pt has not been exercising as he would like to be. This is more so d/t time. He is very active at home and at work. He does not have any chest pain/heaviness/tightne ss. He is not any more SOB with activities. He does not have any palpitations. He does not have any lightheadedness/dizzin ess. He does not have any edema. He is tolerating crestor at every other day but still does have some muscle aches. Intake Vital Signs 06/29/23 15:42 10/16/23 20:00 06/28/24 14:06 Height 6 ft 2 in 6 ft 2 in 6 ft 2 in Weight: 210 lb BMI 26.9 BP 130/72 H Blood Pressure Location Lt brachial Position Sitting Respiration 18 Pulse 61 Pulse Source Monitor Pulse Oximetry (%) 92 Intake Visit Reasons: 1 Y FU Product Management Specialist Required: No Is patient in pain?: No Allergies No Known Allergies Allergy (Verified 06/28/24 14:07) Medications ???Medication ???Instructions ???Recorded ???Confirmed ???Type aspirin 81 mg tablet,delayed 81 mg PO QDAY 09/11/17 06/28/24 History release (Adult Low Dose Aspirin) nitroglycerin 0.4 mg sublingual 0.4 mg sublingual Q5-15M PRN chest 09/25/21 06/28/24 Rx tablet (Nitrostat) pain #25 tabs rosuvastatin 10 mg tablet 10 mg PO Q OTHER DAY #45 TABLETS 03/21/24 06/28/24 Rx potassium 99 mg tablet 99 mg PO PRN 06/28/24 06/28/24 History Have you fallen in the past year?: No PFSH Medical History Atherosclerotic heart disease of [place] coronary artery without angina pectoris Hyperlipidemia Surgical History Presence of stent in coronary artery ( 10/22/21) Family History Mother CAD (coronary artery disease) CHF (congestive heart failure) Father CAD (coronary artery disease) Cancer Brother Diabetes Social History Smoking Status: Former smoker how long ago did patient quit smokin alcohol intake: current alcohol intake frequency: a few times a month Alcohol type: beer substance use type: does not use caffeine: Yes Type: tea what type of physical activity do you participate in: running frequency: 3-4 times per week duration: 30-45 minutes/day seatbelt use: always do you feel safe at home: Yes ROS Const Const: Negative for fatigue, weakness, headache(s), frequent falls, difficulty sleeping or excessive sweating Eyes Eyes: Negative for loss of peripheral vision, transient loss of vision, blurry vision, double vision or tunnel vision ENT ENT: Negative for headache(s), dizziness, Nosebleed/epistaxis or balance problems Cardio Chest Pain: No Palpitations: No Edema: None Muscle aches with walking: None Resp Respiratory: Negative for SOB with activity, SOB at rest, SOB orthopnea SOB lying down, Cough or paroxysmal nocturnal dyspnea GI GI: Negative nausea, vomiting, heartburn or black,tarry stools : Negative for hematuria Musc Musc: Negative for muscle aches/ myalgia, muscle weakness, joint pain or balance problems Skin Skin: Negative non-healing lesions, rash or unusual bruising Neuro Neuro: Negative for dizziness, lightheadedness, near syncope, syncope, frequent falls, headache(s), weakness, blurry vision, double vision or lack of coordination Joe Hematologic/Lymphatic: Negative for easy bleeding or easy bruising Endo Endo: Negative for fatigue, excessive sweating or increased thirst/drinking Psych Psych: Negative for anxiety or depression Allergy Allergy/Immunology: Negative for hives and Negative for rash Cardiology Exam Const Appearance: cooperative, healthy appearing, comfortable, no acute distress and well developed Orientation: alert, awake and oriented x3 Head Head: normal to inspection Ears: hearing grossly normal bilaterally Nose: external nose normal Face and Sinus: face symmetric Mouth: oral mucosae normal, lip normal and moist mucous membranes Eyes General: appea (more content not included)... Normal [facility] Lipid Profileon 06-28-2024 Cholesterol [Mass/Vol] 199 mg/dL Normal 200 [facility] Comment on above: Order Comment: Comme nts: okay to do non fasting okay to do non fasting Result Comment: <200 mg/dL Desirable 200-240 mg/dL Borderline >240 mg/dL High Risk Performed By: #### L 500.4100, L500.3400 #### [facility] [address] [place], [address] Cholesterol in HDL [Mass/Vol] 36 mg/dL Low [facility] Comment on above: Order Comment: Comme nts: okay to do non fasting okay to do non fasting Result Comment: The drugs N-Acetylcysteine and Metamizole may falsely depress this assay. Reference Range HDL <40 mg/dL Low HDL Cholesterol HDL >or= 60 mg/dL High HDL Cholesterol Performed By: #### L 500.4100, L500.3400 #### [facility] [address] [place], [address] Cholesterol in LDL [Mass/Vol] 112 mg/dL Normal 0-130 [facility] Comment on above: Order Comment: Comme nts: okay to do non fasting okay to do non fasting Performed By: #### L 500.4100, L500.3400 #### [facility] [address] [place], [address] Cholesterol in VLDL [Mass/Vol] 51 mg/dL High 5-40 [facility] Comment on above: Order Comment: Comme nts: okay to do non fasting okay to do non fasting Performed By: #### L 500.4100, L500.3400 #### [facility] [address] [place], [address] Triglyceride [Mass/Vol] 253 mg/dL High [facility] Comment on above: Order Comment: Comme nts: okay to do non fasting okay to do non fasting Result Comment: The drugs N-Acetylcysteine and Metamizole may falsely depress this assay. Serum Triglycerides Reference Interval Normal <150 mg/dL Borderline high 150 - 199 mg/dL High 200 - 499 mg/dL Very High > or = 500 mg/dL Performed By: #### L 500.4100, L500.3400 #### [facility] [address] [place], [address] Liver Profileon 06-28-2024 Albumin [Mass/Vol] 3.7 g/dL Normal 3.2-5.0 [facility] Comment on above: Order Comment: Comme nts: okay to do non fasting okay to do non fasting Performed By: #### L 500.4100, L500.3400 #### [facility] [address] [place], [address] ALK P 91 U/L Normal 45-117 [facility] Comment on above: Order Comment: Comme nts: okay to do non fasting okay to do non fasting Performed By: #### L 500.4100, L500.3400 #### [facility] [address] [place], [address] ALT [Catalytic activity/Vol] 29 U/L Normal 16-61 [facility] Comment on above: Order Comment: Comme nts: okay to do non fasting okay to do non fasting Performed By: #### L 500.4100, [id number] #### [facility] [address] [place], [address] AST [Catalytic activity/Vol] 19 U/L Normal 15-37 [facility] Comment on above: Order Comment: Comme nts: okay to do non fasting okay to do non fasting Performed By: #### L 500.4100, [id number] #### [facility] [address] [place], [address] Bilirubin [Mass/Vol] 0.40 mg/dL Normal 0.20-1.00 [facility] Comment on above: Order Comment: Comme nts: okay to do non fasting okay to do non fasting Result Comment: For patients on eltrombopag therapy, use of Dimension [place] TBIL is not recommended. Performed By: #### L 500.4100, L500.3400 #### [facility] [address] [place], [address] Bilirubin.direct [Mass/Vol] 0.12 mg/dL Normal 0.00-0.30 [facility] Comment on above: Order Comment: Comme nts: okay to do non fasting okay to do non fasting Performed By: #### L 500.4100, [id number] #### [facility] [address] [place], [address] Globulin (S) [Mass/Vol] 3.1 g/dL Normal 2.2-4.2 [facility] Comment on above: Order Comment: Comme nts: okay to do non fasting okay to do non fasting Performed By: #### L 500.4100, [id number] #### [facility] [address] [place], [address] T PROT 6.8 g/dL Normal 6.4-8.2 [facility] Comment on above: Order Comment: Comme nts: okay to do non fasting okay to do non fasting Performed By: #### L 500.4100, [id number] #### [facility] [address] [place], [address] Basophil percentageOrdered B y: Alyssa Ybarra on 08-12-2023 Bilirubin [Mass/Vol] 0.80 mg/dL 0.20-1.00 [facility] Comment on above: For patients on eltr ombopag therapy, use of Dimension [place] TBIL is not recommended. Cholesterol [Mass/Vol] 256 mg/dL <200 [facility] Comment on above: <200 mg/dL Desirable 200-240 mg/dL Borderline >240 mg/dL High Risk Protein [Mass/Vol] 6.8 g/dL 6.4-8.2 [facility] Triglyceride [Mass/Vol] 177 mg/dL <199 [facility] Comment on above: The drugs N-Acetylcy steine and Metamizole may falsely depress this assay.Serum Triglycerides Reference Interval Normal <150 mg/dL Borderline high 150 - 199 mg/dL High 200 - 499 mg/dL Very High > or = 500 mg/dL Direct bilirubinOrdered By: Alyssa Ybarra on 08-12-2023 Bilirubin.direct [Mass/Vol] 0.10 mg/dL 0.00-0.30 [facility] - Chemistry and C hemistry - challengeOrdered By: Alyssa Ybarra on 08-12-2023 ALP [Catalytic activity/Vol] 85 U/L 45-117 [facility] ALT [Catalytic activity/Vol] 31 U/L 16-61 [facility] Globulin (S) [Mass/Vol] 3.2 g/dL 2.2-4.2 [facility] Serum or plasma albumin andreea urement (mass/volume)Ordered By: Alyssa Ybarra on 08-12-2023 Albumin [Mass/Vol] 3.6 g/dL 3.2-5.0 [facility] Serum or plasma cholesterol in HDL measurement (mass/volume)Ordered By: Alyssa Ybarra on 08-12-2023 Cholesterol in HDL [Mass/Vol] 40 mg/dL >40 [facility] Comment on above: The drugs N-Acetylcy steine and Metamizole may falsely depress this assay. Reference Range HDL <40 mg/dL Low HDL Cholesterol HDL >or= 60 mg/dL High HDL Cholesterol Serum or plasma cholesterol in VLDL measurement (mass/volume)Ordered By: Alyssa Ybarra on 08-12-2023 Cholesterol in VLDL [Mass/Vol] 35 mg/dL 5-40 [facility] Serum or plasma low density lipoprotein (LDL) cholesterol measurement (mass/volume)Ordered By: Alyssa Ybarra on 08-12-2023 Cholesterol in LDL [Mass/Vol] 181 mg/dL 0-130 [facility] Thin prep Papanicolaou smear with manual screeningOrdered By: Alyssa Ybarra on 08-12-2023 Thin prep Papanicolaou smear with manual screening 18 U/L 15-37 [facility] Basophil percentageOrdered B y: Alyssa Ybarra on 06-29-2023 Bilirubin [Mass/Vol] 0.50 mg/dL 0.20-1.00 [facility] Comment on above: For patients on eltr ombopag therapy, use of Dimension [place] TBIL is not recommended. Cholesterol [Mass/Vol] 159 mg/dL <200 [facility] Comment on above: <200 mg/dL Desirable 200-240 mg/dL Borderline >240 mg/dL High Risk Protein [Mass/Vol] 6.6 g/dL 6.4-8.2 [facility] Triglyceride [Mass/Vol] 279 mg/dL <199 [facility] Comment on above: The drugs N-Acetylcy steine and Metamizole may falsely depress this assay.Serum Triglycerides Reference Interval Normal <150 mg/dL Borderline high 150 - 199 mg/dL High 200 - 499 mg/dL Very High > or = 500 mg/dL Direct bilirubinOrdered By: Alyssa Ybarra on 06-29-2023 Bilirubin.direct [Mass/Vol] 0.13 mg/dL 0.00-0.30 [facility] - Chemistry and C hemistry - challengeOrdered By: Alyssa Ybarra on 06-29-2023 ALP [Catalytic activity/Vol] 100 U/L 45-117 [facility] ALT [Catalytic activity/Vol] 45 U/L 16-61 [facility] Globulin (S) [Mass/Vol] 3.0 g/dL 2.2-4.2 [facility] Serum or plasma albumin andreea urement (mass/volume)Ordered By: Alyssa Ybarra on 06-29-2023 Albumin [Mass/Vol] 3.6 g/dL 3.2-5.0 [facility] Serum or plasma cholesterol in HDL measurement (mass/volume)Ordered By: Alyssa Ybarra on 06-29-2023 Cholesterol in HDL [Mass/Vol] 38 mg/dL >40 [facility] Comment on above: The drugs N-Acetylcy steine and Metamizole may falsely depress this assay. Reference Range HDL <40 mg/dL Low HDL Cholesterol HDL >or= 60 mg/dL High HDL Cholesterol Serum or plasma cholesterol in VLDL measurement (mass/volume)Ordered By: Alyssa Ybarra on 06-29-2023 Cholesterol in VLDL [Mass/Vol] 56 mg/dL 5-40 [facility] Serum or plasma low density lipoprotein (LDL) cholesterol measurement (mass/volume)Ordered By: Alyssa Ybarar on 06-29-2023 Cholesterol in LDL [Mass/Vol] 65 mg/dL 0-130 [facility] Thin prep Papanicolaou smear with manual screeningOrdered By: Alyssa Ybarra on 06-29-2023 Thin prep Papanicolaou smear with manual screening 18 U/L 15-37 [facility] Clinical Lists Update: Prelo food general manager 03-09-2017 Left ventricular Ejection fraction 60 % [facility] Work Phone: [phone] Lab Report: Lipid Profileon 03-09-2017 Cholesterol 219 mg/dL High 200 [facility] Work Phone: [phone] HDL Cholesterol 44 mg/dL [facility] Work Phone: [phone] LDL Cholesterol 147 mg/dL High 0-130 [facility] Work Phone: [phone] Triglyceride 138 mg/dL [facility] Work Phone: [phone] very low density lipoproteins 28 mg/dL 5-40 [facility] Work Phone: [phone] Lab Report: Liver Profileon 03-09-2017 Alanine aminotransferase (ALT) 42 U/L 12-78 [facility] Work Phone: [phone] Albumin 4.0 g/dL 3.4-5.0 [facility] Work Phone: [phone] Alkaline phosphatase (ALP) 84 U/L Invalid Interpretation Code 45-117 [facility] Work Phone: [phone] ALP enzyme act/vol (Bld) 84 U/L 45-117 [facility] Work Phone: [phone] Aspartate aminotransferase (AST) 24 U/L 15-37 [facility] Work Phone: [phone] Bilirubin (direct) 0.17 mg/dL 0.00-0.30 [facility] Work Phone: [phone] Bilirubin (total) 1.00 mg/dL 0.20-1.00 [facility] Work Phone: [phone] Globulin 3.4 g/dL Invalid Interpretation Code 2.3-3.5 [facility] Work Phone: [phone] Globulin mass conc (S) 3.4 g/dL 2.3-3.5 [facility] Work Phone: [phone] Protein 7.4 g/dL 6.4-8.2 [facility] Work Phone: [phone] Office Visiton 03-09-2017 Dietary management education, guidance, and counseling (procedure) yes Invalid Interpretation Code [facility] Work Phone: [phone] Documentation of current medications (procedure) Done Invalid Interpretation Code [facility] Work Phone: [phone] Protein mass conc Done [facility] Work Phone: [phone]) Office Visit: [facility] 08-26-20 Dietary management education, guidance, and counseling (procedure) yes Invalid Interpretation Code [facility] Work Phone: [phone] Documentation of current medications (procedure) Done Invalid Interpretation Code [facility] Work Phone: [phone] Office Visiton 02-25-2016 Tobacco smoking status NHIS Former smoker [facility] Work Phone: [phone] Tobacco use CPHS Former smoker Invalid Interpretation Code [facility] Work Phone: [phone] Office Visiton 02-19-2015 cardiac risk group C [facility] Work Phone: [phone] General cardiovascular disease 10Y risk [#] [place].Naveen'Myriam N/A [facility] Work Phone: [phone] Replaced Document: [facility] CG Observationson 07-03-2014 EKG QRS axis 6 deg [facility] Work Phone: electrocardiogram interpretation Sinus Bradycardia WITHIN NORMAL LIMITS Invalid Interpretation Code [facility] Work Phone: GE use only - for [employer] import when terms are not otherwise specified 411 ms Invalid Interpretation Code [facility] Work Phone: Interpretation Sinus Bradycardia WITHIN NORMAL LIMITS [facility] Work Phone: P [place] 51 deg [facility] Work Phone: P wave axis, electrocardiogram 51 deg Invalid Interpretation Code [facility] Work Phone: [place] Interval 154 ms [facility] Work Phone: [phone] [place] interval, electrocardiogram 154 ms Invalid Interpretation Code [facility] Work Phone: Pulse (Heart Rate) 58 /min Invalid Interpretation Code [facility] Work Phone: QRS axis, electrocardiogram 6 deg Invalid Interpretation Code [facility] Work Phone: [phone] QRS Duration 88 ms [facility] Work Phone: [phone] QRS duration, electrocardiogram 88 ms Invalid Interpretation Code [facility] Phone: QT Interval new path ms [facility] Work Phone: QT interval, electrocardiogram new path ms Invalid Interpretation Code [facility] Work Phone: QTc [place] 411 ms [facility] Work Phone: T [place] -1 deg [facility] Work Phone: T wave axis, electrocardiogram -1 deg Invalid Interpretation Code [facility] Work Phone: Office Visit: [facility] 06-16-20 14 Cholesterol 149 mg/dL Invalid Interpretation Code [facility] Work Phone: HDL Cholesterol 33 mg/dL Invalid Interpretation Code [facility] Work Phone: LDL Cholesterol 85 mg/dL Invalid Interpretation Code [facility] Work Phone: Triglyceride 154 mg/dL Invalid Interpretation Code [facility] Work Phone: Office Visiton 03-07-2014 Alcoholism counseling (procedure) no Invalid Interpretation Code [facility] Work Phone: [phone] Protein mass conc no [facility] Work Phone: [phone] Clinical Lists Update: Prelo food general manager 07-07-2013 Anion gap 16 mmol/L Invalid Interpretation Code [facility] Work Phone: [phone] Anion gap molar conc 16 mmol/L [facility] Work Phone: [phone] Chloride 108 mmol/L [facility] Work Phone: [phone] CO2 20 mmol/L Invalid Interpretation Code [facility] Work Phone: [phone] CO2 ppres (BldV) 20 mmol/L [facility] Work Phone: [phone] Creatinine 0.68 mg/dL [facility] Work Phone: [phone] Erythrocytes (RBC) 5.27 10*6/uL Invalid Interpretation Code [facility] Work Phone: [phone] Glucose 99 mg/dL Invalid Interpretation Code [facility] Work Phone: [phone] Glucose mass conc 99 mg/dL [facility] Work Phone: [phone] Hematocrit (HCT) 44.0 % Invalid Interpretation Code [facility] Work Phone: [phone] Hematocrit Volume Fraction (Bld) 44.0 % [facility] Work Phone: [phone] Hemoglobin (HGB) 15.2 g/dL [facility] Work Phone: [phone] MCH 28.8 pg Invalid Interpretation Code [facility] Work Phone: [phone] MCH Entitic mass (RBC) 28.8 pg [facility] Work Phone: [phone] MCV 83.5 fL Invalid Interpretation Code [facility] Work Phone: [phone] MCV Entitic volume (RBC) 83.5 fL [facility] Work Phone: [phone] Platelets 183 10*3/mm3 Invalid Interpretation Code [facility] Work Phone: [phone] Platelets #/vol (Bld) 183 10*3/mm3 [facility] Work Phone: [phone] Potassium 3.8 mmol/L [facility] Work Phone: [phone] RBC #/vol (Bld) 5.27 10*6/uL [facility] Work Phone: [phone] Sodium 140 mmol/L [facility] Work Phone: [phone] Urea nitrogen 10 mg/dL [facility] Work Phone: [phone] WBC #/vol (Bld) 9.3 10*3/uL [facility] Work Phone: [phone] WBC (Leukocytes) 9.3 10*3/uL Invalid Interpretation Code [facility] Work Phone: [phone] Clinical Lists Update: Prelo food general manager 07-06-2013 very low density lipoproteins 13 mg/dL Invalid Interpretation Code [facility] Work Phone: [phone] Lab Report: Miguelito 07-05-2013 INR Coag RelTime (PPP) 1.0 {INR} [facility] Work Phone: [phone] INR in blood by coagulation 1.0 {INR} Invalid Interpretation Code [facility] Work Phone: [phone] LPTP 12.8 SECONDS 11.9-14.4 [facility] Work Phone: [phone] prothrombin time, actual/normal, ratio 12.8 SECONDS Invalid Interpretation Code 11.9-14.4 [facility] Work Phone: [phone] Vital Signs Date Time Vital Sign Value Performing Clinician Facility 03-01-2025 08:05-0400 Body height 187.96 cm No Primary Care Physician [facility] 03-01-2025 08:05-0400 Body mass index (BMI) [Ratio] 24.7 kg/m2 No Primary Care Physician [facility] 03-01-2025 08:05-0400 Body weight 87.54 kg No Primary Care Physician [facility] 03-01-2025 08:05-0400 Diastolic blood pressure 72 mm[Hg] No Primary Care Physician [facility] 03-01-2025 08:05-0400 Heart rate 62 /min No Primary Care Physician [facility] 03-01-2025 08:05-0400 Respiratory rate 16 /min No Primary Care Physician [facility] 03-01-2025 08:05-0400 Systolic blood pressure 127 mm[Hg] No Primary Care Physician [facility] 12-22-2024 09:49-0400 Body mass index (BMI) [Ratio] 26.21 kg/m2 Emigdio Salma TECHNOLOGIST INFECTIOUS DISEASE.[employer] Work Phone: [facility] 12-22-2024 09:49-0400 Body weight 92.6 kg Emigdio Salma TECHNOLOGIST INFECTIOUS DISEASE.GUM DIPPER Work Phone: [facility] 12-22-2024 09:49-0400 Diastolic blood pressure 64 mm[Hg] Emigdio Salma TECHNOLOGIST INFECTIOUS DISEASE.[employer] D[employer] Work Phone: [facility] 12-22-2024 09:49-0400 Heart rate 64 /min Emigdio Salma TECHNOLOGIST INFECTIOUS DISEASE.GUM DIPPER Work Phone: [facility] 12-22-2024 09:49-0400 Systolic blood pressure 135 mm[Hg] Emigdio Salma TECHNOLOGIST INFECTIOUS DISEASE.GUM DIP[employer] Work Phone: [facility] 12-21-2024 10:15-0400 Body mass index (BMI) [Ratio] 26.18 kg/m2 Brown Pendosvaldobury TECHNOLOGIST INFECTIOUS DISEASE.GUM DIPPER Work Phone: [facility] 12-21-2024 10:15-0400 Body temperature 96.91 [degF] Brown Kristallebury TECHNOLOGIST INFECTIOUS DISEASE.GUM DIPPER Work Phone: [facility] 12-21-2024 10:15-0400 Body weight 92.5 kg Brown Bolton TECHNOLOGIST INFECTIOUS DISEASE.G[employer] DIPPER Work Phone: [facility] 12-21-2024 10:15-0400 Diastolic blood pressure 84 mm[Hg] Brown Pendlebury TECHNOLOGIST INFECTIOUS DISEASE.G[employer] D[employer] Work Phone: [facility] 12-21-2024 10:15-0400 Heart rate 66 /min Brown Pendlebury TECHNOLOGIST INFECTIOUS DISEASE.GUM DIPPER Work Phone: [facility] 12-21-2024 10:15-0400 Respiratory rate 16 /min Brown Pendlebury TECHNOLOGIST INFECTIOUS DISEASE.GUM DIPPER Work Phone: [facility] 12-21-2024 10:15-0400 SaO2% (BldA) [Mass fraction] 95 % Brown Bolton TECHNOLOGIST INFECTIOUS DISEASE.GUM DIPPER Work Phone: [facility] 12-21-2024 10:15-0400 Systolic blood pressure 132 mm[Hg] Brown Bolton TECHNOLOGIST INFECTIOUS DISEASE.GUM DIPPER Work Phone: [facility] 12-15-2024 11:07-0400 Body height 188 cm [facility] Comment on above: Pt reported 12-15-2024 11:07-0400 Body mass index (BMI) [Ratio] 26.06 kg/m2 [facility] 12-15-2024 11:07-040 Body weight 92.08 kg [facility] Comment on above: Pt reported 12-15-2024 11:07-0400 Heart rate 78 /min [facility] Comment on above: Pt reported 12-13-2024 14:31-0400 Body weight 92.08 kg Rudi Barbosa MD Work Phone: [facility] 12-13-2024 14:31-0400 Diastolic blood pressure 74 mm[Hg] Rudi Barbosa MD Work Phone: [facility] 12-13-2024 14:31-0400 Heart rate 78 /min Rudi Barbosa MD Work Phone: [facility] 12-13-2024 14:31-0400 SaO2% (BldA) [Mass fraction] 96 % Rudi Barbosa MD Work Phone: [facility] 12-13-2024 14:31-0400 Systolic blood pressure 145 mm[Hg] Rudi Barbosa MD Work Phone: [facility] 12-12-2024 17:28-0400 Body temperature 97.81 [degF] Brown Bolton TECHNOLOGIST INFECTIOUS DISEASE.GUM DIPPER Work Phone: [facility] 12-12-2024 17:28-0400 Body weight 92.4 kg Brown Bolton TECHNOLOGIST INFECTIOUS DISEASE.GUM DIPPER Work Phone: [facility] 12-12-2024 17:28-0400 Diastolic blood pressure 70 mm[Hg] Brown Pendlebury TECHNOLOGIST INFECTIOUS DISEASE.GUM DIPPER Work Phone: [facility] 12-12-2024 17:28-0400 Heart rate 71 /min [facility] TECHNOLOGIST INFECTIOUS DISEASE.GUM DIPPER Work Phone: [facility] 12-12-2024 17:28-0400 Respiratory rate 16 /min [facility] TECHNOLOGIST INFECTIOUS DISEASE.GUM DIPPER Work Phone: [facility] 12-12-2024 17:28-0400 SaO2% (BldA) [Mass fraction] 96 % [facility] TECHNOLOGIST INFECTIOUS DISEASE.GUM DIPPER Work Phone: [facility] 12-12-2024 17:28-0400 Systolic blood pressure 110 mm[Hg] [facility] TECHNOLOGIST INFECTIOUS DISEASE.GUM DIPPER Work Phone: [facility] 11-23-2024 18:13-0500 Body temperature 99.39 [degF] Abhishek Flores MD Work Phone: [facility] 11-23-2024 18:13-0500 Body weight 97.1 kg Abhishek Flores MD Work Phone: [facility] 11-23-2024 18:13-0500 Diastolic blood pressure 72 mm[Hg] Abhishek Flores MD Work Phone: [facility] 11-23-2024 18:13-0500 Heart rate 84 /min Abhishek Flores MD Work Phone: [facility] 11-23-2024 18:13-0500 Respiratory rate 16 /min Abhishek Flores MD Work Phone: [facility] 11-23-2024 18:13-0500 SaO2% (BldA) [Mass fraction] 95 % Abhishek Flores MD Work Phone: [facility] 11-23-2024 18:13-0500 Systolic blood pressure 110 mm[Hg] Abhishek Flores MD Work Phone: [facility] 10-16-2023 22:23-0500 Body mass index (BMI) [Ratio] 27.8 kg/m2 No Primary Care Physician [facility] 10-16-2023 22:23-0500 Body weight 98.3 kg No Primary Care Physician [facility] 10-16-2023 20:00-0500 Body height 187.96 cm No Primary Care Physician [facility] 10-16-2023 20:00-0500 Body temperature 96.3 [degF] No Primary Care Physician [facility] 10-16-2023 20:00-0500 Diastolic blood pressure 102 mm[Hg] No Primary Care Physician [facility] 10-16-2023 20:00-0500 Heart rate 110 /min No Primary Care Physician [facility] 10-16-2023 20:00-0500 Respiratory rate 18 /min No Primary Care Physician [facility] 10-16-2023 20:00-0500 SaO2% (BldA) [Mass fraction] 94 % No Primary Care Physician [facility] 10-16-2023 20:00-0500 Systolic blood pressure 172 mm[Hg] No Primary Care Physician [facility] 06-29-2023 15:42-0400 Body height 187.96 cm No Primary Care Physician [facility] 06-29-2023 15:42-0400 Body mass index (BMI) [Ratio] 27.2 kg/m2 No Primary Care Physician [facility] 06-29-2023 15:42-0400 Body weight 96.16 kg No Primary Care Physician [facility] 06-29-2023 15:42-0400 Diastolic blood pressure 87 mm[Hg] No Primary Care Physician [facility] 06-29-2023 15:42-0400 Heart rate 58 /min No Primary Care Physician [facility] 06-29-2023 15:42-0400 Respiratory rate 18 /min No Primary Care Physician [facility] 06-29-2023 15:42-0400 SaO2% (BldA) [Mass fraction] 95 % No Primary Care Physician [facility] 06-29-2023 15:42-0400 Systolic blood pressure 131 mm[Hg] No Primary Care Physician [facility] 03-09-2017 10:21-0400 BMI (Body Mass Index) 28.37 kg/m2 Michel Ybarra MD [facility] Work Phone: 03-09-2017 10:21-0400 BP Diastolic 76 mm[Hg] Michel Ybarra MD [facility] Work Phone: 03-09-2017 10:21-0400 BP Systolic 130 mm[Hg] Michel Ybarra MD [facility] Work Phone: 03-09-2017 10:21-0400 Pulse (Heart Rate) 60 /min [facility] Work Phone: 03-09-2017 10:21-0400 Respiratory Rate 16 /min Michel Ybarra MD [facility] Work Phone: 03-09-2017 10:21-0400 Weight 100.25 kg Michel Ybarra MD [facility] Work Phone: 08-26-2016 10:48-0500 BMI (Body Mass Index) 28.76 kg/m2 Alyssa Hargrove RN [facility] Work Phone: 08-26-2016 10:48-0500 BP Diastolic 62 mm[Hg] Alyssa Hargrove RN [facility] Work Phone: 08-26-2016 10:48-0500 BP Systolic 118 mm[Hg] Alyssa Hargrove RN [facility] Work Phone: 08-26-2016 10:48-0500 BSA (Body Surface Area) 2.28 m2 Alyssa Hargrove RN [facility] Work Phone: 08-26-2016 10:48-0500 Pulse (Heart Rate) 72 /min [facility] Work Phone: 08-26-2016 10:48-0500 Respiratory Rate 16 /min [facility] Work Phone: 08-26-2016 10:48-0500 Weight 101.61 kg [facility]a [facility] Work Phone: 07-03-2014 09:13-0400 Heart rate 58 /min Laura Vaca [facility] Work Phone: 07-05-2013 11:47-0400 Height 187.96 cm Alyssa Hargrove RN [facility] Work Phone: Encounters Encounter Date Encounter Type Care Provider Facility Start: 05-01-2025 ambulatory Alyssa Ybarra Fa cility:[facility] Start: 04-27-2025 End: 04-28-2025 ambulatory Emigdio Marsh APRN.GUM DIPPER Work Phone: [facility] Comment on above: A1c lab test for Jose Kearns Start: 04-25-2025 End: 04-25-2025 Telephone encounter Shukri Pramod Work Phone: [facility] [place] Start: 04-21-2025 End: 04-21-2025 Telephone encounter Irma Dawn MD Work Phone: [facility] Comment on above: Received Outside [facility] Records ([employer] Request for office notes, treatment plans from 02/16/2025 - present. 04/20/2025 ) Start: 04-19-2025 End: 04-25-2025 ambulatory Emigdio Marsh TECHNOLOGIST INFECTIOUS DISEASE.GUM DIPPER Work Phone: [facility] Comment on above: A1c test for James Tian ote Start: 04-13-2025 End: 04-17-2025 ambulatory Nava Paneccasio formerly [facility] Work Phone: [facility] Start: 04-13-2025 End: 04-17-2025 Patient encounter procedure Nava Paneccasio formerly [facility] Work Phone: [facility] Comment on above: Office visit notes [employer] Start: 04-10-2025 End: 04-10-2025 ambulatory Emigdio Marsh APRN.GUM DIPPER Work Phone: [facility] Comment on above: Thank you for the ca ll. Start: 04-06-2025 End: 04-06-2025 Patient encounter procedure Nava Paneccasio formerly [facility] Work Phone: [facility] Comment on above: Type 2 diabetes ariel itus with hyperglycemia, without long-term current use of insulin (HCC) (Primary Dx) Start: 04-06-2025 End: 04-10-2025 ambulatory Irma Dawn MD Work Phone: [facility] Comment on above: per daughter medicat ion and hernia issues Start: 03-21-2025 End: 03-21-2025 Follow-up encounter Nava Ram formerly [facility] Work Phone: [facility] Start: 03-20-2025 End: 03-20-2025 ambulatory IRMA DAWN Facility:[facility] Start: 03-14-2025 End: 03-14-2025 ambulatory No Primary Care Physician [facility] Work Phone: Start: 03-14-2025 End: 03-14-2025 Patient encounter procedure Alyssa CAMPBELL -Pulmonary Services/Neurology Work Phone: Start: 03-14-2025 End: 03-14-2025 ambulatory Alyssa Ybarra Facility:[facility] Start: 03-02-2025 End: 03-02-2025 Patient encounter procedure Nava Ram formerly [facility] Work Phone: Pharm [facility] Comment on above: Type 2 diabetes ariel itus with hyperglycemia, without long-term current use of insulin (HCC) (Primary Dx) Start: 03-02-2025 End: 03-02-2025 ambulatory IRMA DAWN Facility:[facility] Start: 03-01-2025 End: 03-01-2025 Telephone encounter Irma Dawn MD Work Phone: Family [facility] Comment on above: Received Outside Med ical Records ([facility]) Start: 03-01-2025 End: 03-01-2025 Patient encounter procedure Alyssa CAMPBELL -[facility] Work Phone: Start: 03-01-2025 End: 03-01-2025 ambulatory No Primary Care Physician [facility] Work Phone: Start: 02-09-2025 End: 02-14-2025 Telephone encounter Irma Dawn MD Work Phone: [facility] Comment on above: Results (A1C) Start: 02-03-2025 End: 02-03-2025 Telephone encounter Irma Dawn MD Work Phone: [facility] Comment on above: Received Outside Med ical Records ([employer] Term disability 01/31/2025 ) Start: 02-02-2025 End: 02-10-2025 ambulatory Irma Dawn MD Work Phone: [facility] Comment on above: A1C test results fro 02/02/2025 for Demar Kearns Start: 01-26-2025 End: 01-26-2025 ambulatory IRMA DAWN Facility:[facility] Start: 01-09-2025 End: 03-11-2025 Follow-up encounter Emigdio Marsh APRN.GUM DIPPER Work Phone: [facility] Start: 01-06-2025 End: 01-06-2025 ambulatory Nava Paneccasio formerly [facility] Work Phone: [facility] Start: 01-06-2025 End: 01-06-2025 Patient encounter procedure Nava Paneccasio formerly [facility] Work Phone: [facility] Comment on above: James Kearns's Metform in perscription Start: 01-05-2025 End: 01-05-2025 ambulatory IRMA DAWN Facility:[facility] Start: 01-05-2025 End: 01-05-2025 Patient encounter procedure Nava Paneccasio formerly [facility] Work Phone: [facility] Comment on above: Type 2 diabetes ariel itus with hyperglycemia, without long-term current use of insulin (HCC) (Primary Dx) Start: 12-23-2024 End: 01-05-2025 Follow-up encounter Emigdio Marsh APRN.GUM DIPPER Work Phone: [facility] Comment on above: paperwork for [employer] Start: 12-22-2024 End: 12-22-2024 ambulatory EMIGDIO MARSH Facility:[facility] Start: 12-22-2024 End: 12-22-2024 Office outpatient new 45 minutes Emigdio Marsh TECHNOLOGIST INFECTIOUS DISEASE.GUM DIPPER Work Phone: [facility] Comment on above: New onset type 2 glenn betes mellitus (HCC) (Primary Dx); Non-recurrent bilateral inguinal hernia without obstruction or gangrene Start: 12-21-2024 End: 12-21-2024 Follow-up encounter Brown Bolton APRN.GUM DIPPER Work Phone: [facility] Comment on above: Results Start: 12-21-2024 End: 12-21-2024 Telephone encounter Rudi Barbosa MD Work Phone: General Surgery Start: 12-21-2024 End: 12-21-2024 Subsequent hospital visit by physician Xr [facility] Work Phone: Radiology Comment on above: Subacute cough [R05. 2] Start: 12-21-2024 End: 12-21-2024 ambulatory BROWN BOLTON Facility:[facility] Start: 12-21-2024 End: 12-21-2024 Office outpatient visit 25 minutes Brown Bolton TECHNOLOGIST INFECTIOUS DISEASE.GUM DIPPER Work Phone: [email or web address] Comment on above: Subacute cough (Prim shawna Dx) Start: 12-19-2024 End: 12-21-2024 Telephone encounter Tere Rodriguez PA-C Work Phone: Pre Anesthesia Comment on above: Pre-Op Update Start: 12-16-2024 End: 12-16-2024 Telephone encounter Tere CAMPBELL-C Work Phone: Pre Anesthesia Comment on above: PreOp Call (Add on A 1C) Start: 12-15-2024 End: 12-15-2024 ambulatory TERE RODRIGUEZ Facility:[facility] Start: 12-15-2024 Encounter for other preprocedural examination TERE RODRIGUEZ [facility] Start: 12-15-2024 End: 12-15-2024 Telephone encounter Tere Rodriguez PA-C Work Phone: Pre Anesthesia Comment on above: PACC (Received outsi de medical records) Start: 12-15-2024 End: 12-15-2024 Admission to establishment Pacc Main Virtual Pre Anesthesia Start: 12-15-2024 End: 12-15-2024 ambulatory [facility] Facility:[facility] Start: 12-15-2024 End: 12-15-2024 Anesthesia consultation Pacc Virtual Pre Anesthesia Comment on above: Pre-op evaluation (P rimary Dx); Coronary artery disease involving [place] coronary artery of [place] heart without angina pectoris; Recent URI Start: 12-15-2024 End: 12-15-2024 Preprocedural examination done Pacc Virtual [facility] Work Phone: Start: 12-13-2024 End: 12-13-2024 ambulatory RUDI BARBOSA Facility:[facility] Start: 12-13-2024 End: 12-13-2024 Patient encounter procedure Rudi Barbosa MD Work Phone: General Surgery Comment on above: Bilateral inguinal h ernia without obstruction or gangrene, recurrence not specified (Primary Dx) Start: 12-13-2024 End: 12-13-2024 Telephone encounter Rudi Barbosa MD Work Phone: General Surgery Start: 12-12-2024 End: 12-12-2024 ambulatory [facility] Facility:[facility] Start: 12-12-2024 End: 12-12-2024 Office outpatient visit 15 minutes Brown Bolton APRN.CNP Work Phone: [facility] Comment on above: Groin pain, right (P rimary Dx) Start: 11-23-2024 End: 11-23-2024 ambulatory [facility] Facility:[facility] Start: 11-23-2024 End: 11-23-2024 Office outpatient visit 15 minutes Abhishek Flores MD Work Phone: [facility] Comment on above: Influenza-like illne ss (Primary Dx); Bronchitis Start: 06-28-2024 End: 06-28-2024 ambulatory Alyssa Ybarra Facility:[facility] Start: 06-28-2024 End: 06-28-2024 ambulatory Alyssa Ybarra Facility:[facility] Start: 10-16-2023 End: 10-16-2023 Emergency department patient visit No Primary Care Physician [facility] Work Phone: Start: 08-12-2023 End: 08-12-2023 ambulatory No Primary Care Physician [facility] Work Phone: Start: 08-12-2023 End: 08-12-2023 Patient encounter procedure No Primary Care Physician [facility] Work Phone: Start: 06-29-2023 End: 06-29-2023 ambulatory No Primary Care Physician [facility] Work Phone: Start: 06-29-2023 End: 06-29-2023 Patient encounter procedure No Primary Care Physician [facility] Work Phone: Procedures Date Procedure Procedure Detail Performing Clinician Start: 12-22-2024 Gluc bld gluc mntr d ev cleared fda spec home use Emigdio Marsh TECHNOLOGIST INFECTIOUS DISEASE.GUM DIPPER Work Phone: Start: 12-21-2024 Radiologic exam ches t 2 views Brown Bolton TECHNOLOGIST INFECTIOUS DISEASE.GUM DIPPER Work Phone: Start: 10-16-2023 Diagnostic radiograp hy of finger No Primary Care Physician Start: 03-09-2017 End: 03-09-2017 Dietary management education, [...] PA-C Work Phone: Start: 08-21-2015 End: 08-21-2015 [facility] Alyssa Ybarra PA-C Work Phone: Start: 02-19-2015 End: 02-19-2015 Follow Up Appt 6 months Michel Ybarra MD Start: 02-19-2015 End: 02-19-2015 MM Michel Ybarra MD Start: 10-16-2014 End: 08-20-2016 [...] coronary angioplasty CORONARY ARTERY DISEASE, S/P PTCA Laura Vaca Start: 07-06-2013 Lipid 1996 panel - S vlad or Plasma Abhishek Flores MD Work Phone: Plan of Treatment Date Care Activity Detail Author Start: 10-16-2033 DTaP/Tdap/Td Vaccine s (3 - Td or Tdap) DTaP/Tdap/Td Vaccines (3 - Td or Tdap) [facility] Start: 10-16-2033 Urine microalbumin profile DTaP,Tdap,Td Vaccine (3 - Td or Tdap) [facility] Start: 12-04-2031 RSV Immunization for Adults (1 - 1-dose 75+ series) RSV Immunization for Adults (1 - 1-dose 75+ series) [facility] Start: 12-04-2031 RSV Vaccine (1 - 1-d ose 75+ series) RSV Vaccine (1 - 1-dose 75+ series) [facility] Start: 12-16-2027 Diabetes Screening Diabetes Screenin g [facility] Start: 01-26-2026 Annual PCP Team Sow Manager chandrika Disease Visit Annual PCP Team Chronic Disease Visit [facility] Start: 01-06-2026 Hepatitis B surface antibody level LDL Cholesterol [facility] Start: 12-22-2025 Annual PCP Team Sow Manager chandrika Disease Visit Annual PCP Team Chronic Disease Visit [facility] Start: 12-22-2025 Hepatitis B screening Urine Albumin:Creatinine Ratio [facility] Start: 09-19-2025 Hemoglobin A1c measurement HbA1C [facility] Start: 06-05-2025 Influenza vaccination C [facility] Start: 06-02-2025 End: 06-02-2025 Patient encounter procedure 06/02/2025 10:15 AM EDT Office Visit [facility] Lap[facility] [address] [place] [address] [id number] [facility] Lap[facility] - [employer] Start: 05-05-2025 Hemoglobin A1c measurement HbA1C [facility] Start: 05-02-2025 End: 05-02-2025 Patient encounter procedure 05/02/2025 11:00 AM EDT Office Visit Family Practice [address] [place], [place] [address] Emigdio Marsh, TECHNOLOGIST INFECTIOUS DISEASE.GUM DIPPER [address] [place] [id number] Hernia / A1C Family Practice Comment on above: Hernia / A1C Start: 04-20-2025 End: 07-20-2025 Hemoglobin A1c in Blood HEMOGLOBIN A1C Lab Routine Type 2 diabetes mellitus with hyperglycemia, without long-term current use of insulin (HCC) Expected: 04/20/2025, Expires: 07/20/2025 [facility] Work Phone: Comment on above: Expected: 04/20/2025 , Expires: 07/20/2025 Start: 04-18-2025 End: 04-18-2025 Patient encounter procedure 04/18/2025 10:40 AM EDT Office Visit Family Practice [address] [place], [place] [address] Irma Dawn MD [address] [place], [place] [id number] follow up [facility] Comment on above: follow up Start: 04-06-2025 End: 04-06-2025 Patient encounter procedure 04/06/2025 1:00 PM EDT Office Visit [facility] [address] [facility] [place] [id number] [facility] [address], [place] [id number] DM F/UP [facility] Comment on above: DM F/UP Start: 03-17-2025 Hemoglobin A1c measurement HbA1C [facility] Start: 03-16-2025 End: 06-15-2025 Hemoglobin A1c in Blood HEMOGLOBIN A1C Lab Routine Type 2 diabetes mellitus with hyperglycemia, without long-term current use of insulin (HCC) Expected: 03/16/2025 (Approximate), Expires: 06/15/2025 [facility] Work Phone: Comment on above: Expected: 03/16/2025 (Approximate), Expires: 06/15/2025 Start: 03-02-2025 End: 03-02-2025 Patient encounter procedure 03/02/2025 2:00 PM EDT [facility] [address] [facility] [place] [facility] [place] [id number] [facility] [address], [place] [phone] DM F/UP [facility] Comment on above: DM F/UP Start: 03-01-2025 Evaluation of diagnostic study results [facility] Start: 01-26-2025 End: 01-26-2025 Patient encounter procedure 01/26/2025 3:00 PM EDT Office Visit Family Practice [address] [place], [place] [phone] Irma Dawn MD [address] [place], [place] [address] establish care/1 month f/u per Emigdio H [facility] Comment on above: establish care/1 mon th f/u per Emigdio H Start: 01-05-2025 End: 04-06-2025 Lipid 1996 panel - Serum or Plasma LIPID PANEL, FASTING Lab Routine Type 2 diabetes mellitus with hyperglycemia, without long-term current use of insulin (HCC) Expected: 01/05/2025, Expires: 04/06/2025 [facility] Work Phone: Comment on above: Expected: 01/05/2025 , Expires: 04/06/2025 Start: 01-05-2025 End: 01-05-2025 Patient encounter procedure 01/05/2025 2:00 PM EDT Office Visit [facility] [address] [place] [address] [facility] [address], [place] [phone] Type 2 diabetes mellitus with hyperglycemia, without long-term current use of insulin (HCC) (Primary Dx) [facility] Comment on above: Type 2 diabetes ariel itus with hyperglycemia, without long-term current use of insulin (HCC) (Primary Dx) Start: 12-22-2024 End: 12-22-2024 Patient encounter procedure 12/22/2024 9:40 AM EDT Office Visit [facility] [address] [place], [place] [id number] Emigdio Marsh, [facility] [address] [place], [place] [id number] Establish Care [facility] Comment on above: Establish Care Start: 12-21-2024 End: 12-21-2024 Admission to same day surgery center 12/21/2024 10:02 AM EDT - 12/21/2024 11:56 AM EDT Surgery [facility] [address] [place] [address] Rudi Barbosa MD [address] [place] [address] LAPAROSCOPIC HERNIORRHAPHY, INGUINAL INITIAL [facility] Surgery Comment on above: LAPAROSCOPIC HERNIOR RHAPHY, INGUINAL INITIAL Start: 12-21-2024 End: 12-21-2024 Laparoscopy surg rpr initial inguinal hernia LAPAROSCOPIC HERNIORRHAPHY, INGUINAL INITIAL Bilateral inguinal hernia without obstruction or gangrene, recurrence not specified 12/21/2024 10:02 AM EDT [facility] OR Start: 12-21-2024 Subsequent hospital visit by physician 12/21/2024 10:02 AM EDT Hospital Encounter [facility] Surgery [address] [place] [address] Rudi Barbosa MD [address] [place] [address] Bilateral inguinal hernia without obstruction or gangrene, recurrence not specified [K40.20] [facility] Surgery Comment on above: Bilateral inguinal h ernia without obstruction or gangrene, recurrence not specified [K40.20] Start: 12-18-2024 Covid-19 Vaccine ( season) Covid-19 Vaccine ( season) [facility] Start: 12-15-2024 End: 03-16-2025 Basic metabolic 2000 panel - Serum or Plasma [facility] Work Phone: Comment on above: Expected: 12/15/2024 , Expires: 03/16/2025 Start: 12-15-2024 End: 03-16-2025 CBC W Auto Differential panel - Blood [facility] Comment on above: Expected: 12/15/2024 , Expires: 03/16/2025 Start: 12-13-2024 End: 12-13-2024 Patient encounter procedure 12/13/2024 4:00 PM EDT Office Visit General Surgery [address] [place] [address] Rudi Barbosa MD [address] [place] [address] Groin pain, right [R10.31] General Surgery Comment on above: Groin pain, right [R 10.31] Start: 10-05-2024 Advance Directive Discussion Advance Directive Discussion [facility] Start: 06-05-2024 Influenza vaccination Influenza Vacc ine (#1) [facility] Start: 10-16-2023 [facility] Start: 07-06-2018 Lipid panel Lipid Screening [facility] Start: 09-16-2017 End: 09-16-2017 Appointment Appointment [facility] Work Phone: Start: 06-09-2017 End: 03-17-2017 *Hepatic Function Panel *Hepatic Function Panel [facility] Work Phone: Start: 06-09-2017 End: 03-17-2017 Lipid 1996 panel *Lipid Profile CC PCP [facility] Work Phone: Start: 03-09-2017 End: 03-09-2017 Appointment Appointment [facility] Work Phone: Start: 03-09-2017 End: 03-09-2017 Follow Up Appt 6 months Follow Up Appt 6 months [facility] Work Phone: Start: 03-09-2017 End: 03-09-2017 MMM MMM [facility] Work Phone: Start: 08-26-2016 End: 03-09-2017 *Hepatic Function Panel *Hepatic Function Panel [facility] Work Phone: Start: 08-26-2016 End: 08-26-2016 Follow Up Appt 6 months Follow Up Appt 6 months [facility] Work Phone: Start: 08-26-2016 End: 03-09-2017 Lipid panel [AGGREGATE] *Lipid Profile CC PCP [facility] Work Phone: Start: 08-26-2016 End: 08-26-2016 PFM PFM [facility] Work Phone: Start: 07-07-2016 Diabetes Screening Diabetes Screenin g [facility] Start: 02-25-2016 End: 08-26-2016 *Hepatic Function Panel *Hepatic Function Panel [facility] Work Phone: Start: 02-25-2016 End: 02-25-2016 Follow Up Appt 6 months Follow Up Appt 6 months [facility] Work Phone: Start: 02-25-2016 End: 08-26-2016 Lipid panel [AGGREGATE] *Lipid Profile CC PCP [facility] Work Phone: Start: 02-25-2016 End: 02-25-2016 MMM MMM [facility] Work Phone: Start: 08-21-2015 End: 08-21-2015 Follow Up Appt 6 months Follow Up Appt 6 months [facility] Work Phone: Start: 08-21-2015 End: 08-21-2015 Follow Up Appt Other Follow Up Appt Other [facility] Work Phone: Start: 08-21-2015 End: 08-21-2015 PFM PFM [facility] Work Phone: Start: 02-19-2015 End: 02-19-2015 Follow Up Appt 6 months Follow Up Appt 6 months [facility] Work Phone: Start: 02-19-2015 End: 02-19-2015 MMM MMM [facility] Work Phone: Start: 10-16-2014 End: 08-20-2016 *Hepatic Function Panel *Hepatic Function Panel [facility] Work Phone: Start: 10-16-2014 End: 08-20-2016 Lipid panel [AGGREGATE] *Lipid Profile CC PCP [facility] Work Phone: Start: 07-06-2014 Hepatitis B surface antibody level LDL Cholesterol [facility] Start: 07-03-2014 End: 07-03-2014 Electrocardiogram, complete EKG (In office) [facility] Work Phone: Start: 07-03-2014 End: 07-03-2014 Follow Up Appt 6 months Follow Up Appt 6 months [employer] Work Phone: Start: 07-03-2014 End: 07-03-2014 Nuclear stress test -exercise Nuclear stress test -exercise [employer] Work Phone: Start: 07-03-2014 End: 07-03-2014 PFM PFM [employer] Work Phone: Start: 12-09-2013 End: 12-09-2013 Follow Up Appt 6 months Follow Up Appt 6 months [employer] Work Phone: Start: 12-09-2013 End: 12-09-2013 MMM MMM [employer] Work Phone: Start: 09-12-2013 End: 07-13-2014 *Hepatic Function Panel *Hepatic Function Panel [employer] [facility] Phone: Start: 09-12-2013 End: 09-12-2013 Follow Up Appt 3 months Follow Up Appt 3 months [employer] Work Phone: Start: 09-12-2013 End: 07-13-2014 Lipid panel [AGGREGATE] *Lipid Profile CC PCP [employer] Work Phone: Start: 09-12-2013 End: 09-12-2013 PFM PFM [employer] Work Phone: Start: 12-04-2011 Prostate specific antigen measurement Prostate Cancer Screening Discussion [facility] Start: 2006 Pneumococcal Vaccine : 50+ (1 of 1 - PCV) Pneumococcal Vaccine: 50+ (1 of 1 - PCV) [facility] Start: 2006 Pneumococcal Vaccine : 50+ Years (1 of 1 - PCV) Pneumococcal Vaccine: 50+ Years (1 of 1 - PCV) [facility] Start: 2006 Shingrix Vaccine (1 of 2) Shingrix Vaccine (1 of 2) [facility] Start: 2006 Zoster Vaccines (1 o f 2) Zoster Vaccines (1 of 2) [facility] Start: 2001 Prostate specific antigen measurement Prostate Cancer Screening Discussion [facility] Start: 2001 Screening for malign ant neoplasm of colon [facility] Start: 12-04-1975 Pneumococcal Vaccine : 50+ (1 of 2 - PCV) Pneumococcal Vaccine: 50+ (1 of 2 - PCV) [facility] Start: 1974 Annual PCP Team Sow Manager chandrika Disease Visit Annual PCP Team Chronic Disease Visit [facility] Start: 1974 Anxiety Screening Anxiety Screening [facility] Start: 1974 Depression Screening Depression Scre ing [facility] Start: 1974 Hepatitis C screening Hepatitis C Sc reening [facility] Start: 1968 Depression Screening Depression Scre [facility] Start: 1966 Diabetic foot examination Diabetic Foot Exam [facility] Start: 1966 Glaucoma screening Dilated Retinal E xam [facility] Start: 1966 Hepatitis B screening Urine Albumin:Creatinine Ratio [facility] Start: 1956 Abdominal aortic aneurysm screening Abdominal Aortic Aneurysm Screening [facility] Start: 1956 Lipid panel Lipid Panel [facility] Start: 1956 Screening for malign ant neoplasm of colon [facility] 24 Hour ECG [facility] Glucose [Mass/volume ] in Serum or Plasma GLUCOSE, BLOOD (POC) Lab Routine New onset type 2 diabetes mellitus (HCC) Ordered: 12/22/2024 [facility] Work Phone: Comment on above: Ordered: 12/22/2024 Laparoscopy surg rpr initial inguinal hernia LAPAROSCOPIC HERNIORRHAPHY, INGUINAL INITIAL Bilateral inguinal hernia without obstruction or gangrene, recurrence not specified [facility] OR Microalbumin/Creatin ine [Mass Ratio] in Urine ALBUMIN/CREATININE RATIO, URINE Lab Routine 12/22/2024 10:45 AM EDT [facility] Patient Education [facility] Work Phone: Patient referral [facility] Work Phone: Radionuclide imaging of perfusion of myocardium under exercise stress [facility] Immunizations Immunization Date Immunization Notes Care Provider Aexl kirby 10-16-2023 tetanus toxoid, redu javier diphtheria toxoid, and acellular pertussis vaccine, adsorbed No Primary Care Physician [facility] 02-25-2015 tetanus toxoid, redu javier diphtheria toxoid, and acellular pertussis vaccine, adsorbed No Primary Care Physician [facility] Payers Date Payer Category Payer Self-pay [id number] 2018 [employer] Blue [employer] BLUE CARD PPO OOS [id number] 2018 Unknown [id number] 2000 Government (not [facility] care or Medicaid) [id number] Blue Cross Blue Shie ld Managed Care - HMO ANTHEM BLUE CROSS [id number] 5 Unknown [id number] Unknown [id number] Unknown [id number] Unknown [id number] Unknown [id number] Unknown [id number] Social History Date Type Detail Facility Start: 06-29-2023 End: 10-16-2023 Tobacco smoking status [facility] Unknown if ever smoked [facility] Start: 1955 Sex Assigned At Male [facility] Start: 07-01-2023 End: 12-15-2024 Tobacco smoking status NHIS Ex-smoker [facility] Start: 10-05-1974 End: 10-05-1981 History of tobacco use Current smoker [facility] Start: 10-05-1974 End: 10-05-1981 History of tobacco use Cigarette Smoker [facility] Start: 07-01-2023 End: 12-15-2024 Tobacco use and exposure Smokeless tobacco non-user [facility] Start: 11-23-2024 End: 01-26-2025 Alcoholic beverage intake Current drinker of alcohol (finding) [facility] Start: 11-23-2024 End: 12-13-2024 History of Social function [facility] Start: 11-23-2024 End: 12-13-2024 Tobacco use panel [facility] National Score (1-100), lower number is lower risk Not on file [facility] Start: 11-05-2010 Alcohol Comment occasional [facility] Start: 1955 Sex assigned at Not on file [facility] Start: 12-15-2024 Alcohol Comment occasional- 1- 2 drinks per month [facility] Start: 04-25-2025 Sex Male (finding) Wilver ochoa Medical Equipment Procedure Code Equipment Code Equipment Origin al Text Equipment Identifier Dates ([id number] Drug-eluting cor onary artery stent, bioabsorbable-polymer- coated ()[id number]( [id number] FDA Start: 10-22-2021 Femoral vessel s uture implantation set ()[id number] FDA Start: 10-22-2021 Test blood sugar (s) 2 times daily. Dx: Type 2 DM - Uncontrolled E11.65 Insulin: No [id number] Start: 12-22-2024 Clinical Notes 10-05-2021 to 04-28-2025 Telephone Encounter - Brooklynn Caicedo LPN - 04/28/2025 10:51 AM EDTTelephone Encounter - Brooklynn Caicedo LPN - 04/28/2025 10:51 AM EDTTelephone Encounter - Irena Fraga - 04/27/2025 2:52 PM EDT Note Date & Type Note Facility 04-28-2025 Telephone encount er Note Call place to patient. Patient will have lab drawn before next appt [facility] 04-28-2025 Miscellaneous Notes Formattin g of this note might be different from the original. Call place to patient. Patient will have lab drawn before next appt documented in this encounter [facility] 04-27-2025 Telephone encount er Note Called daughter back / Updated patients chart as much as possible with daughter/ Insurance was E verified/ still needs medications and allergies updated daughter said she can call back with those. Scheduled first available with Dr Benavidez in [place]. 06/02 @ 10:15. Patients [place] chose the [place]. I also sent a fax request to Dr Rudi Barbosa for any images or test ./ in Media Advised she can call Rahel back next week with the rest of the information and any scheduling questions. She voiced understanding and verified ok to send a link to [facility] phone to [facility] well [facility] 04-27-2025 Miscellaneous Notes Formattin g of this note might be different from the original. Called daughter back / Updated patients chart as much as possible with daughter/ Insurance was E verified/ still needs medications and allergies updated daughter said she can call back with those. Scheduled first available with Dr Benavidez in [place]. 06/02 @ 10:15. Patients daughter chose the [place] location. I also sent a fax request to Dr Rudi Barbosa for any images or test ./ in Media Advised she can call Rahel back next week with the rest of the information and any scheduling questions. She voiced understanding and verified ok to send a link to [facility] phone to [facility] as well Daughter called back with Insurance information. Our clinic receptionist Audra verified the insurance. I told patients Daughter we would call her back and complete chart and schedule office visit with Dr Benavidez for Hernia eval. Phone number [phone]/ Jessica Pt's daughter called in and wanted a 2nd opinion for her father. She was unhappy when the patient's doctor would not do surgery because of his A1c. I explained Dr Benavidez does have restrictions on A1C. I was unsure of exact #'s. She said she seen Dr Benavidez's photo and really liked him and she wanted his opinion. I started to look for her father on here. He was not a patient already in the [facility] system. She was unable to give me her father's SS# or his insurance #. She did not know his med list, surgery list, surgeon, etc. I explained that this stuff would be needed to get him in the system and added appropriately. Pt expressed understanding and would call back with the information documented in this encounter [facility] [employer] 04-27-2025 Telephone encount er Note Daughter called back with Insurance information. Our clinic receptionist Audra verified the insurance. I told patients Daughter we would call her back and complete chart and schedule office visit with Dr Benavidez for Hernia eval. Phone number [phone]/ Jessica [facility] [employer] 04-25-2025 Telephone encount er Note Pt's daughter called in and wanted a 2nd opinion for her father. She was unhappy when the patient's doctor would not do surgery because of his A1c. I explained Dr Benavidez does have restrictions on A1C. I was unsure of exact #'s. She said she seen Dr Benavidez's photo and really liked him and she wanted his opinion. I started to look for her father on here. He was not a patient already in the [facility] system. She was unable to give me her father's SS# or his insurance #. She did not know his med list, surgery list, surgeon, etc. I explained that this stuff would be needed to get him in the system and added appropriately. Pt expressed understanding and would call back with the information [facility] 04-21-2025 Telephone encount er Note Received 04/21/2025 from [employer] . Placed in provider's inbox for review. Route to ME faxing Records faxed to [employer] [facility] 04-21-2025 Miscellaneous Notes Formattin g of this note might be different from the original. Received 04/21/2025 from [employer] . Placed in provider's inbox for review. Route to ME faxing Records faxed to [employer] documented in this encounter [facility] 04-10-2025 Telephone encount er Note See subsequent MC Reason for Disposition Caller has already spoken with the PCP and has no further questions. Protocols used: No Contact or Duplicate Contact [id number] [facility] 04-10-2025 Miscellaneous Notes Formattin g of this note is different from the original. See subsequent MC Reason for Disposition Caller has already spoken with the PCP and has no further questions. Protocols used: No Contact or Duplicate Contact [id number] Called pt, no answer. LVM to call office back Patient daughterMarie (not on patient contact list) is calling Irma Dawn MD today with concern regarding patient not tolerating the metformin and issues with a hernia Please call patient to discuss Patient has been identified by name and birthdate. Duration of symptoms: ongoing Person calling: daughter: Marie, not on contact list Call patient at: on cell [phone] (home) [phone] (cell)-verified Was an appointment scheduled: yes 01/17/2025 Closing statement: Symptom Call: Thank you for calling [facility], your call is very important. A nurse will call in approximately 2-4 hours during business hours. If this is an emergency, please contact 911Mary Hernandez documented in this encounter [facility] 04-06-2025 Telephone encount er Note Called pt, no answer. LVM to call office back [facility] 04-06-2025 History of Presen t illness Narrative Primary Care Pharmacy Visit CC (Reason for Consult): (E11.65) Type 2 diabetes mellitus with hyperglycemia, without long-term current use of insulin (HCC) (primary encounter diagnosis) Goal(s): A1c <7% Last Collaborating Provider Visit: 01/26/[address] Dawn Demar Kearns is a 69 year old male presenting for follow up visit in person. Patient consents to pharmacy collaborative practice agreement. Last Pharmacy Visit: 03/02/25 - A1c ordered Interim Events: - 03/20/25 A1c results - improvement to 6.9% HPI: Reports doing well Self-decreased metformin 1000 mg/day most recently due to tolerability concerns Experienced side effects with higher metformin, GI pain, fatigue, feels miserable, brain fog. GI side effects has improved but stomach pains and brain fog has continued but is somewhat tolerable Is potentially interested in switching to an alternative medication vs metformin; however, is hesitant until surgery is scheduled due to positive effect on blood sugar averages lately. 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 ALLERGIES No Known Allergies Current Outpatient Medications Medication Sig Dispense Refill metFORMIN ER (GLUCOPHAGE XR) 500 mg 24 hr tablet Take 2 tablets by mouth two times a day. 360 tablet 2 rosuvastatin (CRESTOR) 20 mg tablet Take 1 tablet by mouth daily at bedtime. 90 tablet 3 blood sugar diagnostic (BLOOD GLUCOSE TEST) test strip Test blood sugar(s) 2 times daily. Dx: Type 2 DM - Uncontrolled E11.65 Insulin: No 50 Strip 11 alcohol swabs Use with blood glucose test once daily 100 Each 5 ADULT LOW DOSE ASPIRIN ORAL Adult Low Dose Aspirin Oral POTASSIUM ORAL potassium,chelated POTASSIUM 99 MG TABS One tablet by mouth daily as needed POTASSIUM [id number] Alyssa Ybarra PA-C 07-03-2014 [facility] ([id number]) No current facility-administered medications for this visit. Pill bottles are not present. Adherence: denies missed doses. Rx coverage: Payor: ANTHEM / Plan: BLUE CARD PPO OOS / Product Type: PPO / Medications affordable? Yes PHARMACOTHERAPY PREVENTATIVE MEDS: On JUDY/ARB: No On Statin: Yes On ASA: No EXAM: There were no vitals taken for this visit. Last 3 Encounter BP Readings: Date: BP: 01/26/2025 126/81 12/22/2024 135/64 12/21/2024 132/84 Wt: 88 kg (194 lb 0.1 oz) BMI: 24.91 kg/(m^2) LABS: Lab Results Component Value Date HBA1C 6.9 03/20/2025 HBA1C 8.0 02/02/2025 HBA1C 10.9 12/15/2024 Glucose 305 12/15/2024 BUN 11 12/15/2024 Creatinine 0.65 12/15/2024 Sodium 134 12/15/2024 Potassium 4.6 12/15/2024 Chloride 99 12/15/2024 CO2 25 12/15/2024 Calcium 9.2 12/15/2024 Lab Results Component Value Date CHOL 164 01/06/2025 LDL 94 01/06/2025 LDL 159 07/06/2013 HDL 37 01/06/2025 HDL 34 07/06/2013 TG 167 01/06/2025 TG 63 07/06/2013 Albumin/Creat Ratio (mg/g) Date Value 12/22/2024 <9 Estimated Glomerular Filtration Rate (mL/min/1.73m ) Date Value 12/15/2024 103 ASSESSMENT/PLAN: 1. Type 2 diabetes mellitus with hyperglycemia, without long-term current use of insulin ([facility]) - ICD9: 250.00, 790.29, ICD10: E11.65 - Controlled per A1c <7% (6.9% on 03/20/25). Reported SMBGs show FBG and 2hr PP averages have continued to improve (total average BG ~124 = estimated A1c ~6%). May consider switch from metformin to alternative medication in the future if lower dose of metformin is not tolerable. - Decrease metformin ER 500 mg to once daily - Statin prescribed - rosuvastatin - Blood glucose monitoring on a twice daily schedule - Counseled on healthy diet and regular exercise - Recommended continued positive lifestyle modifications including portion control, low-carb diet, and as much physical activity as able. - Discussed diabetic education issues of hypoglycemic/hyperglycemic symptoms and medication-specific side effects and monitoring Overdue Diabetes Health Maintenance: Health Maintenance - Diabetes Topic Date Due Dilated Retinal Exam Never done Diabetic Foot Exam Never done Pneumococcal Vaccine: 50+ (1 of 2 - PCV) Never done Follow Up: Next PCP visit: 04/18/25 Next PharmD visit: PRN basis via Mehdi Ram PharmD, BCACP Primary Care Clinical Systems Architecture Analyst I spent a total of 45 minutes on the date of the service which included preparing to see the patient, [id number] patient care, completing clinical documentation, and counseling and educating the patient/family/caregiver. documented in this encounter [facility] 04-06-2025 Instructions Nava Ram RPh - 04/06/2025 1:00 PM EDT Try to decrease dose of metformin to one tablet once a day documented in this encounter [facility] 04-06-2025 Note HNO ID: [id number] Author: NAVA RAM RPh Service: ? Author Type: Pharmacist Type: Progress Notes Filed: 04/06/2025 14:26 Note Text: Primary Care Pharmacy Visit CC (Reason for Consult): (E11.65) Type 2 diabetes mellitus with hyperglycemia, without long-term current use of insulin (HCC) (primary encounter diagnosis) Goal(s): A1c <7% Last Collaborating Provider Visit: 01/26/[address] Filipe Benz S Som is a 69 year old male presenting for follow up visit in person. Patient consents to pharmacy collaborative practice agreement. Last Pharmacy Visit: 03/02/25 - A1c ordered Interim Events: - 03/20/25 A1c results - improvement to 6.9% HPI: Reports doing well Self-decreased metformin 1000 mg/day most recently due to tolerability concerns Experienced side effects with higher metformin, GI pain, fatigue, feels miserable, brain fog. GI side effects has improved but stomach pains and brain fog has continued but is somewhat tolerable Is potentially interested in switching to an alternative medication vs metformin; however, is hesitant until surgery is scheduled due to positive effect on blood sugar averages lately. 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 ALLERGIES No Known Allergies Current Outpatient Medications Medication Sig Dispense Refill metFORMIN ER (GLUCOPHAGE XR) 500 mg 24 hr tablet Take 2 tablets by mouth two times a day. 360 tablet 2 rosuvastatin (CRESTOR) 20 mg tablet Take 1 tablet by mouth daily at bedtime. 90 tablet 3 blood sugar diagnostic (BLOOD GLUCOSE TEST) test strip Test blood sugar(s) 2 times daily. Dx: Type 2 DM - Uncontrolled E11.65 Insulin: No 50 Strip 11 alcohol swabs Use with blood glucose test once daily 100 Each 5 ADULT LOW DOSE ASPIRIN ORAL Adult Low Dose Aspirin Oral POTASSIUM ORAL potassium,chelated POTASSIUM 99 MG TABS One tablet by mouth daily as needed POTASSIUM [id number] Alyssa Ybarra PA-C 07-03-2014 [facility] ([id number]) No current facility-administered medications for this visit. Pill bottles are not present. Adherence: denies missed doses. Rx coverage: Payor: ANTHEM / Plan: BLUE CARD PPO OOS / Product Type: PPO / Medications affordable? Yes PHARMACOTHERAPY PREVENTATIVE MEDS: On JUDY/ARB: No On Statin: Yes On ASA: No EXAM: There were no vitals taken for this visit. Last 3 Encounter BP Readings: Date: BP: 01/26/2025 126/81 12/22/2024 135/64 12/21/2024 132/84 Wt: 88 kg (194 lb 0.1 oz) BMI: 24.91 kg/(m2) LABS: Lab Results Component Value Date HBA1C 6.9 03/20/2025 HBA1C 8.0 02/02/2025 HBA1C 10.9 12/15/2024 Glucose 305 12/15/2024 BUN 11 12/15/2024 Creatinine 0.65 12/15/2024 Sodium 134 12/15/2024 Potassium 4.6 12/15/2024 Chloride 99 12/15/2024 CO2 25 12/15/2024 Calcium 9.2 12/15/2024 Lab Results Component Value Date CHOL 164 01/06/2025 LDL 94 01/06/2025 LDL 159 07/06/2013 HDL 37 01/06/2025 HDL 34 07/06/2013 TG 167 01/06/2025 TG 63 07/06/2013 Albumin/Creat Ratio (mg/g) Date Value 12/22/2024 <9 Estimated Glomerular Filtration Rate (mL/min/1.73m?) Date Value 12/15/2024 103 ASSESSMENT/PLAN: 1. Type 2 diabetes mellitus with hyperglycemia, without long-term current use of insulin ([facility]) - ICD9: 250.00, 790.29, ICD10: E11.65 - Controlled per A1c <7% (6.9% on 03/20/25). Reported SMBGs show FBG and 2hr PP averages have continued to improve (total average BG ~124 = estimated A1c ~6%). May consider switch from metformin to alternative medication in the future if lower dose of metformin is not tolerable. - Decrease metformin ER 500 mg to once daily - Statin prescribed - rosuvastatin - Blood glucose monitoring on a twice daily schedule - Counseled on healthy diet and regular exercise - Recommended continued positive lifestyle modifications including portion control, low-carb diet, and as much physical activity as able. - Discussed diabetic education issues of hypoglycemic/hyperglycemic symptoms and medication-specific side effects and monitoring Overdue Diabetes Health Maintenance: Health Maintenance - Diabetes Topic (more content not included)... [facility] 04-06-2025 Telephone encount er Note Patient daughter, Marie (not on patient contact list) is calling Irma Kontak, MD today with concern regarding patient not tolerating the metformin and issues with a hernia Please call patient to discuss Patient has been identified by name and birthdate. Duration of symptoms: ongoing Person calling: daughter: Marie, not on contact list Call patient at: on cell [phone] (home) [phone] (cell)-verified Was an appointment scheduled: yes 01/17/2025 Closing statement: Symptom Call: Thank you for calling [facility], your call is very important. A nurse will call in approximately 2-4 hours during business hours. If this is an emergency, please contact 911Mary Hernandez [facility] 03-02-2025 History of Presen t illness Narrative Primary Care Pharmacy Visit CC (Reason for Consult): (E11.65) Type 2 diabetes mellitus with hyperglycemia, without long-term current use of insulin (HCC) (primary encounter diagnosis) Goal(s): A1c <7% Last Collaborating Provider Visit: 01/26/[address] Filipe Benz S Som is a 69 year old male presenting for follow up visit in person. Patient consents to pharmacy collaborative practice agreement. . Last Pharmacy Visit: 01/05/25 -Increased metformin ER 500mg to 2 tablets once daily HPI: -Patient reports that things have been going good -Patient reports that he is tolerating the metformin well now -Patient states he really wants his A1c to improve because he wants hernia surgery Current DM Medications: -Metformin ER 500mg 2 tablets in the morning and 1 tablet in the evening-->Reports taking 2 tablets twice daily for about 2 weeks Previously Trialed DM Meds: -None Diet -Has been working on diet and has been consistent -Has made a lot of changes to diet for the better -States he will be following with salesperson driver soon GLYCEMIC CONTROL: Glucometer present at visit: No Hypoglycemia: No -Patient has complete BG log SMBGS (Fingersticks) Date Fasting AM 2 hr PP 03/02 128 03/01 116 136 02/28 114 157 02/27 130 147 02/26 125 105 02/25 126 158 02/24 130 156 02/23 105 192 02/22 122 113 02/21 106 155 AVG 120 146 Past medical history reviewed. ALLERGIES No Known Allergies Current Outpatient Medications Medication Sig Dispense Refill metFORMIN ER (GLUCOPHAGE XR) 500 mg 24 hr tablet 1000 mg with breakfast, 500 mg with dinner (unable to tolerate 1000 mg BID) rosuvastatin (CRESTOR) 20 mg tablet Take 1 tablet by mouth daily at bedtime. 90 tablet 3 blood sugar diagnostic (BLOOD GLUCOSE TEST) test strip Test blood sugar(s) 2 times daily. Dx: Type 2 DM - Uncontrolled E11.65 Insulin: No 50 Strip 11 alcohol swabs Use with blood glucose test once daily 100 Each 5 ADULT LOW DOSE ASPIRIN ORAL Adult Low Dose Aspirin Oral POTASSIUM ORAL potassium,chelated POTASSIUM 99 MG TABS One tablet by mouth daily as needed POTASSIUM [id number] Alyssa Ybarra PA-C 07-03-2014 [facility] ([id number]) No current facility-administered medications for this visit. Pill bottles are not present. Adherence: denies missed doses. Rx coverage: Payor: ANTHEM / Plan: BLUE CARD PPO OOS / Product Type: PPO / Medications affordable? Yes PHARMACOTHERAPY PREVENTATIVE MEDS: On JUDY/ARB: No On Statin: Yes On ASA: Yes EXAM: There were no vitals taken for this visit. Last 3 Encounter BP Readings: Date: BP: 01/26/2025 126/81 12/22/2024 135/64 12/21/2024 132/84 Wt: 88 kg (194 lb 0.1 oz) BMI: 24.91 kg/(m^2) LABS: Lab Results Component Value Date HBA1C 8.0 02/02/2025 HBA1C 10.9 12/15/2024 Glucose 305 12/15/2024 BUN 11 12/15/2024 Creatinine 0.65 12/15/2024 Sodium 134 12/15/2024 Potassium 4.6 12/15/2024 Chloride 99 12/15/2024 CO2 25 12/15/2024 Calcium 9.2 12/15/2024 Lab Results Component Value Date CHOL 164 01/06/2025 LDL 94 01/06/2025 LDL 159 07/06/2013 HDL 37 01/06/2025 HDL 34 07/06/2013 TG 167 01/06/2025 TG 63 07/06/2013 Albumin/Creat Ratio (mg/g) Date Value 12/22/2024 <9 Estimated Glomerular Filtration Rate (mL/min/1.73m ) Date Value 12/15/2024 103 ASSESSMENT/PLAN: 1. Type 2 diabetes mellitus with hyperglycemia, without long-term current use of insulin ([facility]) - ICD9: 250.00, 790.29, ICD10: E11.65 - Improving control - Increase metformin ER 500mg to 2 tablets twice daily as patient reported taking - Statin prescribed - rosuvastatin - Counseled on healthy diet and regular exercise - Discussed diabetic education issues of diabetes complications and monitoring required, hypoglycemic/hyperglycemic symptoms, and medication-specific side effects and monitoring - Follow up in 1 month, sooner should any other issues arise. - A1c ordered for 3 months post initial A1c, patient requested due to potential hernia procedure Bal Doherty RPh Overdue Diabetes Health Maintenance: Health Maintenance - Diabetes Topic Date Due Dilated Retinal Exam Never done Diabetic Foot Exam Never done Pneumococcal Vaccine: 50+ (1 of 2 - PCV) Never done Follow Up: Next PCP visit: 05/02/25 Next PharmD visit: 04/06/25 @ 1:00PM Bal Doherty RPh I spent a total of 35 minutes on the date of the service which included preparing to see the patient, [id number] patient care, completing clinical documentation, counseling and educating the patient/family/caregiver, and ordering medications, tests, or procedures. Patient interviewed independently by the resident. Carson elements of history confirmed. Agree with findings and plan as outlined by the resident. My additions to the progress note are underlined. Nava Ram, PharmD, BCACP Primary Care Clinical Systems Architecture Analyst documented in this encounter [facility] 03-02-2025 Bal Schroeder RPh - 03/02/2025 2:00 PM EDT -Continue Metformin ER 500mg two tablets twice daily -A1c ordered for 03/16/25 -Continue to work on diet and exercise Follow up: 04/06/25 @ 1:00PM documented in this encounter [facility] 03-02-2025 Note HNO ID: [id number] Author: NAVA RAM RPh Service: ? Author Type: Pharmacist Type: Progress Notes Filed: 03/02/2025 15:35 Note Text: Patient interviewed independently by the resident. Carson elements of history confirmed. Agree with findings and plan as outlined by the resident. My additions to the progress note are underlined. Nava Ram, PharmD, BCACP Primary Care Clinical Systems Architecture Analyst [facility] 03-02-2025 Note HNO ID: [id number] Author: NAVA RAM RPh Service: ? Author Type: Pharmacist Type: Progress Notes Filed: 03/02/2025 15:35 Note Text: Primary Care Pharmacy Visit CC (Reason for Consult): (E11.65) Type 2 diabetes mellitus with hyperglycemia, without long-term current use of insulin (HCC) (primary encounter diagnosis) Goal(s): A1c <7% Last Collaborating Provider Visit: 01/26/[address] Filipe Benz S Som is a 69 year old male presenting for follow up visit in person. Patient consents to pharmacy collaborative practice agreement. . Last Pharmacy Visit: 01/05/25 -Increased metformin ER 500mg to 2 tablets once daily HPI: -Patient reports that things have been going good -Patient reports that he is tolerating the metformin well now -Patient states he really wants his A1c to improve because he wants hernia surgery Current DM Medications: -Metformin ER 500mg 2 tablets in the morning and 1 tablet in the evening-->Reports taking 2 tablets twice daily for about 2 weeks Previously Trialed DM Meds: -None Diet -Has been working on diet and has been consistent -Has made a lot of changes to diet for the better -States he will be following with salesperson driver soon GLYCEMIC CONTROL: Glucometer present at visit: No Hypoglycemia: No -Patient has complete BG log SMBGS (Fingersticks) Date Fasting AM 2 hr PP 03/02 128 03/01 116 136 02/28 114 157 02/27 130 147 02/26 125 105 02/25 126 158 02/24 130 156 02/23 105 192 02/22 122 113 02/21 106 155 AVG 120 146 Past medical history reviewed. ALLERGIES No Known Allergies Current Outpatient Medications Medication Sig Dispense Refill metFORMIN ER (GLUCOPHAGE XR) 500 mg 24 hr tablet 1000 mg with breakfast, 500 mg with dinner (unable to tolerate 1000 mg BID) rosuvastatin (CRESTOR) 20 mg tablet Take 1 tablet by mouth daily at bedtime. 90 tablet 3 blood sugar diagnostic (BLOOD GLUCOSE TEST) test strip Test blood sugar(s) 2 times daily. Dx: Type 2 DM - Uncontrolled E11.65 Insulin: No 50 Strip 11 alcohol swabs Use with blood glucose test once daily 100 Each 5 ADULT LOW DOSE ASPIRIN ORAL Adult Low Dose Aspirin Oral POTASSIUM ORAL potassium,chelated POTASSIUM 99 MG TABS One tablet by mouth daily as needed POTASSIUM [id number] Alyssa Ybarra PA-C 07-03-2014 [facility] ([id number]) No current facility-administered medications for this visit. Pill bottles are not present. Adherence: denies missed doses. Rx coverage: Payor: ANTHEM / Plan: BLUE CARD PPO OOS / Product Type: PPO / Medications affordable? Yes PHARMACOTHERAPY PREVENTATIVE MEDS: On JUDY/ARB: No On Statin: Yes On ASA: Yes EXAM: There were no vitals taken for this visit. Last 3 Encounter BP Readings: Date: BP: 01/26/2025 126/81 12/22/2024 135/64 12/21/2024 132/84 Wt: 88 kg (194 lb 0.1 oz) BMI: 24.91 kg/(m2) LABS: Lab Results Component Value Date HBA1C 8.0 02/02/2025 HBA1C 10.9 12/15/2024 Glucose 305 12/15/2024 BUN 11 12/15/2024 Creatinine 0.65 12/15/2024 Sodium 134 12/15/2024 Potassium 4.6 12/15/2024 Chloride 99 12/15/2024 CO2 25 12/15/2024 Calcium 9.2 12/15/2024 Lab Results Component Value Date CHOL 164 01/06/2025 LDL 94 01/06/2025 LDL 159 07/06/2013 HDL 37 01/06/2025 HDL 34 07/06/2013 TG 167 01/06/2025 TG 63 07/06/2013 Albumin/Creat Ratio (mg/g) Date Value 12/22/2024 <9 Estimated Glomerular Filtration Rate (mL/min/1.73m?) Date Value 12/15/2024 103 ASSESSMENT/PLAN: 1. Type 2 diabetes mellitus with hyperglycemia, without long-term current use of insulin (HCC) - ICD9: 250.00, 790.29, ICD10: E11.65 - Improving control - Increase metformin ER 500mg to 2 tablets twice daily as patient reported taking - Statin prescribed - rosuvastatin - Counseled on healthy diet and regular exercise - Discussed diabetic education issues of diabetes complications and monitoring required, hypoglycemic/hyperglycemic symptoms, and medication-specific side effects and monitoring - Follow up in 1 month, sooner should any other issues arise. - A1c ordered for 3 months post initial A1c, patient requested due to potential hernia procedure Bal Doherty RPh Overdue Diabetes Health Maintenance: Health Maintenance - Diabetes Topic Date Due Dilated Retinal Exam Never done Diabetic Foot Exam Never done Pneumococcal Vaccine: 50+ (1 of 2 - PCV) Never done Follow Up: Next PCP visit: 05/02/25 Next PharmD visit: 04/06/25 @ 1:00PM Bal Doherty RPh I spent a total of 35 minutes on the date of the service which included preparing to see the patient, [id number] patient care, completing clinical documentation, counseling and educating the patient/family/caregiver, and ordering medications, tests, or procedures. [facility] 03-01-2025 Telephone encount er Note Received visit summary from [facility]. Placed in provider's inbox for review. Route to MA scanning [facility] 03-01-2025 Miscellaneous Notes Formattin g of this note might be different from the original. Received visit summary from [facility]. Placed in provider's inbox for review. Route to MA scanning documented in this encounter [facility] 03-01-2025 Evaluation note Diagnosis Onset Date Resolution PAC (premature atrial contraction) acute March 01 7:54am Hyperlipidemia chronic March 01, 2025 7:54am Presence of stent in coronary artery October, chronic March 01, 2025 7:54am [facility] Work Phone: 1(344) 171-936705-13-2025 Telephone encounter Note* Telephone Encounter - Selwyn Fraser LPN - 02/14/2025 4:01 PM EDT Fax sent. Called and notified pt. Pt indicated understanding. [facility]05-13-2025 Miscellaneous Notes* Telephone Encounter - Selwyn Fraser LPN - 02/14/2025 4:01 PM EDT Fax sent. Called and notified pt. Pt indicated understanding. * Telephone Encounter - Emigdio Marsh APRN.CNP - 02/14/2025 10:41 AM EDT March will likely be too soon to repeat the A1C, typically done every 3 months but can discuss with the clinical pharmacist at the upcoming appointment later this month. Please fax new[employer] disability paperwork, placed in outbox Emigdio Marsh APRN.JAEL * Telephone Encounter - Claire Delgado RN - 02/10/2025 11:14 AM EDT Spoke with patient, he appreciates everything done for him The patient states the problem is he needs to problem is he needs to work He was hoping to get the AIc down He is going to send you a message in a few weeks And see if maybe getting the A1c repeated in March. * Telephone Encounter - [place] Pss, Al[place] - 02/09/2025 2:00 PM EDT Will is a patient of Irma Dawn MD today to speak with Emigdio or PCP regarding his A1C test results. Please call today. Patient has been identified by name and birthdate. Duration of symptoms: N/A Person calling: self Call patient at: at home Was an appointment scheduled: No Closing statement: Results or non-symptom based questions: Thank you for calling [facility], your call will be returned within the next business day. Alma Jefferson Pss documented in [facility] encounter[facility]05-[facility] Telephone encounter Note * Telephone Encounter - Emigdio Marsh APRN.CNP - 02/14/2025 10:41 AM EDT Daija will likely be too soon to repeat the A1C, typically done every 3 months but can discuss with the clinical pharmacist at the upcoming appointment later this month. Please fax new[employer] disability paperwork, placed in outbox Emigdio Marsh APRN.JAEL [facility]05-09-2025 Telephone encounter Note* Telephone Encounter - Claire Delgado RN - 02/10/2025 11:14 AM EDT Spoke with patient, he appreciates everything done for him The patient states the problem is he needs to problem is he needs to work He was hoping to get the AIc down He is going to send you a message in a few weeks And see if maybe getting the A1c repeated in March. [facility] Work Phone: [phone] 407-291605-09-2025 Telephone encounter Note* Telephone Encounter - Claire Delgado RN - 02/10/2025 11:13 AM EDT Patient was notified and voiced understanding of provider message below. He will scheduled with Emigdio. [facility] Work Phone: [phone] Miscellaneous Notes* Telephone Encounter - Claire Delgado RN - 02/10/2025 11:13 AM EDT Patient was notified and voiced understanding of provider message below. He will scheduled with Emigdio. * Telephone Encounter - Brooklynn Caicedo LPN - 02/03/2025 3:31 PM EDT HgA1c 8.0 02/02/2025 documented in [facility] encounterH[facility]05-[facility]-2025 Telephone encounter Note * Telephone Encounter - Alma Rivas - 02/09/2025 2:00 PM EDT Will is a patient of Irma Dawn MD today to speak with Emigdio or PCP regarding his A1C test results. Please call today. Patient has been identified by name and birthdate. Duration of symptoms: N/A Person calling: self Call patient at: at home Was an appointment scheduled: No Closing statement: Results or non-symptom based questions: Thank you for calling [facility], your call will be returned within the next business day. Alma Faith [facility]05-02-2025 Telephone encounter Note* Telephone Encounter - Brooklynn Caicedo LPN - 02/03/2025 3:32 PM EDT Received 02/03/2025 from Lavell Colin. Placed in provider's inbox for review. Route to ME for faxing. [facility]05-02-2025 Miscellaneous Notes* Telephone Encounter - Brooklynn Caicedo LPN - 02/03/2025 3:32 PM EDT Received 02/03/2025 from Lavell Colin. Placed in provider's inbox for review. Route to ME for faxing. documented in this encounterH[facility]05-[facility]-2025 Telephone encounter Note * Telephone Encounter - rBooklynn Caicedo LPN - 02/03/2025 3:31 PM EDT HgA1c 8.0 02/02/2025 [facility]04-24-2025 NoteHNO ID: [id number] Author: IRMA DAWN MD Service: ? Author Type: Physician Type: Progress Notes Filed: 01/26/2025 17:45 Note Text: Recording using ENEFpro software for draft documentation of the visit was discussed with the patient/authorized credit representative; all questions welcomed and answered. Patient/authorized credit representative agreed to proceed Subjective Will is a 69-year-old male with a history of CAD, presenting for diabetes management and hernia repair clearance. Diabetes Mellitus: - Diagnosed recently; A1c was 11% at diagnosis. - Currently taking two oral hypoglycemic agents. - Monitoring blood glucose levels daily; fasting levels average around 140 mg/dL, postprandial levels around 170 mg/dL. - Reports one instance of consuming three pieces of pizza and soda, resulting in elevated glucose levels. - Has not yet seen a middle school special education teacher but plans to schedule an appointment. Hernia: - Hernia has worsened since initial evaluation by Dr. Barbosa. - Currently wearing a truss daily for support. - Hernia repair surgery was postponed due to elevated A1c levels. - Engages in gardening and beekeeping, which involves lifting heavy objects; uses a truss during these activities. Coronary Artery Disease: - Diagnosed in 2012; first stent placed in July 2013. - Most recent stent placement was 3 years ago. - No recent EKGs performed. - Scheduled to see a distillery miller in March. Lifestyle: - Engages in daily cardiovascular exercise, including a 2-mile walk with a 250-foot vertical climb. - Previously participated in a structured exercise program but discontinued about 1.5-2 years ago. - Does not smoke or consume alcohol. 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 Constitutional: (+) generalized discomfort Cardiovascular: (-) chest pain PHYSICAL EXAMINATION BP 126/81 Pulse 65 Wt 88 kg (194 lb 0.1 oz) BMI 24.91 kg/m? General: Alert and oriented, no distress, pleasant and cooperative. Shoulder carriage L>R. Mild thoracolumbar scoliosis noted. (Pt ws not aware) Heart: Regular, normal S1 and S2, no murmurs, rubs, or gallops Lungs: Clear to auscultation bilaterally Abdomen: Benign Hernia exam not repeated. Extremities: Feet/ankles without edema, posterior tibial pulses full and symmetrical Labs: (December) Self-monitored blood glucose: - Fasting readings: 124-140 mg/dL - Postprandial readings: up to 180 mg/dL Hemoglobin A1c: 11 1. Type 2 diabetes mellitus with hyperglycemia, without long-term current use of insulin (HCC) (E11.65) - Blood glucose levels showing improvement with fasting levels averaging around 140 mg/dL. - Currently taking two tablets of metformin daily as per retail pharmacy manager Blanca Clayton's adjustment. - Ordered Hemoglobin A1c test to be performed on February 02 to assess long-term glycemic control. - Airfield Operations Specialist consultation scheduled to further optimize dietary management. 2. Coronary artery disease involving [place] coronary artery of [place] heart without angina pectoris (I25.10) - History of two stent placements, first in July 2013 and most recent approximately three years ago. - No current symptoms of angina; patient remains physically active with daily cardiovascular exercise. - Next cardiology appointment scheduled for March with SHANNAN Brooks. - No recent EKGs performed; functional status remains stable. 3. Non-recurrent bilateral inguinal hernia without obstruction or gangrene (K40.20) - Hernia has worsened; currently managed with a truss. - Surgery previously postponed due to uncontrolled diabetes. - Will contact Dr. Barbosa to discuss proceeding with hernia repair once A1c results are available. - Patient advised on expected recovery period of 6-8 weeks post-surgery. 4. Scoliosis of thoracolumbar spine, unspecified scoliosis type (M41.9) - Mild scoliosis observed on physical examination with slight curvature noted. - No current symptoms or functional limitations reported. Requested Prescriptions No prescriptions requested or ordered in this encounter RTO: discuss after A1c Irma Dawn, [facility]04-04-2025 Telephone encounter Note * Telephone Encounter - Naav Ram RPh - 01/06/2025 10:11 AM EDT Plan to increase metformin ER 500 mg to 2 tablets once daily. Updated Rx sent to [facility] Nava Ram PharmD, [place] Primary Care Clinical Systems Architecture Analyst [facility] Work Phone: 1(627) 517-925704-04-2025 Miscellaneous Notes* Telephone Encounter - Nava Ram RPh - 01/06/2025 10:11 AM EDT Plan to increase metformin ER 500 mg to 2 tablets once daily. Updated Rx sent to [facility] Nava Ram PharmD, [place] Primary Care Clinical Systems Architecture Analyst documented in this encounterHock[facility]04-03-2025 History of Present illness Narrative* Nava Ram RPh - 01/05/2025 2:00 PM EDT Primary Care Pharmacy Visit CC (Reason for Consult): (E11.65) Type 2 diabetes mellitus with hyperglycemia, without long-term current use of insulin (HCC) (primary encounter diagnosis) Goal(s): A1c <7% Last Collaborating Provider Visit: 12/22/24 with Emigdio Marsh CNP - metformin initiated Demar Kearns is a 69 year old male presenting for initial visit: This initial consult was conducted in person with the patient where the consult agreement was explained. The patient may decline orcancel the agreement at any time. After consideration, the patient consented to the pharmacy consult agreement and agreed to allow medications be collaboratively managed by a pharmacist. HPI: Has been tolerating metformin been taking ~2 weeks, no GI upset Main goal at this time is to get hernia surgery done ~25 lbs lost since last fall - usually sits around 225 lbs, currently 195 lbs Very active, stressful job ~ 3 weeks off work due to hernia, has been very stressed from work this past year Not interested in adding new medications at this time mainly due to plan to switch to Medicare and might have insurance gaps upcoming Was on atorvastatin 40 mg for about 8 years - changed to rosuvastatin due to myalgias with atorvastatin Hx of CAD, multiple stents Current DM Medications: Metformin ER 500 mg once daily Previously Trialed DM Meds: None Diet Meal Breakfast: cups of tea, 2 pieces of whole wheat toast, little bit of peanut butter, little bit of honey (1/2 tsp), sometimes oatmeal Lunch: 1-2 eggs, little bit of cheese, salad, oil dressing Dinner: Protein source, salad material/vegetable Snacks: handful of nuts, oranges, other fruits Water, tea, 1 coffee, goat milk Exercise: Yes - limitation due to hernia, not where he used to be in terms of exercise (used to runlong distance/was very active), but still walks his dogs up and down a hill in his neighborhood. Plan to become very active again once hernia fixed. Tobacco: No - former smoker, quit ~41 years old Alcohol: Social drinker, every once in awhile drinks beers, not often Caffeine: Yes GLYCEMIC CONTROL: Glucometer present at visit: No - brought in written log Hypoglycemia: No - no values <70 or reported hypoglycemia symptoms SMBGS (Fingersticks) Date Fasting AM 2 hr PP 12/24 164 12/25 164 12/26 138 12/27 150 12/28 140 12/28 233 12/29 136 12/30 130 12/31 142 01/01 124 01/02 178 01/03 141 01/04 180 01/05 141 AVG 142 170 Past medical history reviewed. ALLERGIES No Known Allergies Current Outpatient Medications Medication Sig Dispense Refill metFORMIN ER (GLUCOPHAGE XR) 500 mg 24 hr tablet Take 1 tablet by mouth once daily. 30 tablet 0 blood sugar diagnostic (BLOOD GLUCOSE TEST) test strip Test blood sugar(s) 2 times daily. Dx: Type 2 DM - Uncontrolled E11.65 Insulin: No 50 Strip 11 alcohol swabs Use with blood glucose test once daily 100 Each 5 rosuvastatin (CRESTOR) 10 mg tablet Take 1 tablet by mouth every other day. ADULT LOW DOSE ASPIRIN ORAL Adult Low Dose Aspirin Oral POTASSIUM ORAL potassium,chelated POTASSIUM 99 MG TABS One tablet by mouth daily as needed POTASSIUM [id number] Alyssa Ybarra PA-C 07-03-2014 [facility] ([id number]) No current facility-administered medications for this visit. Pill bottles are present. Adherence: 1 missed dose in past week. Rx coverage: Payor: ANTHEM / Plan: BLUE CARD PPO OOS / Product Type: PPO / Medications affordable? Yes PHARMACOTHERAPY PREVENTATIVE MEDS: On JUDY/ARB: No On Statin: Yes On ASA: Yes EXAM: There were no vitals taken for this visit. Last 3 Encounter BP Readings: Date: BP: 12/22/2024 135/64 12/21/2024 132/84 12/13/2024 145/74 Wt: 92.6 kg (204 lb 2.3 oz) BMI: 26.21 kg/(m^2) LABS: Lab Results Component Value Date HBA1C 10.9 12/15/2024 Glucose 305 12/15/2024 BUN 11 12/15/2024 Creatinine 0.65 12/15/2024 Sodium 134 12/15/2024 Potassium 4.6 12/15/2024 Chloride 99 12/15/2024 CO2 25 12/15/2024 Calcium 9.2 12/15/2024 Lab Results Component Value Date LDL 159 07/06/2013 HDL 34 07/06/2013 TG 63 07/06/2013 Albumin/Creat Ratio (mg/g) Date Value 12/22/2024 <9 Estimated Glomerular Filtration Rate (mL/min/1.73m ) Date Value 12/15/2024 103 ASSESSMENT/PLAN: 1. Type 2 diabetes mellitus with hyperglycemia, without long-term current use of insulin (HCC) - ICD9: 250.00, 790.29, ICD10: E11.65 - Improving control - Patient wanting to keep medications the same at this time - continue metformin ER 500 mg daily - Statin prescribed - rosuvastatin - Placed consult to DM education, per patient request - Provided patient with Planning Healthy Meals booklet - Follow up in 8 weeks, sooner should any other issues arise. - Due for lipid panel, ordered Overdue Diabetes Health Maintenance: Health Maintenance - Diabetes Topic Date Due Dilated Retinal Exam Never done Diabetic Foot Exam Never done Pneumococcal Vaccine: 50+ (1 of 2 - PCV) Never done LDL Cholesterol 07/06/2014 Follow Up: Next PCP visit: 01/26/25 Next PharmD visit: 03/02/25 Kaylene Mantilla Rph I spent a total of 60 minutes on the date of the service which included preparing to see the patient, [id number] patient care, completing clinical documentation, counseling and educating the patient/family/caregiver, and ordering medications, tests, or procedures. * Nava Ram RPh - 01/05/2025 2:00 PM EDT Patient interviewed independently by the resident. Carson elements of history confirmed. Agree with findings and plan as outlined by the resident. My additions to the progress note are underlined. Nava Ram, PharmNaveen, BCACP Primary Care Clinical Systems Architecture Analyst documented in this encounterH[facility]04-03-[facility] Instructions* Patient Instructions* Kaylene Mantilal RPh - 01/05/2025 2:00 PM EDT Next appointment with pharmacist 03/02/25 2:00 PM documented in this encounterHock[facility]04-03-2025 NoteHNO ID: [id number] Author: NAVA RAM RPh Service: ? Author Type: Pharmacist Type: Progress Notes Filed: 01/05/2025 16:34 Note Text: Patient interviewed independently by the resident. Carson elements of history confirmed. Agree with findings and plan as outlined by the resident. My additions to the progress note are underlined. Nava Ram, PharmD, BCACP Primary Care Clinical Pharmacy SpecialistUniversity [facility]als [facility]04-[facility]-2025 NoteHNO ID: [id number] Author: NAVA RAM formerly [facility]: ? Author Type: Pharmacist Type: Progress Notes Filed: 01/05/2025 16:34 Note Text: Primary Care Pharmacy Visit CC (Reason for Consult): (E11.65) Type 2 diabetes mellitus with hyperglycemia, without long-term current use of insulin (HCC) (primary encounter diagnosis) Goal(s): A1c <7% Last Collaborating Provider Visit: 12/22/24 with Emigdio Marsh CNP - metformin initiated Demar Kearns is a 69 year old male presenting for initial visit: This initial consult was conducted in person with the patient where the consult agreement was explained. The patient may decline or cancel the agreement at any time. After consideration, the patient consented to the pharmacy consult agreement and agreed to allow medications be collaboratively managed by a pharmacist. HPI: Has been tolerating metformin been taking ~2 weeks, no GI upset Main goal at this time is to get hernia surgery done ~25 lbs lost since last fall - usually sits around 225 lbs, currently 195 lbs Very active, stressful job ~ 3 weeks off work due to hernia, has been very stressed from work this past year Not interested in adding new medications at this time mainly due to plan to switch to Medicare and might have insurance gaps upcoming Was on atorvastatin 40 mg for about 8 years - changed to rosuvastatin due to myalgias with atorvastatin Hx of CAD, multiple stents Current DM Medications: Metformin ER 500 mg once daily Previously Trialed DM Meds: None Diet Meal Breakfast: cups of tea, 2 pieces of whole wheat toast, little bit of peanut butter, little bit of honey (1/2 tsp), sometimes oatmeal Lunch: 1-2 eggs, little bit of cheese, salad, oil dressing Dinner: Protein source, salad material/vegetable Snacks: handful of nuts, oranges, other fruits Water, tea, 1 coffee, goat milk Exercise: Yes - limitation due to hernia, not where he used to be in terms of exercise (used to run long distance/was very active), but still walks his dogs up and down a hill in his neighborhood. Plan to become very active again once hernia fixed. Tobacco: No - former smoker, quit ~41 years old Alcohol: Social drinker, every once in awhile drinks beers, not often Caffeine: Yes GLYCEMIC CONTROL: Glucometer present at visit: No - brought in written log Hypoglycemia: No - no values <70 or reported hypoglycemia symptoms SMBGS (Fingersticks) Date Fasting AM 2 hr PP 12/24 164 12/25 164 12/26 138 12/27 150 12/28 140 12/28 233 12/29 136 12/30 130 12/31 142 01/01 124 01/02 178 01/03 141 01/04 180 01/05 141 AVG 142 170 Past medical history reviewed. ALLERGIES No Known Allergies Current Outpatient Medications Medication Sig Dispense Refill metFORMIN ER (GLUCOPHAGE XR) 500 mg 24 hr tablet Take 1 tablet by mouth once daily. 30 tablet 0 blood sugar diagnostic (BLOOD GLUCOSE TEST) test strip Test blood sugar(s) 2 times daily. Dx: Type 2 DM - Uncontrolled E11.65 Insulin: No 50 Strip 11 alcohol swabs Use with blood glucose test once daily 100 Each 5 rosuvastatin (CRESTOR) 10 mg tablet Take 1 tablet by mouth every other day. ADULT LOW DOSE ASPIRIN ORAL Adult Low Dose Aspirin Oral POTASSIUM ORAL potassium,chelated POTASSIUM 99 MG TABS One tablet by mouth daily as needed POTASSIUM [id number] Alyssa Ybarra PA-C 07-03-2014 [facility] ([id number]) No current facility-administered medications for this visit. Pill bottles are present. Adherence: 1 missed dose in past week. Rx coverage: Payor: ANTHEM / Plan: BLUE CARD PPO OOS / Product Type: PPO / Medications affordable? Yes PHARMACOTHERAPY PREVENTATIVE MEDS: On JUDY/ARB: No On Statin: Yes On ASA: Yes EXAM: There were no vitals taken for this visit. Last 3 Encounter BP Readings: Date: BP: 12/22/2024 135/64 12/21/2024 132/84 12/13/2024 145/74 Wt: 92.6 kg (204 lb 2.3 oz) BMI: 26.21 kg/(m2) LABS: Lab Results Component Value Date HBA1C 10.9 12/15/2024 Glucose 305 12/15/2024 BUN 11 12/15/2024 Creatinine 0.65 12/15/2024 Sodium 134 12/15/2024 Potassium 4.6 12/15/2024 Chloride 99 12/15/2024 CO2 25 12/15/2024 Calcium 9.2 12/15/2024 Lab Results Component Value Date LDL 159 07/06/2013 HDL 34 07/06/2013 TG 63 07/06/2013 Albumin/Creat Ratio (mg/g) Date Value 12/22/2024 <9 Estimated Glomerular Filtration Rate (mL/min/1.73m?) Date Value 12/15/2024 103 ASSESSMENT/PLAN: 1. Type 2 diabetes mellitus with hyperglycemia, without long-term current use of insulin (HCC) - ICD9: 250.00, 790.29, ICD10: E11.65 - Improving control - Patient wanting to keep medications the same at this time - continue metformin ER 500 mg daily - Statin prescribed - rosuvastatin - Placed consult to DM education, per patient request - Provided patient with Planning Healthy Meals booklet - Follow up in 8 weeks, sooner should any other issues arise. - Due for lipid panel, ordered Overdue (more content not included)...[facility]04-03-2025 Telephone encounter Note* Telephone Encounter - Brooklynn Caicedo LPN - 01/05/2025 9:43 AM EDT Forms faxed and confirmation received on 01/03/2025 [facility]04-03-2025 Miscellaneous Notes* Telephone Encounter - Brooklynn Caicedo LPN - 01/05/2025 9:43 AM EDT Forms faxed and confirmation received on 01/03/2025 * Telephone Encounter - Emigdio Marsh APRN.GUM DIPPER - 01/03/2025 1:53 PM EDT Paperwork completed, please fax. Let patient know it has been completed and faxed, he will need to send in page 1 though with his signature. I put a return to work date of 06/12/25 because I had to putsomething down, but this can be amended as needed Emigdio Marsh APRN.CNP * Telephone Encounter - Emigdio Marsh APRN.CNP - 01/03/2025 9:11 AM EDT We did not receive any paperwork, can patient attach it to a MC message or drop it off? Emigdio Marsh APRN.CNP * Telephone Encounter - Paulina Ragland - 12/30/2024 1:28 PM EDT Patient calling back today and checking the status of paperwork he needs completed. Patient is asking for completed form to also be placed in his MC. Please return call to patient. [phone] * Telephone Encounter - Paulina Ragland - 12/29/2024 1:30 PM EDT Will is calling Emigdio Marsh APRN.CNP today with concern regarding paperwork for Lavell Lopez Patient states that he sent the forms to be completed and be sent to Lavell Guadalupe. Patient states he sent the forms via . Patient states that Lavell Lopez has not yet received forms. Patient asking for the status of the forms to be completed and faxed to [phone] Patient has been identified by name and birthdate. Duration of symptoms: N/A Person calling: self Call patient at: on cell [phone] (home) [phone] (cell) Was an appointment scheduled: No Closing statement: Results or non-symptom based questions: Thank you for calling [facility], your call will be returned within the next business day. Paulina Ragland documented in this encounterH[facility]04[facility] Telephone encounter Note * Telephone Encounter - Emigdio Marsh APRN.CNP - 01/03/2025 1:53 PM EDT Paperwork completed, please fax. Let patient know it has been completed and faxed, he will need to send in page 1 though with his signature. I put a return to work date of 06/12/25 because I had to putsomething down, but this can be amended as needed Emigdio Marsh APRN.CNP [facility]04-01-2025 Telephone encounter Note* Telephone Encounter - Emigdio Marsh APRN.CNP - 01/03/2025 9:11 AM EDT We did not receive any paperwork, can patient attach it to a MC message or drop it off? Emigdio Marsh APRN.CNP [facility]03-28-2025 Telephone encounter Note* Telephone Encounter - Paulina Ragland - 12/30/2024 1:28 PM EDT Patient calling back today and checking the status of paperwork he needs completed. Patient is asking for completed form to also be placed in his MC. Please return call to patient. [phone] [facility]03-27-2025 Telephone encounter Note* Telephone Encounter - Paulina Ragland - 12/29/2024 1:30 PM EDT Will is calling Emigdio Marsh APRN.CNP today with concern regarding paperwork for [place] Patient states that he sent the forms to be completed and be sent to Lavell Guadalupe. Patient states he sent the forms via . Patient states that Lavell Lopez has not yet received forms. Patient asking for the status of the forms to be completed and faxed to [phone] Patient has been identified by name and birthdate. Duration of symptoms: N/A Person calling: self Call patient at: on cell [phone] (home) [phone] (cell) Was an appointment scheduled: No Closing statement: Results or non-symptom based questions: Thank you for calling [facility], your call will be returned within the next business day. Paulina Ragland [facility]03-20-2025 Instructions* Patient Instructions* Emigdio Marsh APRN.CNP - 12/22/2024 11:59 AM EDT - Start taking Metformin once daily with breakfast; prescription sent to [facility] in [place]. - Check your blood sugar once a day using the glucometer and supplies sent to [facility]. - Alternate between checking fasting blood sugar (before eating or drinking in the morning) and twohours after your largest meal of the day. - Keep a log of your blood sugar readings and bring it to your appointment with the clinical pharmacist. - Follow a strict low-carbohydrate diet to help manage your blood sugar levels. - Avoid sugary foods and drinks, as well as starchy foods like potatoes, rice, pasta, and bread. - Schedule an appointment with a clinical pharmacist for comprehensive diabetes management within the next two weeks. - Follow up with Dr. Dawn in one month; schedule this appointment at the front desk lead before leaving. - Discuss with your surgeon the specific A1c level required before they will perform your hernia surgery. - Contact your HR department to discuss short-term disability and FMLA options. - Provide the necessary paperwork for short-term disability and FMLA to the clinician for completion. documented in this encounterHocking [facility]03-20-2025 Gaye ID: [id number] Author: EMIGDIO MARSH APRN.GUM DIPPER Service: ? Author Type: Nurse Practitioner Type: Progress Notes Filed: 12/22/2024 12:03 Note Text: This note was created using [employer]. Subjective Demar Kearns is a 69 year old male. ZOEY Ramirez is a 69-year-old male with a history of CAD, presenting for an initial visit to establish care and address newly diagnosed diabetes. Diabetes: - Recently diagnosed with diabetes during preoperative evaluation for hernia repair. - Denies polydipsia and polyuria. - Reports intermittent paresthesia in feet for approximately 10 years. - A1c measured at 10.9. - No previous primary care provider since 2012. - Expresses desire to manage blood glucose levels to proceed with hernia surgery. - Open to dietary consultation with a salesperson driver. CAD: - History of coronary artery blockage treated with stent placement in 2012. - Regular follow-ups with distillery miller at [facility]. - Last lipid panel conducted a year ago; next appointment scheduled for January. - Previously engaged in a cardiovascular exercise program, including stationary biking, but discontinued two years ago. - Reports high-stress levels at work, leading to poor dietary habits over the past six months. - Consumes large amounts of caffeine; denies alcohol, tobacco, and recreational drug use. - Desires to retire and manage health conditions effectively. Recently evaluated for bilateral inguinal surgery repair, but cannot have surgery until diabetes is controlled. The hernias are uncomfortable and affect his ability to do his job, concerned for having to be out of work even longer now to get blood sugar under control before surgery, has looked into [facility], paperwork with surgeon. Review of Systems Constitutional: Negative for unexpected weight change. Respiratory: Negative for shortness of breath. Cardiovascular: Negative for chest pain. Gastrointestinal: Negative for constipation and diarrhea. Inguinal hernia Allergic/Immunologic: Positive for immunocompromised state. Neurological: Positive for numbness. Negative for weakness. PAST MEDICAL HISTORY Diagnosis Date CAD (coronary artery disease) 12/15/2024 Coronary artery disease Mixed hyperlipidemia Recent URI 12/15/2024 PAST SURGICAL HISTORY Procedure Laterality Date PAST SURGICAL HISTORY OF 10/05/1999 umbilical hernia repair-[facility]. PAST SURGICAL HISTORY OF umbilical hernia repair STENT - CORONARY x2 TONSILLECTOMY PRIMARY/SECONDARY Tonsillectomy ALLERGIES Patient has no known allergies. MEDICATIONS doxycycline (VIBRA-TABS) 100 mg tablet Take 1 tablet by mouth two times a day for 7 days. rosuvastatin (CRESTOR) 10 mg tablet Take 1 tablet by mouth every other day. ADULT LOW DOSE ASPIRIN ORAL Adult Low Dose Aspirin Oral POTASSIUM ORAL potassium,chelated POTASSIUM 99 MG TABS One tablet by mouth daily as needed POTASSIUM [id number] Alyssa Ybarra PA-C 07-03-2014 [facility] ([id number]) metFORMIN ER (GLUCOPHAGE XR) 500 mg 24 hr tablet Take 1 tablet by mouth once daily. Blood-Glucose Meter Test Two times a day. Insulin Dep? No E11.9 DM 2 Blood Glucose Control, Normal soln Use to calibrate glucometer. blood sugar diagnostic (BLOOD GLUCOSE TEST) test strip Test blood sugar(s) 2 times daily. Dx: Type 2 DM - Uncontrolled E11.65 Insulin: No alcohol swabs Use with blood glucose test once daily FAMILY HISTORY Problem Relation Age of Onset Anesthesia No Family History Social History Tobacco Use Smoking status: Former Current packs/day: 0.00 Types: Cigarettes Start date: 10/05/1974 Quit date: 10/05/1981 Years since quittin.2 Smokeless tobacco: Never Substance Use Topics Alcohol use: Yes Comment: occasional- 1-2 drinks per month Drug use: No Objective BP 135/64 Pulse 64 Wt 92.6 kg (204 lb 2.3 oz) BMI 26.21 kg/m? Labs: -POC glucose (fasting) - 184 - Hemoglobin A1c: 10.9 Physical Exam GENERAL: NAD, alert and oriented. SKIN: Unremarkable, no rash or skin lesions. HEAD: Normocephalic. EYES: PERRLA, EOMI, conjunctiva clear. EARS: External ears normal, canals clear, TM's normal. NOSE/SINUSES: Nares normal. Septum midline. OROPHARYNX: Lips, mucosa, and tongue normal, good dentition. No oral lesions noted. NECK: Supple, no lymphadenopathy, normal thyroid, no carotid bruits. LUNGS: Clear to auscultation bilaterally, no wheezes/rhonchi/rales. HEART: Regular rate and rhythm, no murmurs. No ectopy. EXTREMITIES: Normal, no deformities, no skin discoloration, no edema. NEURO: Awake, alert and oriented x3, cranial nerves II-XII grossly intact, normal gait, no involuntary motions. Assessment and Plan 1. New onset type 2 diabetes mellitus (HCC) (E11.9) - Diagnosed with significantly uncontrolled diabetes; A1c is 10.9%. - Denies polydipsia and polyuria; reports intermittent paresthesia in feet for the past decade. - Educa (more content not included)...[facility]03-20-2025 History of Present illness Narrative* Emigdio Marsh APRN.GUM DIPPER - 12/22/2024 10:03 AM EDT This note was created using [employer]. Subjective Demar Kearns is a 69 year old male. ZOEY Ramirez is a 69-year-old male with a history of CAD, presenting for an initial visit to establish careand address newly diagnosed diabetes. Diabetes: - Recently diagnosed with diabetes during preoperative evaluation for hernia repair. - Denies polydipsia and polyuria. - Reports intermittent paresthesia in feet for approximately 10 years. - A1c measured at 10.9. - No previous primary care provider since 2012. - Expresses desire to manage blood glucose levels to proceed with hernia surgery. - Open to dietary consultation with a salesperson driver. CAD: - History of coronary artery blockage treated with stent placement in 2012. 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 - Last lipid panel conducted a year ago; next appointment scheduled for January. - Previously engaged in a cardiovascular exercise program, including stationary biking, but discontinued two years ago. - Reports high-stress levels at work, leading to poor dietary habits over the past six months. - Consumes large amounts of caffeine; denies alcohol, tobacco, and recreational drug use. - Desires to retire and manage health conditions effectively. Recently evaluated for bilateral inguinal surgery repair, but cannot have surgery until diabetes iscontrolled. The hernias are uncomfortable and affect his ability to do his job, concerned for having to be out of work even longer now to get blood sugar under control before surgery, has looked intoFMLA, paperwork with surgeon. Review of Systems Constitutional: Negative for unexpected weight change. Respiratory: Negative for shortness of breath. Cardiovascular: Negative for chest pain. Gastrointestinal: Negative for constipation and diarrhea. Inguinal hernia Allergic/Immunologic: Positive for immunocompromised state. Neurological: Positive for numbness. Negative for weakness. PAST MEDICAL HISTORY Diagnosis Date CAD (coronary artery disease) 12/15/2024 Coronary artery disease Mixed hyperlipidemia Recent URI 12/15/2024 PAST SURGICAL HISTORY Procedure Laterality Date PAST SURGICAL HISTORY OF 10/05/1999 umbilical hernia repair-[facility]. PAST SURGICAL HISTORY OF umbilical hernia repair STENT - CORONARY x2 TONSILLECTOMY PRIMARY/SECONDARY <AGE 13 Tonsillectomy ALLERGIES Patient has no known allergies. MEDICATIONS doxycycline (VIBRA-TABS) 100 mg tablet Take 1 tablet by mouth two times a day for 7 days. rosuvastatin (CRESTOR) 10 mg tablet Take 1 tablet by mouth every other day. ADULT LOW DOSE ASPIRIN ORAL Adult Low Dose Aspirin Oral POTASSIUM ORAL potassium,chelated POTASSIUM 99 MG TABS One tablet by mouth daily as needed POTASSIUM [id number] Alyssa Ybarra PA-C 07-03-2014 [facility] ([id number]) metFORMIN ER (GLUCOPHAGE XR) 500 mg 24 hr tablet Take 1 tablet by mouth once daily. Blood-Glucose Meter Test Two times a day. Insulin Dep? No E11.9 DM 2 Blood Glucose Control, Normal soln Use to calibrate glucometer. blood sugar diagnostic (BLOOD GLUCOSE TEST) test strip Test blood sugar(s) 2 times daily. Dx: Type 2 DM - Uncontrolled E11.65 Insulin: No alcohol swabs Use with blood glucose test once daily FAMILY HISTORY Problem Relation Age of Onset Anesthesia No Family History Social History Tobacco Use Smoking status: Former Current packs/day: 0.00 Types: Cigarettes Start date: 10/05/1974 Quit date: 10/05/1981 Years since quittin.2 Smokeless tobacco: Never Substance Use Topics Alcohol use: Yes Comment: occasional- 1-2 drinks per month Drug use: No Objective BP 135/64 Pulse 64 Wt 92.6 kg (204 lb 2.3 oz) BMI 26.21 kg/m Labs: -POC glucose (fasting) - 184 - Hemoglobin A1c: 10.9 Physical Exam GENERAL: NAD, alert and oriented. SKIN: Unremarkable, no rash or skin lesions. HEAD: Normocephalic. EYES: PERRLA, EOMI, conjunctiva clear. EARS: External ears normal, canals clear, TM's normal. NOSE/SINUSES: Nares normal. Septum midline. OROPHARYNX: Lips, mucosa, and tongue normal, good dentition. No oral lesions noted. NECK: Supple, no lymphadenopathy, normal thyroid, no carotid bruits. LUNGS: Clear to auscultation bilaterally, no wheezes/rhonchi/rales. HEART: Regular rate and rhythm, no murmurs. No ectopy. EXTREMITIES: Normal, no deformities, no skin discoloration, no edema. NEURO: Awake, alert and oriented x3, cranial nerves II-XII grossly intact, normal gait, no involuntary motions. Assessment and Plan 1. New onset type 2 diabetes mellitus (HCC) (E11.9) - Diagnosed with significantly uncontrolled diabetes; A1c is 10.9%. - Denies polydipsia and polyuria; reports intermittent paresthesia in feet for the past decade. - Educated on the importance of dietary modifications, specifically reducing carbohydrate intake including sugars, starches, and sugary drinks. - Initiated Metformin once daily with breakfast; discussed potential side effects including gastrointestinal upset. - Ordered glucometer and supplies for fingerstick blood glucose monitoring; instructed to check fasting blood glucose half the week and postprandial glucose two hours after the largest meal for the other half. - Referred to [facility] clinical pharmacist in [place] for comprehensive diabetes management, including medication adjustments and dietary education; appointment to be scheduled within two weeks. - Will re-evaluate A1c in three months to assess progress. - Follow-up appointment scheduled with Dr. Dawn in one month. 2. Non-recurrent bilateral inguinal hernia without obstruction or gangrene (K40.20) - Hernia repair surgery postponed due to uncontrolled diabetes. - Advised to discuss specific A1c target with surgeon for proceeding with surgery. - Patient experiencing significant discomfort and functional limitations due to hernia; using a self-made truss for support. - Discussed options for short-term disability and FMLA; advised to consult with HR for necessary paperwork. - Will provide necessary documentation for disability claims; patient to fax or upload paperwork via [employer] Emigdio Marsh APRN.JAEL documented in this encounterHocking Valley [facility] Hospital03-19-2025 Telephone encounter Note * Telephone Encounter - Vianca Zuñiga RN - 12/21/2024 8:44 PM EDT Pt returned the call and notified of results and provider's instructions. [facility]03-19-2025 Miscellaneous Notes* Telephone Encounter - Vianca Zuñiga RN - 12/21/2024 8:44 PM EDT Pt returned the call and notified of results and provider's instructions. * Telephone Encounter - Shannon Acharya MA - 12/21/2024 5:27 PM EDT Left message for patient to return call. Shannon Acharya MA * Telephone Encounter - Brown Bolton APRN.CNP - 12/21/2024 10:51 AM EDT Please inform patient that there is no evidence of pneumonia on x-ray. Follow-up with PCP as scheduled tomorrow. documented in this encounterHocking Valley Community Hospital03-19-2025 Telephone encounter Note * Telephone Encounter - Shannon Acharya MA - 12/21/2024 5:27 PM EDT Left message for patient to return call. Shannon Acharya MA [facility]03-19-2025 Telephone encounter Note* Telephone Encounter - Bria Galo RN - 12/21/2024 12:52 PM EDT Pt came into office to discuss being wrote off work until after surgery due to pain. This Nurse spoke with provider who agreed. FMLA paperwork given to me from patient. On desk to be completed. Patient is to call with updated about A1C after appointment 12/21. [facility]03-19-2025 Miscellaneous Notes* Telephone Encounter - Bria Galo RN - 12/21/2024 12:52 PM EDT Pt came into office to discuss being wrote off work until after surgery due to pain. This Nurse spoke with provider who agreed. FMLA paperwork given to me from patient. On desk to be completed. Patient is to call with updated about A1C after appointment 12/21. documented in this encounterHocking Valley [facility] Hospital03-19-2025 Telephone encounter Note * Telephone Encounter - Brown Bolton APRN.CNP - 12/21/2024 10:51 AM EDT Please inform patient that there is no evidence of pneumonia on x-ray. Follow-up with PCP as scheduled tomorrow. [facility]03-19-2025 History of Present illness Narrative* Marie Arnold Tech - 12/21/2024 10:30 AM EDT Radiology Service Progress Note PATIENT NAME: Demar Kearns DATE OF SERVICE: December 21, 2024 TIME: 10:31 AM PATIENT IDENTITY VERIFICATION COMPLETED USING TWO (2) IDENTIFIERS: Name and Date of confirmedby patient verbally. FALL SCREENING: Has the patient had 2 falls in the last year or 1 fall with injury or currently using an Ambulatory Assistive Device (Walker, Cane, Wheelchair, Crutches, etc.)? No PATIENT GENDER DATA: Assigned male at PATIENT RELEVANT IMPLANT DATA REVIEWED: Not Applicable PATIENT PRESENTS WITH AN IMPLANTABLE OR ATTACHED COAT CHECK ATTENDANT: No RADIOLOGY DEPARTMENT: General X-ray: Exam(s) Completed: Chest X-Ray PERIPHERAL IV DATA: Not applicable SIGNED BY: Neo Landa December 21, 2024 10:31 AM documented in this encounterHocking Valley Community Hospital03-19-2025 NoteHNO ID: [id number] Author: MARIE ARNOLD Tech Service: ? Author Type: Technologist Type: Progress Notes Filed: 12/21/2024 10:38 Note Text: Radiology Service Progress Note PATIENT NAME: Demar Kearns DATE OF SERVICE: December 21, 2024 TIME: 10:31 AM PATIENT IDENTITY VERIFICATION COMPLETED USING TWO (2) IDENTIFIERS: Name and Date of confirmed by patient verbally. FALL SCREENING: Has the patient had 2 falls in the last year or 1 fall with injury or currently using an Ambulatory Assistive Device (Walker, Cane, Wheelchair, Crutches, etc.)? No PATIENT GENDER DATA: Assigned male at PATIENT RELEVANT IMPLANT DATA REVIEWED: Not Applicable PATIENT PRESENTS WITH AN IMPLANTABLE OR ATTACHED COAT CHECK ATTENDANT: No RADIOLOGY DEPARTMENT: General X-ray: Exam(s) Completed: Chest X-Ray PERIPHERAL IV DATA: Not applicable SIGNED BY: Neo Landa December 21, 2024 10:31 [facility]03-19-2025 NoteHNO ID: [id number] Author: BROWN BOLTON APRN.GUM DIPPER Service: ? Author Type: Nurse Practitioner Type: Progress Notes Filed: 12/21/2024 10:44 Note Text: Subjective HPI Nontoxic-appearing 69-year-old male presents urgent care chief complaint cough. Duration of symptoms 1 month. Associated symptoms cough. States is productive sometimes. Had influenza around a month ago. Recently diagnosed with inguinal hernia. Is on established with PCP. labs were obtained. Glucose of 305 was noted. Has not taken any OTC medications. Denies any chest pain hemoptysis or pleuritic pain. No fever. Past medical history prescription medications allergies reviewed .Patient presents with: Chest Congestion: cough x 1 month after flu dx PAST MEDICAL HISTORY Diagnosis Date CAD (coronary artery disease) 12/15/2024 Coronary artery disease Mixed hyperlipidemia Recent URI 12/15/2024 PAST SURGICAL HISTORY Procedure Laterality Date PAST SURGICAL HISTORY OF 10/05/1999 umbilical hernia repair-[facility]. PAST SURGICAL HISTORY OF umbilical hernia repair STENT - CORONARY x2 TONSILLECTOMY PRIMARY/SECONDARY Tonsillectomy ALLERGIES Patient has no known allergies. MEDICATIONS rosuvastatin (CRESTOR) 10 mg tablet Take 1 tablet by mouth every other day. ADULT LOW DOSE ASPIRIN ORAL Adult Low Dose Aspirin Oral POTASSIUM ORAL potassium,chelated POTASSIUM 99 MG TABS One tablet by mouth daily as needed POTASSIUM [id number] Alyssa Ybarra PA-C 07-03-2014 [facility] ([id number]) FAMILY HISTORY Problem Relation Age of Onset Anesthesia No Family History Social History Tobacco Use Smoking status: Former Current packs/day: 0.00 Types: Cigarettes Start date: 10/05/1974 Quit date: 10/05/1981 Years since quittin.2 Smokeless tobacco: Never Substance Use Topics Alcohol use: Yes Comment: occasional- 1-2 drinks per month Drug use: No BP 132/84 Pulse 66 Temp 36.1 ?C (96.9 ?F) Resp 16 Wt 92.5 kg (203 lb 14.8 oz) SpO2 95% BMI 26.18 kg/m? Review of Systems Constitutional: Negative for chills, fever and malaise/fatigue. HENT: Negative for congestion, ear discharge, ear pain, sinus pain and sore throat. Eyes: Negative for blurred vision, pain, discharge and redness. Respiratory: Positive for cough. Negative for hemoptysis, sputum production, shortness of breath, wheezing and stridor. Cardiovascular: Negative for chest pain. Gastrointestinal: Positive for abdominal pain. Negative for diarrhea, nausea and vomiting. Musculoskeletal: Negative for myalgias. Skin: Negative for itching and rash. Neurological: Negative for dizziness and headaches. Objective Physical Exam Constitutional: General: He is not in acute distress. Appearance: He is not diaphoretic. HENT: Head: Normocephalic. Jaw: No trismus, tenderness, swelling or pain on movement. Mouth/Throat: Mouth: Mucous membranes are moist. Pharynx: Oropharynx is clear. Uvula midline. No pharyngeal swelling, oropharyngeal exudate, posterior oropharyngeal erythema or uvula swelling. Eyes: Conjunctiva/sclera: Conjunctivae normal. Pupils: Pupils are equal, round, and reactive to light. Cardiovascular: Rate and Rhythm: Normal rate and regular rhythm. Heart sounds: Normal heart sounds. Pulmonary: Effort: Pulmonary effort is normal. No tachypnea, accessory muscle usage or respiratory distress. Breath sounds: No stridor. Wheezing present. No rhonchi or rales. Abdominal: General: There is no distension. Palpations: Abdomen is soft. Tenderness: There is no abdominal tenderness. There is no guarding or rebound. Musculoskeletal: Cervical back: Normal range of motion and neck supple. No edema, erythema, rigidity or tenderness. No pain with movement. Normal range of motion. Lymphadenopathy: Cervical: No cervical adenopathy. Skin: General: Skin is warm and dry. Neurological: Mental Status: He is alert and oriented to person, place, and time. ASSESSMENT/PLAN: 1. Subacute cough - ICD9: 786.2, ICD10: R05.2 - XR CHEST 2V FRONTAL/LAT IMPRESSION: Possible trace left pleural effusion Treat as bronchitis. Placed on doxycycline. Patient was educated on supportive therapies. Patient will follow up with primary care provider as needed. Patient was instructed to immediately proceed to emergency room for any new, worsening, or symptoms lasting longer than anticipated. The patient's clinical presentation is otherwise unremarkable at this time. Based on exam and clinical finding, the patient is stable for discharge. Plan of care was discussed with patient. Patient verbalizes understanding and agrees to plan of care. This note was generated using H2020 software. It may contain errors in wording, punctuation, or spelling. Brown Bolton APRN.[facility]03-19-2025 History of Present illness Narrative* Brown Bolton APRN.[employer] - 12/21/2024 10:16 AM EDT Subjective HPI Nontoxic-appearing 69-year-old male presents urgent care chief complaint cough. Duration of symptoms 1 month. Associated symptoms cough. States is productive sometimes. Had influenza around a month ago. Recently diagnosed with inguinal hernia. Is on established with PCP. labs were obtained. Glucoseof 305 was noted. Has not taken any OTC medications. Denies any chest pain hemoptysis or pleuritic pain. No fever. Past medical history prescription medications allergies reviewed .Patient presents with: Chest Congestion: cough x 1 month after flu dx PAST MEDICAL HISTORY Diagnosis Date CAD (coronary artery disease) 12/15/2024 Coronary artery disease Mixed hyperlipidemia Recent URI 12/15/2024 PAST SURGICAL HISTORY Procedure Laterality Date PAST SURGICAL HISTORY OF 10/05/1999 umbilical hernia repair-[facility]. PAST SURGICAL HISTORY OF umbilical hernia repair STENT - CORONARY x2 TONSILLECTOMY PRIMARY/SECONDARY <AGE 13 Tonsillectomy ALLERGIES Patient has no known allergies. MEDICATIONS rosuvastatin (CRESTOR) 10 mg tablet Take 1 tablet by mouth every other day. ADULT LOW DOSE ASPIRIN ORAL Adult Low Dose Aspirin Oral POTASSIUM ORAL potassium,chelated POTASSIUM 99 MG TABS One tablet by mouth daily as needed POTASSIUM [id number] Alyssa Ybarra PA-C 07-03-2014 [facility] ([id number]) FAMILY HISTORY Problem Relation Age of Onset Anesthesia No Family History Social History Tobacco Use Smoking status: Former Current packs/day: 0.00 Types: Cigarettes Start date: 10/05/1974 Quit date: 10/05/1981 Years since quittin.2 Smokeless tobacco: Never Substance Use Topics Alcohol use: Yes Comment: occasional- 1-2 drinks per month Drug use: No BP 132/84 Pulse 66 Temp 36.1 C (96.9 F) Resp 16 Wt 92.5 kg (203 lb 14.8 oz) SpO2 95% BMI 26.18 kg/m Review of Systems Constitutional: Negative for chills, fever and malaise/fatigue. HENT: Negative for congestion, ear discharge, ear pain, sinus pain and sore throat. Eyes: Negative for blurred vision, pain, discharge and redness. Respiratory: Positive for cough. Negative for hemoptysis, sputum production, shortness of breath, wheezing and stridor. Cardiovascular: Negative for chest pain. Gastrointestinal: Positive for abdominal pain. Negative for diarrhea, nausea and vomiting. Musculoskeletal: Negative for myalgias. Skin: Negative for itching and rash. Neurological: Negative for dizziness and headaches. Objective Physical Exam Constitutional: General: He is not in acute distress. Appearance: He is not diaphoretic. HENT: Head: Normocephalic. Jaw: No trismus, tenderness, swelling or pain on movement. Mouth/Throat: Mouth: Mucous membranes are moist. Pharynx: Oropharynx is clear. Uvula midline. No pharyngeal swelling, oropharyngeal exudate, posterior oropharyngeal erythema or uvula swelling. Eyes: Conjunctiva/sclera: Conjunctivae normal. Pupils: Pupils are equal, round, and reactive to light. Cardiovascular: Rate and Rhythm: Normal rate and regular rhythm. Heart sounds: Normal heart sounds. Pulmonary: Effort: Pulmonary effort is normal. No tachypnea, accessory muscle usage or respiratory distress. Breath sounds: No stridor. Wheezing present. No rhonchi or rales. Abdominal: General: There is no distension. Palpations: Abdomen is soft. Tenderness: There is no abdominal tenderness. There is no guarding or rebound. Musculoskeletal: Cervical back: Normal range of motion and neck supple. No edema, erythema, rigidity or tenderness. No pain with movement. Normal range of motion. Lymphadenopathy: Cervical: No cervical adenopathy. Skin: General: Skin is warm and dry. Neurological: Mental Status: He is alert and oriented to person, place, and time. ASSESSMENT/PLAN: 1. Subacute cough - ICD9: 786.2, ICD10: R05.2 - XR CHEST 2V FRONTAL/LAT IMPRESSION: Possible trace left pleural effusion Treat as bronchitis. Placed on doxycycline. Patient was educated on supportive therapies. Patient will follow up with primary care provider as needed. Patient was instructed to immediately proceed toemergency room for any new, worsening, or symptoms lasting longer than anticipated. The patient's clinical presentation is otherwise unremarkable at this time. Based on exam and clinical finding, the patient is stable for discharge. Plan of care was discussed with patient. Patient verbalizes understanding and agrees to plan of care. This note was generated using H2020 software. It may contain errors in wording, punctuation, or spelling. Brown Bolton APRN.[facility] Telephone encounter Note * Telephone Encounter - Tere Rodriguez PA-C - 12/19/2024 2:23 PM EDT Enrique Grullon, Can you schedule this patient with an internal medicine provider ANSELMO? Preferably in [place]. Tere Kinsey [facility]03-17-2025 Miscellaneous Notes* Telephone Encounter - Tere Rodriguez PA-C - 12/19/2024 2:23 PM EDT Enrique Grullon, Can you schedule this patient with an internal medicine provider ANSELMO? Preferably in [place]. Tere Kinsey documented in this encounterH[facility]03-[facility] Telephone encounter Note * Telephone Encounter - Emigdio Holcomb RN - 12/16/2024 8:23 AM EDT Called Lab client services, spoke with Roxy , they will add that on now Emigdio Holcomb RN December 16, 2024 8:27 AM [facility]03-14-2025 Telephone encounter Note* Telephone Encounter - Emigdio Holcomb RN - 12/16/2024 8:23 AM EDT ----- Message from Tere Rodriguez PA-C sent at 12/16/2024 8:04 AM EDT ----- Regarding: Surgery 12/21 Good morning, Can you call lab and add on A1C for this patient? Thanks, Tere Rodriguez PA-C [facility]03-14-2025 Miscellaneous Notes* Telephone Encounter - Emigdio Holcomb RN - 12/16/2024 8:23 AM EDT Called Lab client services, spoke with Roxy , they will add that on now Emigdio Holcomb RN December 16, 2024 8:27 AM * Telephone Encounter - Emigdio Hlocomb RN - 12/16/2024 8:23 AM EDT ----- Message from Tere Rodriguez PA-C sent at 12/16/2024 8:04 AM EDT ----- Regarding: Surgery 12/21 Good morning, Can you call lab and add on A1C for this patient? Thanks, Tere Rodriguez PA-C documented in this encounterH[facility]03-[facility] Telephone encounter Note * Telephone Encounter - Danie Mosqueda - 12/15/2024 2:00 PM EDT Outside Cardiology office note, H&P, Discharge summary, Cardiac cath, lab report, EKG, and xrayreport have been scanned in. [facility]03-13-2025 Miscellaneous Notes* Telephone Encounter - Danie Mosqueda - 12/15/2024 2:00 PM EDT Outside Cardiology office note, H&P, Discharge summary, Cardiac cath, lab report, EKG, and xrayreport have been scanned in. documented in this encounterHocking [facility]03-13-2025 Instructions* Patient Instructions* Tere Rodriguez PA-C - 12/15/2024 11:24 AM EDT Images from the original note were not included. [facility] PATIENT PREOPERATIVE INSTRUCTIONS No ref. provider found has scheduled you for your procedure at this surgery center: [facility]: [phone] -- [address] [place] [id number]. Please read below carefully for your personalized instructions. Dietary Restrictions: - No solid food after midnight. - You may have 12 ounces of clear liquids (water, clear juices such as apple juice or gatorade, carbonated beverages, clear tea, black coffee, jello) until 2 hours before scheduled arrival at facility. Medications: Unless instructed differently below, stay on all of your medications until your surgery. If you start any new medications after today's visit, please contact your surgeon. Pre-Surgery Med Instructions Medication Instructions rosuvastatin (CRESTOR) 10 mg tablet Take the day of surgery with a small sip of water ADULT LOW DOSE ASPIRIN ORAL Take the day of surgery with a small sip of water POTASSIUM ORAL Take the day of surgery with a small sip of water If you take any medications for erectile dysfunction-Cialis (Tadalafil), Levitra, Staxyn (Vardenafil) Viagra (Sildenenafil please do not take these for 48 hours before surgery. If you start any new medications after today's visit, please contact the surgeon's office. If you are currently using a neow-bli-wxwh injectable or oral medication for diabetes or weight loss such as Dulaglutide (Trulicity), Exenatide (Byetta, Bydureon), Liraglutide (Victoza, Saxenda), Semaglutide (Ozempic, Wegovy, Rybelsus), or Tirzepatide (Mounjaro), the medicine should be stopped at least 7 days before surgery. These medicines can cause food to remain in your stomach for a very longtime and increase the risks from surgery and anesthesia. Not stopping the medication for a long enough time may result in your surgery being rescheduled. Blood Thinning Medications: - Stop NSAIDS (Ibuprofen, Advil, Aleve, Motrin, Celebrex, Mobic, etc.) 7 days before surgery, as directed by your surgeon. - Do NOT stop aspirin or other anticoagulants without consulting with your distillery miller or prescribing physician. - Stop ALL herbal and dietary supplements 7 days before surgery. - You may take Tylenol (Acetaminophen) or any of your pain medications that do not contain aspirin or NSAIDS as needed. Important Reminders: - Candy, mints, and tobacco products are NOT permitted the morning of surgery. - Hearing aids, dentures and glasses may be worn the morning of surgery. - NO jewelry, body piercings, makeup, hairpins or contacts are to be worn the day of surgery. If you develop symptoms such as a fever, cold, or flu, or have other changes to your health within TWO DAYS of scheduled surgery or the morning of surgery, please contact the surgery center above. Personal Belongings: -Please have photo ID and insurance cards. -If you do not have a copy of advance directives on file with us, please bring a copy with you on the day of surgery. - Leave ALL valuables and money at home or with family members. - Please bring high-quality footwear, such as sneakers, to the hospital for ambulating post-surgery. For Outpatient Procedures: - YOU MUST HAVE A RESPONSIBLE PROTECTOR PLATE ATTACHER TAKE YOU HOME. A MARINE ELECTRICIAN APPRENTICE OR SOLUTION DEVELOPER CANNOT BE MADE A RESPONSIBLE PROTECTOR PLATE ATTACHER. - We recommend that a responsible person stays with you overnight to take care of you. - You cannot stay in a hotel alone after outpatient surgery. You will not be permitted to have yoursurgery, if you do not have someone to take care of you. Arrival Time for Surgery: - The Surgery Center or hospital where you are having surgery will call the afternoon before surgery (or Thursday for Thursday surgery) with a scheduled arrival time. - If you have not heard by 4 pm, please contact the surgery center above. Please be aware that emergency situations arise, which may delay or change your surgical time. If this happens, we will notify you as soon as possible and regret any inconvenience. If you already have an Advance Directive, please fax a copy to [phone] or email to for it to be added to your chart. If you do not have an Advance Directive, you can find the appropriate form and more information at [email or web address]. We recommend that youcomplete the Advance Directive form found on the website and bring it with you the day of your surgery. It can be witnessed and scanned into your chart that day. Tere Rodriguez PA-C documented in this encounterHocking [facility]03-13-2025 History and physical note * Tere Rodirguez PA-C - 12/15/2024 11:03 AM EDT Images from the original note were not included. [facility] HISTORY AND PHYSICAL EXAMINATION SERVICE DATE: 12/15/2024 SERVICE TIME: 11:46 AM PRIMARY CARE PHYSICIAN: No primary care provider on file. Assessment Patient has the following medical conditions which may affect debbie-operative course: CAD (coronary artery disease) History of heart stent x2- first in 2012, second was about 2 years ago. On ASA, statin. METS >5 without chest pain or SOB. Follows with cardiology at [facility]- last visit about 6 months ago. Denies new or worsening symptoms. Recent URI Had influenza-like illness, saw PCP 11/23/24. Had symptoms of fever, productive cough, nasal congestion, body aches, fatigue. Was not prescribed any antibiotics or antivirals. States symptoms have improved, has residual occasional productive cough. No acute respiratory distress noted on VV, surgeon noted lungs CTA on exam on 12/13. ANESTHESIA FINDINGS: Intubation History: No history of difficult intubation Significant Anesthesia Considerations: history of intraoperative awareness during tonsillectomy. Airway History: No history of difficult airway Hyatt Activity Status Index: METS: Walk indoors, such as around the house (1.75 METs) Do light work around the house, such as dusting or washing dishes (2.70 METs) Take care of self; that is eating, dressing, bathing, using the toilet (2.75 METs) Walk a block or two on level ground (2.75 METs) Do moderate work around the house, such as vacuuming, sweeping floors, or carrying in groceries (3.50 METs) Do yardwork, such as raking leaves, weeding, or pushing a power mower (4.50 METs) Climb a flight of stairs or walk up a hill (5.50 METs) Do heavy work around the house, such as scrubbing floors, lifting or moving heavy furniture (8.00 METs) DASI Score: 31.45 (Walks 5 miles per day. Lifting at work) Patient denies any chest pain or undue shortness of breath with the above physical activity. Clinical Frailty Scale: 2. Well STOP-Bang Score: Patient over 50 years old Male patient Denies snoring loudly Has not been observed to stop breathing or choking/gasping during sleep Denies having high blood pressure BMI less than or equal to 35 kg/m^2 Does not have a large neck STOP-Bang Score: 2 I - PHYSICAL EVALUATION AIRWAY Patient intubated: No. Tracheostomy tube not present Mallampati: II. Neck ROM: full ROM without neurological symptoms. Mouth opening: adequate. Short neck: no. Thick neck: no Lip Bite Test: I DENTAL Dental findings: teeth intact. II - ANESTHESIA PLAN Anesthetic plan additional comments: *PACC/TCI - anesthesia choice. Beta Shakira Monitoring Plan Post Procedure Analgesic Plan Prepared for Surgery: optimally prepared for surgery, pending [see comment]. Labs CONSULTS: The following consults have been initiated at this time: cardiology (Cardiac records requested.). Planned Anesthetic: anesthesia choice The Following Tests/Procedures Have Been Initiated: Orders Placed This Encounter BMP Standing Status: Future Expected Date: 12/15/2024 Expiration Date: 03/16/2025 Complete Blood Count and Differential Standing Status: Future Expected Date: 12/15/2024 Expiration Date: 03/16/2025 This is a virtual visit using [employer] video visit. It required patient-provider interaction for themedical decision making as documented below. REASON FOR VISIT: Demar Kearns is a 69 year old male who is scheduled for Procedure(s): LAPAROSCOPIC HERNIORRHAPHY, INGUINAL INITIAL (Bilateral) at the request of Rudi Bhagat MD for consultation. My final recommendation will be communicated back to the requesting physician byway of shared medical record or letter. Subjective The patient has the following: COVID-19 Immunization Status Current Care Gaps Covid-19 Vaccine ( season) Due soon on 12/18/2024 06/20/2024 Imm Admin: COVID-19 vaccine, age 12+ yr ([employer] COMIRNATY) 09/09/2021 Imm Admin: COVID-19 original vaccine, age 12+ yr, monovalent ([employer] - PURPLE TOP) 12/12/2020 Imm Admin: COVID-19 vaccine ([employer]) Only the first 3 history entries have been loaded, but more history exists. CHIEF COMPLAINT: Pre-op evalution HPI: Patient is a 69 year old year old male who is scheduled for above procedure on 12/21/2024. Patient has bilateral inguinal hernias, he has been having pain on the right side for the past 2 weeks. Denies any fevers, chills, nausea, vomiting, SOB or chest pain. This is a virtual visit. The visit was conducted using [employer] video visit. It required patient-provider interaction for the medical decision making as documented below. I have communicated my name and active licensure. The patient's identity and physical location wereverified at the time of this visit. Either the patient or their legal credit representative has been informed of the risks and benefits of and alternatives to treatment through a remote evaluation and consents to proceed with the evaluation remotely. REVIEW OF SYSTEMS: General: URI last month- has a slight lingering cough. Still productive. All other symptoms have resolved. Negative for: weight loss >10% of BW in last 6 months, malaise and fever. Neurological: No history of TIA's, stroke, FINANCIAL AID DIRECTOR tumor, impaired sensorium, hemiplegia, paraplegia orquadraplegia. No neurological symptoms or problems. Negative for: delirium, dementia, seizures, TIA and strokes. Respiratory: Positive for: current cough. Negative for: asthma, COPD, dyspnea, pneumonia within 6 weeks and obstructive sleep apnea. Cardiovascular: Positive for: CAD Negative for: angina, arrhythmia, chest pain, CHF, DVT/PE, hypertension and murmur/valvular heart disease. GI: See HPI. Negative for: abdominal pain, GERD, heartburn, hepatitis, inflammatory bowel disease, liver disease, nausea, vomiting and ETOH >2 drinks/day. : Negative for: BPH, dysuria, hematuria, nephrolithiasis and renal failure. Endocrine: Negative for: diabetes mellitus, hyperthyroidism, hypothyroidism and steroid for chronic problem. Hematology: Positive for: chronic anti-coagulation/platelet meds. Patient is on anti- coagulation/platelet medication(s): Aspirin. Negative for: anemia. Oncology: Skin cancer Psych: Negative for: ADD, anxiety, depression and drug dependency. Musculoskeletal: Negative for joint pain or swelling, back pain or muscle pain. Skin: Positive for: lesions. PAST MEDICAL HISTORY Diagnosis Date CAD (coronary artery disease) 12/15/2024 Coronary artery disease Mixed hyperlipidemia Recent URI 12/15/2024 PAST SURGICAL HISTORY Procedure Laterality Date PAST SURGICAL HISTORY OF 10/05/1999 umbilical hernia repair-[facility]. PAST SURGICAL HISTORY OF umbilical hernia repair STENT - CORONARY x2 TONSILLECTOMY PRIMARY/SECONDARY Tonsillectomy FAMILY HISTORY Problem Relation Age of Onset Anesthesia No Family History Social History Tobacco Use Smoking status: Former Current packs/day: 0.00 Types: Cigarettes Start date: 10/05/1974 Quit date: 10/05/1981 Years since quittin.2 Smokeless tobacco: Never Substance Use Topics Alcohol use: Yes Comment: occasional- 1-2 drinks per month Drug use: No Prior to Admission medications as of 12/15/24 1109 Medication Sig Last Dose Taking rosuvastatin (CRESTOR) 10 mg tablet Take 1 tablet by mouth every other day. Yes ADULT LOW DOSE ASPIRIN ORAL Adult Low Dose Aspirin Oral Yes POTASSIUM ORAL potassium,chelated POTASSIUM 99 MG TABS One tablet by mouth daily as needed [facility] [id number] Alyssa Ybarra PA-C 07-03-2014 [facility] ([id number]) Yes No medication comments found. ALLERGIES No Known Allergies Objective PHYSICAL EXAM: (if completed, exam performed via video enabled technology) General: alert and oriented and healthy appearance. Pertinent negatives noted - not distressed. Skin: No rash noted. HEENT: Normocephalic head, no abnormality or lesion noted Eyes with no injection and visual acuity is grossly normal. Cardiovascular: Self palpated radial pulse, regular when counted aloud by patient . Respiratory: breathing non-labored. Equal chest rise with normal respiratory effort . Abdomen: Unable to examine. Extremities: No obvious deformity. Neurological: No obvious defect. PAIN ASSESSMENT: VITALS: Pulse 78[Pt reported[ Ht 6' 2[Pt reported[ (1.88m) Wt 203 lb (92.1kg) BMI 26.05 kg/(m^2). Diagnostic tests reviewed for today's visit: Lab Value Units Date High Low HB No results within date range. HCT No results within date range. WBC No results within date range. PLT No results within date range. NA No results within date range. K No results within date range. GLUC No results within date range. BUN No results within date range. CREAT No results within date range. PTSEC No results within date range. INR No results within date range. APTT No results within date range. ALT No results within date range. AST No results within date range. TBILI No results within date range. TSH No results within date range. Lab Value Units Date High Low HCGQT No results within date range. UHCG No results within date range. HCG, BODY* No results within date range. Lab Value Units Date High Low ABORHD No results within date range. ABSCREEN No results within date range. No results found for: HBA1C No results found for this or any previous visit (from the past 8760 hours). No results found for this or any previous visit (from the past 63442 hours). Instructions Given to Patient: Instructions located in the after visit summary. Patient given verbal and written preop instructions and voices comprehension and compliance. SIGNATURE: Tere Rodriguez PA-C PATIENT NAME: Demar Kearns DATE: December 15, 2024 TIME: 11:03 AM PAGER/CONTACT #: [facility]03-13-2025 History and physical note* Tere Rodriguez PA-C - 12/15/2024 11:03 AM EDT Images from the original note were not included. [facility] HISTORY AND PHYSICAL EXAMINATION SERVICE DATE: 12/15/2024 SERVICE TIME: 11:46 AM PRIMARY CARE PHYSICIAN: No primary care provider on file. Assessment Patient has the following medical conditions which may affect debbie-operative course: CAD (coronary artery disease) History of heart stent x2- first in 2012, second was about 2 years ago. On ASA, statin. METS >5 without chest pain or SOB. Follows with cardiology at [facility]- last visit about 6 months ago. Denies new or worsening symptoms. Recent URI Had influenza-like illness, saw PCP 11/23/24. Had symptoms of fever, productive cough, nasal congestion, body aches, fatigue. Was not prescribed any antibiotics or antivirals. States symptoms have improved, has residual occasional productive cough. No acute respiratory distress noted on VV, surgeon noted lungs CTA on exam on 12/13. ANESTHESIA FINDINGS: Intubation History: No history of difficult intubation Significant Anesthesia Considerations: history of intraoperative awareness during tonsillectomy. Airway History: No history of difficult airway Hyatt Activity Status Index: METS: Walk indoors, such as around the house (1.75 METs) Do light work around the house, such as dusting or washing dishes (2.70 METs) Take care of self; that is eating, dressing, bathing, using the toilet (2.75 METs) Walk a block or two on level ground (2.75 METs) Do moderate work around the house, such as vacuuming, sweeping floors, or carrying in groceries (3.50 METs) Do yardwork, such as raking leaves, weeding, or pushing a power mower (4.50 METs) Climb a flight of stairs or walk up a hill (5.50 METs) Do heavy work around the house, such as scrubbing floors, lifting or moving heavy furniture (8.00 METs) DASI Score: 31.45 (Walks 5 miles per day. Lifting at work) Patient denies any chest pain or undue shortness of breath with the above physical activity. Clinical Frailty Scale: 2. Well STOP-Bang Score: Patient over 50 years old Male patient Denies snoring loudly Has not been observed to stop breathing or choking/gasping during sleep Denies having high blood pressure BMI less than or equal to 35 kg/m^2 Does not have a large neck STOP-Bang Score: 2 I - PHYSICAL EVALUATION AIRWAY Patient intubated: No. Tracheostomy tube not present Mallampati: II. Neck ROM: full ROM without neurological symptoms. Mouth opening: adequate. Short neck: no. Thick neck: no Lip Bite Test: I DENTAL Dental findings: teeth intact. II - ANESTHESIA PLAN Anesthetic plan additional comments: *PACC/TCI - anesthesia choice. Beta Shakira Monitoring Plan Post Procedure Analgesic Plan Prepared for Surgery: optimally prepared for surgery, pending [see comment]. Labs CONSULTS: The following consults have been initiated at this time: cardiology (Cardiac records requested.). Planned Anesthetic: anesthesia choice The Following Tests/Procedures Have Been Initiated: Orders Placed This Encounter BMP Standing Status: Future Expected Date: 12/15/2024 Expiration Date: 03/16/2025 Complete Blood Count and Differential Standing Status: Future Expected Date: 12/15/2024 Expiration Date: 03/16/2025 This is a virtual visit using [employer] video visit. It required patient-provider interaction for themedical decision making as documented below. REASON FOR VISIT: Demar Kearns is a 69 year old male who is scheduled for Procedure(s): LAPAROSCOPIC HERNIORRHAPHY, INGUINAL INITIAL (Bilateral) at the request of Rudi Bhagat MD for consultation. My final recommendation will be communicated back to the requesting physician byway of shared medical record or letter. Subjective The patient has the following: COVID-19 Immunization Status Current Care Gaps Covid-19 Vaccine ( season) Due soon on 12/18/2024 06/20/2024 Imm Admin: COVID-19 vaccine, age 12+ yr (PFIZER-BIONTECH COMIRNATY) 09/09/2021 Imm Admin: COVID-19 original vaccine, age 12+ yr, monovalent ([employer]- BIONTECH - PURPLE TOP) 12/12/2020 Imm Admin: COVID-19 vaccine ([employer]) Only the first 3 history entries have been loaded, but more history exists. CHIEF COMPLAINT: Pre-op evalution HPI: Patient is a 69 year old year old male who is scheduled for above procedure on 12/21/2024. Patient has bilateral inguinal hernias, he has been having pain on the right side for the past 2 weeks. Denies any fevers, chills, nausea, vomiting, SOB or chest pain. This is a virtual visit. The visit was conducted using [employer] video visit. It required patient-provider interaction for the medical decision making as documented below. I have communicated my name and active licensure. The patient's identity and physical location wereverified at the time of this visit. Either the patient or their legal credit representative has been informed of the risks and benefits of and alternatives to treatment through a remote evaluation and consents to proceed with the evaluation remotely. REVIEW OF SYSTEMS: General: URI last month- has a slight lingering cough. Still productive. All other symptoms have resolved. Negative for: weight loss >10% of BW in last 6 months, malaise and fever. Neurological: No history of TIA's, stroke, FINANCIAL AID DIRECTOR tumor, impaired sensorium, hemiplegia, paraplegia orquadraplegia. No neurological symptoms or problems. Negative for: delirium, dementia, seizures, TIA and strokes. Respiratory: Positive for: current cough. Negative for: asthma, COPD, dyspnea, pneumonia within 6 weeks and obstructive sleep apnea. Cardiovascular: Positive for: CAD Negative for: angina, arrhythmia, chest pain, CHF, DVT/PE, hypertension and murmur/valvular heart disease. GI: See HPI. Negative for: abdominal pain, GERD, heartburn, hepatitis, inflammatory bowel disease, liver disease, nausea, vomiting and ETOH >2 drinks/day. : Negative for: BPH, dysuria, hematuria, nephrolithiasis and renal failure. Endocrine: Negative for: diabetes mellitus, hyperthyroidism, hypothyroidism and steroid for chronic problem. Hematology: Positive for: chronic anti-coagulation/platelet meds. Patient is on anti- coagulation/platelet medication(s): Aspirin. Negative for: anemia. Oncology: Skin cancer Psych: Negative for: ADD, anxiety, depression and drug dependency. Musculoskeletal: Negative for joint pain or swelling, back pain or muscle pain. Skin: Positive for: lesions. PAST MEDICAL HISTORY Diagnosis Date CAD (coronary artery disease) 12/15/2024 Coronary artery disease Mixed hyperlipidemia Recent URI 12/15/2024 PAST SURGICAL HISTORY Procedure Laterality Date PAST SURGICAL HISTORY OF 10/05/1999 umbilical hernia repair-[facility]. PAST SURGICAL HISTORY OF umbilical hernia repair STENT - CORONARY x2 TONSILLECTOMY PRIMARY/SECONDARY <AGE 13 Tonsillectomy FAMILY HISTORY Problem Relation Age of Onset Anesthesia No Family History Social History Tobacco Use Smoking status: Former Current packs/day: 0.00 Types: Cigarettes Start date: 10/05/1974 Quit date: 10/05/1981 Years since quittin.2 Smokeless tobacco: Never Substance Use Topics Alcohol use: Yes Comment: occasional- 1-2 drinks per month Drug use: No Prior to Admission medications as of 12/15/24 1109 Medication Sig Last Dose Taking rosuvastatin (CRESTOR) 10 mg tablet Take 1 tablet by mouth every other day. Yes ADULT LOW DOSE ASPIRIN ORAL Adult Low Dose Aspirin Oral Yes POTASSIUM ORAL potassium,chelated POTASSIUM 99 MG TABS One tablet by mouth daily as needed POTASSIUM [id number] Alyssa Ybarra PA-C 07-03-2014 [facility] ([id number]) Yes No medication comments found. ALLERGIES No Known Allergies Objective PHYSICAL EXAM: (if completed, exam performed via video enabled technology) General: alert and oriented and healthy appearance. Pertinent negatives noted - not distressed. Skin: No rash noted. HEENT: Normocephalic head, no abnormality or lesion noted Eyes with no injection and visual acuity is grossly normal. Cardiovascular: Self palpated radial pulse, regular when counted aloud by patient . Respiratory: breathing non-labored. Equal chest rise with normal respiratory effort . Abdomen: Unable to examine. Extremities: No obvious deformity. Neurological: No obvious defect. PAIN ASSESSMENT: VITALS: Pulse 78[Pt reported[ Ht 6' 2[Pt reported[ (1.88m) Wt 203 lb (92.1kg) BMI 26.05 kg/(m^2). Diagnostic tests reviewed for today's visit: Lab Value Units Date High Low HB No results within date range. HCT No results within date range. WBC No results within date range. PLT No results within date range. NA No results within date range. K No results within date range. GLUC No results within date range. BUN No results within date range. CREAT No results within date range. PTSEC No results within date range. INR No results within date range. APTT No results within date range. ALT No results within date range. AST No results within date range. TBILI No results within date range. TSH No results within date range. Lab Value Units Date High Low HCGQT No results within date range. UHCG No results within date range. HCG, BODY* No results within date range. Lab Value Units Date High Low ABORHD No results within date range. ABSCREEN No results within date range. No results found for: HBA1C No results found for this or any previous visit (from the past 8760 hours). No results found for this or any previous visit (from the past 35972 hours). Instructions Given to Patient: Instructions located in the after visit summary. Patient given verbal and written preop instructions and voices comprehension and compliance. SIGNATURE: Tere Rodriguez PA-C PATIENT NAME: Demar Kearns DATE: December 15, 2024 TIME: 11:03 AM PAGER/CONTACT #: documented in this encounterH[facility] NoteHNO ID: [id number] Author: RUDI BARBOSA MD Service: ? Author Type: Physician Type: Progress Notes Filed: 12/13/2024 14:51 Note Text: HISTORY AND PHYSICAL Demar Kearns 1955 REFERRING PHYSICIAN: Brown Bolton AP* CHIEF COMPLAINT: Consult and Groin Pain HPI: Demar is a 69 year old male with a complaint of a bulge and discomfort in his right inguinal region. The patient notes discomfort in this area with lifting, straining, and coughing. The symptoms have increased, over the past few weeks. The patient notes no symptoms of bowel obstruction and denies nausea or vomiting. The patient was seen by his primary care physician who felt the patient has a hernia. Demar was referred for evaluation and treatment. The patient is being seen by me today at the request of Dr. Bolton for my opinion and advice regarding Bilateral inguinal hernia without obstruction or gangrene, recurrence not specified (primary encounter diagnosis). PAST MEDICAL HISTORY Diagnosis Date Coronary artery disease Mixed hyperlipidemia PAST SURGICAL HISTORY Procedure Laterality Date PAST SURGICAL HISTORY OF 10/05/1999 umbilical hernia repair-[facility]. PAST SURGICAL HISTORY OF umbilical hernia repair STENT - CORONARY TONSILLECTOMY PRIMARY/SECONDARY Tonsillectomy Current Outpatient Medications Medication Sig rosuvastatin (CRESTOR) 10 mg tablet Take 1 tablet by mouth every other day. ADULT LOW DOSE ASPIRIN ORAL Adult Low Dose Aspirin Oral POTASSIUM ORAL potassium,chelated POTASSIUM 99 MG TABS One tablet by mouth daily as needed POTASSIUM [id number] Alyssa Ybarra PA-C 07-03-2014 [facility] ([id number]) No current facility-administered medications for this visit. ALLERGIES: Patient has no known allergies. PERSONAL HISTORY: Social History Tobacco Use Smoking status: Former Current packs/day: 0.00 Types: Cigarettes Start date: 10/05/1974 Quit date: 10/05/1981 Years since quittin.2 Smokeless tobacco: Never Substance Use Topics Alcohol use: Yes Comment: occasional Drug use: No FAMILY HISTORY: No family history on file. REVIEW OF SYMPTOMS: The review of systems data was entered by the nurse and reviewed by me There are no exam notes on file for this visit. PHYSICAL EXAMINATION: General: The patient is 69 year old male, well nourished, well hydrated in no acute distress. The patient is oriented to time, place, and person. VITALS: Blood pressure 145/74, pulse 78, weight 92.1 kg (203 lb), SpO2 96%. There is no height or weight on file to calculate BMI. HEENT: Normal cephalic, ataumatic, pupils are equally round, sclera are anicteric, mucous membranes are moist, oropharynx is clear. Neck has no masses, asymmetry or lymphadenopathy. Thyroid is unremarkable. Respiratory: Clear to auscultation and percussion. Normal respiratory excursion and pattern. Cardiac: Examination is regular rate and rhythm. Abdominal exam: Soft, nontender, with no palpable masses. No hepatosplenomegaly. A moderate reducible bilateral inguinal hernias present, no umbilical hernia is noted Rectal exam: exam deferred Extremities: no clubbing, cyanosis or edema. No adenopathy. Other: LABORATORY VALUES: As Noted RADIOLOGIC STUDIES: As Noted Assessment IMPRESSION: bilateral inguinal hernias PLAN: My plan is to perform a laparoscopic bilateral inguinal hernia repair with mesh. The planned surgical procedure was discussed extensively with the patient. The risks, benefits, anticipated outcomes and possible complications were mentioned. Demar undersands that all hernia repair surgery has a chance of recurrence and/or chronic post operative pain. My staff has also explained the procedure in understandable terms and the patient was given the option to take printed material concerning the planned procedure. The patient had the opportunity to ask questions concerning the planned procedure. The patient freely consents to the planned procedure. My findings have been communicated to Dr. Bolton via shared medical record. This note will be forwarded to Dr. Salinas primary care provider on file.. Diagnoses: (K40.20) Bilateral inguinal hernia without obstruction or gangrene, recurrence not specified (primary encounter diagnosis) Anticipated CPT Code: Initial anterior abdominal hernia repair: 86223 - 3-10 cm reducible Anticipated Anesthetic: General Patient weight: Blood pressure 145/74, pulse 78, weight 92.1 kg (203 lb), SpO2 96%. BMI: There is no height or weight on file to calculate BMI. 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 Rudi Barbosa III [facility]03-11-2025 History of Present illness Narrative* Rudi Barbosa MD - 12/13/2024 2:45 PM EDT HISTORY AND PHYSICAL Demar Kearns 1955 REFERRING PHYSICIAN: Brown Bolton AP* CHIEF COMPLAINT: Consult and Groin Pain HPI: Demar is a 69 year old male with a complaint of a bulge and discomfort in his right inguinalregion. The patient notes discomfort in this area with lifting, straining, and coughing. The symptoms have increased, over the past few weeks. The patient notes no symptoms of bowel obstruction and denies nausea or vomiting. The patient was seen by his primary care physician who felt the patient has a hernia. Demar was referred for evaluation and treatment. The patient is being seen by me today at the request of Dr. Bolton for my opinion and advice regarding Bilateral inguinal hernia without obstruction or gangrene, recurrence not specified (primaryencounter diagnosis). PAST MEDICAL HISTORY Diagnosis Date Coronary artery disease Mixed hyperlipidemia PAST SURGICAL HISTORY Procedure Laterality Date PAST SURGICAL HISTORY OF 10/05/1999 umbilical hernia repair-[facility]. PAST SURGICAL HISTORY OF umbilical hernia repair STENT - CORONARY TONSILLECTOMY PRIMARY/SECONDARY <AGE 13 Tonsillectomy Current Outpatient Medications Medication Sig rosuvastatin (CRESTOR) 10 mg tablet Take 1 tablet by mouth every other day. ADULT LOW DOSE ASPIRIN ORAL Adult Low Dose Aspirin Oral POTASSIUM ORAL potassium,chelated POTASSIUM 99 MG TABS One tablet by mouth daily as needed POTASSIUM [id number] Alyssa Ybarra PA-C 07-03-2014 [facility] ([id number]) No current facility-administered medications for this visit. ALLERGIES: Patient has no known allergies. PERSONAL HISTORY: Social History Tobacco Use Smoking status: Former Current packs/day: 0.00 Types: Cigarettes Start date: 10/05/1974 Quit date: 10/05/1981 Years since quittin.2 Smokeless tobacco: Never Substance Use Topics Alcohol use: Yes Comment: occasional Drug use: No FAMILY HISTORY: No family history on file. REVIEW OF SYMPTOMS: The review of systems data was entered by the nurse and reviewed by me There are no exam notes on file for this visit. PHYSICAL EXAMINATION: General: The patient is 69 year old male, well nourished, well hydrated in no acute distress. The patient is oriented to time, place, and person. VITALS: Blood pressure 145/74, pulse 78, weight 92.1 kg (203 lb), SpO2 96%. There is no height or weight on file to calculate BMI. HEENT: Normal cephalic, ataumatic, pupils are equally round, sclera are anicteric, mucous membranesare moist, oropharynx is clear. Neck has no masses, asymmetry or lymphadenopathy. Thyroid is unremarkable. Respiratory: Clear to auscultation and percussion. Normal respiratory excursion and pattern. Cardiac: Examination is regular rate and rhythm. Abdominal exam: Soft, nontender, with no palpable masses. No hepatosplenomegaly. A moderate reducible bilateral inguinal hernias present, no umbilical hernia is noted Rectal exam: exam deferred Extremities: no clubbing, cyanosis or edema. No adenopathy. Other: LABORATORY VALUES: As Noted RADIOLOGIC STUDIES: As Noted Assessment IMPRESSION: bilateral inguinal hernias PLAN: My plan is to perform a laparoscopic bilateral inguinal hernia repair with mesh. The planned surgical procedure was discussed extensively with the patient. The risks, benefits, anticipated outcomes and possible complications were mentioned. Demar camposands that all hernia repair surgery has a chance of recurrence and/or chronic post operative pain. My staff has also explained the procedure in understandable terms and the patient was given the option to take printed material concerning the planned procedure. The patient had the opportunity to ask questions concerning the planned procedure. The patient freely consents to the planned procedure. My findings have been communicated to Dr. Bolton via shared medical record. This note will be forwarded to Dr. Salinas primary care provider on file.. Diagnoses: (K40.20) Bilateral inguinal hernia without obstruction or gangrene, recurrence not specified (primary encounter diagnosis) Anticipated CPT Code: Initial anterior abdominal hernia repair: 70862 - 3-10 cm reducible Anticipated Anesthetic: General Patient weight: Blood pressure 145/74, pulse 78, weight 92.1 kg (203 lb), SpO2 96%. BMI: There is no height or weight on file to calculate BMI. 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 Rudi Barbosa III, MD * Saúl Mcdaniel MA - 12/13/2024 2:34 PM EDT REVIEW OF SYSTEMS: General: The patient denies fatigue, denies weight loss, denies weight gain, denies feeling hot, and denies feelings of cold. Eyes: The patient denies glaucoma, denies eye injury/surgery, wears glasses or contacts. Ear/Nose/Throat: The patient denies allergies, denies hayfever, denies ear infections, and denies bloody noses. Cardiovascular: The patient denies chest pain, denies heart disease, denies high blood pressure,NOTES cardiac stent, denies prior heart attack, denies irregular heart beat, NOTES high cholesterol, denies poor circulation, denies heart failure, NOTES cardiac issues, denies claudication, denies cold feet, denies peripheral arterial stent. Respiratory: The patient denies tuberculosis, denies pneumonia, denies frequent cough, denies pulmonary embolism, denies shortness of breath, and denies coughing up blood. Gastrointestinal: The patient denies difficulty swallowing, denies acid reflux, denies ulcers, denies vomiting, denies jaundice/hepatitis, denies gallbladder problems, denies black or tarry stools, denies hemorrhoids, denies bleeding from rectum, denies diverticulitis, denies constipation, denies diarrhea, denies loss of stool control, and NOTES hernias. Kidney/Bladder: The patient denies kidney stones, denies urine infections, and denies bloody urine. Skin: The patient denies a history of skin cancer, denies bleeding/changing moles, and denies a history of skin rash. Neurologic: The patient denies a history of epilepsy/convulsions, denies headaches, denies head/spinal injuries, and denies stroke/TIA. Psychiatric: The patient denies psychiatric medications, denies depression, and denies voices, denies substance abuse. Endocrine: The patient denies thyroid disorders, denies diabetes, and denies hormonal problems. Hematologic: The patient denies a history of bruising, denies bleeding, and denies anemia, denies blood clots. Infections: The patient denies a history of measles and mumps, denies rheumatic fever, and denies sexually transmitted diseases. Musculoskeletal: The patient denies back pain/injury, denies back problems, denies sciatica, deniesknee/foot trouble, denies arthritis, or denies gout. When was patient's last Mammogram screening? N/A Last Colonoscopy: none Saúl Mcdaniel MA documented in this encounterHock[facility]03-[facility] NoteHNO ID: [id number] Author: SAÚL MCDANIEL MA Service: ? 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 Eyes: The patient denies glaucoma, denies eye injury/surgery, wears glasses or contacts. Ear/Nose/Throat: The patient denies allergies, denies hayfever, denies ear infections, and denies bloody noses. Cardiovascular: The patient denies chest pain, denies heart disease, denies high blood pressure,NOTES cardiac stent, denies prior heart attack, denies irregular heart beat, NOTES high cholesterol, denies poor circulation, denies heart failure, NOTES cardiac issues, denies claudication, denies cold feet, denies peripheral arterial stent. Respiratory: The patient denies tuberculosis, denies pneumonia, denies frequent cough, denies pulmonary embolism, denies shortness of breath, and denies coughing up blood. Gastrointestinal: The patient denies difficulty swallowing, denies acid reflux, denies ulcers, denies vomiting, denies jaundice/hepatitis, denies gallbladder problems, denies black or tarry stools, denies hemorrhoids, denies bleeding from rectum, denies diverticulitis, denies constipation, denies diarrhea, denies loss of stool control, and NOTES hernias. Kidney/Bladder: The patient denies kidney stones, denies urine infections, and denies bloody urine. Skin: The patient denies a history of skin cancer, denies bleeding/changing moles, and denies a history of skin rash. Neurologic: The patient denies a history of epilepsy/convulsions, denies headaches, denies head/spinal injuries, and denies stroke/TIA. Psychiatric: The patient denies psychiatric medications, denies depression, and denies voices, denies substance abuse. Endocrine: The patient denies thyroid disorders, denies diabetes, and denies hormonal problems. Hematologic: The patient denies a history of bruising, denies bleeding, and denies anemia, denies blood clots. Infections: The patient denies a history of measles and mumps, denies rheumatic fever, and denies sexually transmitted diseases. Musculoskeletal: The patient denies back pain/injury, denies back problems, denies sciatica, denies knee/foot trouble, denies arthritis, or denies gout. When was patient's last Mammogram screening? N/A Last Colonoscopy: none [facility] NoteHNO ID: [id number] Author: BROWN BOLTON APRN.GUM DIPPER Service: ? Author Type: Nurse Practitioner Type: Progress Notes Filed: 12/12/2024 18:12 Note Text: Subjective HPI Nontoxic-appearing male presents urgent care chief complaint possible inguinal hernia. Duration of symptoms exacerbated over the last month. Has noticed some discomfort over the last year. He states he had a flulike illness back in November. States the coughing causes increased pain right inguinal area. OTC medications none. History of umbilical hernia repair twice. Denies any dysuria frequency testicular pain scrotal swelling. No bulges in abdominal region. States standing for an extended period of time exacerbates pain rates pain 4-5 out of 10. States sitting he can find a comfortable position. Denies any fevers nausea or vomiting. No change in bowel or bladder habits. Past medical history prescription medications allergies reviewed .Patient presents with: right groin pain: X 1 month PAST MEDICAL HISTORY Diagnosis Date Coronary artery disease PAST SURGICAL HISTORY Procedure Laterality Date PAST SURGICAL HISTORY OF 10/05/1999 umbilical hernia repair-[facility]. STENT - CORONARY TONSILLECTOMY PRIMARY/SECONDARY Tonsillectomy ALLERGIES Patient has no known allergies. MEDICATIONS rosuvastatin (CRESTOR) 10 mg tablet Take 1 tablet by mouth every other day. ADULT LOW DOSE ASPIRIN ORAL Adult Low Dose Aspirin Oral POTASSIUM ORAL potassium,chelated POTASSIUM 99 MG TABS One tablet by mouth daily as needed POTASSIUM [id number] Alyssa Ybarra PA-C 07-03-2014 [facility] ([id number]) History reviewed. No pertinent family history. Social History Tobacco Use Smoking status: Former Current packs/day: 0.00 Types: Cigarettes Start date: 10/05/1974 Quit date: 10/05/1981 Years since quittin.2 Smokeless tobacco: Never Substance Use Topics Alcohol use: Yes Comment: occasional Drug use: No BP 110/70 Pulse 71 Temp 36.6 ?C (97.8 ?F) (Tympanic) Resp 16 Wt 92.4 kg (203 lb 11.3 oz) SpO2 96% Review of Systems Constitutional: Negative for chills, fever and malaise/fatigue. HENT: Negative for congestion, ear discharge, ear pain, sinus pain and sore throat. Eyes: Negative for blurred vision, pain, discharge and redness. Respiratory: Negative for cough, hemoptysis, sputum production, shortness of breath, wheezing and stridor. Cardiovascular: Negative for chest pain. Gastrointestinal: Positive for abdominal pain. Negative for diarrhea, nausea and vomiting. Musculoskeletal: Negative for myalgias. Skin: Negative for itching and rash. Neurological: Negative for dizziness and headaches. Objective Physical Exam Constitutional: General: He is not in acute distress. Appearance: He is not toxic-appearing or diaphoretic. HENT: Head: Normocephalic. Jaw: No trismus, tenderness, swelling or pain on movement. Nose: Nose normal. Mouth/Throat: Mouth: Mucous membranes are moist. Pharynx: Oropharynx is clear. Uvula midline. No pharyngeal swelling, oropharyngeal exudate, posterior oropharyngeal erythema or uvula swelling. Eyes: Conjunctiva/sclera: Conjunctivae normal. Pupils: Pupils are equal, round, and reactive to light. Cardiovascular: Rate and Rhythm: Normal rate and regular rhythm. Heart sounds: Normal heart sounds. Pulmonary: Effort: Pulmonary effort is normal. No tachypnea, accessory muscle usage or respiratory distress. Breath sounds: Normal breath sounds. No stridor. No wheezing, rhonchi or rales. Abdominal: General: There is no distension. Palpations: Abdomen is soft. Tenderness: There is no abdominal tenderness. There is no guarding or rebound. Genitourinary: Testes: Right: Tenderness or swelling not present. Left: Tenderness or swelling not present. Epididymis: Right: Not enlarged. No tenderness. Left: Not enlarged. No tenderness. Musculoskeletal: Cervical back: Normal range of motion and neck supple. No edema, erythema, rigidity or tenderness. No pain with movement. Normal range of motion. Lymphadenopathy: Cervical: No cervical adenopathy. Skin: General: Skin is warm and dry. Neurological: General: No focal deficit present. Mental Status: He is alert and oriented to person, place, and time. ASSESSMENT/PLAN: 1. Groin pain, right - ICD9: 789.03, ICD10: R10.31 - CONSULT TO GENERAL SURGERY Diagnosed with right groin pain. Testicular exam unremarkable. No significant hernia noted on exam. Will refer to general surgery. Red flag ER evaluation discussed. Patient was educated on supportive therapies. Patient will follow up with primary care provider as needed. Patient was instructed to immediately proceed to emergency room for any new, worsening, or symptoms lasting longer than anticipated. The patient's clinical presentation is otherwise unremarkable at this time. Based on exam and clinical finding, the pat (more content not included)...[facility]03-10-2025 History of Present illness Narrative* Brown Bolton APRN.GUM DIPPER - 12/12/2024 5:32 PM EDT Subjective HPI Nontoxic-appearing male presents urgent care chief complaint possible inguinal hernia. Duration of symptoms exacerbated over the last month. Has noticed some discomfort over the last year. He states he had a flulike illness back in November. States the coughing causes increased pain right inguinal area. OTC medications none. History of umbilical hernia repair twice. Denies any dysuria frequency testicular pain scrotal swelling. No bulges in abdominal region. States standing for an extended period of time exacerbates pain rates pain 4-5 out of 10. States sitting he can find a comfortable position. Denies any fevers nausea or vomiting. No change in bowel or bladder habits. Past medical history prescription medications allergies reviewed .Patient presents with: right groin pain: X 1 month PAST MEDICAL HISTORY Diagnosis Date Coronary artery disease PAST SURGICAL HISTORY Procedure Laterality Date PAST SURGICAL HISTORY OF 10/05/1999 umbilical hernia repair-[facility]. STENT - CORONARY TONSILLECTOMY PRIMARY/SECONDARY <AGE 13 Tonsillectomy ALLERGIES Patient has no known allergies. MEDICATIONS rosuvastatin (CRESTOR) 10 mg tablet Take 1 tablet by mouth every other day. ADULT LOW DOSE ASPIRIN ORAL Adult Low Dose Aspirin Oral POTASSIUM ORAL potassium,chelated POTASSIUM 99 MG TABS One tablet by mouth daily as needed POTASSIUM [id number] Alyssa Ybarra PA-C 07-03-2014 [facility] ([id number]) History reviewed. No pertinent family history. Social History Tobacco Use Smoking status: Former Current packs/day: 0.00 Types: Cigarettes Start date: 10/05/1974 Quit date: 10/05/1981 Years since quittin.2 Smokeless tobacco: Never Substance Use Topics Alcohol use: Yes Comment: occasional Drug use: No BP 110/70 Pulse 71 Temp 36.6 C (97.8 F) (Tympanic) Resp 16 Wt 92.4 kg (203 lb 11.3 oz) SpO2 96% Review of Systems Constitutional: Negative for chills, fever and malaise/fatigue. HENT: Negative for congestion, ear discharge, ear pain, sinus pain and sore throat. Eyes: Negative for blurred vision, pain, discharge and redness. Respiratory: Negative for cough, hemoptysis, sputum production, shortness of breath, wheezing and stridor. Cardiovascular: Negative for chest pain. Gastrointestinal: Positive for abdominal pain. Negative for diarrhea, nausea and vomiting. Musculoskeletal: Negative for myalgias. Skin: Negative for itching and rash. Neurological: Negative for dizziness and headaches. Objective Physical Exam Constitutional: General: He is not in acute distress. Appearance: He is not toxic-appearing or diaphoretic. HENT: Head: Normocephalic. Jaw: No trismus, tenderness, swelling or pain on movement. Nose: Nose normal. Mouth/Throat: Mouth: Mucous membranes are moist. Pharynx: Oropharynx is clear. Uvula midline. No pharyngeal swelling, oropharyngeal exudate, posterior oropharyngeal erythema or uvula swelling. Eyes: Conjunctiva/sclera: Conjunctivae normal. Pupils: Pupils are equal, round, and reactive to light. Cardiovascular: Rate and Rhythm: Normal rate and regular rhythm. Heart sounds: Normal heart sounds. Pulmonary: Effort: Pulmonary effort is normal. No tachypnea, accessory muscle usage or respiratory distress. Breath sounds: Normal breath sounds. No stridor. No wheezing, rhonchi or rales. Abdominal: General: There is no distension. Palpations: Abdomen is soft. Tenderness: There is no abdominal tenderness. There is no guarding or rebound. Genitourinary: Testes: Right: Tenderness or swelling not present. Left: Tenderness or swelling not present. Epididymis: Right: Not enlarged. No tenderness. Left: Not enlarged. No tenderness. Musculoskeletal: Cervical back: Normal range of motion and neck supple. No edema, erythema, rigidity or tenderness. No pain with movement. Normal range of motion. Lymphadenopathy: Cervical: No cervical adenopathy. Skin: General: Skin is warm and dry. Neurological: General: No focal deficit present. Mental Status: He is alert and oriented to person, place, and time. ASSESSMENT/PLAN: 1. Groin pain, right - ICD9: 789.03, ICD10: R10.31 - CONSULT TO GENERAL SURGERY Diagnosed with right groin pain. Testicular exam unremarkable. No significant hernia noted on exam.Will refer to general surgery. Red flag ER evaluation discussed. Patient was educated on supportivetherapies. Patient will follow up with primary care provider as needed. Patient was instructed to immediately proceed to emergency room for any new, worsening, or symptoms lasting longer than anticipated. The patient's clinical presentation is otherwise unremarkable at this time. Based on exam and clinical finding, the patient is stable for discharge. Plan of care was discussed with patient. Patient verbalizes understanding and agrees to plan of care. This note was generated using H2020 software. It may contain errors in wording, punctuation, or spelling. Brown Bolton APRN.JAEL [facility] NoteHNO ID: [id number] Author: ABHISHEK FLORES MD Service: ? Author Type: Physician Type: Progress Notes Filed: 11/23/2024 18:37 Note Text: Patient presents with: Cough: Cough and chest congestion x 2 days HPI: Feeling sick since yesterday. His has been sick with an influenza-like illness and is improving. He is concerned he has bronchitis. Positive symptoms: cough (productive of green phlegm), Nasal Congestion, Rhinorrhea, Fever, Chills, Body Aches, Malaise, Fatigue, Negative symptoms: Shortness of breath, Wheezing, Chest pain, Headache, Nausea, Vomiting, Diarrhea, OTC: aspirin, benadryl Smoked for 7 years; quit 30 years ago. Denies history of COPD or asthma. He has had pneumonia in the past. PAST MEDICAL HISTORY Diagnosis Date Coronary artery disease PAST SURGICAL HISTORY Procedure Laterality Date PAST SURGICAL HISTORY OF 1999 umbilical hernia repair-[facility]. TONSILLECTOMY PRIMARY/SECONDARY Tonsillectomy MEDICATIONS: Current Outpatient Medications Medication Sig rosuvastatin (CRESTOR) 10 mg tablet Take 1 tablet by mouth every other day. ADULT LOW DOSE ASPIRIN ORAL Adult Low Dose Aspirin Oral POTASSIUM ORAL potassium,chelated POTASSIUM 99 MG TABS One tablet by mouth daily as needed POTASSIUM [id number] Alyssa Ybarra PA-C 07-03-2014 [facility] ([id number]) No current facility-administered medications for this visit. ALLERGIES: ALLERGIES No Known Allergies VITALS: BP 110/72 Pulse 84 Temp 37.4 ?C (99.4 ?F) (Tympanic) Resp 16 Wt 97.1 kg (214 lb 1.1 oz) SpO2 95% PHYSICAL EXAM: GEN: mildly ill appearing. Accompanied by his HEENT: PERRL, EOMI, conjunctiva clear Ears: canals clear. TMs without erythema, bulge, or effusion Sinuses: non-tender frontal sinus, non-tender maxillary sinuses Throat: moist mucous membranes, mild erythema, no exudate Neck: supple, no thyromegaly, no lymphadenopathy HEART: regular rate, regular rhythm, no murmurs LUNGS: clear to auscultation, no wheezes or crackles, no increased WOB ASSESSMENT/PLAN: 1. Influenza-like illness - ICD9: 487.1, ICD10: J11.1 (primary diagnosis) 2. Bronchitis - ICD9: 490, ICD10: J40 - suspect viral URI, influenza at is prevalent in the community. He is not interested in antiviral treatment and defers viral testing. - Discussed supportive care treatment which is reasonable: rest, mucinex DM, cold medicine, and analgesia. - Red flags to seek further treatment include chest pain, shortness of breath, and lethargy; in the ER if severe. Abhishek Flores, [facility]02-19-2025 History of Present illness Narrative* Abhishek Flores MD - 11/23/2024 6:18 PM EST Patient presents with: Cough: Cough and chest congestion x 2 days HPI: Feeling sick since yesterday. His has been sick with an influenza-like illness and is improving. He is concerned he has bronchitis. Positive symptoms: cough (productive of green phlegm), Nasal Congestion, Rhinorrhea, Fever, Chills,Body Aches, Malaise, Fatigue, Negative symptoms: Shortness of breath, Wheezing, Chest pain, Headache, Nausea, Vomiting, Diarrhea, OTC: aspirin, benadryl Smoked for 7 years; quit 30 years ago. Denies history of COPD or asthma. He has had pneumonia in the past. PAST MEDICAL HISTORY Diagnosis Date Coronary artery disease PAST SURGICAL HISTORY Procedure Laterality Date PAST SURGICAL HISTORY OF 1999 umbilical hernia repair-[facility]. TONSILLECTOMY PRIMARY/SECONDARY <AGE 13 Tonsillectomy MEDICATIONS: Current Outpatient Medications Medication Sig rosuvastatin (CRESTOR) 10 mg tablet Take 1 tablet by mouth every other day. ADULT LOW DOSE ASPIRIN ORAL Adult Low Dose Aspirin Oral POTASSIUM ORAL potassium,chelated POTASSIUM 99 MG TABS One tablet by mouth daily as needed POTASSIUM [id number] Alyssa Ybarra PA-C 07-03-2014 [facility] ([id number]) No current facility-administered medications for this visit. ALLERGIES: ALLERGIES No Known Allergies VITALS: BP 110/72 Pulse 84 Temp 37.4 C (99.4 F) (Tympanic) Resp 16 Wt 97.1 kg (214 lb 1.1 oz) SpO2 95% PHYSICAL EXAM: GEN: mildly ill appearing. Accompanied by his HEENT: PERRL, EOMI, conjunctiva clear Ears: canals clear. TMs without erythema, bulge, or effusion Sinuses: non-tender frontal sinus, non-tender maxillary sinuses Throat: moist mucous membranes, mild erythema, no exudate Neck: supple, no thyromegaly, no lymphadenopathy HEART: regular rate, regular rhythm, no murmurs LUNGS: clear to auscultation, no wheezes or crackles, no increased WOB ASSESSMENT/PLAN: 1. Influenza-like illness - ICD9: 487.1, ICD10: J11.1 (primary diagnosis) 2. Bronchitis - ICD9: 490, ICD10: J40 - suspect viral URI, influenza at is prevalent in the community. He is not interested in antiviral treatment and defers viral testing. - Discussed supportive care treatment which is reasonable: rest, mucinex DM, cold medicine, and analgesia. - Red flags to seek further treatment include chest pain, shortness of breath, and lethargy; in theER if severe. Abhishek Flores MD documented [facility] Evaluation note* Diagnosis Onset Date Resolution Status Hyperlipidemia chronic Presence of stent in coronary artery October, chronic [facility] Work Phone: [phone]) 251-505801-01-2022 Evaluation note* Diagnosis Onset Date Resolution Status Admit Date PAC (premature atrial contraction) acute March 01, 2025 7 :54am Hyperlipidemia chronic March 01, 2025 7:54am Presence of stent in coronar y artery October, chronic March 01, 2025 7 :54am [email or web address] Work Phone: Evaluation note* Diagnosis Influenza-like illness- Primary Influenza with other respiratory manifestations Bronchitis Bronchitis, not specified as acute or chronic documented in this encounter [facility] note* Diagnosis Groin pain, right- Primary documented in this encounter [facility] note* Diagnosis Bilateral inguinal hernia without obstruction or gangrene, recurrence not specified- Primary documented in this encounter [facility] note* Diagnosis Pre-op evaluation- Primary Preoperative examination, unspecified Coronary artery disease involving [place] coronary artery of [place] heart without angina pectoris Recent URI Bilateral inguinal hernia without obstruction or gangrene, recurrence not specified * Assessment & Plan Note - Tere Rodriguez PA-C - 12/15/2024 11:30 AM EDT Associated Problem(s): Recent URI Had influenza-like illness, saw PCP 11/23/24. Had symptoms of fever, productive cough, nasal congestion, body aches, fatigue. Was not prescribed any antibiotics or antivirals. States symptoms have improved, has residual occasional productive cough. No acute respiratory distress noted on VV, surgeon noted lungs CTA on exam on 12/13. * Assessment & Plan Note - Tere Rodriguez PA-C - 12/15/2024 11:18 AM EDT Associated Problem(s): CAD (coronary artery disease) History of heart stent x2- first in 2012, second was about 2 years ago. On ASA, statin. METS >5 without chest pain or SOB. Follows with cardiology at [facility]- last visit about 6 months ago. Denies new or worsening symptoms. [facility]* Diagnosis Pre-op evaluation- Primary Preoperative examination, unspecified Coronary artery disease involving [place] coronary artery of [place] heart without angina pectoris Recent URI Type 2 diabetes mellitus with hyperglycemia, without long-term current use of insulin (HCC) Subacute cough- Primary Cough Subacute cough Cough documented in this encounter [facility] note* Diagnosis Pre-op evaluation- Primary Preoperative examination, unspecified Coronary artery disease involving [place] coronary artery of [place] heart without angina pectoris Recent URI Type 2 diabetes mellitus with hyperglycemia, without long-term current use of insulin (HCC) Subacute cough Cough documented in this encounter [facility] note* Diagnosis Pre-op evaluation- Primary Preoperative examination, unspecified Coronary artery disease involving [place] coronary artery of [place] heart without angina pectoris Recent URI Type 2 diabetes mellitus with hyperglycemia, without long-term current use of insulin (HCC) New onset type 2 diabetes mellitus (HCC)- Primary Non-recurrent bilateral inguinal hernia without obstruction or gangrene documented in this encounter [facility] note* Diagnosis Pre-op evaluation- Primary Preoperative examination, unspecified Coronary artery disease involving [place] coronary artery of [place] heart without angina pectoris Recent URI Type 2 diabetes mellitus with hyperglycemia, without long-term current use of insulin (HCC) Type 2 diabetes mellitus with hyperglycemia, without long-term current use of insulin (HCC)- Primary documented in this encounter [facility] note* Diagnosis Pre-op evaluation- Primary Preoperative examination, unspecified Coronary artery disease involving [place] coronary artery of [place] heart without angina pectoris Recent URI Type 2 diabetes mellitus with hyperglycemia, without long-term current use of insulin (HCC) Type 2 diabetes mellitus with hyperglycemia, without long-term current use of insulin (HCC)- Primary documented in this encounter [facility] note* Diagnosis Pre-op evaluation- Primary Preoperative examination, unspecified Coronary artery disease involving [place] coronary artery of [place] heart without angina pectoris Recent URI Type 2 diabetes mellitus with hyperglycemia, without long-term current use of insulin (HCC) Type 2 diabetes mellitus with hyperglycemia, without long-term current use of insulin (HCC)- Primary documented in this encounter [facility] note* Diagnosis Pre-op evaluation- Primary Preoperative examination, unspecified Coronary artery disease involving [place] coronary artery of [place] heart without angina pectoris Recent URI Type 2 diabetes mellitus with hyperglycemia, without long-term current use of insulin (HCC) Type 2 diabetes mellitus with hyperglycemia, without long-term current use of insulin (HCC)- Primary documented in this encounter [facility] for referral (narrative)No reason for referral information availableSelect [facility] Work Phone: Chief Complaint and Reason for Visit Chief Complaint Admit Date 6 M FU March 01, 2025 7:54a m CORONARY GRAFT March 14, 2025 12:4 3pm Reason for Visit Admit Date PAC (premature atrial contraction) February 032024 7:54am Hyperlipidemia March 01, 2025 7:54a m Presence of stent in coronary artery March 01, 2025 7:54am Chief Complaint 6 M FU Reason for Visit Hyperlipidemia Presence of stent in coronary artery Chief Complaint 6 M FU laceration, work injury Reason for Visit Hyperlipidemia Presence of stent in coronary artery Chief Complaint Admit Date 6 M FU March 01, 2025 7:54a m Family History No Family History Records Found Relationship Condition Age at Onset Recorded Date/T vahe mother Coronary artery disease Unknown Congestive heart failure Unknown father Coronary artery disease Unknown Malignant neoplasm Unknown brother Diabetes mellitus Unknown Advance Directives No Advanced Directives Records Found Advance Directive Response Recorded Date/ Time Advance Directives Yes October 22, 2021 10:51am Living Will Yes October 22 10:51am Power of Grants Assistant Yes October 22, 2021 10:51am Advance Directive Response Recorded Date/ Time Advance Directives Yes October 22, 2021 9:51am Living Will Yes October 22 9:51am Power of Grants Assistant Yes October 22, 2021 9:51am Advance Directive Response Recorded Date/ Time Advance Directives Yes October 22, 2021 9:51am Living Will No October 16 10:08pm Power of Grants Assistant No October 16, 2023 10:08pm Advance Directive Response Recorded Date/ Time Living Will No October 16 11:08pm Do you have a Healthcare Power of Grants Assistant? No October 16, 2023 11:08pm Advance Directives Yes October 22, 2021 10:51am Summary Purpose Additional Source Comments Care Teams (unrecognized sec tion and content) Team Status: Active Member Role Status Dates No Primary Care Physician Family Provider Active No Primary Care Physician Primary Care Provider Active Team Status: Inactive Member Role Status Dates No Primary Care Physician Primary Care Provider, Refer ring Provider Active SHANNAN Potter Attending Provider Active Team Status: Inactive Member Role Status Dates No Primary Care Physician Primary Care Provider Active SHANNAN Potter Attending Provider, Referr ing Provider Active Team Status: Inactive Member Role Status Dates No Primary Care Physician Primary Care Provider Active Dr. Amol Jones , DO Emergency Provider Active Head Of Conservation Relationship Specialty Start Date End Date Irma Dawn MD [address] [facility] [place] [address] PCP - General Family Medicine 12/22/24 Head Of Conservation Relationship Specialty Start Date End Date Irma Dawn MD [address] [facility] [place] [address] PCP - General Family Medicine 12/22/24 Head Of Conservation Relationship Specialty Start Date End Date Irma Dawn MD [address] [facility] [place] [address] PCP - General Family Medicine 12/22/24 Nava Ram, formerly [facility] [address] [place] [address] Pharmacist Pharmacy 01/05/25 Head Of Conservation Relationship Specialty Start Date End Date Irma Dawn MD [address] [facility] [place] [address] PCP - General Family Medicine 12/22/24 Nava Ram, formerly [facility] [address] [place] [address] Pharmacist Pharmacy 01/05/25 Head Of Conservation Relationship Specialty Start Date End Date Irma Dawn MD [address] [facility] [address] [place], [place] [id number] PCP - General Family Medicine 12/22/24 [facility] [address] [place] [address] Pharmacist Pharmacy 01/05/25 Team Status: Inactive Member Role Status Dates No Primary Care Physician Primary Care Provider Active Start: March 01, 2025 End: March 01, 2025 No Primary Care Physician Referring Provider Active Start: March 01, 2025 End: March 01, 2025 Alyssa CAMPBELL, PA Attending Provider Active Start: March 01, 2025 End: March 01, 2025 Head Of Conservation Relationship Specialty Start Date End Date Irma Dawn MD [address] [facility] [place] [address] PCP - General Family Medicine 12/22/24 [facility] [address] [place] [address] Pharmacist Pharmacy 01/05/25 Emigdio Marsh APRN.GUM DIPPER [address] [facility] [place] [address] Network/Telecom Engineer Internal Medicine 02/15/25 Head Of Conservation Relationship Specialty Start Date End Date Irma Dawn MD [address] [facility] [place] [address] PCP - General Family Medicine 12/22/24 [facility] [address] [place] [address] Pharmacist Pharmacy 01/05/25 Emigdio Marsh TECHNOLOGIST INFECTIOUS DISEASE.GUM DIPPER [address] [facility] [place] [address] Network/Telecom Engineer Internal Medicine 02/15/25 Head Of Conservation Relationship Specialty Start Date End Date Irma Dawn MD [address] [facility] [address] [place], [place] [address] PCP - General Family Medicine 12/22/24 Nava Ram, formerly [facility] [address] [place] [address] Pharmacist Pharmacy 01/05/25 Emigdio Marsh APRN.GUM DIPPER [address] [facility] [address] [place], [place] [address] Network/Telecom Engineer Internal Medicine 02/15/25 Head Of Conservation Relationship Specialty Start Date End Date Irma Dawn MD [address] [facility] [address] [place], [place] [id number] PCP - General Family Medicine 12/22/24 Conrad Ramta, formerly [facility] [address] [place] [address] Pharmacist Pharmacy 01/05/25 Emigdio Marsh, ADALBERTO.GUM DIPPER [address] [facility] [facility] [facility] [address] [place], [place] [address] Network/Telecom Engineer Internal Medicine 02/15/25 Team Status: Active Member Role Status Dates Dr. Brown Dawn MD Primary Care Provider Active Team Status: Inactive Member Role Status Dates Dr. Brown Dawn MD Primary Care Provider Active Start: March 14, 2025 End: March 14, 2025 Alyssa CAMPBELL, PA Attending Provider Active Start: March 14, 2025 End: March 14, 2025 Alyssa CAMPBELL, PA Referring Provider Active Start: March 14, 2025 End: March 14, 2025 Head Of Conservation Relationship Specialty Start Date End Date Irma Dawn MD [address] [facility] [address] [place], [place] [id number] PCP - General Family Medicine 12/22/24 Nava Ram, formerly [facility] [address] [place] [address] Pharmacist Pharmacy 01/05/25 Emigdio Marsh APRN.GUM DIPPER [address] [facility] [place] [address] Network/Telecom Engineer Internal Medicine 02/15/25 Head Of Conservation Relationship Specialty Start Date End Date Irma Dawn MD [address] [facility] [place] [address] PCP - General Family Medicine 12/22/24 [facility] [address] [place] [address] Pharmacist Pharmacy 01/05/25 Emigdio Marsh TECHNOLOGIST INFECTIOUS DISEASE.GUM DIPPER [address] [facility] [place] [address] Network/Telecom Engineer Internal Medicine 02/15/25 Head Of Conservation Relationship Specialty Start Date End Date Irma Dawn MD [address] [facility] [place] [address] PCP - General Family Medicine 12/22/24 Nava Ram, formerly [facility] [address] [place] [address] Pharmacist Pharmacy 01/05/25 Emigdio Marsh TECHNOLOGIST INFECTIOUS DISEASE.GUM DIPPER [address] [facility] [place] [address] Network/Telecom Engineer Internal Medicine 02/15/25 Head Of Conservation Relationship Specialty Start Date End Date Irma Dawn [address] [facility] [place] [address] PCP - General Family Medicine 04/27/25 Goals (unrecognized section and content) Goals may be documented in a n alternate sectionGoals may be documented in an alternate sectionGoals may be documented in an alternate sectionGoals may be documented in an alternate sectionGoals may be documented in an alternate section Source Comments (unrecognize d section and content) In the event this informatio n is protected by the Federal Confidentiality of Alcohol and Drug Abuse Patient Records regulations: The Federal rules restrict any use of the information to criminally investigate or prosecute any alcohol or drug abuse patient.[facility] the event this information is protected by the Federal Confidentiality of Alcohol and Drug Abuse Patient Records regulations: The Federal rules restrict any use of the information to criminally investigate or prosecute any alcohol or drug abuse patient.[facility] the event this information is protected by the Federal Confidentiality of Alcohol and Drug Abuse Patient Records regulations: The Federal rules restrict any use of the information to criminally investigate or prosecute any alcohol or drug abuse patient.[facility] the event this information is protected by the Federal Confidentiality of Alcohol and Drug Abuse Patient Records regulations: The Federal rules restrict any use of the information to criminally investigate or prosecute any alcohol or drug abuse patient.[facility] the event this information is protected by the Federal Confidentiality of Alcohol and Drug Abuse Patient Records regulations: The Federal rules restrict any use of the information to criminally investigate or prosecute any alcohol or drug abuse patient.[facility] the event this information is protected by the Federal Confidentiality of Alcohol and Drug Abuse Patient Records regulations: The Federal rules restrict any use of the information to criminally investigate or prosecute any alcohol or drug abuse patient.[facility] the event this information is protected by the Federal Confidentiality of Alcohol and Drug Abuse Patient Records regulations: The Federal rules restrict any use of the information to criminally investigate or prosecute any alcohol or drug abuse patient.[facility] the event this information is protected by the Federal Confidentiality of Alcohol and Drug Abuse Patient Records regulations: The Federal rules restrict any use of the information to criminally investigate or prosecute any alcohol or drug abuse patient.[facility] the event this information is protected by the Federal Confidentiality of Alcohol and Drug Abuse Patient Records regulations: The Federal rules restrict any use of the information to criminally investigate or prosecute any alcohol or drug abuse patient.[facility] the event this information is protected by the Federal Confidentiality of Alcohol and Drug Abuse Patient Records regulations: The Federal rules restrict any use of the information to criminally investigate or prosecute any alcohol or drug abuse patient.[facility] the event this information is protected by the Federal Confidentiality of Alcohol and Drug Abuse Patient Records regulations: The Federal rules restrict any use of the information to criminally investigate or prosecute any alcohol or drug abuse patient.[facility] the event this information is protected by the Federal Confidentiality of Alcohol and Drug Abuse Patient Records regulations: The Federal rules restrict any use of the information to criminally investigate or prosecute any alcohol or drug abuse patient.[facility] the event this information is protected by the Federal Confidentiality of Alcohol and Drug Abuse Patient Records regulations: The Federal rules restrict any use of the information to criminally investigate or prosecute any alcohol or drug abuse patient.[facility]In the event this information is protected by the Federal Confidentiality of Alcohol and Drug Abuse Patient Records regulations: The Federal rules restrict any use of the information to criminally investigate or prosecute any alcohol or drug abuse patient.[facility] the event this information is protected by the Federal Confidentiality of Alcohol and Drug Abuse Patient Records regulations: The Federal rules restrict any use of the information to criminally investigate or prosecute any alcohol or drug abuse patient.[facility] the event this information is protected by the Federal Confidentiality of Alcohol and Drug Abuse Patient Records regulations: The Federal rules restrict any use of the information to criminally investigate or prosecute any alcohol or drug abuse patient.[facility] HospitalIn the event this information is protected by the Federal Confidentiality of Alcohol and Drug Abuse Patient Records regulations: The Federal rules restrict any use of the information to criminally investigate or prosecute any alcohol or drug abuse patient.[facility] HospitalIn the event this information is protected by the Federal Confidentiality of Alcohol and Drug Abuse Patient Records regulations: The Federal rules restrict any use of the information to criminally investigate or prosecute any alcohol or drug abuse patient.[facility] HospitalIn the event this information is protected by the Federal Confidentiality of Alcohol and Drug Abuse Patient Records regulations: The Federal rules restrict any use of the information to criminally investigate or prosecute any alcohol or drug abuse patient.[facility] HospitalIn the event this information is protected by the Federal Confidentiality of Alcohol and Drug Abuse Patient Records regulations: The Federal rules restrict any use of the information to criminally investigate or prosecute any alcohol or drug abuse patient.[facility] HospitalIn the event this information is protected by the Federal Confidentiality of Alcohol and Drug Abuse Patient Records regulations: The Federal rules restrict any use of the information to criminally investigate or prosecute any alcohol or drug abuse patient.[facility] HospitalIn the event this information is protected by the Federal Confidentiality of Alcohol and Drug Abuse Patient Records regulations: The Federal rules restrict any use of the information to criminally investigate or prosecute any alcohol or drug abuse patient.[facility] HospitalIn the event this information is protected by the Federal Confidentiality of Alcohol and Drug Abuse Patient Records regulations: The Federal rules restrict any use of the information to criminally investigate or prosecute any alcohol or drug abuse patient.[facility] HospitalIn the event this information is protected by the Federal Confidentiality of Alcohol and Drug Abuse Patient Records regulations: The Federal rules restrict any use of the information to criminally investigate or prosecute any alcohol or drug abuse patient.[facility] HospitalIn the event this information is protected by the Federal Confidentiality of Alcohol and Drug Abuse Patient Records regulations: The Federal rules restrict any use of the information to criminally investigate or prosecute any alcohol or drug abuse patient.[facility] HospitalIn the event this information is protected by the Federal Confidentiality of Alcohol and Drug Abuse Patient Records regulations: The Federal rules restrict any use of the information to criminally investigate or prosecute any alcohol or drug abuse patient.[facility] HospitalIn the event this information is protected by the Federal Confidentiality of Alcohol and Drug Abuse Patient Records regulations: The Federal rules restrict any use of the information to criminally investigate or prosecute any alcohol or drug abuse patient.[facility] HospitalIn the event this information is protected by the Federal Confidentiality of Alcohol and Drug Abuse Patient Records regulations: The Federal rules restrict any use of the information to criminally investigate or prosecute any alcohol or drug abuse patient.[facility] HospitalIn the event this information is protected by the Federal Confidentiality of Alcohol and Drug Abuse Patient Records regulations: The Federal rules restrict any use of the information to criminally investigate or prosecute any alcohol or drug abuse patient.[facility] HospitalIn the event this information is protected by the Federal Confidentiality of Alcohol and Drug Abuse Patient Records regulations: The Federal rules restrict any use of the information to criminally investigate or prosecute any alcohol or drug abuse patient.[facility] Reason for Visit (unrecogniz ed section and content) Reason Comments Cough Cough and chest kristopher estion x 2 days Reason Comments right groin pain X 1 month Reason Comments Consult Groin Pain Specialty Diagnoses / Procedures Referred By Kevin martinez Referred To Contact General Surgery Diagnoses Groin pain, right Procedures CONSULT TO GENERAL SURGERY OFFICE/OUTPATIENT [facility] MDM 60 MINUTES Brown Bolton APRN.GUM DIPPER [address] [place] [address] Phone: tel: fax: Referral ID Status Reason Start Date Expiration Date V isits Requested Visits Authorized [id number] Closed PCP Requested Referral 12/12/2024 12/12/2025 1 1 Reason Comments Pre-Op Visit Reason Comments PACC Received outside [email or web address] records Reason Comments PreOp Call Add on A1C Reason Comments Pre-Op Update Reason Comments Chest Congestion cough x 1 month afte r flu dx Reason Onset Date Comments Results 12/21/2024 Reason Comments Establish Care Elevated A1c Reason Onset Date Comments paperwork for [facility] 12/23/2024 Reason Comments Diabetes Reason Comments Received Outside Medical Records [facility] Short Term disability 01/31/2025 Reason Comments Results A1C Reason Comments Received Outside Medical Records [facility] Reason Comments Diabetes Reason Onset Date Comments per daughter medication and hernia issues 2024 Reason Comments Received Outside Medical Records [facility] Request for office notes, treatment plans from 02/16/2025 - present. 04/20/2025 (unrecognized sect ion and content) No Status Records FoundNo Status Records FoundNo Status Records Found INFORMATION SOURCE (unrecogn ized section and content) DATE CREATED AUTHOR 04/24/[address] [facility] DATE CREATED AUTHOR AUTHOR'S ORGANIZ ATION 04/29/2025 [facility] DATE CREATED AUTHOR AUTHOR'S ORGANIZ ATION 04/29/2025 [facility] FOR RECORDS PERTAINING TO PATIENTS WHO ARE [...] BE BASED ON THE PRIMARY CLINICAL RECORDS. [facility]. provides no warranty or guarantee of the accuracy or completeness of information in this document.
--- NOTE | 2025-05-01 14:15 | STRESSREP_ITS ---
Stress Test Report Date: 05/01/2025 Procedure: Exercise tolerance test/imaging study Indications: Coronary artery disease Consent: Per the patient Procedure: The patient exercised on a Salvador protocol for 6 minutes achieving a peak heart rate of 146 bpm (96% predicted maximal heart rate) with a peak blood pressure 168/79 mmHg and a peak MET capacity of 7.0 METs. The baseline ECG demonstrated sinus rhythm. The peak exercise ECG showed good chronotropic response with no ischemic changes. Occasional PVCs noted during exercise. The functional capacity was considered good for age. No chest pain was reported. The examination was discontinued secondary to target heart rate being achieved. The patient was injected with 14.1 mCi of technetium 99m Cardiolite and subsequently rest SPECT Cardiolite nuclear imaging was obtained in the horizontal long, vertical long, and short axis views. Post-exercise, the patient was injected with 43.8 mCi of technetium 99m Cardiolite and subsequently stress SPECT Cardiolite nuclear imaging was obtained in the horizontal long, vertical long, and short axis views. A gated Cardiolite study at peak stress was obtained. Rest and stress SPECT Cardiolite nuclear imaging status post realignment, normalization, and attenuation correction, demonstrates mildly reduced perfusion of the septum and inferior wall suggestive of mild inferoseptal ischemia. There is end systolic thickening and brightening. The gated Cardiolite study demonstrates myocardial thickening and inward wall motion. The reported LVEF is 60%. Impression: 1. Technically adequate (percent predicted maximal heart rate greater than 85%) exercise tolerance test 2. Peak exercise ECG with no ischemic changes. No angina reported 3. Occasional PVCs noted 4. Rest and stress SPECT Cardiolite nuclear imaging demonstrate mild inferior and septal ischemia. 5. The gated Cardiolite study reports an LVEF of 60%. This note was generated with Vator.TVation software. It may contain incorrect words, spelling, and punctuation that were not noted in checking the note before signing.
== END 2025-05-01 23:59 | disposition home or self-care (01) ==
LOC: CVS 06:53
PROVIDERS: PCP Family Medicine; Referring Provider Physician Assistant Medical; Visit Provider Physician Assistant Medical
DX: I25.10 Atherosclerotic heart disease of native coronary artery without angina pectoris (principal)
CPT/HCPCS: 78452; 93017; A9500; A4216

== ENCOUNTER 2025-05-11 08:10 | Day surgery (SDC) | payer BC, SELFPAY ==
--- NOTE | 2025-05-04 16:07 | RAD_ITS ---
PROCEDURE: CHEST PA AND LATERAL 05/04/2025 REASON FOR EXAM: CP TECHNIQUE: CHEST PA AND LATERAL COMPARISON: 10/15/2021 FINDINGS: Normal heart size. Status post coronary artery stenting. Well inflated lungs. No consolidation, effusion, or pneumothorax. RAD/Chest PA and Lateral IMPRESSION: No acute chest findings. Reading Location: [facility]-
[2025-05-04 16:36] LABS: Hematocrit 38.8 % (40-54); Hemoglobin 13.3 g/dL (13.0-16.5); Immature Granulocytes Count 0.010 X10^3/uL (0.0-0.0); Mean Corp Hgb Conc 34.3 g/dL (32-36); Mean Corpuscular Volume 86.4 fL (80-94); Mean Platelet Vol. 10.0 fl (6.2-12.0); NRBC Flagged by Analyzer 0 % (0-5); Platelet Count 219 K/mm3 (150-450); RBC Distribution Width CV 13.2 % (11.6-14.6); RBC Distribution Width SD 41.5 fl (35.1-43.9); Red Blood Count 4.49 M/mm3 (4.6-6.2); White Blood Count 6.6 K/mm3 (4.4-11.0)
[2025-05-04 17:52] LABS: AST(SGOT) 24 U/L (<=37); Alanine Aminotransfer ALT/SGPT 27 U/L (<=46); Albumin, Serum 4.2 g/dL (3.4-4.8); Alkaline Phosphatase 74 U/L (40-129); Anion Gap 14 (5-15); BUN 11 mg/dL (4-19); BUN/Creat Ratio 18.0 RATIO (10-20); Bilirubin, Direct 0.16 mg/dL (0.00-0.30); Calcium,Total 9.1 mg/dL (7.6-11.0); Carbon Dioxide 22.0 mmol/L (21.0-32.0); Chloride 102 mmol/L (98-108); Cholesterol 139 mg/dL (<=200); Globulin 2.4 g/dL (2.2-4.2); Glucose 176 mg/dL (70-99); Low Density Lipoprotein Calc. 73 mg/dL; Potassium 4.2 mmol/L (3.3-5.1); Triglycerides 106 mg/dL; Very Low Density Lipoprotein 21 mg/dL (5-40); cholesterol:hdl ratio screen 3.12
[2025-05-04 19:40] LABS: Prothrombin Time (Protime)PT. 13.2 SECONDS (11.7-14.9)
[2025-05-04 19:45] LABS: Partial Thromboplast Time 28.9 Seconds (24.1-36.2)
--- NOTE | 2025-05-05 15:11 | HP.PCM_ITS ---
History and Physical Date of Admission: 05/11/25 Demar Kearns, is a 69 year-old gentleman with a history of coronary artery disease with stenting to his LAD in 2012 and hyperlipidemia. He presented to our office at the end of 2020 with decreased exercise tolerance and chest discomfort. He did undergo a heart catheterization and did require stenting of his high OM 1 which was subtotally occluded. Pt was recently diagnosed with Diabetes and a hernia. He underwent a stress test which demonstrated h mild inferior and septal wall ischemia. This was due to his upcoming hernia surgery. He is here today to undergo a diagnostic heart catheterization. [facility] Medical History (Updated 03/01/25 @ 08:54 by Alyssa CAMPBELL PA) PAC (premature atrial contraction) Atherosclerotic heart disease of [place] coronary artery without angina pectoris Hyperlipidemia Surgical History Presence of stent in coronary artery (~10/22/21) Family History Mother CAD (coronary artery disease) CHF (congestive heart failure) Father CAD (coronary artery disease) Cancer Brother Diabetes Social History Smoking Status: Former smoker how long ago did patient quit smokin alcohol intake: current alcohol intake frequency: a few times a month Alcohol type: beer substance use type: does not use caffeine: Yes Type: tea what type of physical activity do you participate in: running frequency: 3-4 times per week duration: 30-45 minutes/day seatbelt use: always do you feel safe at home: Yes ROS Const Const: Negative for fatigue or weakness Eyes Eyes: Negative for change in vision ENT ENT: Negative for dizziness or balance problems Cardio Chest Pain: No Palpitations: No Edema: None Resp Respiratory: Negative for SOB with activity, SOB at rest or SOB orthopnea\SOB lying down GI GI: Negative nausea or heartburn Musc Musc: Negative for balance problems Neuro Neuro: Negative for dizziness, lightheadedness, near syncope, syncope or weakn ess Endo Endo: Negative for fatigue Cardiology Exam Const Appearance: cooperative, healthy appearing, comfortable, no acute distress and well developed Orientation: alert, awake and oriented x3 Head Head: normal to inspection Ears: hearing grossly normal bilaterally Nose: external nose normal Face and Sinus: face symmetric Mouth: oral mucosae normal, lip normal and moist mucous membranes Eyes General: appearance normal, both eyes and all related structures Eyelids: eyelids normal Conjunctivae: conjunctivae normal Pupils: PERRL EOM: EOM intact bilaterally Neck Neck: normal visual inspection and trachea midline; Negative no JVD Carotids: Negative bruit Chest Chest inspection: normal inspection of the chest Auscultation: Bilateral: Clear to Auscultation Cardio Palpation: normal PMI Rate: regular rate Rhythm: regular rhythm Heart sounds: S1 normal and S2 normal; Negative rub, gallop or murmur GI GI: soft, no hepatosplenomegaly and bowel sounds present Neuro General: patient alert, patient awake, patient oriented x3 and CN's II-XI intact bilaterally Extremities Pulses: Normal: Right Posterior Tibial Pulse, Left Posterior Tibial Pulse, Right Radial Pulse and Left Radial Pulse Lower Extremity Edema: None: Bilateral Psych Psychological: normal affect Supplemental Info Supplemental Information EXERCISE TOLERANCE TEST: 07-06-2014 The patient exercised on a Salvador protocol for 7 minutes 45 seconds completing stage 2 and 1 minute 45 seconds of stage 3 achieving a peak heart rate of 173 beats per minute (106% predicted maximum heart rate) and a peak blood pressure of 176/70 mmHg and a peak MET capacity of approximately 9 METS. The baseline ECG demonstrated sinus bradycardia. The peak exercise ECG demonstrated somatic/motion artifact with [id number] ST segment variability with approximately 1 mm of horizontal/upsloping ST-segment depression in leads II, III, aVF, and V4 through V6 with resolution towards baseline beginning less than 1 minute into recovery. There were no cardiac dysrhythmias pretest, during exercise, or recovery. The functional capacity was considered average. The patient had no complaint of chest discomfort during exercise or recovery. The examination was discontinued secondary to dyspnea. IMPRESSION: 1. Technically adequate (percent predicted maximum heart rate greater than 85%) exercise tolerance test. 2. Peak exercise ECG with somatic/motion artifact with [id number] ST-segment variability with approximately 1 mm of horizontal/upsloping ST-segment depression in leads II, III, aVF and V4 through V6 with resolution towards baseline beginning less than 1 minute into recovery. 3. Nuclear images pending. MYOCARDIAL PERFUSION IMAGING STUDY: TECHNIQUE: The patient was injected with 14.4 mCi of Tc99m Cardiolite and subsequently rest SPECT Cardiolite nuclear imaging was obtained in the horizontal long, vertical long, and short axes views. The patient exercised on a Salvador protocol for 7 minutes 45 seconds achieving a peak heart rate of 173 beats per minute (106% predicted maximum heart rate) with a peak blood pressure of 176/70 mmHg and a peak MET capacity of 9 METS. The patient was injected with 44.5 mCi of Tc99m Cardiolite and subsequently stress SPECT Cardiolite nuclear imaging was obtained in the horizontal long, vertical long, and short axes views. A gated Cardiolite study at peak stress was obtained. INTERPRETATION: Rest and stress SPECT Cardiolite nuclear imaging demonstrate an area, at rest, of extracardiac/hepatic and gastrointestinal tracer uptake near the inferior segments. This is less prominent following stress. Rest and stress SPECT Cardiolite nuclear imaging both demonstrate areas of diminished tracer uptake in the basal inferoseptal and basal inferior segments without significant change. Otherwise, there appears to be relative uniform tracer uptake. There was end systolic thickening and brightening. The gated Cardiolite study demonstrates myocardial thickening and inward wall motion. The reported LVEF was 58%. The aforementioned changes appear compatible with the effects of soft tissue attenuation/artifact and gastrointestinal tracer uptake/detraction with no myocardial perfusion changes considered diagnostic for stress induced myocardial ischemia or previous myocardial injury/infarction. IMPRESSION: 1. Rest and stress SPECT Cardiolite nuclear imaging demonstrate myocardial pe rfusion changes appearing compatible with the effects of soft tissue attenuation/artifact and gastrointestinal tracer uptake/detraction with no myocardial perfusion changes considered diagnostic for stress induced myocardial ischemia or previous myocardial injury/infarction. 2. The gated Cardiolite study reports an LVEF of 58%. Cardiac Cath 10/22/2021: Elevated Left Ventricular End Diastolic Pressure Normal LV size, wall motion,and systolic function LVEF: by LV gram 55 % [place] Multivessel CAD LAD: stent: patent RECOMMENDATIONS Risk factor modification Medical therapy Referred for immediate PCI CORONARY ANGIOGRAPHY DOMINANCE: Right Dominant LEFT HEART ASSESSMENT Left Ventricular Ejection Fraction: by LV Gram 55 % Normal LV wall motion Elevated Left Ventricular End Diastolic Pressure LVEDP: 19 mmHg LEFT MAIN: Angiographically normal LEFT ANTERIOR DESCENDING ARTERY: PROX LAD: Previously placed stent is patent CIRCUMFLEX ARTERY: PROX CIRC: eccentric: 25 % Stenosis RAMUS: lon % Stenosis RIGHT CORONARY ARTERY: Mild luminal irregularities less than 30% MID RCA: diffuse: eccentric: 25 % Stenosis DISTAL RCA: diffuse: eccentric: 25 % Stenosis AORTIC ROOT: Angiographically normal PCI: PCI cardiac cath report; 1. Successful PCI of subtotal high OM1 with predilatation followed by placement of drug-eluting stent 2.5 x 30 mm DSE/Orsiro Postdilated with 3 x 20 mm NC balloon. With reduction of stenosis from 99% to 0% And achievement of LANDY-3 flow from prior LANDY I flow. Assessment & Plan Assessment/Plan (1) Abnormal stress test: (2) Presence of stent in coronary artery: (3) Hyperlipidemia: QUALIFIERS: Hyperlipidemia type: unspecified Qualified Code(s): E78.5 - Hyperlipidemia, unspecified PLAN: Plan With his abnormal stress test and his upcoming surgery we will proceed with a diagnostic heart catheterization. Follow-up will be based upon findings.
[2025-05-10 08:51] VITALS: BMI 24.7
--- NOTE | 2025-05-15 09:48 | CL.D_ITS ---
Patient Name: STONEY PEACOCK Study Date: 05/11/2025 Performing: Jcarlos Main MD Ht: 74 inches 187.96 cm : 1955 Wt: 193.2 lbs 87.54 kg Age: 69 Gender: male BSA: 2.14 PROCEDURE(S) PERFORMED [id number])[facility] CLINICAL PROFILE AND INDICATIONS Indications: Suspected CAD Heart Failure: None Stress/Imaging Date: 03/22/25 CAD Presentations: Stable angina. CONCLUSIONS Known coronary artery disease with no high-grade stenosis noted in the LAD or circumflex artery. Mild disease noted in the right coronary artery. RECOMMENDATIONS Medical therapy DESCRIPTION OF PROCEDURE The patient arrived to the procedure lab. The risks and benefits of the procedure as well as a full description of our services here and current unavailability of surgical backup were fully explained to the patient and/or their significant other prior to the catheterization. The Timeout was completed, verifying the correct patient and procedure. The patient's procedural site was prepped and draped in the usual fashion. Local anesthetic was given subcutaneously to right radial region with Lidocaine 2%. Using a modified Seldinger technique, arterial access was obtained via the right ulnar artery, a 6Fr sheath was inserted. Right Coronary Artery selective angiography was then performed in multiple views using a 5 Fr. JR 5 catheter.The arterial sheath was pulled and a TR Band was applied for hemostasis CORONARY ANGIOGRAPHY DOMINANCE: Right Dominant LEFT HEART ASSESSMENT Left Ventricular Ejection Fraction: by LV Gram 60 % Normal LV wall motion Normal Left Ventricular systolic function LEFT MAIN: Mild calcification LEFT ANTERIOR DESCENDING ARTERY: The left anterior descending artery was previously stented is noted to be patent with minimal in-stent stenosis. There is diagonal branch has mild disease. CIRCUMFLEX ARTERY: Circumflex artery is a nondominant vessel with a first prominent obtuse marginal branch which was previously angioplastied and stented. There is 30 to 40% residual stenosis noted but otherwise LANDY-3 flow and no high-grade distal stenosis. RIGHT CORONARY ARTERY: Dominant right coronary artery with proximal 30 to 40% stenosis mid segment 30% stenosis and distal diffuse disease present. COMPLICATIONS No Complications PROCEDURE MEDICATIONS Versed 1 mg IV Fentanyl 50 mcg IV Versed 1 mg IV Oxygen: 2 L/min via nasal cannula Heparin given IA 05/11/2025 09:51:48 Verapamil 2.5mg, Ntg 100mcgs, 3000 units of Heparin given IA 05/11/2025 09:51:48 SUMMARY OF HEMODYNAMIC DATA Time AIR REST ECG 08:28:04 AO 113/73 (91) SA 09:53:22 Signed By Jcarlos Main MD On 05/11/2025 14:57:53 Jcarlos Main MD
== END 2025-05-11 11:45 | disposition home or self-care (01) ==
PROVIDERS: Physician Assistant Medical; PCP Family Medicine; Referring Provider Internal Medicine Cardiovascular Disease; Visit Provider Internal Medicine Cardiovascular Disease
DX: R94.39 Abnormal result of other cardiovascular function study (principal); I25.10 Atherosclerotic heart disease of native coronary artery without angina pectoris; Z95.5 Presence of coronary angioplasty implant and graft; E78.5 Hyperlipidemia, unspecified; Z82.49 Family history of ischemic heart disease and other diseases of the circulatory system; Z87.891 Personal history of nicotine dependence
CPT/HCPCS: 36415; 71046; 80048; 80061; 80076; 85025; 85610; 85730; 93454; 99152; 99153; Q9967; C1769; C1894